=== PATIENT | female | born 1955 | race Caucasian/White ===

== ENCOUNTER 2019-07-02 23:15 | Emergency (ER) | payer MEDICARE ==
[~2019-07-02] VITALS: Ht 170.2 cm; Wt 86.2 kg
[~2019-07-02 23:15] MED LIST: CITA-73; DIAZ10TA3; GABA300C10; LEVO100T8; NAPR500T31; QUET100T46; VICODIN
[2019-07-03 01:16] LABS: Basophils # (auto) 0.1 uL; Basophils % (auto) 0.6 % (0.0-2.0); Eosinophils # (auto) 0.7 uL; Eosinophils % (auto) 6.3 % (0.0-7.0); Hematocrit 41.2 % (36.0-46.0); Hemoglobin 13.7 g/dL (12.2-16.2); Lymphocytes % (auto) 34.6 % (10.0-50.0); Mean Corpuscular Hemoglobin 31.2 pg (28.0-32.0); Mean Corpuscular Hgb Conc. 33.3 g/dL (32.0-36.0); Mean Corpuscular Volume 93.8 fL (80.0-100.0); Monocytes # (auto) 0.8 uL; Monocytes % (auto) 6.7 % (0.0-12.0); Neutrophils # (auto) 6.1 uL; Neutrophils % (auto) 51.8 % (37.0-80.0); Platelet Count (auto) 241 10^3/uL (140-450); Red Cell Distribution Width 14.9 % (11.8-14.3); White Blood Cell 11.7 10^3/uL (4.4-10.8)
[2019-07-03 01:33] LABS: Albumin 3.4 g/dL (3.4-5.0); Anion Gap 8 (5-15); BUN/Creatinine Ratio 13.1; Blood Alcohol < 3.0 mg/dL (0-5); Blood Urea Nitrogen 11 mg/dL (7-18); Calcium 8.5 mg/dL (8.5-10.1); Carbon Dioxide 22 mmol/L (21-32); Chloride 111 mmol/L (98-107); GFR African American 88 mL/min; GFR Non-African American 73 mL/min; Glucose 106 mg/dL (74-106); Magnesium 2.3 mg/dL (1.6-2.6); Potassium 3.7 mmol/L (3.5-5.1); Sodium 141 mmol/L (136-145)
[2019-07-03 01:35] LABS: INR < 0.93 (0.9-1.15); Partial Thromboplastin Time 28.6 sec (23.64-32.05)
[2019-07-03 01:39] LABS: Alanine Aminotransferase 21 U/L (13-56); Alkaline Phosphatase 84 U/L (45-117); Aspartate Aminotransferase 16 U/L (15-37); Bilirubin, Total 0.2 mg/dL (0.2-1.0); Total Protein 6.7 g/dL (6.4-8.2)
[2019-07-03] MEDS ORDERED: NITROGLYCERIN 0.4 MG SL TAB SL ONE (03:32)
[2019-07-03] MEDS ORDERED: SODIUM CHLORIDE 0.9% 1,000 ML IV ONE ×2 (08:13)
[2019-07-03 09:15] VITALS: BP 140/74
== END 2019-07-03 11:04 | disposition home or self-care (01) ==
LOC: ER 23:15 → EDBD 23:15 → ER 07-03 11:04
DX: G45.9 Transient cerebral ischemic attack, unspecified (principal); E78.5 Hyperlipidemia, unspecified; I10 Essential (primary) hypertension; Z90.49 Acquired absence of other specified parts of digestive tract; Z90.710 Acquired absence of both cervix and uterus; Z88.1 Allergy status to other antibiotic agents; Z79.899 Other long term (current) drug therapy
CPT/HCPCS: 36415; 70450; 71045; 80053; 80320; 83735; 84484; 85025; 85610; 85730; 93005; 94761; 99284; J7030

== ENCOUNTER 2022-04-06 15:55 | Inpatient (IN) | payer MEDICARE, MEDICAID ==
[~2022-04-06] VITALS: Ht 149.9 cm; Wt 80.6 kg
[~2022-04-06 15:55] MED LIST changes: -QUET100T46; +QUET100T47
[2022-04-06 16:35] LABS: Basophils # (auto) 0.1 10 ^3/uL (0-0.2); Basophils % (auto) 1.2 % (0.0-2.0); Eosinophils # (auto) 0.4 10 ^3/uL (0-0.8); Eosinophils % (auto) 3.6 % (0.0-7.0); Lymphocytes # (auto) 3.7 10 ^3/uL (0.4-5.4); Lymphocytes % (auto) 37.7 % (10.0-50.0); Mean Corpuscular Hemoglobin 30.9 pg (28.0-32.0); Mean Corpuscular Volume 88.3 fL (80.0-100.0); Monocytes # (auto) 0.7 10 ^3/uL (0-1.3); Monocytes % (auto) 7.3 % (0.0-12.0); Neutrophils # (auto) 4.9 10 ^3/uL (1.6-8.6); Neutrophils % (auto) 50.2 % (37.0-80.0); Nucleated Red Blood Cells % 0.1 %; Red Blood Cells 4.87 10^6/uL (4.0-5.20); Red Cell Distribution Width 13.5 % (11.8-14.3); White Blood Cell 9.8 10^3/uL (4.4-10.8)
[2022-04-06 16:52] LABS: Albumin 3.5 g/dL (3.4-5.0); Calcium 9.1 mg/dL (8.5-10.1); Magnesium 2.1 mg/dL (1.6-2.6)
[2022-04-06 16:55] LABS: BUN/Creatinine Ratio 8.3; Bilirubin, Total 0.4 mg/dL (0.2-1.0); Total Protein 7.7 g/dL (6.4-8.2)
[2022-04-06 17:05] LABS: INR 0.95 (0.9-1.15); Partial Thromboplastin Time 27.3 sec (23.6-33.0)
[2022-04-06] MEDS ORDERED: dilTIAZem 25 MG/5 ML VIAL IV ONE (17:15)
[2022-04-06] MEDS ORDERED: NITROGLYCERIN 0.4 MG SL TAB SL ONE ×2 (18:21→18:30)
[2022-04-06] MEDS ORDERED: IOHEXOL 350 MG/ML 100ML IJ ONE (19:51)
[2022-04-06] MEDS ORDERED: HYDROcodone-ACET 5/325MG TAB PO PRN (20:15)
[2022-04-06] MEDS ORDERED: ONDANSETRON HCL 4 MG/2 ML VIAL IV PRN (20:15)
[2022-04-06] MEDS ORDERED: METOPROLOL TARTRATE 1MG/1ML-5ML VIAL IV PRN (20:15)
[2022-04-06] MEDS ORDERED: dilTIAZem 120MG ER CAP PO ONE (20:15)
[2022-04-06 23:36] VITALS: BP 137/72
[2022-04-07] MEDS: HYDROmorphone HCL 2 MG/ML VL/or syr IV PRN ×3 (01:49→20:25)
[2022-04-07 04:42] VITALS: BP 108/55
[2022-04-07] MEDS ORDERED: SIMV-8 PO (07:51)
[2022-04-07] MEDS ORDERED: TRAZ1TAB12 PO (07:51)
[2022-04-07] MEDS ORDERED: DIAZ10TA3 PO (07:51)
[2022-04-07] MEDS ORDERED: LEVO25TA6 (07:51)
[2022-04-07] MEDS ORDERED: BUSP10TA31 PO (07:51)
[2022-04-07] MEDS ORDERED: MET25T PO (07:51)
[2022-04-07 09:00] VITALS: BP 118/73
[2022-04-07] MEDS: PANTOPRAZOLE 40 MG TAB PO SCH ×2 (09:49→22:28)
[2022-04-07] MEDS: dilTIAZem 120MG ER CAP PO SCH (10:00)
[2022-04-07 13:00] VITALS: BP 130/70
[2022-04-07] MEDS ORDERED: ACETAMINOPHEN 325 MG TAB PO PRN (14:00)
[2022-04-07 17:00] VITALS: BP 130/58
[2022-04-07] MEDS ORDERED: METOPROLOL TARTRATE 1MG/1ML-5ML VIAL IV PRN (18:30)
[2022-04-07] MEDS ORDERED: VERAPAMIL 2.5MG/ML INJ 2ML VIAL IV ONE ×2 (18:30→18:45)
[2022-04-07 22:00] VITALS: BP 138/71
[2022-04-08 05:00] VITALS: BP 132/36
[2022-04-08 08:41] VITALS: BP 138/68
[2022-04-08] MEDS: dilTIAZem 120MG ER CAP PO SCH (09:29)
[2022-04-08] MEDS: PANTOPRAZOLE 40 MG TAB PO SCH ×2 (09:29→23:00)
[2022-04-08] MEDS: HYDROcodone-ACET 5/325MG TAB PO PRN ×3 (09:32→23:00)
[2022-04-08] MEDS: HYDROmorphone HCL 2 MG/ML VL/or syr IV PRN ×2 (12:58→23:13)
[2022-04-08 13:11] VITALS: BP 157/78
[2022-04-08 17:27] VITALS: BP 119/68
[2022-04-08 22:40] VITALS: BP 142/62
[2022-04-09 05:07] VITALS: BP 141/62
[2022-04-09 09:00] VITALS: BP 146/71
[2022-04-09] MEDS: PANTOPRAZOLE 40 MG TAB PO SCH ×2 (09:02→22:18)
[2022-04-09] MEDS: dilTIAZem 120MG ER CAP PO SCH (09:04)
[2022-04-09 13:00] VITALS: BP 154/68
[2022-04-09] MEDS: HYDROmorphone HCL 2 MG/ML VL/or syr IV PRN ×2 (13:40→22:21)
[2022-04-09 17:00] VITALS: BP 139/59
[2022-04-09 22:00] VITALS: BP 137/75
[2022-04-10] VITALS (9 sets, daily range): BP systolic 137–172; BP diastolic 55–76
[2022-04-10] MEDS ORDERED: IODIXANOL 320MG/ML 100ML BTL IV ONE (07:29)
[2022-04-10] MEDS ORDERED: VERAPAMIL 2.5MG/ML INJ 2ML VIAL IV ONE (08:01)
[2022-04-10] MEDS ORDERED: ANGIOMAX 250 MG VIAL IV ONE (08:01)
[2022-04-10] MEDS ORDERED: SODIUM CHL 0.9% 0 ML ONE (08:02)
[2022-04-10] MEDS ORDERED: MIDAZOLAM HCL 2MG/2ML 2ml VIAL (1mg/ml) ONE ×2 (08:02→09:45)
[2022-04-10] MEDS ORDERED: fentaNYL CITRATE 100 MCG/2 ML VL ONE ×2 (08:02→09:45)
[2022-04-10] MEDS ORDERED: VANCOMYCIN HCL 1000 MG VL ONE ×2 (08:56→10:31)
[2022-04-10] MEDS ORDERED: VANCOMYCIN 1GM/250ML 250 ML IV ONE ×2 (08:56→15:15)
[2022-04-10] MEDS ORDERED: VANCOMYCIN PER PHARMACY 0 MG IV SCH (11:15)
[2022-04-10] MEDS: dilTIAZem 120MG ER CAP PO SCH (12:47)
[2022-04-10] MEDS: HYDROmorphone HCL 2 MG/ML VL/or syr IV PRN ×3 (12:47→23:17)
[2022-04-10] MEDS: PANTOPRAZOLE 40 MG TAB PO SCH ×2 (12:47→23:06)
[2022-04-10] MEDS ORDERED: diazePAM 5 MG TAB PO SCH (16:15)
[2022-04-10] MEDS: ceFAZolin 1GM/50ML 50 ML IV SCH ×2 (16:40→23:05)
[2022-04-10 20:39] LABS: Albumin 3.1 g/dL (3.4-5.0); BUN/Creatinine Ratio 8.8; Calcium 8.9 mg/dL (8.5-10.1); Phosphorus 3.6 mg/dL (2.5-4.90); Potassium 3.9 mmol/L (3.5-5.1)
[2022-04-10] MEDS: METOPROLOL TARTRATE 25 MG TAB PO SCH (22:00)
[2022-04-10] MEDS: busPIRone HCL 10 MG TAB PO SCH (23:05)
[2022-04-10] MEDS: ATORVASTATIN 20 MG TAB PO SCH (23:05)
[2022-04-10] MEDS: traZODone HCL 50 MG TAB PO SCH (23:05)
[2022-04-11] MEDS ORDERED: VANCOMYCIN 1GM/250ML 250 ML IV SCH (04:00)
[2022-04-11 05:00] VITALS: BP 134/52
[2022-04-11] MEDS: ceFAZolin 1GM/50ML 50 ML IV SCH ×3 (06:00→23:34)
[2022-04-11 06:10] LABS: Albumin 2.9 g/dL (3.4-5.0); BUN/Creatinine Ratio 9.3; Calcium 8.7 mg/dL (8.5-10.1); Phosphorus 3.7 mg/dL (2.5-4.90); Potassium 3.8 mmol/L (3.5-5.1)
[2022-04-11] MEDS: HYDROmorphone HCL 2 MG/ML VL/or syr IV PRN ×4 (07:52→23:56)
[2022-04-11] MEDS: dilTIAZem 120MG ER CAP PO SCH (07:52)
[2022-04-11] MEDS: LEVOTHYROXINE SODIUM 25 MCG TAB PO SCH (07:53)
[2022-04-11] MEDS: PANTOPRAZOLE 40 MG TAB PO SCH ×2 (07:53→23:28)
[2022-04-11] MEDS: METOPROLOL TARTRATE 25 MG TAB PO SCH ×2 (07:53→23:30)
[2022-04-11 08:00] VITALS: BP 155/76
[2022-04-11 12:56] VITALS: BP 140/60
[2022-04-11 16:48] VITALS: BP 140/70
[2022-04-11 22:00] VITALS: BP 151/50
[2022-04-11] MEDS: ATORVASTATIN 20 MG TAB PO SCH (23:28)
[2022-04-11] MEDS: busPIRone HCL 10 MG TAB PO SCH (23:30)
[2022-04-11] MEDS: traZODone HCL 50 MG TAB PO SCH (23:31)
[2022-04-12] MEDS: VANCOMYCIN 1GM/250ML 250 ML IV SCH ×2 (00:32→03:16)
[2022-04-12 05:00] VITALS: BP 154/60
[2022-04-12] MEDS: ceFAZolin 1GM/50ML 50 ML IV SCH (07:02)
[2022-04-12] MEDS: HYDROmorphone HCL 2 MG/ML VL/or syr IV PRN ×2 (07:25→13:17)
[2022-04-12 08:00] VITALS: BP 150/65
[2022-04-12] MEDS: LEVOTHYROXINE SODIUM 25 MCG TAB PO SCH (08:40)
[2022-04-12] MEDS: PANTOPRAZOLE 40 MG TAB PO SCH (08:40)
[2022-04-12] MEDS: METOPROLOL TARTRATE 25 MG TAB PO SCH (08:41)
[2022-04-12] MEDS: dilTIAZem 120MG ER CAP PO SCH (08:41)
[2022-04-12 11:42] VITALS: BP 150/65
[2022-04-12 13:00] VITALS: BP 144/59
[2022-04-12 13:47] VITALS: BP 144/57
== END 2022-04-12 15:15 | disposition home or self-care (01) | DRG 242 ==
LOC: ER 15:55 → EDBD 15:55 → TELE 20:03 → TELE-WESTW 23:28
PROVIDERS: ADMIT Specialist; ATTEND Specialist
PROC: 0JH606Z Insertion of Pacemaker, Dual Chamber into Chest Subcutaneous Tissue and Fascia, Open Approach (ICD-10-PCS; principal; 2022-04-10)
PROC: 4A023N7 Measurement of Cardiac Sampling and Pressure, Left Heart, Percutaneous Approach (ICD-10-PCS; 2022-04-10)
PROC: 02H63JZ Insertion of Pacemaker Lead into Right Atrium, Percutaneous Approach (ICD-10-PCS; 2022-04-10)
PROC: 02HK3JZ Insertion of Pacemaker Lead into Right Ventricle, Percutaneous Approach (ICD-10-PCS; 2022-04-10)
PROC: B211YZZ Fluoroscopy of Multiple Coronary Arteries using Other Contrast (ICD-10-PCS; 2022-04-10)
PROC: B215YZZ Fluoroscopy of Left Heart using Other Contrast (ICD-10-PCS; 2022-04-10)
DX: I49.5 Sick sinus syndrome (principal); I21.A1 Myocardial infarction type 2; I24.9 Acute ischemic heart disease, unspecified; I48.91 Unspecified atrial fibrillation; E05.90 Thyrotoxicosis, unspecified without thyrotoxic crisis or storm; E78.5 Hyperlipidemia, unspecified; I10 Essential (primary) hypertension; Z20.822 Contact with and (suspected) exposure to COVID-19; F32.A Depression, unspecified; F41.9 Anxiety disorder, unspecified; R56.9 Unspecified convulsions; M54.9 Dorsalgia, unspecified; R79.89 Other specified abnormal findings of blood chemistry; Z88.1 Allergy status to other antibiotic agents; Z86.73 Personal history of transient ischemic attack (TIA), and cerebral infarction without residual deficits; Z90.710 Acquired absence of both cervix and uterus; Z95.5 Presence of coronary angioplasty implant and graft; Z90.49 Acquired absence of other specified parts of digestive tract; Z95.0 Presence of cardiac pacemaker
CPT/HCPCS: 33208; 36415; 70450; 70551; 71045; 71275; 80053; 80069; 83735; 84443; 84484; 85025; 85379; 85610; 85730; 93005; 93458; 96374; 96375; 99152; 99153; 99291; C1785; G0378; J0690; J2250; Q9967

== ENCOUNTER 2022-09-20 20:56 | Inpatient (IN) | payer MEDICARE, MEDICAID ==
[~2022-09-20] VITALS: Ht 167.6 cm; Wt 47.2 kg
[~2022-09-20 20:56] MED LIST changes: +BUSP10TA31 PO; -CITA-73; -DIAZ10TA3; +DIAZ10TA3 PO; -GABA300C10; -LEVO100T8; +LEVO25TA6; +MET25T PO; -NAPR500T31; -QUET100T47; +SIMV-8 PO; +TRAZ1TAB12 PO; -VICODIN
[2022-09-20 23:02] LABS: Basophils # (auto) 0.1 10 ^3/uL (0-0.2); Basophils % (auto) 1.1 % (0.0-2.0); Eosinophils # (auto) 0.4 10 ^3/uL (0-0.8); Eosinophils % (auto) 3.7 % (0.0-7.0); Hematocrit 44.3 % (36.0-46.0); Hemoglobin 14.5 g/dL (12.2-16.2); Lymphocytes # (auto) 2.1 10 ^3/uL (0.4-5.4); Lymphocytes % (auto) 22.3 % (10.0-50.0); Mean Corpuscular Hemoglobin 29.4 pg (28.0-32.0); Mean Corpuscular Hgb Conc. 32.6 g/dL (32.0-36.0); Mean Corpuscular Volume 90.2 fL (80.0-100.0); Monocytes # (auto) 0.9 10 ^3/uL (0-1.3); Monocytes % (auto) 9.1 % (0.0-12.0); Neutrophils # (auto) 6.1 10 ^3/uL (1.6-8.6); Neutrophils % (auto) 63.8 % (37.0-80.0); Nucleated Red Blood Cells % 0.1 %; Red Blood Cells 4.92 10^6/uL (4.0-5.20); Red Cell Distribution Width 14.1 % (11.8-14.3); White Blood Cell 9.6 10^3/uL (4.4-10.8)
[2022-09-20 23:16] LABS: INR 0.97 (0.9-1.15); Partial Thromboplastin Time 31.4 sec (24.6-33.4)
[2022-09-20 23:19] LABS: Albumin 3.3 g/dL (3.4-5.0); Calcium 9.2 mg/dL (8.5-10.1); Potassium 4.1 mmol/L (3.5-5.1)
[2022-09-20 23:24] LABS: BUN/Creatinine Ratio 13.8; Bilirubin, Total 0.4 mg/dL (0.2-1.0); Total Protein 6.5 g/dL (6.4-8.2)
[2022-09-21] MEDS ORDERED: ACETAMINOPHEN 325 MG TAB PO PRN (03:15)
[2022-09-21] MEDS ORDERED: NITROGLYCERIN 0.4 MG SL TAB SL PRN (03:15)
[2022-09-21] MEDS ORDERED: MORPHINE SULFATE INJ 2 MG/ml SYRG IV PRN (03:15)
[2022-09-21] MEDS ORDERED: ONDANSETRON HCL 4 MG/2 ML VIAL IV PRN (03:15)
[2022-09-21] MEDS ORDERED: DOCUSATE SOD 100 MG CAP PO PRN (03:15)
[2022-09-21] MEDS ORDERED: hydrALAZINE HCL 20 MG/ML VL IV PRN (03:15)
[2022-09-21 04:34] LABS: Basophils # (auto) 0.1 10 ^3/uL (0-0.2); Basophils % (auto) 1.3 % (0.0-2.0); Eosinophils # (auto) 0.4 10 ^3/uL (0-0.8); Eosinophils % (auto) 4.8 % (0.0-7.0); Hematocrit 43.8 % (36.0-46.0); Hemoglobin 14.1 g/dL (12.2-16.2); Lymphocytes # (auto) 2.6 10 ^3/uL (0.4-5.4); Lymphocytes % (auto) 32.5 % (10.0-50.0); Mean Corpuscular Hemoglobin 29.1 pg (28.0-32.0); Mean Corpuscular Hgb Conc. 32.2 g/dL (32.0-36.0); Mean Corpuscular Volume 90.4 fL (80.0-100.0); Monocytes # (auto) 0.8 10 ^3/uL (0-1.3); Monocytes % (auto) 9.9 % (0.0-12.0); Neutrophils # (auto) 4.2 10 ^3/uL (1.6-8.6); Neutrophils % (auto) 51.5 % (37.0-80.0); Red Blood Cells 4.85 10^6/uL (4.0-5.20); Red Cell Distribution Width 14.3 % (11.8-14.3); White Blood Cell 8.1 10^3/uL (4.4-10.8)
[2022-09-21 04:55] LABS: Albumin 3.1 g/dL (3.4-5.0); Calcium 9.2 mg/dL (8.5-10.1); Potassium 4.3 mmol/L (3.5-5.1)
[2022-09-21 05:00] LABS: BUN/Creatinine Ratio 14.1; Bilirubin, Total 0.5 mg/dL (0.2-1.0); Total Protein 6.2 g/dL (6.4-8.2)
[2022-09-21] MEDS: HYDROcodone-ACET 5/325MG TAB PO PRN ×3 (05:28→23:21)
[2022-09-21] MEDS: SODIUM CHLORIDE 0.9% 1,000 ML IV SCH (05:29)
[2022-09-21] MEDS ORDERED: LEVOTHYROXINE SODIUM 25 MCG TAB PO SCH ×2 (07:00→13:45)
[2022-09-21] MEDS: ASPirin 81 mg TAB PO SCH (09:48)
[2022-09-21] MEDS ORDERED: LEVOTHYROXINE SODIUM 100 MCG/5 ML INJ IV ONE (13:45)
[2022-09-21] MEDS ORDERED: LORazepam 2MG/ML-1ML VIAL IV PRN ×2 (18:45)
[2022-09-21 19:16] LABS: Cholesterol 153 mg/dL (< 200)
[2022-09-21 19:19] LABS: HDL Cholesterol 59 mg/dL (40-59); LDL Cholesterol 93 mg/dL (< 100); Triglycerides 98 mg/dL (< 150)
[2022-09-21] MEDS ORDERED: CITA-245 PO (22:15)
[2022-09-21] MEDS ORDERED: RIVA20TA PO (22:15)
[2022-09-21] MEDS ORDERED: AMIO200T33 PO (22:15)
[2022-09-21] MEDS: ATORVASTATIN 20 MG TAB PO SCH (23:20)
[2022-09-22] MEDS: SODIUM CHLORIDE 0.9% 1,000 ML IV SCH ×2 (05:42→18:32)
[2022-09-22] MEDS: HYDROcodone-ACET 5/325MG TAB PO PRN ×3 (06:00→22:59)
[2022-09-22 07:14] LABS: Basophils # (auto) 0.1 10 ^3/uL (0-0.2); Basophils % (auto) 0.9 % (0.0-2.0); Eosinophils # (auto) 0.3 10 ^3/uL (0-0.8); Eosinophils % (auto) 4.1 % (0.0-7.0); Hematocrit 41.4 % (36.0-46.0); Hemoglobin 13.4 g/dL (12.2-16.2); Lymphocytes # (auto) 1.3 10 ^3/uL (0.4-5.4); Lymphocytes % (auto) 16.7 % (10.0-50.0); Mean Corpuscular Hemoglobin 29.3 pg (28.0-32.0); Mean Corpuscular Hgb Conc. 32.3 g/dL (32.0-36.0); Mean Corpuscular Volume 90.7 fL (80.0-100.0); Monocytes # (auto) 0.9 10 ^3/uL (0-1.3); Monocytes % (auto) 10.9 % (0.0-12.0); Neutrophils # (auto) 5.4 10 ^3/uL (1.6-8.6); Neutrophils % (auto) 67.4 % (37.0-80.0); Nucleated Red Blood Cells % 0.1 %; Red Blood Cells 4.57 10^6/uL (4.0-5.20); Red Cell Distribution Width 14.1 % (11.8-14.3)
[2022-09-22 07:25] LABS: Albumin 2.8 g/dL (3.4-5.0); Calcium 8.5 mg/dL (8.5-10.1); Potassium 4.4 mmol/L (3.5-5.1)
[2022-09-22 07:28] LABS: BUN/Creatinine Ratio 15.7; Bilirubin, Total 0.7 mg/dL (0.2-1.0); Total Protein 6.4 g/dL (6.4-8.2)
[2022-09-22] MEDS: ASPirin 81 mg TAB PO SCH ×3 (09:42→11:51)
[2022-09-22] MEDS ORDERED: LEVOTHYROXINE SODIUM 100 MCG/5 ML INJ IV SCH (10:00)
[2022-09-22 22:20] VITALS: BP 142/60
[2022-09-22] MEDS: ATORVASTATIN 20 MG TAB PO SCH (22:24)
[2022-09-22] MEDS ORDERED: TRAZ-181 PO (22:36)
[2022-09-22] MEDS: ALPRAZolam 0.25 MG TAB PO PRN (22:58)
[2022-09-23] MEDS: HYDROcodone-ACET 5/325MG TAB PO PRN (03:44)
[2022-09-23 05:00] VITALS: BP 134/61
[2022-09-23] MEDS: SODIUM CHLORIDE 0.9% 1,000 ML IV SCH ×2 (05:35→21:55)
[2022-09-23 09:00] VITALS: BP 151/66
[2022-09-23] MEDS: ASPirin 81 mg TAB PO SCH (11:13)
[2022-09-23] MEDS: ALPRAZolam 0.25 MG TAB PO PRN ×2 (12:09→20:43)
[2022-09-23 12:56] VITALS: BP 148/72
[2022-09-23 16:55] VITALS: BP 147/78
[2022-09-23] MEDS: ATORVASTATIN 20 MG TAB PO SCH (20:43)
[2022-09-23 22:00] VITALS: BP 140/71
[2022-09-23] MEDS ORDERED: MIRTAZAPINE 30 MG TAB PO SCH (22:00)
[2022-09-24 05:00] VITALS: BP 161/61
[2022-09-24] MEDS: SODIUM CHLORIDE 0.9% 1,000 ML IV SCH (08:49)
[2022-09-24 09:08] VITALS: BP 145/59
[2022-09-24] MEDS: ASPirin 81 mg TAB PO SCH (09:48)
[2022-09-24] MEDS ORDERED: MIRT-68 PO (09:58)
[2022-09-24] MEDS ORDERED: ALPR1TAB2 PO (09:58)
[2022-09-24] MEDS: ALPRAZolam 0.25 MG TAB PO PRN (10:04)
[2022-09-24 10:55] VITALS: BP 145/59
== END 2022-09-24 12:35 | disposition home or self-care (01) | DRG 312 ==
LOC: ER 20:56 → EDBD 20:56 → TELE 09-21 03:15 → TELE-EAST 09-22 21:42
PROVIDERS: ADMIT Nurse Practitioner Family; ATTEND Family Medicine
DX: R55 Syncope and collapse (principal); F33.1 Major depressive disorder, recurrent, moderate; E05.80 Other thyrotoxicosis without thyrotoxic crisis or storm; E03.9 Hypothyroidism, unspecified; E78.5 Hyperlipidemia, unspecified; E88.09 Other disorders of plasma-protein metabolism, not elsewhere classified; Z20.822 Contact with and (suspected) exposure to COVID-19; F41.9 Anxiety disorder, unspecified; G40.909 Epilepsy, unspecified, not intractable, without status epilepticus; I10 Essential (primary) hypertension; I48.91 Unspecified atrial fibrillation; J06.9 Acute upper respiratory infection, unspecified; M19.012 Primary osteoarthritis, left shoulder; E78.00 Pure hypercholesterolemia, unspecified; Z90.710 Acquired absence of both cervix and uterus; Z88.1 Allergy status to other antibiotic agents; Z79.82 Long term (current) use of aspirin; Z79.899 Other long term (current) drug therapy; Z87.891 Personal history of nicotine dependence; Z85.820 Personal history of malignant melanoma of skin; Z82.49 Family history of ischemic heart disease and other diseases of the circulatory system; Z82.3 Family history of stroke; Z83.3 Family history of diabetes mellitus; Z80.3 Family history of malignant neoplasm of breast; Z81.8 Family history of other mental and behavioral disorders; Z95.810 Presence of automatic (implantable) cardiac defibrillator; Z86.73 Personal history of transient ischemic attack (TIA), and cerebral infarction without residual deficits; Z90.49 Acquired absence of other specified parts of digestive tract; Z88.8 Allergy status to other drugs, medicaments and biological substances
CPT/HCPCS: 36415; 70450; 70551; 71045; 73200; 80053; 80061; 82607; 83880; 84443; 84484; 85025; 85610; 85730; 87426; 93005; 93306; 93886; 95819; G0378; J2405

== ENCOUNTER 2022-12-05 06:43 | Inpatient (IN) | payer MEDICARE, MEDICAID ==
[~2022-12-05] VITALS: Ht 175.3 cm; Wt 89.2 kg
[~2022-12-05 06:43] MED LIST changes: +ALPR1TAB2 PO; +AMIO200T33 PO; +CITA-245 PO; +MIRT-68 PO; +RIVA20TA PO; +TRAZ-181 PO; -TRAZ1TAB12 PO
[2022-12-05] MEDS ORDERED: SODIUM CHLORIDE 0.9% 500 ML IVB ONE (07:15)
[2022-12-05 07:22] LABS: Basophils # (auto) 0 10 ^3/uL (0-0.2); Basophils % (auto) 0.3 % (0.0-2.0); Eosinophils # (auto) 0.3 10 ^3/uL (0-0.8); Eosinophils % (auto) 3.5 % (0.0-7.0); Hematocrit 42.9 % (36.0-46.0); Hemoglobin 14.4 g/dL (12.2-16.2); Lymphocytes # (auto) 3.4 10 ^3/uL (0.4-5.4); Lymphocytes % (auto) 40.5 % (10.0-50.0); Mean Corpuscular Hemoglobin 31.5 pg (28.0-32.0); Mean Corpuscular Hgb Conc. 33.5 g/dL (32.0-36.0); Mean Corpuscular Volume 94.1 fL (80.0-100.0); Monocytes # (auto) 0.5 10 ^3/uL (0-1.3); Monocytes % (auto) 5.7 % (0.0-12.0); Neutrophils # (auto) 4.2 10 ^3/uL (1.6-8.6); Red Blood Cells 4.56 10^6/uL (4.0-5.20); Red Cell Distribution Width 18.2 % (11.8-14.3); White Blood Cell 8.3 10^3/uL (4.4-10.8)
[2022-12-05 07:34] LABS: Albumin 3.5 g/dL (3.4-5.0); Calcium 8.7 mg/dL (8.5-10.1); Magnesium 2.8 mg/dL (1.6-2.6)
[2022-12-05 07:38] LABS: Bilirubin, Total 0.5 mg/dL (0.2-1.0); Total Protein 6.9 g/dL (6.4-8.2)
[2022-12-05 08:11] LABS: INR 0.95 (0.9-1.15); Partial Thromboplastin Time 27.1 sec (24.6-33.4)
[2022-12-05] MEDS ORDERED: IOHEXOL 300 MG/ML 100ML BOTTLE IJ ONE (09:28)
[2022-12-05] MEDS ORDERED: PANTOPRAZOLE 40 MG/10 ML VIAL INJ IV ONE (09:30)
[2022-12-05] MEDS ORDERED: MORPHINE SULFATE INJ 2 MG/ml SYRG IV PRN (09:30)
[2022-12-05] MEDS ORDERED: ASPirin 325 MG TAB PO ONE (09:30)
[2022-12-05] MEDS ORDERED: NITROGLYCERIN 0.4 MG SL TAB SL PRN (09:30)
[2022-12-05] MEDS: METOPROLOL TARTRATE 25 MG TAB PO SCH (10:00)
[2022-12-05] MEDS ORDERED: ENOXAPARIN SOD 40 MG/0.4 ML SYRINGE SC SCH (10:00)
[2022-12-05] MEDS: ASPirin 81 mg TAB PO SCH (10:41)
[2022-12-05 11:00] LABS: Cholesterol 191 mg/dL (< 200)
[2022-12-05 11:03] LABS: HDL Cholesterol 67 mg/dL (40-59); LDL Cholesterol 105 mg/dL (< 100); Triglycerides 110 mg/dL (< 150)
[2022-12-05] MEDS: SODIUM CHLORIDE 0.9% 1,000 ML IV SCH (11:05)
[2022-12-05] MEDS: CITALOPRAM HYDROBR 20 MG TAB PO SCH (11:09)
[2022-12-05] MEDS: LEVOTHYROXINE SODIUM 25 MCG TAB PO SCH (11:10)
[2022-12-05] MEDS: RIVAROXABAN 20 MG TAB PO SCH (11:10)
[2022-12-05] MEDS: ACETAMINOPHEN 325 MG TAB PO PRN ×2 (11:12→16:01)
[2022-12-05] MEDS: AMIODARONE HCL 200 MG TAB PO SCH (11:22)
[2022-12-05] MEDS: Mirtazapine 7.5 MG TABLET PO SCH (18:00)
[2022-12-05] MEDS: hydrALAZINE HCL 20 MG/ML VL IV PRN (21:02)
[2022-12-05] MEDS: ATORVASTATIN 20 MG TAB PO SCH (22:08)
[2022-12-05] MEDS: busPIRone HCL 10 MG TAB PO SCH (22:13)
[2022-12-06] MEDS: SODIUM CHLORIDE 0.9% 1,000 ML IV SCH ×2 (02:10→18:31)
[2022-12-06 05:00] VITALS: BP 139/63
[2022-12-06 06:40] LABS: Albumin 3.2 g/dL (3.4-5.0); Calcium 8.6 mg/dL (8.5-10.1); Potassium 3.6 mmol/L (3.5-5.1)
[2022-12-06 06:42] LABS: BUN/Creatinine Ratio 10.2
[2022-12-06 06:44] LABS: Bilirubin, Total 0.4 mg/dL (0.2-1.0); Total Protein 6.1 g/dL (6.4-8.2)
[2022-12-06 07:54] LABS: Hemoglobin 13.5 g/dL (12.2-16.2); Nucleated Red Blood Cells % 0.1 %
[2022-12-06 07:57] LABS: Basophils # (auto) 0.2 10 ^3/uL (0-0.2); Basophils % (auto) 1.8 % (0.0-2.0); Eosinophils # (auto) 0.2 10 ^3/uL (0-0.8); Eosinophils % (auto) 2.7 % (0.0-7.0); Lymphocytes # (auto) 3.2 10 ^3/uL (0.4-5.4); Lymphocytes % (auto) 36.2 % (10.0-50.0); Mean Corpuscular Hemoglobin 31.2 pg (28.0-32.0); Mean Corpuscular Volume 94.4 fL (80.0-100.0); Monocytes # (auto) 0.5 10 ^3/uL (0-1.3); Monocytes % (auto) 6.1 % (0.0-12.0); Neutrophils # (auto) 4.7 10 ^3/uL (1.6-8.6); Neutrophils % (auto) 53.2 % (37.0-80.0); Red Blood Cells 4.34 10^6/uL (4.0-5.20); Red Cell Distribution Width 17.9 % (11.8-14.3); White Blood Cell 8.8 10^3/uL (4.4-10.8)
[2022-12-06 08:38] VITALS: BP 125/59
[2022-12-06] MEDS: ASPirin 81 mg TAB PO SCH (09:56)
[2022-12-06] MEDS: CITALOPRAM HYDROBR 20 MG TAB PO SCH (09:56)
[2022-12-06] MEDS: AMIODARONE HCL 200 MG TAB PO SCH (09:56)
[2022-12-06] MEDS: RIVAROXABAN 20 MG TAB PO SCH (09:57)
[2022-12-06] MEDS: METOPROLOL TARTRATE 25 MG TAB PO SCH (09:57)
[2022-12-06] MEDS: LEVOTHYROXINE SODIUM 25 MCG TAB PO SCH (09:57)
[2022-12-06] MEDS ORDERED: PANTOPRAZOLE 40 MG/10 ML VIAL INJ IV SCH (10:00)
[2022-12-06 10:31] LABS: Urine Bacteria NONE SEEN /hpf (None Seen); Urine Blood Negative /uL (Negative); Urine Specific Gravity 1.013 (1.001-1.035); Urine WBC 64 /hpf (0 - 5)
[2022-12-06 12:20] VITALS: BP 157/76
[2022-12-06] MEDS: LEVOTHYROXINE SODIUM 50 MCG TAB PO SCH (13:15)
[2022-12-06] MEDS: hydrALAZINE HCL 20 MG/ML VL IV PRN (16:26)
[2022-12-06 17:08] VITALS: BP 171/85
[2022-12-06] MEDS: Mirtazapine 7.5 MG TABLET PO SCH (17:45)
[2022-12-06] MEDS: ACETAMINOPHEN 325 MG TAB PO PRN (17:54)
[2022-12-06] MEDS: ATORVASTATIN 20 MG TAB PO SCH (21:40)
[2022-12-06] MEDS: busPIRone HCL 10 MG TAB PO SCH (21:40)
[2022-12-06 22:10] VITALS: BP 148/82
[2022-12-06] MEDS: ALPRAZolam 0.5 MG TAB PO PRN (22:30)
[2022-12-07] MEDS: ACETAMINOPHEN 325 MG TAB PO PRN (04:51)
[2022-12-07 05:11] VITALS: BP 142/82
[2022-12-07] MEDS: LEVOTHYROXINE SODIUM 50 MCG TAB PO SCH (06:30)
[2022-12-07 09:00] VITALS: BP 150/84
[2022-12-07] MEDS: LEVOTHYROXINE SODIUM 100 MCG/5 ML INJ IV SCH (10:01)
[2022-12-07] MEDS: ASPirin 81 mg TAB PO SCH (10:01)
[2022-12-07] MEDS: RIVAROXABAN 20 MG TAB PO SCH (10:01)
[2022-12-07] MEDS: AMIODARONE HCL 200 MG TAB PO SCH (10:02)
[2022-12-07] MEDS: METOPROLOL TARTRATE 25 MG TAB PO SCH (10:02)
[2022-12-07] MEDS: CITALOPRAM HYDROBR 20 MG TAB PO SCH (10:02)
[2022-12-07 13:00] VITALS: BP 154/88
[2022-12-07 17:00] VITALS: BP 142/71
[2022-12-07] MEDS: Mirtazapine 7.5 MG TABLET PO SCH (18:00)
[2022-12-07] MEDS: ALPRAZolam 0.5 MG TAB PO PRN (20:20)
[2022-12-07] MEDS: traZODone HCL 50 MG TAB PO SCH (21:54)
[2022-12-07] MEDS: ATORVASTATIN 20 MG TAB PO SCH (21:54)
[2022-12-07] MEDS: busPIRone HCL 10 MG TAB PO SCH (21:55)
[2022-12-07 22:00] VITALS: BP 157/79
[2022-12-07] MEDS: hydrALAZINE HCL 20 MG/ML VL IV PRN (22:05)
[2022-12-08 05:00] VITALS: BP 141/86
[2022-12-08] MEDS: LEVOTHYROXINE SODIUM 50 MCG TAB PO SCH (06:20)
[2022-12-08] MEDS: CITALOPRAM HYDROBR 20 MG TAB PO SCH (08:43)
[2022-12-08] MEDS: LEVOTHYROXINE SODIUM 100 MCG/5 ML INJ IV SCH (08:43)
[2022-12-08] MEDS: AMIODARONE HCL 200 MG TAB PO SCH (08:43)
[2022-12-08] MEDS: METOPROLOL TARTRATE 25 MG TAB PO SCH (08:43)
[2022-12-08 08:45] VITALS: BP 131/74
[2022-12-08] MEDS: RIVAROXABAN 20 MG TAB PO SCH (10:00)
[2022-12-08] MEDS: ASPirin 81 mg TAB PO SCH (10:00)
[2022-12-08] MEDS: ALPRAZolam 0.5 MG TAB PO PRN (12:17)
[2022-12-08 13:00] VITALS: BP 137/77
[2022-12-08 17:17] VITALS: BP 127/69
[2022-12-08] MEDS: Mirtazapine 7.5 MG TABLET PO SCH (17:18)
[2022-12-08 21:11] VITALS: BP 115/68
[2022-12-08] MEDS: busPIRone HCL 10 MG TAB PO SCH (21:13)
[2022-12-08] MEDS: ATORVASTATIN 20 MG TAB PO SCH (21:13)
[2022-12-08] MEDS: traZODone HCL 50 MG TAB PO SCH (21:13)
[2022-12-08 22:00] VITALS: BP 137/70
[2022-12-09] MEDS: ALPRAZolam 0.5 MG TAB PO PRN ×2 (00:17→15:22)
[2022-12-09 05:00] VITALS: BP 110/55
[2022-12-09] MEDS: LEVOTHYROXINE SODIUM 50 MCG TAB PO SCH (05:40)
[2022-12-09] MEDS: ASPirin 81 mg TAB PO SCH (08:12)
[2022-12-09] MEDS: AMIODARONE HCL 200 MG TAB PO SCH (08:12)
[2022-12-09] MEDS: CITALOPRAM HYDROBR 20 MG TAB PO SCH (08:12)
[2022-12-09] MEDS: LEVOTHYROXINE SODIUM 100 MCG/5 ML INJ IV SCH (08:12)
[2022-12-09] MEDS: RIVAROXABAN 20 MG TAB PO SCH (08:13)
[2022-12-09] MEDS: METOPROLOL TARTRATE 25 MG TAB PO SCH (08:14)
[2022-12-09 09:00] VITALS: BP 127/56
[2022-12-09 13:00] VITALS: BP 126/52
[2022-12-09 17:00] VITALS: BP 128/66
[2022-12-09] MEDS: Mirtazapine 7.5 MG TABLET PO SCH (17:18)
[2022-12-09] MEDS: busPIRone HCL 10 MG TAB PO SCH (21:49)
[2022-12-09] MEDS: traZODone HCL 50 MG TAB PO SCH (21:50)
[2022-12-09] MEDS: ATORVASTATIN 20 MG TAB PO SCH (21:50)
[2022-12-09 22:00] VITALS: BP 118/64
[2022-12-09] MEDS: ACETAMINOPHEN 325 MG TAB PO PRN (23:21)
[2022-12-10 05:00] VITALS: BP 130/74
[2022-12-10] MEDS: LEVOTHYROXINE SODIUM 50 MCG TAB PO SCH (06:19)
[2022-12-10 09:00] VITALS: BP 143/66
[2022-12-10] MEDS: ASPirin 81 mg TAB PO SCH (09:39)
[2022-12-10] MEDS: METOPROLOL TARTRATE 25 MG TAB PO SCH (09:39)
[2022-12-10] MEDS: CITALOPRAM HYDROBR 20 MG TAB PO SCH (09:39)
[2022-12-10] MEDS: AMIODARONE HCL 200 MG TAB PO SCH (09:39)
[2022-12-10] MEDS: LEVOTHYROXINE SODIUM 100 MCG/5 ML INJ IV SCH (09:39)
[2022-12-10] MEDS: RIVAROXABAN 20 MG TAB PO SCH (09:39)
[2022-12-10] MEDS: ALPRAZolam 0.5 MG TAB PO PRN (15:37)
[2022-12-10 17:00] VITALS: BP 121/52
[2022-12-10] MEDS: Mirtazapine 7.5 MG TABLET PO SCH (17:23)
[2022-12-10] MEDS: traZODone HCL 50 MG TAB PO SCH (20:53)
[2022-12-10] MEDS: busPIRone HCL 10 MG TAB PO SCH (20:53)
[2022-12-10] MEDS: ATORVASTATIN 20 MG TAB PO SCH (20:54)
[2022-12-10 22:00] VITALS: BP 120/64
[2022-12-11] MEDS: ALPRAZolam 0.5 MG TAB PO PRN (04:51)
[2022-12-11 05:00] VITALS: BP 136/66
[2022-12-11] MEDS: LEVOTHYROXINE SODIUM 50 MCG TAB PO SCH (06:07)
[2022-12-11 08:00] VITALS: BP 104/63
[2022-12-11] MEDS: LEVOTHYROXINE SODIUM 100 MCG/5 ML INJ IV SCH (10:33)
[2022-12-11] MEDS: CITALOPRAM HYDROBR 20 MG TAB PO SCH (10:33)
[2022-12-11] MEDS: ASPirin 81 mg TAB PO SCH (10:33)
[2022-12-11] MEDS: RIVAROXABAN 20 MG TAB PO SCH (10:34)
[2022-12-11] MEDS: AMIODARONE HCL 200 MG TAB PO SCH (10:34)
[2022-12-11] MEDS: METOPROLOL TARTRATE 25 MG TAB PO SCH (10:35)
[2022-12-11 12:00] VITALS: BP 128/66
[2022-12-11 16:00] VITALS: BP 126/73
[2022-12-11] MEDS: Mirtazapine 7.5 MG TABLET PO SCH (17:14)
[2022-12-11 22:00] VITALS: BP 116/61
[2022-12-11] MEDS: busPIRone HCL 10 MG TAB PO SCH (22:46)
[2022-12-11] MEDS: traZODone HCL 50 MG TAB PO SCH (22:48)
[2022-12-11] MEDS: ATORVASTATIN 20 MG TAB PO SCH (22:48)
[2022-12-12 05:00] VITALS: BP 123/60
[2022-12-12] MEDS: LEVOTHYROXINE SODIUM 50 MCG TAB PO SCH (06:26)
[2022-12-12 08:00] VITALS: BP 129/66
[2022-12-12] MEDS: CITALOPRAM HYDROBR 20 MG TAB PO SCH (08:52)
[2022-12-12] MEDS: ASPirin 81 mg TAB PO SCH (08:52)
[2022-12-12] MEDS: RIVAROXABAN 20 MG TAB PO SCH (08:52)
[2022-12-12] MEDS: LEVOTHYROXINE SODIUM 100 MCG/5 ML INJ IV SCH (08:53)
[2022-12-12] MEDS: METOPROLOL TARTRATE 25 MG TAB PO SCH (08:55)
[2022-12-12] MEDS: AMIODARONE HCL 200 MG TAB PO SCH (10:41)
[2022-12-12] MEDS ORDERED: LEVO175C2 PO (11:04)
[2022-12-12] MEDS ORDERED: RIVA20TA PO (11:04)
[2022-12-12] MEDS ORDERED: AMIO200T33 PO (11:04)
[2022-12-12] MEDS ORDERED: METO25TA93 PO (11:04)
[2022-12-12 12:00] VITALS: BP 134/62
[2022-12-12 13:41] VITALS: BP 129/66
== END 2022-12-12 15:58 | disposition home or self-care (01) | DRG 313 ==
LOC: ER 06:43 → TELE 09:24 → TELE-EAST 21:16
PROVIDERS: ADMIT Nurse Practitioner Family; ATTEND Internal Medicine Geriatric Medicine
PROC: 05HB33Z Insertion of Infusion Device into Right Basilic Vein, Percutaneous Approach (ICD-10-PCS; principal; 2022-12-07)
PROC: B54MZZA Ultrasonography of Right Upper Extremity Veins, Guidance (ICD-10-PCS; 2022-12-07)
DX: R07.89 Other chest pain (principal); E66.01 Morbid (severe) obesity due to excess calories; E78.5 Hyperlipidemia, unspecified; F32.A Depression, unspecified; F41.9 Anxiety disorder, unspecified; I10 Essential (primary) hypertension; I48.91 Unspecified atrial fibrillation; R56.9 Unspecified convulsions; E03.9 Hypothyroidism, unspecified; Z20.822 Contact with and (suspected) exposure to COVID-19; R79.89 Other specified abnormal findings of blood chemistry; I20.9 Angina pectoris, unspecified; Z68.28 Body mass index [BMI] 28.0-28.9, adult; Z79.01 Long term (current) use of anticoagulants; Z85.820 Personal history of malignant melanoma of skin; Z86.73 Personal history of transient ischemic attack (TIA), and cerebral infarction without residual deficits; Z88.1 Allergy status to other antibiotic agents; Z90.710 Acquired absence of both cervix and uterus; Z95.0 Presence of cardiac pacemaker; Z90.49 Acquired absence of other specified parts of digestive tract
CPT/HCPCS: 36415; 70450; 71045; 71275; 76536; 80053; 80061; 81001; 83036; 83735; 84443; 84484; 85025; 85379; 85610; 85730; 87426; 93005; 97110; 97116; 97163; 97530; C9113; G0378; J3490

== ENCOUNTER 2023-01-03 15:22 | Inpatient (IN) | payer MEDICARE, MEDICAID ==
[~2023-01-03] VITALS: Ht 165.1 cm; Wt 86.1 kg
[~2023-01-03 15:22] MED LIST changes: +LEVO175C2 PO; +METO25TA93 PO
[2023-01-03] MEDS ORDERED: NITROGLYCERIN 0.4 MG SL TAB SL ONE (15:30)
[2023-01-03] MEDS ORDERED: ASPirin 325 MG TAB PO ONE (15:30)
[2023-01-03 16:28] LABS: Basophils # (auto) 0.1 10 ^3/uL (0-0.2); Basophils % (auto) 1.1 % (0.0-2.0); Eosinophils # (auto) 0.3 10 ^3/uL (0-0.8); Eosinophils % (auto) 3.3 % (0.0-7.0); Hematocrit 40.1 % (36.0-46.0); Hemoglobin 13.5 g/dL (12.2-16.2); Lymphocytes # (auto) 2.7 10 ^3/uL (0.4-5.4); Lymphocytes % (auto) 32.4 % (10.0-50.0); Mean Corpuscular Hemoglobin 32.4 pg (28.0-32.0); Mean Corpuscular Hgb Conc. 33.7 g/dL (32.0-36.0); Mean Corpuscular Volume 96.1 fL (80.0-100.0); Monocytes # (auto) 0.5 10 ^3/uL (0-1.3); Monocytes % (auto) 6.5 % (0.0-12.0); Neutrophils # (auto) 4.6 10 ^3/uL (1.6-8.6); Neutrophils % (auto) 56.7 % (37.0-80.0); Nucleated Red Blood Cells % 0.2 %; Red Blood Cells 4.18 10^6/uL (4.0-5.20); Red Cell Distribution Width 16.3 % (11.8-14.3); White Blood Cell 8.2 10^3/uL (4.4-10.8)
[2023-01-03] MEDS ORDERED: cefTRIAXone 1GM/50ML D5W 50 ML IV ONE (16:30)
[2023-01-03] MEDS ORDERED: AZITHROMYCIN 500MG/ 250ML 250 ML IV ONE (16:30)
[2023-01-03 16:35] LABS: Albumin 3.6 g/dL (3.4-5.0)
[2023-01-03 16:39] LABS: BUN/Creatinine Ratio 11.5; Bilirubin, Total 0.4 mg/dL (0.2-1.0)
[2023-01-03] MEDS ORDERED: ACETAMINOPHEN 325 MG TAB PO PRN (21:45)
[2023-01-03] MEDS ORDERED: ONDANSETRON HCL 4 MG/2 ML VIAL IV PRN (21:45)
[2023-01-03] MEDS ORDERED: ONDANSETRON HCL 4 MG/2 ML VIAL IV ONE (21:45)
[2023-01-03] MEDS ORDERED: DOCUSATE SOD 100 MG CAP PO PRN (21:45)
[2023-01-03] MEDS ORDERED: MORPHINE SULFATE INJ 2 MG/ml SYRG IV ONE (21:45)
[2023-01-03] MEDS: SODIUM CHLOR 0.9% PF (SALINE LOCK) 10ML VIAL/SYR IV SCH (22:46)
[2023-01-03] MEDS: METOPROLOL TARTRATE 25 MG TAB PO SCH (22:51)
[2023-01-03] MEDS: FAMOTIDINE (10MG/ML) 2ML VL IV SCH (22:51)
[2023-01-03] MEDS: ATORVASTATIN 20 MG TAB PO SCH (22:51)
[2023-01-03] MEDS: APIXABAN 5 MG TAB PO SCH (22:52)
[2023-01-03] MEDS: DOXYCYCLINE 100MG/250ML 250 ML IV SCH (22:53)
[2023-01-04] MEDS ORDERED: MORPHINE SULFATE INJ 2 MG/ml SYRG IV PRN
[2023-01-04] MEDS ORDERED: NITROGLYCERIN 0.4 MG SL TAB SL PRN
[2023-01-04 01:27] LABS: Urine Bacteria FEW /hpf (None Seen); Urine Blood Negative /uL (Negative); Urine Mucus FEW (None Seen); Urine Specific Gravity 1.011 (1.001-1.035); Urine WBC 113 /hpf (0 - 5)
[2023-01-04] MEDS: HYDROcodone-ACET 5/325MG TAB PO PRN ×2 (04:10→22:15)
[2023-01-04] MEDS: SODIUM CHLOR 0.9% PF (SALINE LOCK) 10ML VIAL/SYR IV SCH ×3 (05:42→22:16)
[2023-01-04] MEDS: LEVOTHYROXINE SODIUM 50 MCG TAB PO SCH (06:15)
[2023-01-04 09:00] VITALS: BP 146/61
[2023-01-04] MEDS: FAMOTIDINE (10MG/ML) 2ML VL IV SCH ×2 (09:43→22:14)
[2023-01-04] MEDS: DOXYCYCLINE 100MG/250ML 250 ML IV SCH ×2 (09:43→22:16)
[2023-01-04] MEDS: METOPROLOL TARTRATE 25 MG TAB PO SCH ×2 (09:44→22:15)
[2023-01-04] MEDS: ASPirin 81 mg TAB PO SCH (09:45)
[2023-01-04] MEDS: APIXABAN 5 MG TAB PO SCH ×2 (09:45→22:15)
[2023-01-04 10:45] LABS: Basophils # (auto) 0.1 10 ^3/uL (0-0.2); Eosinophils # (auto) 0.2 10 ^3/uL (0-0.8); Eosinophils % (auto) 3.6 % (0.0-7.0); Hematocrit 36.9 % (36.0-46.0); Hemoglobin 12.3 g/dL (12.2-16.2); Lymphocytes # (auto) 2.6 10 ^3/uL (0.4-5.4); Lymphocytes % (auto) 38.2 % (10.0-50.0); Mean Corpuscular Hemoglobin 32.1 pg (28.0-32.0); Mean Corpuscular Hgb Conc. 33.4 g/dL (32.0-36.0); Monocytes # (auto) 0.6 10 ^3/uL (0-1.3); Monocytes % (auto) 9.1 % (0.0-12.0); Neutrophils # (auto) 3.1 10 ^3/uL (1.6-8.6); Neutrophils % (auto) 47.1 % (37.0-80.0); Nucleated Red Blood Cells % 0.2 %; Red Blood Cells 3.85 10^6/uL (4.0-5.20); White Blood Cell 6.7 10^3/uL (4.4-10.8)
[2023-01-04 10:55] LABS: Albumin 3.2 g/dL (3.4-5.0); Calcium 8.5 mg/dL (8.5-10.1); Potassium 3.8 mmol/L (3.5-5.1)
[2023-01-04 10:59] LABS: BUN/Creatinine Ratio 10.1; Bilirubin, Total 0.5 mg/dL (0.2-1.0); Total Protein 6.1 g/dL (6.4-8.2)
[2023-01-04] MEDS ORDERED: cefTRIAXone 1GM/50ML D5W 50 ML IV ONE (11:30)
[2023-01-04] MEDS: amLODIPine BESYLATE 5 MG TAB PO SCH (11:49)
[2023-01-04 13:00] VITALS: BP 121/66
[2023-01-04 17:00] VITALS: BP 101/46
[2023-01-04 22:00] VITALS: BP 109/56
[2023-01-04] MEDS: ATORVASTATIN 20 MG TAB PO SCH (22:14)
[2023-01-05 05:00] VITALS: BP 120/43
[2023-01-05] MEDS: SODIUM CHLOR 0.9% PF (SALINE LOCK) 10ML VIAL/SYR IV SCH ×3 (05:57→21:05)
[2023-01-05] MEDS: LEVOTHYROXINE SODIUM 50 MCG TAB PO SCH (06:33)
[2023-01-05 08:00] VITALS: BP 104/50
[2023-01-05] MEDS: cefTRIAXone 1GM/50ML D5W 50 ML IV SCH (08:18)
[2023-01-05] MEDS: FAMOTIDINE (10MG/ML) 2ML VL IV SCH ×2 (08:19→21:05)
[2023-01-05] MEDS: APIXABAN 5 MG TAB PO SCH ×2 (09:15→21:06)
[2023-01-05] MEDS: ASPirin 81 mg TAB PO SCH (09:23)
[2023-01-05] MEDS: METOPROLOL TARTRATE 25 MG TAB PO SCH ×2 (09:24→21:17)
[2023-01-05] MEDS: amLODIPine BESYLATE 5 MG TAB PO SCH (09:24)
[2023-01-05] MEDS: DOXYCYCLINE 100MG/250ML 250 ML IV SCH ×2 (09:25→21:05)
[2023-01-05 16:00] VITALS: BP 128/63
[2023-01-05] MEDS: ATORVASTATIN 20 MG TAB PO SCH (21:06)
[2023-01-05] MEDS: HYDROcodone-ACET 5/325MG TAB PO PRN (21:28)
[2023-01-05 22:00] VITALS: BP 119/58
[2023-01-06] VITALS (7 sets, daily range): BP systolic 104–136; BP diastolic 50–82
[2023-01-06] MEDS: SODIUM CHLOR 0.9% PF (SALINE LOCK) 10ML VIAL/SYR IV SCH ×2 (06:00→14:00)
[2023-01-06] MEDS: LEVOTHYROXINE SODIUM 50 MCG TAB PO SCH (06:56)
[2023-01-06] MEDS: cefTRIAXone 1GM/50ML D5W 50 ML IV SCH (09:32)
[2023-01-06] MEDS: METOPROLOL TARTRATE 25 MG TAB PO SCH (09:33)
[2023-01-06] MEDS: APIXABAN 5 MG TAB PO SCH (09:33)
[2023-01-06] MEDS: ASPirin 81 mg TAB PO SCH (09:34)
[2023-01-06] MEDS: amLODIPine BESYLATE 5 MG TAB PO SCH (09:34)
[2023-01-06] MEDS: FAMOTIDINE (10MG/ML) 2ML VL IV SCH (09:35)
[2023-01-06] MEDS: DOXYCYCLINE 100MG/250ML 250 ML IV SCH (09:35)
[2023-01-06] MEDS ORDERED: CIPR-173 PO (09:50)
== END 2023-01-06 18:30 | disposition home or self-care (01) | DRG 305 ==
LOC: ER 15:22 → EDBD 15:22 → TELE 23:58 → TELE-CENTR 01-04 08:46
PROVIDERS: ADMIT Nurse Practitioner Family; ATTEND Family Medicine
DX: I16.0 Hypertensive urgency (principal); N39.0 Urinary tract infection, site not specified; I10 Essential (primary) hypertension; E66.01 Morbid (severe) obesity due to excess calories; Z68.31 Body mass index [BMI] 31.0-31.9, adult; E78.5 Hyperlipidemia, unspecified; F32.A Depression, unspecified; E03.9 Hypothyroidism, unspecified; F41.9 Anxiety disorder, unspecified; I48.91 Unspecified atrial fibrillation; Z90.49 Acquired absence of other specified parts of digestive tract; Z98.891 History of uterine scar from previous surgery; Z90.710 Acquired absence of both cervix and uterus; Z95.0 Presence of cardiac pacemaker; Z88.1 Allergy status to other antibiotic agents; Z86.73 Personal history of transient ischemic attack (TIA), and cerebral infarction without residual deficits; Z79.01 Long term (current) use of anticoagulants; Z79.82 Long term (current) use of aspirin; Z85.820 Personal history of malignant melanoma of skin; Z87.891 Personal history of nicotine dependence; Z20.822 Contact with and (suspected) exposure to COVID-19
CPT/HCPCS: 36415; 71045; 80053; 81001; 83605; 83880; 84443; 84484; 85025; 87040; 87086; 87426; 93005; 96365; 96375; 96376; G0378; J0696; J2405; J3490

== ENCOUNTER 2023-01-26 21:30 | Inpatient (IN) | payer MEDICARE, MEDICAID ==
[~2023-01-26] VITALS: Ht 149.9 cm; Wt 78.8 kg
[~2023-01-26 21:30] MED LIST changes: +CIPR-173 PO; -METO25TA93 PO
[2023-01-26 22:16] LABS: Basophils # (auto) 0.1 10 ^3/uL (0-0.2); Eosinophils # (auto) 0.4 10 ^3/uL (0-0.8); Eosinophils % (auto) 4.2 % (0.0-7.0); Hematocrit 34.8 % (36.0-46.0); Hemoglobin 11.9 g/dL (12.2-16.2); Lymphocytes # (auto) 3.4 10 ^3/uL (0.4-5.4); Lymphocytes % (auto) 39.2 % (10.0-50.0); Mean Corpuscular Hemoglobin 32.2 pg (28.0-32.0); Mean Corpuscular Hgb Conc. 34.3 g/dL (32.0-36.0); Monocytes # (auto) 0.5 10 ^3/uL (0-1.3); Monocytes % (auto) 5.9 % (0.0-12.0); Neutrophils # (auto) 4.3 10 ^3/uL (1.6-8.6); Neutrophils % (auto) 49.7 % (37.0-80.0); Nucleated Red Blood Cells % 0.1 %; Red Cell Distribution Width 14.4 % (11.8-14.3); White Blood Cell 8.6 10^3/uL (4.4-10.8)
[2023-01-26 22:29] LABS: INR 1.27 (0.9-1.15); Partial Thromboplastin Time 37.5 sec (24.6-33.4)
[2023-01-26 22:42] LABS: Albumin 3.4 g/dL (3.4-5.0); Calcium 8.9 mg/dL (8.5-10.1); Magnesium 2.1 mg/dL (1.6-2.6); Potassium 3.8 mmol/L (3.5-5.1)
[2023-01-26 22:45] LABS: BUN/Creatinine Ratio 12.7 (10.0-20.0)
[2023-01-26 22:48] LABS: Bilirubin, Total 0.5 mg/dL (0.2-1.0); Total Protein 6.8 g/dL (6.4-8.2)
[2023-01-27] MEDS ORDERED: FUROSEMIDE 40 MG/4 ML VIAL IV ONE (02:00)
[2023-01-27] MEDS ORDERED: NITROGLYCERIN 0.4 MG SL TAB SL PRN (03:15)
[2023-01-27] MEDS ORDERED: ONDANSETRON HCL 4 MG/2 ML VIAL IV PRN (03:15)
[2023-01-27] MEDS: MORPHINE SULFATE INJ 2 MG/ml SYRG IV PRN ×2 (03:50→10:12)
[2023-01-27] MEDS: LEVOTHYROXINE SODIUM 50 MCG TAB PO SCH (09:52)
[2023-01-27] MEDS: AMIODARONE HCL 200 MG TAB PO SCH (09:53)
[2023-01-27] MEDS: METOPROLOL TARTRATE 25 MG TAB PO SCH ×2 (09:55→22:00)
[2023-01-27] MEDS: RIVAROXABAN 20 MG TAB PO SCH (09:55)
[2023-01-27] MEDS ORDERED: PANTOPRAZOLE 40 MG TAB PO SCH (10:00)
[2023-01-27] MEDS ORDERED: FUROSEMIDE 40 MG TAB PO SCH (10:00)
[2023-01-27] MEDS: ACETAMINOPHEN 325 MG TAB PO PRN (15:34)
[2023-01-27] MEDS: FUROSEMIDE 20 MG/2 ML VIAL IV SCH (18:05)
[2023-01-27 22:28] VITALS: BP 108/46
[2023-01-27] MEDS: ATORVASTATIN 20 MG TAB PO SCH (23:28)
[2023-01-28 06:16] LABS: Basophils # (auto) 0.1 10 ^3/uL (0-0.2); Basophils % (auto) 1.1 % (0.0-2.0); Eosinophils # (auto) 0.4 10 ^3/uL (0-0.8); Eosinophils % (auto) 4.9 % (0.0-7.0); Hematocrit 37.6 % (36.0-46.0); Hemoglobin 12.7 g/dL (12.2-16.2); Lymphocytes # (auto) 2.5 10 ^3/uL (0.4-5.4); Lymphocytes % (auto) 32.1 % (10.0-50.0); Mean Corpuscular Hemoglobin 32.2 pg (28.0-32.0); Mean Corpuscular Hgb Conc. 33.8 g/dL (32.0-36.0); Mean Corpuscular Volume 95.4 fL (80.0-100.0); Monocytes # (auto) 0.6 10 ^3/uL (0-1.3); Neutrophils # (auto) 4.2 10 ^3/uL (1.6-8.6); Neutrophils % (auto) 53.9 % (37.0-80.0); Nucleated Red Blood Cells % 0.1 %; Red Blood Cells 3.94 10^6/uL (4.0-5.20); Red Cell Distribution Width 14.1 % (11.8-14.3); White Blood Cell 7.8 10^3/uL (4.4-10.8)
[2023-01-28 06:33] LABS: BUN/Creatinine Ratio 13.2 (10.0-20.0); Calcium 9.3 mg/dL (8.5-10.1); Potassium 3.9 mmol/L (3.5-5.1)
[2023-01-28] MEDS: FUROSEMIDE 20 MG/2 ML VIAL IV SCH ×2 (06:47→18:10)
[2023-01-28] MEDS: LEVOTHYROXINE SODIUM 50 MCG TAB PO SCH (06:47)
[2023-01-28 08:00] VITALS: BP 118/73
[2023-01-28 09:00] VITALS: BP 132/68
[2023-01-28] MEDS: AMIODARONE HCL 200 MG TAB PO SCH (09:44)
[2023-01-28] MEDS: RIVAROXABAN 20 MG TAB PO SCH (09:45)
[2023-01-28] MEDS: METOPROLOL TARTRATE 25 MG TAB PO SCH ×2 (09:45→22:00)
[2023-01-28 13:00] VITALS: BP 119/58
[2023-01-28] MEDS: ACETAMINOPHEN 325 MG TAB PO PRN ×2 (13:26→21:12)
[2023-01-28] MEDS ORDERED: CYANOCOBALAMIN (B-12) 1000 MCG/1 ML VIAL IM ONE (15:00)
[2023-01-28 16:42] VITALS: BP 117/50
[2023-01-28 20:20] VITALS: BP 118/47
[2023-01-28] MEDS: ATORVASTATIN 20 MG TAB PO SCH (21:12)
[2023-01-28 21:19] LABS: Urine Bacteria NONE SEEN /hpf (None Seen); Urine Blood Negative /uL (Negative); Urine Specific Gravity 1.005 (1.001-1.035); Urine WBC <1 /hpf (0 - 5)
[2023-01-28 22:00] VITALS: BP 118/47
[2023-01-29 05:00] VITALS: BP 149/71
[2023-01-29 06:10] LABS: Basophils # (auto) 0.1 10 ^3/uL (0-0.2); Basophils % (auto) 1.3 % (0.0-2.0); Eosinophils # (auto) 0.4 10 ^3/uL (0-0.8); Eosinophils % (auto) 5.5 % (0.0-7.0); Hematocrit 38.6 % (36.0-46.0); Hemoglobin 13.2 g/dL (12.2-16.2); Lymphocytes # (auto) 2.7 10 ^3/uL (0.4-5.4); Lymphocytes % (auto) 35.1 % (10.0-50.0); Mean Corpuscular Hemoglobin 32.4 pg (28.0-32.0); Mean Corpuscular Hgb Conc. 34.1 g/dL (32.0-36.0); Mean Corpuscular Volume 94.9 fL (80.0-100.0); Monocytes # (auto) 0.6 10 ^3/uL (0-1.3); Neutrophils # (auto) 3.9 10 ^3/uL (1.6-8.6); Neutrophils % (auto) 50.1 % (37.0-80.0); Nucleated Red Blood Cells % 0.1 %; Red Blood Cells 4.07 10^6/uL (4.0-5.20); White Blood Cell 7.7 10^3/uL (4.4-10.8)
[2023-01-29 06:23] LABS: Albumin 3.2 g/dL (3.4-5.0); Calcium 9.4 mg/dL (8.5-10.1); Potassium 3.7 mmol/L (3.5-5.1)
[2023-01-29 06:25] LABS: BUN/Creatinine Ratio 15.2 (10.0-20.0)
[2023-01-29 06:27] LABS: Bilirubin, Total 0.4 mg/dL (0.2-1.0)
[2023-01-29] MEDS: LEVOTHYROXINE SODIUM 50 MCG TAB PO SCH (06:36)
[2023-01-29] MEDS: FUROSEMIDE 20 MG/2 ML VIAL IV SCH ×2 (06:39→18:20)
[2023-01-29] MEDS: CYANOCOBALAMIN 500 MCG TAB PO SCH (08:33)
[2023-01-29] MEDS: RIVAROXABAN 20 MG TAB PO SCH (08:34)
[2023-01-29] MEDS: AMIODARONE HCL 200 MG TAB PO SCH (08:34)
[2023-01-29] MEDS: METOPROLOL TARTRATE 25 MG TAB PO SCH ×2 (08:34→21:49)
[2023-01-29 09:00] VITALS: BP 127/56
[2023-01-29 13:00] VITALS: BP 145/55
[2023-01-29] MEDS: ALPRAZolam 0.25 MG TAB PO PRN ×2 (13:56→21:59)
[2023-01-29 16:57] VITALS: BP 121/54
[2023-01-29 21:30] VITALS: BP 149/62
[2023-01-29] MEDS: ATORVASTATIN 20 MG TAB PO SCH (21:49)
[2023-01-30 04:30] VITALS: BP 124/57
[2023-01-30] MEDS: FUROSEMIDE 20 MG/2 ML VIAL IV SCH ×2 (06:04→18:00)
[2023-01-30 06:42] LABS: Basophils # (auto) 0.1 10 ^3/uL (0-0.2); Basophils % (auto) 0.7 % (0.0-2.0); Eosinophils # (auto) 0.4 10 ^3/uL (0-0.8); Eosinophils % (auto) 4.3 % (0.0-7.0); Hematocrit 43.7 % (36.0-46.0); Hemoglobin 14.9 g/dL (12.2-16.2); Lymphocytes # (auto) 3.6 10 ^3/uL (0.4-5.4); Lymphocytes % (auto) 36.2 % (10.0-50.0); Mean Corpuscular Hemoglobin 32.5 pg (28.0-32.0); Mean Corpuscular Hgb Conc. 34.1 g/dL (32.0-36.0); Mean Corpuscular Volume 95.5 fL (80.0-100.0); Monocytes # (auto) 0.9 10 ^3/uL (0-1.3); Monocytes % (auto) 8.7 % (0.0-12.0); Neutrophils % (auto) 50.1 % (37.0-80.0); Nucleated Red Blood Cells % 0.1 %; Red Blood Cells 4.57 10^6/uL (4.0-5.20); Red Cell Distribution Width 13.8 % (11.8-14.3)
[2023-01-30 06:53] LABS: Albumin 3.5 g/dL (3.4-5.0); Calcium 9.7 mg/dL (8.5-10.1); Potassium 4.1 mmol/L (3.5-5.1)
[2023-01-30 06:55] LABS: BUN/Creatinine Ratio 15.7 (10.0-20.0)
[2023-01-30 06:58] LABS: Bilirubin, Total 0.4 mg/dL (0.2-1.0); Total Protein 7.9 g/dL (6.4-8.2)
[2023-01-30] MEDS ORDERED: LEVOTHYROXINE SODIUM 25 MCG TAB PO SCH (07:00)
[2023-01-30] MEDS ORDERED: LEVOTHYROXINE SODIUM 112 MCG TAB PO SCH (07:00)
[2023-01-30 09:00] VITALS: BP 122/74
[2023-01-30] MEDS: AMIODARONE HCL 200 MG TAB PO SCH (09:15)
[2023-01-30] MEDS: CYANOCOBALAMIN 500 MCG TAB PO SCH (09:16)
[2023-01-30] MEDS: RIVAROXABAN 20 MG TAB PO SCH (09:16)
[2023-01-30] MEDS: METOPROLOL TARTRATE 25 MG TAB PO SCH (09:16)
[2023-01-30 13:00] VITALS: BP 127/44
[2023-01-30] MEDS ORDERED: LEVO137C3 PO (16:40)
[2023-01-30] MEDS ORDERED: CYAN100056 PO (16:42)
[2023-01-30 17:00] VITALS: BP 129/57
== END 2023-01-30 20:17 | disposition home or self-care (01) | DRG 291 ==
LOC: EDBD 21:30 → ER 21:30 → TELE 01-27 03:06 → TELE-WESTW 01-27 22:00
PROVIDERS: ADMIT Nurse Practitioner; ATTEND Internal Medicine
DX: I11.0 Hypertensive heart disease with heart failure (principal); I50.31 Acute diastolic (congestive) heart failure; D68.9 Coagulation defect, unspecified; Z20.822 Contact with and (suspected) exposure to COVID-19; I48.91 Unspecified atrial fibrillation; E78.5 Hyperlipidemia, unspecified; F32.A Depression, unspecified; E11.9 Type 2 diabetes mellitus without complications; F41.9 Anxiety disorder, unspecified; R56.9 Unspecified convulsions; E03.9 Hypothyroidism, unspecified; E05.90 Thyrotoxicosis, unspecified without thyrotoxic crisis or storm; Z86.73 Personal history of transient ischemic attack (TIA), and cerebral infarction without residual deficits; Z88.1 Allergy status to other antibiotic agents; Z90.710 Acquired absence of both cervix and uterus; Z94.9 Transplanted organ and tissue status, unspecified
CPT/HCPCS: 36415; 36600; 71045; 80048; 80053; 81001; 82306; 82607; 82805; 83735; 83880; 84439; 84443; 84484; 85025; 85610; 85730; 87081; 87426; 93005; 93306; 96374; 96375; 96376; G0378; J2405

== ENCOUNTER 2023-06-02 22:19 | Inpatient (IN) | payer MEDICAID, MEDICARE ==
[~2023-06-02] VITALS: Ht 149.9 cm; Wt 86.6 kg
[~2023-06-02 22:19] MED LIST changes: -ALPR1TAB2 PO; -CIPR-173 PO; +CYAN100056 PO; -DIAZ10TA3 PO; +LEVO137C3 PO; -LEVO175C2 PO; -LEVO25TA6; -MIRT-68 PO; +MIRT-93 PO; -SIMV-8 PO; +SIMV20TA20 PO
[2023-06-02 22:58] LABS: Basophils # (auto) 0.1 10 ^3/uL (0-0.2); Basophils % (auto) 1.8 % (0.0-2.0); Eosinophils # (auto) 0 10 ^3/uL (0-0.8); Eosinophils % (auto) 0.6 % (0.0-7.0); Hematocrit 43.4 % (36.0-46.0); Hemoglobin 14.5 g/dL (12.2-16.2); Lymphocytes # (auto) 1.7 10 ^3/uL (0.4-5.4); Lymphocytes % (auto) 33.4 % (10.0-50.0); Mean Corpuscular Hemoglobin 30.6 pg (28.0-32.0); Mean Corpuscular Hgb Conc. 33.4 g/dL (32.0-36.0); Mean Corpuscular Volume 91.8 fL (80.0-100.0); Monocytes # (auto) 0.7 10 ^3/uL (0-1.3); Monocytes % (auto) 13.9 % (0.0-12.0); Neutrophils # (auto) 2.5 10 ^3/uL (1.6-8.6); Neutrophils % (auto) 50.3 % (37.0-80.0); Nucleated Red Blood Cells % 0.1 %; Red Blood Cells 4.73 10^6/uL (4.0-5.20); Red Cell Distribution Width 14.2 % (11.8-14.3); White Blood Cell 4.9 10^3/uL (4.4-10.8)
[2023-06-02 23:13] LABS: INR 1.29 (0.9-1.15); Partial Thromboplastin Time 40.6 SEC (24.5-34.5); Prothrombin Time 13.3 sec (9.3-11.8)
[2023-06-02 23:15] LABS: Albumin 3.2 g/dL (3.4-5.0); Calcium 8.6 mg/dL (8.5-10.1); Magnesium 2.4 mg/dL (1.6-2.6); Potassium 3.7 mmol/L (3.5-5.1)
[2023-06-02 23:18] LABS: BUN/Creatinine Ratio 12.9 (10.0-20.0); Bilirubin, Total 0.5 mg/dL (0.2-1.0); Total Protein 7.4 g/dL (6.4-8.2)
[2023-06-03] VITALS (7 sets, daily range): BP systolic 108–146; BP diastolic 54–63; PULSE 60–96; RESP 16–22; TEMP 97.9–98.2; O2SAT 94–98
[2023-06-03] MEDS ORDERED: PIPERACILLIN-TAZOB 3.375GM 100 ML IV ONE (01:00)
[2023-06-03] MEDS ORDERED: ONDANSETRON HCL 4 MG/2 ML VIAL IV ONE (02:30)
[2023-06-03] MEDS ORDERED: MORPHINE SULFATE INJ 2 MG/ml SYRG IV ONE (02:30)
[2023-06-03] MEDS ORDERED: MORPHINE SULFATE INJ 2 MG/ml SYRG IV PRN ×2 (03:15→14:45)
[2023-06-03] MEDS ORDERED: NITROGLYCERIN 0.4 MG SL TAB SL PRN (03:15)
[2023-06-03] MEDS ORDERED: ONDANSETRON HCL 4 MG/2 ML VIAL IV PRN ×2 (03:15→20:00)
[2023-06-03] MEDS ORDERED: ACETAMINOPHEN 325 MG TAB PO PRN (03:15)
[2023-06-03] MEDS ORDERED: ALBUTEROL SULF 2.5 MG/0.5ML(0.5%) NEB SOLN NEB PRN (03:15)
[2023-06-03] MEDS ORDERED: levoFLOXacin 500MG 100 ML IV ONE (05:00)
[2023-06-03] MEDS: LEVOTHYROXINE SODIUM 112 MCG TAB PO SCH (07:33)
[2023-06-03] MEDS: LEVOTHYROXINE SODIUM 25 MCG TAB PO SCH (07:33)
[2023-06-03] MEDS ORDERED: METOPROLOL TARTRATE 25 MG TAB PO SCH (10:00)
[2023-06-03] MEDS ORDERED: FUROSEMIDE 40 MG TAB PO SCH (10:00)
[2023-06-03] MEDS ORDERED: PATIENTS OWN MEDICATION (xarelto 20 MG) PO SCH (10:00)
[2023-06-03] MEDS: PANTOPRAZOLE 40 MG TAB PO SCH (10:38)
[2023-06-03] MEDS: AMIODARONE HCL 200 MG TAB PO SCH (10:38)
[2023-06-03] MEDS: SODIUM CHLORIDE 0.9% 1,000 ML IV SCH ×2 (13:30→21:41)
[2023-06-03] MEDS ORDERED: AZITHROMYCIN 500MG/ 250ML 250 ML IV ONE ×2 (14:45→16:30)
[2023-06-03] MEDS ORDERED: cefTRIAXone 1GM/50ML D5W 50 ML IV ONE ×2 (14:45→16:30)
[2023-06-03 15:48] LABS: Urine Bacteria FEW /hpf (None Seen); Urine Blood TRACE /uL (Negative); Urine Clarity HAZY (Clear); Urine Color Yellow (Yellow); Urine Hyaline Cast FEW /lpf (0 - 2); Urine Mucus FEW (None Seen); Urine Protein, UAD Negative (Negative); Urine Specific Gravity 1.013 (1.001-1.035); Urine Urobilinogen Normal (Negative); Urine WBC 27 /hpf (0 - 5); Urine pH 5.5 (5.0-8.0)
[2023-06-03 18:28] LABS: Cholesterol 130 mg/dL (< 200)
[2023-06-03 18:30] LABS: HDL Cholesterol 35 mg/dL (40-59); LDL Cholesterol 89 mg/dL (< 100); Triglycerides 109 mg/dL (< 150)
[2023-06-03] MEDS: RIVAROXABAN 20 MG TAB PO SCH (18:37)
[2023-06-03] MEDS ORDERED: HYDROcodone-ACET 7.5/325MG TAB PO PRN (20:00)
[2023-06-03] MEDS ORDERED: ATORVASTATIN 20 MG TAB PO SCH (22:00)
[2023-06-03 22:50] LABS: COVID19 ANTIGEN SOFIA FIA POSITIVE (NEGATIVE)
[2023-06-04] VITALS (9 sets, daily range): BP systolic 131–180; BP diastolic 54–67; PULSE 60–79; RESP 18; TEMP 97.2–98; O2SAT 91–98
[2023-06-04] MEDS ORDERED: levoFLOXacin 250MG 50 ML IV SCH (05:00)
[2023-06-04] MEDS ORDERED: levoFLOXacin 500MG 100 ML IV SCH (05:00)
[2023-06-04 06:13] LABS: Basophils # (auto) 0 10 ^3/uL (0-0.2); Basophils % (auto) 0.7 % (0.0-2.0); Eosinophils # (auto) 0.2 10 ^3/uL (0-0.8); Eosinophils % (auto) 3.1 % (0.0-7.0); Hematocrit 40.5 % (36.0-46.0); Hemoglobin 13.6 g/dL (12.2-16.2); Lymphocytes # (auto) 2.6 10 ^3/uL (0.4-5.4); Lymphocytes % (auto) 47.3 % (10.0-50.0); Mean Corpuscular Hemoglobin 30.7 pg (28.0-32.0); Mean Corpuscular Hgb Conc. 33.6 g/dL (32.0-36.0); Mean Corpuscular Volume 91.6 fL (80.0-100.0); Monocytes # (auto) 0.7 10 ^3/uL (0-1.3); Monocytes % (auto) 13.1 % (0.0-12.0); Neutrophils % (auto) 35.8 % (37.0-80.0); Nucleated Red Blood Cells % 0.1 %; Red Blood Cells 4.42 10^6/uL (4.0-5.20); Red Cell Distribution Width 14.3 % (11.8-14.3); White Blood Cell 5.5 10^3/uL (4.4-10.8)
[2023-06-04] MEDS: LEVOTHYROXINE SODIUM 112 MCG TAB PO SCH (06:15)
[2023-06-04] MEDS: LEVOTHYROXINE SODIUM 25 MCG TAB PO SCH (06:15)
[2023-06-04 06:23] LABS: BUN/Creatinine Ratio 16.3 (10.0-20.0); Calcium 8.3 mg/dL (8.5-10.1); Potassium 3.6 mmol/L (3.5-5.1)
[2023-06-04] MEDS ORDERED: LEVOTHYROXINE SODIUM 25 MCG TAB PO SCH (07:00)
[2023-06-04 08:09] LABS: Albumin 2.8 g/dL (3.4-5.0); Aspartate Aminotransferase 92 U/L (15-37); Bilirubin, Direct < 0.1 mg/dL (0-0.2)
[2023-06-04 08:12] LABS: Alanine Aminotransferase 249 U/L (13-56); Alkaline Phosphatase 57 U/L (45-117); Bilirubin, Total 0.3 mg/dL (0.2-1.0); Total Protein 6.7 g/dL (6.4-8.2)
[2023-06-04] MEDS ORDERED: cefTRIAXone 1GM/50ML D5W 50 ML IV SCH (09:00)
[2023-06-04] MEDS: levoFLOXacin 500MG 100 ML IV SCH (09:45)
[2023-06-04] MEDS: AMIODARONE HCL 200 MG TAB PO SCH (09:46)
[2023-06-04] MEDS: METOPROLOL SUCCINATE XL 50 MG TAB PO SCH (09:46)
[2023-06-04] MEDS: PANTOPRAZOLE 40 MG TAB PO SCH (09:47)
[2023-06-04] MEDS: SODIUM CHLORIDE 0.9% 1,000 ML IV SCH (09:52)
[2023-06-04] MEDS ORDERED: AZITHROMYCIN 500MG/ 250ML 250 ML IV SCH (10:00)
[2023-06-04] MEDS ORDERED: KETOROLAC TROMETH 30 MG/ML 1ML VIAL IV PRN (13:15)
[2023-06-04] MEDS ORDERED: ZINC SULFATE 220mg CAP or TAB PO ONE (13:15)
[2023-06-04] MEDS ORDERED: hydrALAZINE HCL 20 MG/ML VL IV PRN (13:15)
[2023-06-04] MEDS: ASCORBIC ACID 500 MG TAB PO SCH ×2 (13:43→21:18)
[2023-06-04] MEDS: HYDROcodone-ACET 5/325MG TAB PO PRN (13:44)
[2023-06-04] MEDS: DexAMETHasone 4 MG TAB PO SCH ×2 (13:53→21:19)
[2023-06-04] MEDS: ONDANSETRON HCL 4 MG/2 ML VIAL IV PRN (13:57)
[2023-06-04] MEDS: RIVAROXABAN 20 MG TAB PO SCH (18:06)
[2023-06-04] MEDS: KETOROLAC TROMETH 30 MG/ML 1ML VIAL IV PRN (21:18)
[2023-06-04] MEDS: MIRTAZAPINE 30 MG TAB PO SCH (21:20)
[2023-06-04] MEDS ORDERED: ATORVASTATIN 20 MG TAB PO SCH (22:00)
[2023-06-05] VITALS (7 sets, daily range): BP systolic 124–155; BP diastolic 46–60; PULSE 60–75; RESP 18–20; TEMP 97.6–97.8; O2SAT 93–97
[2023-06-05] MEDS: SODIUM CHLORIDE 0.9% 1,000 ML IV SCH ×2 (05:45→10:25)
[2023-06-05] MEDS: LEVOTHYROXINE SODIUM 25 MCG TAB PO SCH (06:04)
[2023-06-05] MEDS: LEVOTHYROXINE SODIUM 112 MCG TAB PO SCH (06:04)
[2023-06-05] MEDS: DexAMETHasone 4 MG TAB PO SCH ×3 (06:04→21:29)
[2023-06-05 06:11] LABS: Basophils # (auto) 0 10 ^3/uL (0-0.2); Basophils % (auto) 0.3 % (0.0-2.0); Eosinophils # (auto) 0 10 ^3/uL (0-0.8); Hematocrit 38.8 % (36.0-46.0); Hemoglobin 13.1 g/dL (12.2-16.2); Lymphocytes # (auto) 0.8 10 ^3/uL (0.4-5.4); Lymphocytes % (auto) 20.7 % (10.0-50.0); Mean Corpuscular Hemoglobin 30.8 pg (28.0-32.0); Mean Corpuscular Hgb Conc. 33.8 g/dL (32.0-36.0); Mean Corpuscular Volume 90.9 fL (80.0-100.0); Monocytes # (auto) 0.1 10 ^3/uL (0-1.3); Monocytes % (auto) 2.6 % (0.0-12.0); Neutrophils # (auto) 2.9 10 ^3/uL (1.6-8.6); Neutrophils % (auto) 76.4 % (37.0-80.0); Nucleated Red Blood Cells % 0.1 %; Red Blood Cells 4.26 10^6/uL (4.0-5.20); White Blood Cell 3.8 10^3/uL (4.4-10.8)
[2023-06-05 06:34] LABS: Potassium 4.3 mmol/L (3.5-5.1)
[2023-06-05 06:40] LABS: Albumin 2.8 g/dL (3.4-5.0); BUN/Creatinine Ratio 10.8 (10.0-20.0); Bilirubin, Total 0.3 mg/dL (0.2-1.0); Calcium 8.8 mg/dL (8.5-10.1); Total Protein 6.5 g/dL (6.4-8.2)
[2023-06-05 07:05] LABS: Rapid Influenza A Negative (Negative); Rapid Influenza B Negative (Negative)
[2023-06-05] MEDS: levoFLOXacin 500MG 100 ML IV SCH (10:14)
[2023-06-05] MEDS: ZINC SULFATE 220mg CAP or TAB PO SCH (10:15)
[2023-06-05] MEDS: PANTOPRAZOLE 40 MG TAB PO SCH (10:15)
[2023-06-05] MEDS: AMIODARONE HCL 200 MG TAB PO SCH (10:15)
[2023-06-05] MEDS: ASCORBIC ACID 500 MG TAB PO SCH ×2 (10:15→21:29)
[2023-06-05] MEDS: METOPROLOL SUCCINATE XL 50 MG TAB PO SCH (10:17)
[2023-06-05 12:01] LABS: Hepatitis A Ab IgM Negative; Hepatitis B Core IgM Negative; Hepatitis B Surface Antigen Negative (Negative)
[2023-06-05 12:02] LABS: Hepatitis C Antibody Negative (Negative)
[2023-06-05] MEDS: KETOROLAC TROMETH 30 MG/ML 1ML VIAL IV PRN ×2 (14:13→21:30)
[2023-06-05] MEDS: RIVAROXABAN 20 MG TAB PO SCH (18:00)
[2023-06-05] MEDS: ONDANSETRON HCL 4 MG/2 ML VIAL IV PRN (18:39)
[2023-06-05] MEDS: MIRTAZAPINE 30 MG TAB PO SCH (21:30)
[2023-06-06] VITALS (11 sets, daily range): BP systolic 138–159; BP diastolic 55–70; PULSE 60–69; RESP 18–20; TEMP 97.2–98.9; O2SAT 95–98
[2023-06-06] MEDS: DexAMETHasone 4 MG TAB PO SCH ×3 (05:42→21:34)
[2023-06-06 05:44] LABS: Basophils # (auto) 0 10 ^3/uL (0-0.2); Eosinophils # (auto) 0 10 ^3/uL (0-0.8); Hematocrit 39.6 % (36.0-46.0); Hemoglobin 13.2 g/dL (12.2-16.2); Lymphocytes # (auto) 1.2 10 ^3/uL (0.4-5.4); Lymphocytes % (auto) 11.5 % (10.0-50.0); Mean Corpuscular Hemoglobin 30.4 pg (28.0-32.0); Mean Corpuscular Hgb Conc. 33.4 g/dL (32.0-36.0); Mean Corpuscular Volume 91.2 fL (80.0-100.0); Monocytes # (auto) 0.5 10 ^3/uL (0-1.3); Monocytes % (auto) 4.6 % (0.0-12.0); Neutrophils # (auto) 9.1 10 ^3/uL (1.6-8.6); Neutrophils % (auto) 83.9 % (37.0-80.0); Nucleated Red Blood Cells % 0.1 %; Red Blood Cells 4.34 10^6/uL (4.0-5.20); Red Cell Distribution Width 14.3 % (11.8-14.3); White Blood Cell 10.8 10^3/uL (4.4-10.8)
[2023-06-06] MEDS: LEVOTHYROXINE SODIUM 25 MCG TAB PO SCH (05:49)
[2023-06-06] MEDS: LEVOTHYROXINE SODIUM 112 MCG TAB PO SCH (05:49)
[2023-06-06 05:58] LABS: BUN/Creatinine Ratio 12.9 (10.0-20.0); Calcium 9.1 mg/dL (8.5-10.1); Potassium 4.2 mmol/L (3.5-5.1)
[2023-06-06 06:02] LABS: Bilirubin, Total 0.3 mg/dL (0.2-1.0); Total Protein 6.9 g/dL (6.4-8.2)
[2023-06-06] MEDS: levoFLOXacin 500MG 100 ML IV SCH (10:00)
[2023-06-06] MEDS: amLODIPine BESYLATE 5 MG TAB PO SCH (10:00)
[2023-06-06] MEDS: METOPROLOL SUCCINATE XL 50 MG TAB PO SCH (10:00)
[2023-06-06] MEDS: PANTOPRAZOLE 40 MG TAB PO SCH (10:00)
[2023-06-06] MEDS: ASCORBIC ACID 500 MG TAB PO SCH ×2 (10:00→21:34)
[2023-06-06] MEDS: ZINC SULFATE 220mg CAP or TAB PO SCH (10:00)
[2023-06-06] MEDS: AMIODARONE HCL 200 MG TAB PO SCH (10:00)
[2023-06-06] MEDS: KETOROLAC TROMETH 30 MG/ML 1ML VIAL IV PRN (11:02)
[2023-06-06] MEDS: ONDANSETRON HCL 4 MG/2 ML VIAL IV PRN (11:02)
[2023-06-06] MEDS: MIRTAZAPINE 30 MG TAB PO SCH (17:29)
[2023-06-06] MEDS: RIVAROXABAN 20 MG TAB PO SCH (17:30)
[2023-06-06] MEDS: traZODone HCL 50 MG TAB PO SCH (21:34)
[2023-06-07] VITALS (7 sets, daily range): BP systolic 117–155; BP diastolic 48–59; PULSE 60–80; RESP 18–22; TEMP 97.6–98.3; O2SAT 94–97
[2023-06-07] MEDS: HYDROcodone-ACET 5/325MG TAB PO PRN ×2 (02:42→16:53)
[2023-06-07] MEDS: ONDANSETRON HCL 4 MG/2 ML VIAL IV PRN ×2 (05:02→16:54)
[2023-06-07] MEDS: DexAMETHasone 4 MG TAB PO SCH ×2 (05:02→11:21)
[2023-06-07] MEDS: LEVOTHYROXINE SODIUM 25 MCG TAB PO SCH (06:19)
[2023-06-07] MEDS: LEVOTHYROXINE SODIUM 112 MCG TAB PO SCH (06:19)
[2023-06-07 07:35] LABS: Basophils # (auto) 0.1 10 ^3/uL (0-0.2); Basophils % (auto) 0.7 % (0.0-2.0); Eosinophils # (auto) 0 10 ^3/uL (0-0.8); Hemoglobin 13.4 g/dL (12.2-16.2); Lymphocytes # (auto) 1.2 10 ^3/uL (0.4-5.4); Lymphocytes % (auto) 10.5 % (10.0-50.0); Mean Corpuscular Hemoglobin 30.3 pg (28.0-32.0); Mean Corpuscular Hgb Conc. 33.4 g/dL (32.0-36.0); Mean Corpuscular Volume 90.8 fL (80.0-100.0); Monocytes # (auto) 0.4 10 ^3/uL (0-1.3); Monocytes % (auto) 3.3 % (0.0-12.0); Neutrophils # (auto) 10.1 10 ^3/uL (1.6-8.6); Neutrophils % (auto) 85.5 % (37.0-80.0); Nucleated Red Blood Cells % 0.1 %; Red Blood Cells 4.41 10^6/uL (4.0-5.20); Red Cell Distribution Width 14.4 % (11.8-14.3); White Blood Cell 11.8 10^3/uL (4.4-10.8)
[2023-06-07] MEDS: ASCORBIC ACID 500 MG TAB PO SCH ×2 (08:13→21:07)
[2023-06-07] MEDS: PANTOPRAZOLE 40 MG TAB PO SCH (08:13)
[2023-06-07] MEDS: METOPROLOL SUCCINATE XL 50 MG TAB PO SCH (08:14)
[2023-06-07] MEDS: amLODIPine BESYLATE 5 MG TAB PO SCH (08:14)
[2023-06-07] MEDS: MIRTAZAPINE 30 MG TAB PO SCH (08:15)
[2023-06-07] MEDS: ZINC SULFATE 220mg CAP or TAB PO SCH (08:15)
[2023-06-07] MEDS: AMIODARONE HCL 200 MG TAB PO SCH (08:15)
[2023-06-07 08:16] LABS: Albumin 3.1 g/dL (3.4-5.0); Calcium 9.2 mg/dL (8.5-10.1); Potassium 4.3 mmol/L (3.5-5.1)
[2023-06-07 08:31] LABS: Bilirubin, Total 0.3 mg/dL (0.2-1.0); Total Protein 6.9 g/dL (6.4-8.2)
[2023-06-07] MEDS ORDERED: KETOROLAC TROMETH 30 MG/ML 1ML VIAL IV ONE (10:00)
[2023-06-07] MEDS: NYSTATIN TOPICAL POWDER 15GM TOP SCH ×2 (10:00→21:16)
[2023-06-07] MEDS ORDERED: levoFLOXacin 500 MG TAB PO SCH (10:00)
[2023-06-07] MEDS: busPIRone HCL 10 MG TAB PO SCH (11:21)
[2023-06-07] MEDS: RIVAROXABAN 20 MG TAB PO SCH (16:43)
[2023-06-07] MEDS: traZODone HCL 50 MG TAB PO SCH (21:07)
[2023-06-07] MEDS: DOXYCYCLINE 100 MG TAB/CAP PO SCH (21:07)
[2023-06-08] VITALS (7 sets, daily range): BP systolic 125–154; BP diastolic 49–61; PULSE 60–98; RESP 17–18; TEMP 97.7–98.2; O2SAT 90–97
[2023-06-08] MEDS: ONDANSETRON HCL 4 MG/2 ML VIAL IV PRN (04:58)
[2023-06-08] MEDS: HYDROcodone-ACET 5/325MG TAB PO PRN ×2 (05:05→16:27)
[2023-06-08] MEDS: LEVOTHYROXINE SODIUM 25 MCG TAB PO SCH (05:54)
[2023-06-08] MEDS: LEVOTHYROXINE SODIUM 112 MCG TAB PO SCH (05:55)
[2023-06-08 06:18] LABS: Potassium 4.7 mmol/L (3.5-5.1)
[2023-06-08 06:27] LABS: Albumin 2.9 g/dL (3.4-5.0); Bilirubin, Total 0.4 mg/dL (0.2-1.0); Magnesium 2.6 mg/dL (1.6-2.6); Total Protein 6.7 g/dL (6.4-8.2)
[2023-06-08 06:30] LABS: Hematocrit 41.3 % (36.0-46.0); Hemoglobin 13.6 g/dL (12.2-16.2); Mean Corpuscular Hemoglobin 29.9 pg (28.0-32.0); Mean Corpuscular Volume 90.7 fL (80.0-100.0); Red Blood Cells 4.55 10^6/uL (4.0-5.20); Red Cell Distribution Width 14.5 % (11.8-14.3)
[2023-06-08 06:39] LABS: Basophils % (manual) 0 (0.0-2.0); Blast Cells 0; Eosinophils % (manual) 0 (0-7); Metamyelocytes % 0; Promyelocytes % 0; Reactive Lymphocytes 0
[2023-06-08 08:06] LABS: Band Neutrophils % (manual) 2; Lymphocytes % (manual) 8 (10.0-50.0); Monocytes % (manual) 4 (0-12); Myelocytes % 3; Platelet Estimate Adequate
[2023-06-08] MEDS: MIRTAZAPINE 30 MG TAB PO SCH (08:15)
[2023-06-08] MEDS ORDERED: REMDESIVIR PER PHARMACY 0 ML IV SCH ×2 (08:15→09:30)
[2023-06-08] MEDS: CITALOPRAM HYDROBR 20 MG TAB PO SCH (08:15)
[2023-06-08] MEDS: ZINC SULFATE 220mg CAP or TAB PO SCH (08:15)
[2023-06-08] MEDS: DOXYCYCLINE 100 MG TAB/CAP PO SCH ×2 (08:15→21:29)
[2023-06-08] MEDS: ASCORBIC ACID 500 MG TAB PO SCH ×2 (08:15→21:29)
[2023-06-08] MEDS: PANTOPRAZOLE 40 MG TAB PO SCH (08:16)
[2023-06-08] MEDS: busPIRone HCL 10 MG TAB PO SCH (08:16)
[2023-06-08] MEDS: AMIODARONE HCL 200 MG TAB PO SCH (08:16)
[2023-06-08] MEDS: DexAMETHasone SOD PHOS 10MG/1ML VIAL INJ IV SCH (08:19)
[2023-06-08] MEDS: METOPROLOL SUCCINATE XL 50 MG TAB PO SCH (08:20)
[2023-06-08] MEDS ORDERED: amLODIPine BESYLATE 5 MG TAB PO SCH (10:00)
[2023-06-08] MEDS: NYSTATIN TOPICAL POWDER 15GM TOP SCH ×2 (10:00→21:30)
[2023-06-08] MEDS ORDERED: VALSARTAN 80 MG TAB PO SCH (10:00)
[2023-06-08] MEDS: amLODIPine BESYLATE 5 MG TAB PO SCH (10:00)
[2023-06-08] MEDS ORDERED: REMDESIVIR 200 MG in NS 210ml LOADING DOSE ADULT IV ONE (13:00)
[2023-06-08] MEDS: RIVAROXABAN 20 MG TAB PO SCH (16:27)
[2023-06-08] MEDS: traZODone HCL 50 MG TAB PO SCH (21:29)
[2023-06-09] VITALS (7 sets, daily range): BP systolic 119–150; BP diastolic 56–58; PULSE 60–68; RESP 18–22; TEMP 97.9–98.2; O2SAT 95–97
[2023-06-09] MEDS: ONDANSETRON HCL 4 MG/2 ML VIAL IV PRN ×3 (05:39→20:59)
[2023-06-09] MEDS: LEVOTHYROXINE SODIUM 25 MCG TAB PO SCH (05:39)
[2023-06-09] MEDS: LEVOTHYROXINE SODIUM 112 MCG TAB PO SCH (05:39)
[2023-06-09] MEDS: HYDROcodone-ACET 5/325MG TAB PO PRN ×3 (05:40→20:59)
[2023-06-09 05:52] LABS: Calcium 8.9 mg/dL (8.5-10.1); Potassium 4.5 mmol/L (3.5-5.1)
[2023-06-09 05:58] LABS: Hemoglobin 14.3 g/dL (12.2-16.2); Mean Corpuscular Hemoglobin 30.2 pg (28.0-32.0); Mean Corpuscular Hgb Conc. 33.2 g/dL (32.0-36.0); Mean Corpuscular Volume 90.8 fL (80.0-100.0); Red Blood Cells 4.74 10^6/uL (4.0-5.20); Red Cell Distribution Width 14.5 % (11.8-14.3); White Blood Cell 11.7 10^3/uL (4.4-10.8)
[2023-06-09 05:59] LABS: Albumin 2.9 g/dL (3.4-5.0); Bilirubin, Total 0.4 mg/dL (0.2-1.0); Total Protein 6.6 g/dL (6.4-8.2)
[2023-06-09 06:11] LABS: Band Neutrophils % (manual) 0; Basophils % (manual) 0 (0.0-2.0); Blast Cells 0; Eosinophils % (manual) 0 (0-7); Metamyelocytes % 0; Myelocytes % 0; Promyelocytes % 0; Reactive Lymphocytes 0
[2023-06-09 09:22] LABS: Lymphocytes % (manual) 21 (10.0-50.0); Monocytes % (manual) 5 (0-12)
[2023-06-09 09:23] LABS: Platelet Estimate Adequate
[2023-06-09] MEDS: METOPROLOL SUCCINATE XL 50 MG TAB PO SCH (10:00)
[2023-06-09] MEDS: ZINC SULFATE 220mg CAP or TAB PO SCH (10:28)
[2023-06-09] MEDS: CITALOPRAM HYDROBR 20 MG TAB PO SCH (10:28)
[2023-06-09] MEDS: ASCORBIC ACID 500 MG TAB PO SCH ×2 (10:28→22:11)
[2023-06-09] MEDS: PANTOPRAZOLE 40 MG TAB PO SCH (10:28)
[2023-06-09] MEDS: AMIODARONE HCL 200 MG TAB PO SCH (10:28)
[2023-06-09] MEDS: amLODIPine BESYLATE 5 MG TAB PO SCH (10:32)
[2023-06-09] MEDS: busPIRone HCL 10 MG TAB PO SCH (10:32)
[2023-06-09] MEDS: MIRTAZAPINE 30 MG TAB PO SCH (10:32)
[2023-06-09] MEDS: NYSTATIN TOPICAL POWDER 15GM TOP SCH ×2 (10:34→22:17)
[2023-06-09] MEDS: DOXYCYCLINE 100 MG TAB/CAP PO SCH ×2 (11:47→22:11)
[2023-06-09] MEDS: DexAMETHasone SOD PHOS 10MG/1ML VIAL INJ IV SCH (11:47)
[2023-06-09] MEDS ORDERED: REMDESIVIR 100mg 100 MG in SODIUM CHL 0.9% 230 ML IV SCH (15:00)
[2023-06-09] MEDS: RIVAROXABAN 20 MG TAB PO SCH (17:52)
[2023-06-09] MEDS: traZODone HCL 50 MG TAB PO SCH (22:11)
[2023-06-10] VITALS (7 sets, daily range): BP systolic 123–144; BP diastolic 55–72; PULSE 60–70; RESP 18–20; TEMP 97.4–98.3; O2SAT 92–97
[2023-06-10] MEDS: HYDROcodone-ACET 5/325MG TAB PO PRN ×3 (05:35→19:48)
[2023-06-10] MEDS: ONDANSETRON HCL 4 MG/2 ML VIAL IV PRN ×3 (05:40→18:09)
[2023-06-10 06:11] LABS: Hemoglobin 14.5 g/dL (12.2-16.2); Mean Corpuscular Hemoglobin 30.7 pg (28.0-32.0); Mean Corpuscular Hgb Conc. 33.6 g/dL (32.0-36.0); Mean Corpuscular Volume 91.3 fL (80.0-100.0); Red Blood Cells 4.71 10^6/uL (4.0-5.20); White Blood Cell 10.5 10^3/uL (4.4-10.8)
[2023-06-10 06:23] LABS: Band Neutrophils % (manual) 0; Basophils % (manual) 0 (0.0-2.0); Blast Cells 0; Eosinophils % (manual) 0 (0-7); Metamyelocytes % 0; Myelocytes % 0; Promyelocytes % 0; Reactive Lymphocytes 0
[2023-06-10] MEDS: LEVOTHYROXINE SODIUM 112 MCG TAB PO SCH (06:33)
[2023-06-10] MEDS: LEVOTHYROXINE SODIUM 25 MCG TAB PO SCH (06:33)
[2023-06-10 06:43] LABS: Potassium 4.8 mmol/L (3.5-5.1)
[2023-06-10 06:50] LABS: Albumin 2.8 g/dL (3.4-5.0); BUN/Creatinine Ratio 25.3 (10.0-20.0); Calcium 8.7 mg/dL (8.7-10.4)
[2023-06-10 06:53] LABS: Total Protein 6.2 g/dL (6.4-8.2)
[2023-06-10 07:14] LABS: CRP High Sensitivity 0.08 mg/dL (< 0.3)
[2023-06-10 09:06] LABS: Lymphocytes % (manual) 17 (10.0-50.0); Monocytes % (manual) 2 (0-12)
[2023-06-10 09:07] LABS: Platelet Estimate Adequate
[2023-06-10 09:09] LABS: Bilirubin, Total 0.3 mg/dL (0.2-1.0)
[2023-06-10] MEDS: ZINC SULFATE 220mg CAP or TAB PO SCH (10:23)
[2023-06-10] MEDS: busPIRone HCL 10 MG TAB PO SCH (10:24)
[2023-06-10] MEDS: METOPROLOL SUCCINATE XL 50 MG TAB PO SCH (10:28)
[2023-06-10] MEDS: AMIODARONE HCL 200 MG TAB PO SCH (10:28)
[2023-06-10] MEDS: DOXYCYCLINE 100 MG TAB/CAP PO SCH ×2 (10:29→22:07)
[2023-06-10] MEDS: ASCORBIC ACID 500 MG TAB PO SCH ×2 (10:29→22:07)
[2023-06-10] MEDS: PANTOPRAZOLE 40 MG TAB PO SCH (10:29)
[2023-06-10] MEDS: MIRTAZAPINE 30 MG TAB PO SCH (10:29)
[2023-06-10] MEDS: CITALOPRAM HYDROBR 20 MG TAB PO SCH (10:30)
[2023-06-10] MEDS: amLODIPine BESYLATE 5 MG TAB PO SCH (10:31)
[2023-06-10] MEDS: DexAMETHasone SOD PHOS 10MG/1ML VIAL INJ IV SCH (10:32)
[2023-06-10] MEDS: NYSTATIN TOPICAL POWDER 15GM TOP SCH ×2 (10:33→22:23)
[2023-06-10] MEDS: RIVAROXABAN 20 MG TAB PO SCH (18:09)
[2023-06-10] MEDS: traZODone HCL 50 MG TAB PO SCH (22:07)
[2023-06-11 05:00] VITALS: BP 147/75; PULSE 61; RESP 19; TEMP 98.4; O2SAT 94
[2023-06-11] MEDS: ONDANSETRON HCL 4 MG/2 ML VIAL IV PRN (05:44)
[2023-06-11] MEDS: HYDROcodone-ACET 5/325MG TAB PO PRN (05:45)
[2023-06-11] MEDS: LEVOTHYROXINE SODIUM 112 MCG TAB PO SCH (06:38)
[2023-06-11] MEDS: LEVOTHYROXINE SODIUM 25 MCG TAB PO SCH (06:38)
[2023-06-11 08:00] VITALS: PULSE 60
[2023-06-11] MEDS: DexAMETHasone SOD PHOS 10MG/1ML VIAL INJ IV SCH (10:01)
[2023-06-11] MEDS: ZINC SULFATE 220mg CAP or TAB PO SCH (10:01)
[2023-06-11] MEDS: AMIODARONE HCL 200 MG TAB PO SCH (10:02)
[2023-06-11] MEDS: DOXYCYCLINE 100 MG TAB/CAP PO SCH (10:02)
[2023-06-11] MEDS: busPIRone HCL 10 MG TAB PO SCH (10:02)
[2023-06-11] MEDS: ASCORBIC ACID 500 MG TAB PO SCH (10:02)
[2023-06-11] MEDS: PANTOPRAZOLE 40 MG TAB PO SCH (10:03)
[2023-06-11] MEDS: CITALOPRAM HYDROBR 20 MG TAB PO SCH (10:03)
[2023-06-11] MEDS: MIRTAZAPINE 30 MG TAB PO SCH (10:04)
[2023-06-11] MEDS: amLODIPine BESYLATE 5 MG TAB PO SCH (10:07)
[2023-06-11] MEDS: METOPROLOL SUCCINATE XL 50 MG TAB PO SCH (10:07)
[2023-06-11] MEDS: NYSTATIN TOPICAL POWDER 15GM TOP SCH (10:08)
[2023-06-11] MEDS ORDERED: ASCO500T11 PO (13:03)
[2023-06-11] MEDS ORDERED: CHOL20007 PO (13:03)
== END 2023-06-11 16:40 | disposition home or self-care (01) | DRG 177 ==
LOC: EDBD 22:19 → ER 22:23 → TELE 06-03 03:19 → TELE-EAST 06-03 17:29
PROVIDERS: ADMIT Internal Medicine; ATTEND Nurse Practitioner Acute Care
PROC: 05HY33Z Insertion of Infusion Device into Upper Vein, Percutaneous Approach (ICD-10-PCS; 2023-06-03)
PROC: B54MZZA Ultrasonography of Right Upper Extremity Veins, Guidance (ICD-10-PCS; 2023-06-03)
PROC: XW033E5 Introduction of Remdesivir Anti-infective into Peripheral Vein, Percutaneous Approach, New Technology Group 5 (ICD-10-PCS; principal; 2023-06-08)
DX: U07.1 COVID-19 (principal); J12.82 Pneumonia due to coronavirus disease 2019; J96.01 Acute respiratory failure with hypoxia; N17.0 Acute kidney failure with tubular necrosis; D68.9 Coagulation defect, unspecified; I50.32 Chronic diastolic (congestive) heart failure; N39.0 Urinary tract infection, site not specified; J44.0 Chronic obstructive pulmonary disease with (acute) lower respiratory infection; K52.9 Noninfective gastroenteritis and colitis, unspecified; I48.91 Unspecified atrial fibrillation; I11.0 Hypertensive heart disease with heart failure; E03.9 Hypothyroidism, unspecified; F32.A Depression, unspecified; E66.9 Obesity, unspecified; G44.209 Tension-type headache, unspecified, not intractable; R74.01 Elevation of levels of liver transaminase levels; I48.0 Paroxysmal atrial fibrillation; E78.5 Hyperlipidemia, unspecified; F41.9 Anxiety disorder, unspecified; Z83.3 Family history of diabetes mellitus; Z90.710 Acquired absence of both cervix and uterus; Z95.0 Presence of cardiac pacemaker; Z68.36 Body mass index [BMI] 36.0-36.9, adult; Z88.8 Allergy status to other drugs, medicaments and biological substances; Z88.1 Allergy status to other antibiotic agents; Z86.73 Personal history of transient ischemic attack (TIA), and cerebral infarction without residual deficits; Z79.01 Long term (current) use of anticoagulants
CPT/HCPCS: 36415; 71045; 76775; 80048; 80053; 80061; 80074; 80076; 81001; 83036; 83605; 83735; 83880; 84443; 84484; 85007; 85025; 85027; 85379; 85610; 85730; 86141; 87040; 87086; 87426; 87804; 93005; 96365; 96367; 96375; G0378; J0696; J1100; J1885; J1956; J2405; J2543

== ENCOUNTER 2023-08-06 12:20 | Inpatient (IN) | payer MEDICARE ==
[~2023-08-06] VITALS: Ht 149.9 cm; Wt 162.9 kg
[~2023-08-06 12:20] MED LIST changes: +ASCO500T11 PO; +CHOL20007 PO
[2023-08-06 12:48] LABS: Basophils # (auto) 0.1 10 ^3/uL (0-0.2); Basophils % (auto) 0.9 % (0.0-2.0); Eosinophils # (auto) 0.4 10 ^3/uL (0-0.8); Eosinophils % (auto) 4.9 % (0.0-7.0); Hematocrit 41.3 % (36.0-46.0); Hemoglobin 13.7 g/dL (12.2-16.2); Lymphocytes # (auto) 2.8 10 ^3/uL (0.4-5.4); Mean Corpuscular Hemoglobin 31.3 pg (28.0-32.0); Mean Corpuscular Hgb Conc. 33.1 g/dL (32.0-36.0); Mean Corpuscular Volume 94.7 fL (80.0-100.0); Monocytes # (auto) 0.5 10 ^3/uL (0-1.3); Monocytes % (auto) 6.6 % (0.0-12.0); Neutrophils # (auto) 4.2 10 ^3/uL (1.6-8.6); Neutrophils % (auto) 52.6 % (37.0-80.0); Nucleated Red Blood Cells % 0.1 %; Red Blood Cells 4.36 10^6/uL (4.0-5.20); Red Cell Distribution Width 15.5 % (11.8-14.3); White Blood Cell 8.1 10^3/uL (4.4-10.8)
[2023-08-06 13:05] LABS: INR 1.16 (0.9-1.15); Prothrombin Time 12.1 sec (9.3-11.8)
[2023-08-06 13:19] LABS: Alanine Aminotransferase 28 U/L (7-40); Albumin 4.2 g/dL (3.2-4.8); Alkaline Phosphatase 69 U/L (46-116); Anion Gap 8 (5-15); Aspartate Aminotransferase 16 U/L (13-40); BUN/Creatinine Ratio 14.4 (10.0-20.0); Bilirubin, Total 0.5 mg/dL (0.2-1.0); Blood Urea Nitrogen 16 mg/dL (9-23); Calcium 9.2 mg/dL (8.5-10.1); Carbon Dioxide 24 mmol/L (20-30); Chloride 107 mmol/L (98-107); Glucose 122 mg/dL (74-106); Potassium 4.1 mmol/L (3.5-5.1); Sodium 139 mmol/L (136-145); Total Protein 6.4 g/dL (5.7-8.2)
[2023-08-06] MEDS ORDERED: ASPirin 325 MG TAB PO ONE (13:45)
[2023-08-06] MEDS ORDERED: SODIUM CHLORIDE 0.9% 500 ML IV ONE (13:45)
[2023-08-06] MEDS ORDERED: NITROGLYCERIN 0.4 MG SL TAB SL ONE (13:45)
[2023-08-06 14:29] LABS: Urine Bacteria NONE SEEN /hpf (None Seen); Urine Blood Negative /uL (Negative); Urine Clarity Clear (Clear); Urine Color Colorless (Yellow); Urine Hyaline Cast FEW /lpf (0 - 2); Urine Protein, UAD Negative (Negative); Urine Specific Gravity 1.005 (1.001-1.035); Urine Urobilinogen Normal (Negative); Urine WBC 2 /hpf (0 - 5)
[2023-08-06] MEDS ORDERED: ACETAMINOPHEN 325 MG TAB PO PRN (16:15)
[2023-08-06] MEDS ORDERED: NITROGLYCERIN 0.4 MG SL TAB SL PRN (16:15)
[2023-08-06] MEDS: MIRTAZAPINE 30 MG TAB PO SCH (17:49)
[2023-08-06] MEDS: RIVAROXABAN 15 MG TAB PO SCH (17:49)
[2023-08-06 20:00] VITALS: PULSE 60; RESP 20; O2SAT 94
[2023-08-06] MEDS: traZODone HCL 50 MG TAB PO SCH (22:44)
[2023-08-06] MEDS: ATORVASTATIN 20 MG TAB PO SCH (22:44)
[2023-08-06] MEDS: busPIRone HCL 10 MG TAB PO SCH (22:44)
[2023-08-07] MEDS: MORPHINE SULFATE INJ 2 MG/ml SYRG IV PRN ×2 (04:42→17:30)
[2023-08-07 07:06] LABS: Alanine Aminotransferase 19 U/L (7-40); Albumin 4.4 g/dL (3.2-4.8); Alkaline Phosphatase 71 U/L (46-116); Anion Gap 6 (5-15); Aspartate Aminotransferase 15 U/L (13-40); BUN/Creatinine Ratio 8.8 (10.0-20.0); Bilirubin, Total 0.6 mg/dL (0.2-1.0); Blood Urea Nitrogen 9 mg/dL (9-23); Calcium 9.4 mg/dL (8.7-10.4); Carbon Dioxide 26 mmol/L (20-30); Chloride 105 mmol/L (98-107); Potassium 3.8 mmol/L (3.5-5.1); Sodium 137 mmol/L (136-145)
[2023-08-07 07:07] LABS: Basophils # (auto) 0.1 10 ^3/uL (0-0.2); Basophils % (auto) 1.2 % (0.0-2.0); Eosinophils # (auto) 0.3 10 ^3/uL (0-0.8); Eosinophils % (auto) 3.8 % (0.0-7.0); Hematocrit 40.7 % (36.0-46.0); Hemoglobin 13.7 g/dL (12.2-16.2); Lymphocytes # (auto) 3.5 10 ^3/uL (0.4-5.4); Lymphocytes % (auto) 39.3 % (10.0-50.0); Mean Corpuscular Hemoglobin 31.5 pg (28.0-32.0); Mean Corpuscular Hgb Conc. 33.7 g/dL (32.0-36.0); Mean Corpuscular Volume 93.3 fL (80.0-100.0); Monocytes # (auto) 0.6 10 ^3/uL (0-1.3); Monocytes % (auto) 6.6 % (0.0-12.0); Neutrophils # (auto) 4.3 10 ^3/uL (1.6-8.6); Neutrophils % (auto) 49.1 % (37.0-80.0); Nucleated Red Blood Cells % 0.1 %; Red Blood Cells 4.36 10^6/uL (4.0-5.20); Red Cell Distribution Width 15.3 % (11.8-14.3); Total Protein 6.8 g/dL (5.7-8.2); White Blood Cell 8.8 10^3/uL (4.4-10.8)
[2023-08-07] MEDS: CYANOCOBALAMIN 500 MCG TAB PO SCH (07:25)
[2023-08-07] MEDS: LEVOTHYROXINE SODIUM 112 MCG TAB PO SCH (07:25)
[2023-08-07 07:56] LABS: Glucose 81 mg/dL (74-106)
[2023-08-07] MEDS: ASPirin 81 mg TAB PO SCH (15:10)
[2023-08-07] MEDS: busPIRone HCL 10 MG TAB PO SCH ×2 (15:10→20:59)
[2023-08-07] MEDS: CITALOPRAM HYDROBR 20 MG TAB PO SCH (15:11)
[2023-08-07] MEDS: AMIODARONE HCL 200 MG TAB PO SCH (15:12)
[2023-08-07] MEDS: LEVOTHYROXINE SODIUM 25 MCG TAB PO SCH (15:12)
[2023-08-07] MEDS: CHOLECALCIFEROL (VITD3) 2,000 UNIT CAP/TAB PO SCH (15:13)
[2023-08-07] MEDS: ASCORBIC ACID 500 MG TAB PO SCH (15:13)
[2023-08-07] MEDS: ENOXAPARIN SOD 40 MG/0.4 ML SYRINGE SC SCH (15:14)
[2023-08-07] MEDS: METOPROLOL TARTRATE 25 MG TAB PO SCH (15:14)
[2023-08-07] MEDS ORDERED: ONDANSETRON HCL 4 MG/2 ML VIAL IV PRN (17:30)
[2023-08-07 20:00] VITALS: PULSE 73
[2023-08-07] MEDS: traZODone HCL 50 MG TAB PO SCH (20:57)
[2023-08-07] MEDS: MIRTAZAPINE 30 MG TAB PO SCH (20:58)
[2023-08-07] MEDS: RIVAROXABAN 15 MG TAB PO SCH (21:00)
[2023-08-07] MEDS: ATORVASTATIN 20 MG TAB PO SCH (21:00)
[2023-08-07 22:00] VITALS: BP 129/68; PULSE 73; RESP 18; TEMP 97.5; O2SAT 98
[2023-08-08] VITALS (7 sets, daily range): BP systolic 108–146; BP diastolic 63–97; PULSE 60–73; RESP 16–18; TEMP 97.4–98.3; O2SAT 94–98
[2023-08-08] MEDS: CYANOCOBALAMIN 500 MCG TAB PO SCH (06:27)
[2023-08-08] MEDS: LEVOTHYROXINE SODIUM 112 MCG TAB PO SCH (06:28)
[2023-08-08] MEDS: ENOXAPARIN SOD 40 MG/0.4 ML SYRINGE SC SCH (09:25)
[2023-08-08] MEDS: ASPirin 81 mg TAB PO SCH (09:26)
[2023-08-08] MEDS: CHOLECALCIFEROL (VITD3) 2,000 UNIT CAP/TAB PO SCH (09:26)
[2023-08-08] MEDS: ASCORBIC ACID 500 MG TAB PO SCH (09:27)
[2023-08-08] MEDS: LEVOTHYROXINE SODIUM 25 MCG TAB PO SCH (09:27)
[2023-08-08] MEDS: METOPROLOL TARTRATE 25 MG TAB PO SCH (09:29)
[2023-08-08] MEDS: busPIRone HCL 10 MG TAB PO SCH ×2 (09:30→22:05)
[2023-08-08] MEDS: CITALOPRAM HYDROBR 20 MG TAB PO SCH (09:30)
[2023-08-08] MEDS: AMIODARONE HCL 200 MG TAB PO SCH (09:45)
[2023-08-08] MEDS: MORPHINE SULFATE INJ 2 MG/ml SYRG IV PRN ×2 (10:00→18:30)
[2023-08-08] MEDS: MIRTAZAPINE 30 MG TAB PO SCH (18:23)
[2023-08-08] MEDS: RIVAROXABAN 15 MG TAB PO SCH (18:25)
[2023-08-08] MEDS: ATORVASTATIN 20 MG TAB PO SCH (22:05)
[2023-08-08] MEDS: traZODone HCL 50 MG TAB PO SCH (22:05)
[2023-08-08] MEDS: HYDROcodone-ACET 5/325MG TAB PO PRN (22:10)
[2023-08-09] VITALS (7 sets, daily range): BP systolic 108–141; BP diastolic 31–70; PULSE 60–62; RESP 15–19; TEMP 97.8–98.2; O2SAT 94–96
[2023-08-09] MEDS: LEVOTHYROXINE SODIUM 112 MCG TAB PO SCH (06:34)
[2023-08-09] MEDS: CYANOCOBALAMIN 500 MCG TAB PO SCH (06:34)
[2023-08-09] MEDS: ASCORBIC ACID 500 MG TAB PO SCH (09:24)
[2023-08-09] MEDS: ASPirin 81 mg TAB PO SCH (09:25)
[2023-08-09] MEDS: METOPROLOL TARTRATE 25 MG TAB PO SCH (09:25)
[2023-08-09] MEDS: CHOLECALCIFEROL (VITD3) 2,000 UNIT CAP/TAB PO SCH (09:25)
[2023-08-09] MEDS: CITALOPRAM HYDROBR 20 MG TAB PO SCH (09:25)
[2023-08-09] MEDS: HYDROcodone-ACET 5/325MG TAB PO PRN ×3 (09:27→22:40)
[2023-08-09] MEDS: busPIRone HCL 10 MG TAB PO SCH ×2 (09:27→22:20)
[2023-08-09] MEDS: ENOXAPARIN SOD 40 MG/0.4 ML SYRINGE SC SCH (09:28)
[2023-08-09] MEDS: AMIODARONE HCL 200 MG TAB PO SCH (09:30)
[2023-08-09] MEDS: LEVOTHYROXINE SODIUM 25 MCG TAB PO SCH (09:48)
[2023-08-09] MEDS: RIVAROXABAN 15 MG TAB PO SCH (17:19)
[2023-08-09] MEDS: MIRTAZAPINE 30 MG TAB PO SCH (17:19)
[2023-08-09] MEDS: ATORVASTATIN 20 MG TAB PO SCH (22:18)
[2023-08-09] MEDS: traZODone HCL 50 MG TAB PO SCH (22:42)
[2023-08-10 05:00] VITALS: BP 123/53; PULSE 60; RESP 16; TEMP 97.8; O2SAT 93
[2023-08-10] MEDS: LEVOTHYROXINE SODIUM 112 MCG TAB PO SCH (06:18)
[2023-08-10] MEDS: CYANOCOBALAMIN 500 MCG TAB PO SCH (06:21)
[2023-08-10 08:00] VITALS: BP 112/31; PULSE 60; PULSE 65; RESP 20; TEMP 97.9; O2SAT 92
[2023-08-10] MEDS: CHOLECALCIFEROL (VITD3) 2,000 UNIT CAP/TAB PO SCH (09:46)
[2023-08-10] MEDS: HYDROcodone-ACET 5/325MG TAB PO PRN (09:48)
[2023-08-10] MEDS: LEVOTHYROXINE SODIUM 25 MCG TAB PO SCH (09:48)
[2023-08-10] MEDS: busPIRone HCL 10 MG TAB PO SCH (09:48)
[2023-08-10] MEDS: ASCORBIC ACID 500 MG TAB PO SCH (09:49)
[2023-08-10] MEDS: ASPirin 81 mg TAB PO SCH (09:49)
[2023-08-10] MEDS: CITALOPRAM HYDROBR 20 MG TAB PO SCH (09:50)
[2023-08-10] MEDS: AMIODARONE HCL 200 MG TAB PO SCH (09:50)
[2023-08-10] MEDS: METOPROLOL TARTRATE 25 MG TAB PO SCH (09:51)
[2023-08-10] MEDS: ENOXAPARIN SOD 40 MG/0.4 ML SYRINGE SC SCH (09:51)
[2023-08-10 11:04] VITALS: BP 112/51; PULSE 65; RESP 20; TEMP 97.9; O2SAT 92
[2023-08-10 12:00] VITALS: BP 133/51; PULSE 62; RESP 18; TEMP 98.1; O2SAT 95
== END 2023-08-10 13:15 | disposition home or self-care (01) | DRG 303 ==
LOC: ER 12:20 → TELE 16:07 → TELE-CENTR 08-07 18:47
PROVIDERS: ADMIT Nurse Practitioner Family; ATTEND Family Medicine
DX: I25.10 Atherosclerotic heart disease of native coronary artery without angina pectoris (principal); N39.0 Urinary tract infection, site not specified; Z68.45 Body mass index [BMI] 70 or greater, adult; I10 Essential (primary) hypertension; E66.01 Morbid (severe) obesity due to excess calories; E03.9 Hypothyroidism, unspecified; I48.0 Paroxysmal atrial fibrillation; F32.A Depression, unspecified; E78.00 Pure hypercholesterolemia, unspecified; X58.XXXA Exposure to other specified factors, initial encounter; F41.9 Anxiety disorder, unspecified; J44.9 Chronic obstructive pulmonary disease, unspecified; R56.9 Unspecified convulsions; Z79.899 Other long term (current) drug therapy; Z95.0 Presence of cardiac pacemaker; Z86.73 Personal history of transient ischemic attack (TIA), and cerebral infarction without residual deficits; Z79.01 Long term (current) use of anticoagulants; Z83.3 Family history of diabetes mellitus; Z88.1 Allergy status to other antibiotic agents; Z90.710 Acquired absence of both cervix and uterus; Y93.89 Activity, other specified; Y92.89 Other specified places as the place of occurrence of the external cause; Y99.8 Other external cause status; S92.911A Unspecified fracture of right toe(s), initial encounter for closed fracture
CPT/HCPCS: 36415; 71045; 73660; 80053; 81001; 84484; 85025; 85610; 85730; 93005; 93306; G0378; J2405

== ENCOUNTER 2024-05-24 17:49 | Inpatient (IN) | payer MEDICARE, MEDICAID ==
[~2024-05-24] VITALS: Ht 165.1 cm; Wt 90.4 kg
[~2024-05-24 17:49] MED LIST changes: +BUSP15TA60 PO; +CLON-1003 PO; +CLON0.5T3 PO
[2024-05-24 18:15] VITALS: PULSE 60; RESP 10; O2SAT 90
[2024-05-24 18:17] LABS: Basophils # (auto) 0.1 10 ^3/uL (0-0.2); Basophils % (auto) 1.1 % (0.0-2.0); Eosinophils # (auto) 0.2 10 ^3/uL (0-0.8); Eosinophils % (auto) 2.2 % (0.0-7.0); Hemoglobin 13.9 g/dL (12.2-16.2); Lymphocytes # (auto) 3.7 10 ^3/uL (0.4-5.4); Lymphocytes % (auto) 36.7 % (10.0-50.0); Mean Corpuscular Hemoglobin 31.1 pg (28.0-32.0); Mean Corpuscular Volume 91.6 fL (80.0-100.0); Monocytes # (auto) 0.9 10 ^3/uL (0-1.3); Monocytes % (auto) 8.9 % (0.0-12.0); Neutrophils # (auto) 5.2 10 ^3/uL (1.6-8.6); Neutrophils % (auto) 51.1 % (37.0-80.0); Nucleated Red Blood Cells % 0.1 %; Red Blood Cells 4.47 10^6/uL (4.0-5.20); Red Cell Distribution Width 14.1 % (11.8-14.3); White Blood Cell 10.1 10^3/uL (4.4-10.8)
[2024-05-24 18:38] LABS: Alanine Aminotransferase 50 U/L (7-40); Alkaline Phosphatase 74 U/L (46-116); Anion Gap 8 (5-15); Aspartate Aminotransferase 27 U/L (13-40); BUN/Creatinine Ratio 8.5 (10.0-20.0); Bilirubin, Total 0.5 mg/dL (0.2-1.0); Blood Urea Nitrogen 10 mg/dL (9-23); Calcium 9.7 mg/dL (8.7-10.4); Carbon Dioxide 27 mmol/L (20-30); Chloride 104 mmol/L (98-107); Glucose 84 mg/dL (74-106); Magnesium 1.9 mg/dL (1.6-2.6); Potassium 4.2 mmol/L (3.5-5.1); Sodium 139 mmol/L (136-145)
[2024-05-24 18:40] LABS: INR 1.25 (0.9-1.15); Partial Thromboplastin Time 33.5 SEC (24.5-34.5)
[2024-05-24 18:55] LABS: Albumin 3.9 g/dL (3.2-4.8)
[2024-05-24] MEDS: MORPHINE SULFATE INJ 2 MG/ml SYRG IV ONE (19:12)
[2024-05-24] MEDS ORDERED: hydrALAZINE HCL 20 MG/ML VL IV PRN (19:30)
[2024-05-24] MEDS ORDERED: DOCUSATE SOD 100 MG CAP PO PRN (19:30)
[2024-05-24] MEDS ORDERED: ONDANSETRON HCL 4 MG/2 ML VIAL IV PRN (19:30)
[2024-05-24 20:00] VITALS: RESP 13; O2SAT 93
[2024-05-24] MEDS ORDERED: NITROGLYCERIN 0.4 MG SL TAB SL PRN (21:00)
[2024-05-24] MEDS: ATORVASTATIN 20 MG TAB PO SCH (22:26)
[2024-05-24] MEDS: FUROSEMIDE 20 MG/2 ML VIAL IV ONE (22:26)
[2024-05-25] VITALS (9 sets, daily range): BP systolic 27–167; BP diastolic 54–78; PULSE 60–90; RESP 17–19; TEMP 97–98; O2SAT 94–98
[2024-05-25] MEDS: HYDROcodone-ACET 5/325MG TAB PO PRN (00:41)
[2024-05-25] MEDS: LEVOTHYROXINE SODIUM 50 MCG TAB PO SCH (05:38)
[2024-05-25 05:48] LABS: Basophils # (auto) 0.1 10 ^3/uL (0-0.2); Eosinophils # (auto) 0.2 10 ^3/uL (0-0.8); Eosinophils % (auto) 2.5 % (0.0-7.0); Hematocrit 42.2 % (36.0-46.0); Hemoglobin 14.1 g/dL (12.2-16.2); Lymphocytes # (auto) 3.3 10 ^3/uL (0.4-5.4); Lymphocytes % (auto) 37.1 % (10.0-50.0); Mean Corpuscular Hemoglobin 30.6 pg (28.0-32.0); Mean Corpuscular Hgb Conc. 33.4 g/dL (32.0-36.0); Mean Corpuscular Volume 91.7 fL (80.0-100.0); Monocytes # (auto) 0.7 10 ^3/uL (0-1.3); Monocytes % (auto) 7.9 % (0.0-12.0); Neutrophils # (auto) 4.6 10 ^3/uL (1.6-8.6); Neutrophils % (auto) 51.5 % (37.0-80.0); Nucleated Red Blood Cells % 0.1 %; Red Cell Distribution Width 14.4 % (11.8-14.3); White Blood Cell 8.9 10^3/uL (4.4-10.8)
[2024-05-25 06:04] LABS: Alanine Aminotransferase 43 U/L (7-40); Albumin 3.9 g/dL (3.2-4.8); Alkaline Phosphatase 68 U/L (46-116); Anion Gap 7 (5-15); Aspartate Aminotransferase 27 U/L (13-40); BUN/Creatinine Ratio 5.8 (10.0-20.0); Bilirubin, Total 0.7 mg/dL (0.2-1.0); Blood Urea Nitrogen 7 mg/dL (9-23); Calcium 9.4 mg/dL (8.7-10.4); Carbon Dioxide 31 mmol/L (20-30); Chloride 102 mmol/L (98-107); Glucose 82 mg/dL (74-106); Potassium 3.7 mmol/L (3.5-5.1); Sodium 140 mmol/L (136-145); Total Protein 6.3 g/dL (5.7-8.2)
[2024-05-25 09:39] LABS: Triglycerides 63 mg/dL (< 150)
[2024-05-25 09:40] LABS: LDL Cholesterol 79 mg/dL (< 100)
[2024-05-25 09:41] LABS: Cholesterol 149 mg/dL (< 200); HDL Cholesterol 61 mg/dL (40-59)
[2024-05-25] MEDS: FUROSEMIDE 20 MG/2 ML VIAL IV SCH (10:00)
[2024-05-25] MEDS ORDERED: ARTISOL13 EACHEYE (10:37)
[2024-05-25] MEDS: ASPirin 81 mg TAB PO SCH (10:50)
[2024-05-25] MEDS: clonazePAM 0.5 MG TAB PO ONE (13:06)
[2024-05-25] MEDS: AMIODARONE HCL 200 MG TAB PO ONE (13:07)
[2024-05-25] MEDS: CITALOPRAM HYDROBR 20 MG TAB PO ONE (13:07)
[2024-05-25] MEDS: busPIRone HCL 10 MG TAB PO ONE (13:07)
[2024-05-25] MEDS: KETOROLAC TROMETH 30 MG/ML 1ML VIAL IV ONE (13:08)
[2024-05-25] MEDS: ARTIFICIAL TEARS 15ml EACHEYE PRN (13:16)
[2024-05-25 14:19] LABS: Urine Bacteria None Seen /hpf (None Seen)
[2024-05-25 14:40] LABS: Urine Blood Negative /uL (Negative); Urine Clarity Clear (Clear); Urine Color Yellow (Yellow); Urine Hyaline Cast FEW /lpf (0 - 2); Urine Mucus FEW (None Seen); Urine Protein, UAD Negative (Negative); Urine Specific Gravity 1.017 (1.001-1.035); Urine Urobilinogen Normal (Negative); Urine WBC 18 /hpf (0 - 5); Urine pH 5.5 (5.0-9.0)
[2024-05-25 14:52] LABS: Amphetamine Screen, Urine Neg (NEGATIVE)
[2024-05-25 14:53] LABS: Barbiturate Scree,Urine Neg (NEGATIVE); Benzodiazephine Screen, Urine Neg (NEGATIVE); Cannabinoid Screen, Urine Neg (NEGATIVE); Cocaine Screen, Urine Neg (NEGATIVE); Opiate Scree,Urine Pos (NEGATIVE); Phencyclidine Screen, Urine Neg (NEGATIVE)
[2024-05-25] MEDS: RIVAROXABAN 20 MG TAB PO SCH (17:03)
[2024-05-25] MEDS: ATORVASTATIN 20 MG TAB PO SCH (21:34)
[2024-05-25] MEDS: traZODone HCL 50 MG TAB PO SCH (21:34)
[2024-05-25] MEDS: busPIRone HCL 10 MG TAB PO SCH (21:34)
[2024-05-25] MEDS: clonazePAM 0.5 MG TAB PO SCH (21:35)
[2024-05-25] MEDS: MIRTAZAPINE 30 MG TAB PO SCH (21:36)
[2024-05-26] VITALS (7 sets, daily range): BP systolic 126–137; BP diastolic 46–61; PULSE 60–64; RESP 17–21; TEMP 97.5–98.5; O2SAT 91–96
[2024-05-26] MEDS: LEVOTHYROXINE SODIUM 25 MCG TAB PO SCH (05:32)
[2024-05-26] MEDS: LEVOTHYROXINE SODIUM 112 MCG TAB PO SCH (05:35)
[2024-05-26] MEDS ORDERED: LEVOTHYROXINE SODIUM 25 MCG TAB PO SCH (06:00)
[2024-05-26] MEDS ORDERED: HYDROCORTISONE 10 MG TAB PO ONE (10:00)
[2024-05-26] MEDS: AMIODARONE HCL 200 MG TAB PO SCH (10:43)
[2024-05-26] MEDS: METOPROLOL SUCCINATE XL 50 MG TAB PO SCH (10:45)
[2024-05-26] MEDS: CITALOPRAM HYDROBR 20 MG TAB PO SCH (10:45)
[2024-05-26] MEDS: HYDROCORTISONE 10 MG TAB PO SCH (10:46)
[2024-05-26 12:11] LABS: Chloride 96 mmol/L (98-107); Potassium 3.6 mmol/L (3.5-5.1)
[2024-05-26 12:12] LABS: Anion Gap 5 (5-15); Carbon Dioxide 31 mmol/L (20-30)
[2024-05-26 12:13] LABS: Calcium 9.4 mg/dL (8.7-10.4)
[2024-05-26 12:17] LABS: Glucose 116 mg/dL (74-106)
[2024-05-26 12:18] LABS: BUN/Creatinine Ratio 9.6 (10.0-20.0); Blood Urea Nitrogen 12 mg/dL (9-23)
[2024-05-26 12:22] LABS: Sodium 132 mmol/L (136-145)
[2024-05-26] MEDS ORDERED: ERGO500086 PO (12:22)
[2024-05-26] MEDS ORDERED: POTA-228 PO (12:22)
[2024-05-26] MEDS ORDERED: ESCI10TA PO (12:22)
[2024-05-26] MEDS ORDERED: ALBU108A5 INH (12:22)
[2024-05-26] MEDS ORDERED: FURO40TA4 PO (12:22)
[2024-05-26] MEDS ORDERED: ARIP2TAB PO (12:22)
[2024-05-26] MEDS ORDERED: HYDRX10T PO (12:22)
[2024-05-26 16:39] LABS: Urine Bacteria FEW /hpf (None Seen); Urine Blood Negative /uL (Negative); Urine Clarity Clear (Clear); Urine Color Light-Yellow (Yellow); Urine Protein, UAD Negative (Negative); Urine Specific Gravity 1.007 (1.001-1.035); Urine Urobilinogen Normal (Negative); Urine WBC 6 /hpf (0 - 5)
[2024-05-27] VITALS (8 sets, daily range): BP systolic 106–138; BP diastolic 42–61; PULSE 60–64; RESP 16–20; TEMP 97.4–97.7; O2SAT 91–96
[2024-05-27 07:52] LABS: Chloride 103 mmol/L (98-107); Potassium 4.5 mmol/L (3.5-5.1); Sodium 136 mmol/L (136-145)
[2024-05-27 07:53] LABS: Anion Gap 4 (5-15); Carbon Dioxide 29 mmol/L (20-30)
[2024-05-27 07:54] LABS: Calcium 9.2 mg/dL (8.7-10.4)
[2024-05-27 07:59] LABS: BUN/Creatinine Ratio 8.3 (10.0-20.0); Blood Urea Nitrogen 10 mg/dL (9-23); Glucose 97 mg/dL (74-106)
[2024-05-27] MEDS: ADENOSINE 76 MG in GIVE UN-DILUTED 0 ML IV ONE (08:10)
[2024-05-27] MEDS: FUROSEMIDE 20 MG TAB PO SCH (10:06)
[2024-05-27] MEDS: LIDOCAINE 5% TOPICAL PATCH TOP SCH (10:25)
[2024-05-27] MEDS: MORPHINE SULFATE INJ 2 MG/ml SYRG IV PRN (15:47)
[2024-05-27] MEDS: HYDROCORTISONE 10 MG TAB PO SCH (22:11)
[2024-05-28] VITALS (8 sets, daily range): BP systolic 116–153; BP diastolic 45–73; PULSE 60–94; RESP 16–20; TEMP 97.4–98.1; O2SAT 93–100
[2024-05-28] MEDS: MORPHINE SULFATE INJ 2 MG/ml SYRG IV PRN (00:44)
[2024-05-28] MEDS: LEVOTHYROXINE SODIUM 50 MCG TAB PO SCH (06:22)
[2024-05-28] MEDS: HYDROCORTISONE 10 MG TAB PO SCH (09:35)
[2024-05-28] MEDS: NITROFURANTOIN 100 mg CAP PO SCH (10:05)
[2024-05-28] MEDS: COLCHICINE 0.6 MG CAP PO SCH (15:29)
[2024-05-28 18:07] LABS: Chloride 104 mmol/L (98-107); Potassium 4.4 mmol/L (3.5-5.1); Sodium 138 mmol/L (136-145)
[2024-05-28 18:08] LABS: Anion Gap 5 (5-15); Calcium 9.2 mg/dL (8.7-10.4); Carbon Dioxide 29 mmol/L (20-30)
[2024-05-28 18:13] LABS: BUN/Creatinine Ratio 11.3 (10.0-20.0); Blood Urea Nitrogen 13 mg/dL (9-23); Glucose 83 mg/dL (74-106)
[2024-05-29 01:00] VITALS: BP 120/47; PULSE 68; RESP 20; TEMP 97.9; O2SAT 96
[2024-05-29 05:00] VITALS: BP 114/42; PULSE 60; RESP 20; TEMP 98.1; O2SAT 97
[2024-05-29 08:00] VITALS: PULSE 60; RESP 20; O2SAT 98
[2024-05-29 09:00] VITALS: BP 121/44; PULSE 60; RESP 20; TEMP 97.8; O2SAT 98
[2024-05-29] MEDS ORDERED: NITR-87 PO (15:14)
[2024-05-29] MEDS ORDERED: LEVO-848 PO (15:14)
[2024-05-29 16:18] VITALS: BP 121/50; PULSE 60; RESP 14; TEMP 97.7; O2SAT 92
[2024-05-29 16:32] VITALS: BP 130/65; PULSE 86; RESP 14; TEMP 97.6; O2SAT 95
== END 2024-05-29 18:51 | disposition home or self-care (01) | DRG 205 ==
LOC: EDBD 17:49 → ER 17:53 → TELE 20:59 → TELE-CENTR 23:20
PROVIDERS: ADMIT Internal Medicine; ATTEND Internal Medicine
DX: M94.0 Chondrocostal junction syndrome [Tietze] (principal); I50.33 Acute on chronic diastolic (congestive) heart failure; J96.01 Acute respiratory failure with hypoxia; E87.1 Hypo-osmolality and hyponatremia; E27.1 Primary adrenocortical insufficiency; N39.0 Urinary tract infection, site not specified; I13.0 Hypertensive heart and chronic kidney disease with heart failure and stage 1 through stage 4 chronic kidney disease, or unspecified chronic kidney disease; I48.0 Paroxysmal atrial fibrillation; F41.9 Anxiety disorder, unspecified; F32.A Depression, unspecified; E78.5 Hyperlipidemia, unspecified; E03.9 Hypothyroidism, unspecified; F51.04 Psychophysiologic insomnia; M35.00 Sjogren syndrome, unspecified; N18.30 Chronic kidney disease, stage 3 unspecified; E66.9 Obesity, unspecified; Z88.1 Allergy status to other antibiotic agents; Z86.73 Personal history of transient ischemic attack (TIA), and cerebral infarction without residual deficits; Z90.49 Acquired absence of other specified parts of digestive tract; Z90.710 Acquired absence of both cervix and uterus; Z83.3 Family history of diabetes mellitus; Z82.49 Family history of ischemic heart disease and other diseases of the circulatory system; Z95.0 Presence of cardiac pacemaker; Z68.31 Body mass index [BMI] 31.0-31.9, adult
CPT/HCPCS: 36415; 71045; 80048; 80053; 80061; 80307; 81001; 82565; 83735; 83880; 84439; 84443; 84484; 85025; 85610; 85730; 87086; 93005; 93017; 93306; 96374; 96375; 97110; 97116; 97163; 97530; 99291; G0378; J0153; J1885

== ENCOUNTER 2024-09-22 00:23 | Inpatient (IN) | payer MEDICARE, MEDICAID ==
[2024-09-22] VITALS (8 sets, daily range): BP systolic 129–153; BP diastolic 65–67; PULSE 59–60; RESP 18–20; TEMP 97.6; O2SAT 93–99
[~2024-09-22] VITALS: Ht 149.9 cm; Wt 89.9 kg
[~2024-09-22 00:23] MED LIST changes: +ALBU108A5 INH; +ARIP2TAB PO; +ARTISOL13 EACHEYE; -ASCO500T11 PO; -BUSP10TA31 PO; -CHOL20007 PO; -CLON-1003 PO; +ERGO500086 PO; +FURO40TA4 PO; +HYDRX10T PO; +LEVO-848 PO; -LEVO137C3 PO; +NITR-87 PO; +POTA-228 PO
--- NOTE | 2024-09-22 01:21 | ED.PDOC ---
GI ASSESSMENT HPI Comments HPI: Poor Historian. 69-year-old female presents to the emergency department for three-week history of left upper quadrant pain intermittent nonradiating. Pain is worse with movement. Patient has associated nausea but no vomiting or diarrhea. Patient has normal bowel movements. Denies any other acute symptoms. Past Medcial History:Thyroid disease, TIA, atrial fibrillation, CHF, hyperlipidemia Past Surgical History: Patient is on Xarelto and amiodarone REVIEW OF SYSTEMS: CONSTITUTIONAL: Denies acute: fever, diaphoresis, chills, generalized weakness. HEAD: Denies acute: headache, photophobia Eyes: Denies acute: Double vision, vision loss, eye pain, eye discharge. EARS: Denies acute: tinnitus, hearing loss, ear discharge, ear pain, THROAT: Denies acute: sore throat, swelling, difficulty swallowing , pain with s wallowing, change in voice. NECK: Denies acute: neck pain, neck swelling, stiff neck. HEART: Denies acute : chest pain, palpitations, LUNGS: Denies acute: SOB, wheezing, cough, hemoptysis ABDOMEN: Denies acute: Vomiting, diarrhea, melena , hematemesis, hematochezia SKIN: Denies acute: rash, redness, lesions, itchiness. EXTREMITIES: Denies acute: calf pain, numbness, tingling, weakness, denies pain in extremity. Denies acute: Low back pain. Neuro: Denies acute: focal neurological deficit, motor or sensory focal neurological deficit, tremors, seizure like activity, confusion, dizziness, change in mental status, loss of bowel or bladder function, cauda equina like symptoms. : Denies acute: dysuria, hematuria, flank pain, increase in urinary frequency. PSYCH: Denies acute: hallucination, suicidal ideation, homicidal ideation. FEMALE: Denies acute: abnormal vaginal bleeding, foul odor, unusual discharge. PHYSICAL EXAM: General: no acute distress, awake and alert. Head: normocephalic, atraumatic. Neck: supple, trachea is midline, no swelling. Throat: Normal phonation. Eyes:, no erythema, no purulent discharge, no proptosis, no icterus. Heart: regular rate, regular rhythm, no significant murmur appreciated. Lungs: no apparent respiratory distress, Able to speak in full sentences. No wheezing, no rhonchi, no crackles. No stridors Clear to auscultation bilaterally. Abdomen: Left upper quadrant tender to palpation, non distended, soft, no guarding, no rebound, + bowel sounds. Obese Neuro: Awake, Alert, oriented to name, self, situation, follows commands GCS=15. Speech is normal. Skin: no petechia, no purpura, no cyanosis, non-pale, not jaundice. Lower extremities: --trace bilateral - Pitting edema no deformity, no focal swelling, no calf TTP. Makes eye contact. moves all four extremities. Face: no apparent facial droop. Mild left CVA tenderness to percussion bilaterally. Ambulating in the ED independently. Time Seen by MD: 00:42 Primary Care Provider: Destiny FRANCIS Reviewed Notes: Nurses Notes, Medications, Allergies Allergies: Coded Allergies: Erythromycin (Verified Allergy, Unknown, 04/06/22) Home Meds Active Scripts Nitrofurantoin Monohydrate Mac (Macrobid) 100 Mg Cap, 100 MG PO BID for 4 Days, #8 CAP Prov:UNA ALMANZAR MD 05/29/24 Levothyroxine Sodium (SYNTHROID TABLET) 50 Mcg Tb, 125 MCG PO QAM@0600 for 30 Days, #30 TAB Prov:UNA ALMANZAR MD 05/29/24 Cyanocobalamin (B-12) 1,000 Mcg Cap, 1000 MCG PO QAM for 30 Days, #30 CAP Prov:MELANIE BARAKAT MD 01/30/23 Rivaroxaban (XARELTO) 20 Mg Tab, 1 TAB PO DAILY, #30 TAB 2 Refills Prov:LEATHA GUPTA MD 12/12/22 Mirtazapine (Remeron) 15 Mg Tab, 0.5 TAB PO QPM, #30 TAB 1 Refill Prov:ABIMAEL BARONE MD 09/24/22 Reported Medications Ergocalciferol (Vitamin D (Ergocalciferol) 50,000 Unit Cap, 1 CAP PO QWEEKLY 05/26/24 Aripiprazole (Abilify) 2 Mg Tab, 1 TAB PO DAILY 05/26/24 Albuterol Sulfate (Albuterol Sulfate Hfa) 108 Mcg/Act Aer, 2 PUFF INH BID 05/26/24 Hydroxyzine Hcl (Hydroxyzine Hcl) 10 Mg Tab, 2 TAB PO TID PRN 05/26/24 Potassium Chloride (Potassium Chloride ER) 10 Meq Tab, 1 TAB PO MWF 05/26/24 Furosemide (Furosemide) 40 Mg Tab, 1 TAB PO MWF 05/26/24 Buspirone Hcl (Buspirone Hcl) 15 Mg Tab, 1 TAB PO BID for 30 Days, #60 05/26/24 Artificial Tear Solution (ARTIFICIAL TEARS) Tears Mirian, 1 DROP EACHEYE PRN for DRY EYES, ML 05/25/24 Clonazepam (KlonoPIN TABLET) 0.5 Mg Tb, 0.5 TAB PO BID PRN for ANXIETY for 30 Days, #30 02/16/24 Trazodone HCl (Trazodone Hydrochloride) 50 Mg Tab, 2 TAB PO HS PRN for 30 Days, #60 09/22/22 Citalopram Hydrobromide (Citalopram) 40 Mg Tab, 40 MG PO DAILY, TAB 09/21/22 Amiodarone Hcl (Amiodarone Hcl) 200 Mg Tab, 200 MG PO DAILY 09/21/22 Simvastatin (Simvastatin) 20 Mg Tab, 20 MG PO HS 04/07/22 Metoprolol Tartrate (Lopressor) 25 Mg Tb, 1 TAB PO BID for 90 Days, #180 0 Refills 04/07/22 Information Source: Patient Past Medical History PAST MEDICAL HISTORY: AFIB, Anxiety, Cancer, CVA, Depression, High Lipids, HTN, Seizures, Thyroid, TIA Surgical History: Cholecystectomy, , Hernia Repair, Hysterectomy [employer]ING BAG W[employer]ER History: No Pertinent [employer]ING [employer]AG W[employer]ER History Family History Family History: Family hx of DM, Family hx of Cancer, Family hx of heart benjam[place] Social History Smoker: Non-Smoker Alcohol: Denies ETOH Use Drugs: Denies Drug Use Lives In: Home GI differential Dx Differential Diagnosis: Other (DDX include Diverticulitis, colitis, gastroenteritis, acute abdomen, SBO, enteritis, constipation, volvulus, appendicitis, Gallbladder disease, choledocolithiasis, ascending cholangitis, pancreatitis, intraAbdominal mass/neoplasm, hepatitis, UTI, pylonephritis, kidney stone, aneurysm, dissection, Inflammatory bowel disease, gastroparesis, ischemic bowel, ovarian torsion, ovarian cyst/mass, tubo-ovarian abscess, PID, STD.) X-Ray, Labs, Meds, VS Vital Signs Date Time Temp Pulse Resp B/P (MAP) Pulse Ox O2 Delivery O2 Flow Rate FiO2 12/4/24 02:05 61 14 156/81 (106) 94 09/22/24 02:05 Room Air* 0 21 09/22/24 01:55 60 09/22/24 00:45 97.6 63 18 147/72 (97) 92 Lab Test 09/22/24 02:13 09/22/24 01:10 09/22/24 00:58 Range/Units Troponin I High Sensitivity Pending < 3 L </=34 ng/L White Blood Count 10.2 4.4-10.8 10^3/uL Red Blood Count 4.36 4.0-5.20 10^6/uL Hemoglobin 13.9 12.2-16.2 g/dL Hematocrit 41.6 36.0-46.0 % Mean Corpuscular Volume 95.3 80.0-100.0 fL Mean Corpuscular Hemoglobin 31.9 28.0-32.0 pg Mean Corpuscular Hemoglobin Concent 33.5 32.0-36.0 g/dL Red Cell Distribution Width 16.7 H 11.8-14.3 % Platelet Count 237 140-450 10^3/uL Mean Platelet Volume 8.7 6.9-10.8 fL Neutrophils (%) (Auto) 61.7 37.0-80.0 % Lymphocytes (%) (Auto) 29.1 10.0-50.0 % Monocytes (%) (Auto) 6.9 0.0-12.0 % Eosinophils (%) (Auto) 1.5 0.0-7.0 % Basophils (%) (Auto) 0.8 0.0-2.0 % Neutrophils # (Auto) 6.3 1.6-8.6 10 ^3/uL Lymphocytes # (Auto) 3.0 0.4-5.4 10 ^3/uL Monocytes # (Auto) 0.7 0-1.3 10 ^3/uL Eosinophils # (Auto) 0.2 0-0.8 10 ^3/uL Basophils # (Auto) 0.1 0-0.2 10 ^3/uL Nucleated Red Blood Cells 0.0 % Sodium Level 140 136-145 mmol/L Potassium Level 4.2 3.5-5.1 mmol/L Chloride Level 105 98-107 mmol/L Carbon Dioxide Level 28 20-31 mmol/L Anion Gap 7 5-15 Blood Urea Nitrogen 8 L 9-23 mg/dL Creatinine 1.11 H 0.550-1.02 mg/dL Glomerular Filtration Rate Calc 54 >90 mL/min BUN/Creatinine Ratio 7.2 L 10.0-20.0 Serum Glucose 120 H 74-106 mg/dL Lactic Acid Level 1.9 0.4-2.0 mmol/L Calcium Level 9.9 8.7-10.4 mg/dL Total Bilirubin 0.5 0.2-1.0 mg/dL Aspartate Amino Transferase (AST) 20 13-40 U/L Alanine Aminotransferase (ALT) 29 7-40 U/L Alkaline Phosphatase 72 46-116 U/L Total Protein 6.6 5.7-8.2 g/dL Albumin 4.5 3.2-4.8 g/dL Lipase 54 H 12-53 U/L Urine Color Light-yellow Yellow Urine Clarity Turbid H Clear Urine pH 7.5 5.0-9.0 Urine Specific [place] 1.013 1.001-1.035 Urine Protein Negative Negative Urine Ketones Negative Negative Urine Blood Negative Negative /uL Urine Nitrite Negative Negative Urine Bilirubin Negative Negative Urine Urobilinogen Normal Negative mg/dL Urine Leukocyte Esterase Trace Negative /uL Urine RBC 2 0 - 4 /hpf Urine WBC 4 0 - 5 /hpf Urine Squamous Epithelial Cells Few <5 /hpf Urine Bacteria None seen None Seen /hpf Urine Glucose Normal Normal mg/dL Current Medications Medications (Trade) Dose Ordered Sig/No Route Start Time Stop Time Status Last Admin Acetaminophen/ Hydrocodone Bitart (St[place] 5/325MG Tab) 1 tab ONCE ONCE PO 09/22/24 01:45 09/22/24 01:51 DC 09/22/24 02:10 [place] [id number] Ph: [phone] DIAGNOSTIC IMAGING Diagnostic Imaging Report : [id number] Signed PATIENT: IBRAHIMA WRIGHT ACCT: [id number] UNIT: [id number] : 1955 LOC: ER ROOM / BED: / AGE / SEX: 69 / F ADM STATUS: REG ER SERVICE [id number] ORDERING PHYSICIAN: NEO MARTE DO PROCEDURE(s): ABPL - CT AB PEL WO CON-NO ORAL OR IV REASON: abd pain ORDER NUMBER(s): [id number], ACCESSION NUMBER(s): [id number] Exam: CT CT AB PEL WO CON-NO ORAL OR IV History: abd pain Comparison Study: [facility] on DOS: 09/23/22, [facility] on DOS: 09/23/22, [facility] on DOS: 04/08/22 Technique: Multidetector spiral CT of the abdomen was performed from lung bases to pubic symphysis. Imaging was performed without IV contrast. Axial, coronal and sagittal multiplanar reformats were obtained from the axial data set by the technologist. Radiation Dose : 1. Abdomen/Pelvis: CTDIvol 19 mGy, DLP 1095.48 mGy*cm. Findings: Evaluation of solid organs is limited due to lack of intravenous contrast use. Lung Bases: No acute or significant lung base finding. Normal heart size. No pleural or pericardial effusion. Liver: The liver is normal in size. No focal lesions. Gallbladder and Biliary Tree: Gallbladder is surgically absent. Spleen: Unremarkable Pancreas: The pancreas is grossly normal in appearance. Adrenal Glands: Unremarkable Kidneys: Kidneys are grossly normal without calculi or hydronephrosis. Bladder: Grossly unremarkable for degree of distention. Bowel: The stomach is grossly normal in appearance. Concentric wall thickening of the sigmoid colon which may reflect underdistention or mild colitis. The appendix is not visualized; however, no secondary findings of acute appendicitis identified. Ascites: Absent Lymphadenopathy: No mesenteric, retroperitoneal or periportal lymphadenopathy. Abdominal Wall and Mesentery: Unremarkable. Vasculature: The visualized abdominal aorta is normal in size and caliber. E valuation of abdominal and pelvic vessels is limited due to lack of intravenous contrast. Pelvic Organs: Unremarkable Musculoskeletal: No aggressive focal bony lesions, acute fractures or dislocation. Lumbar fixation hardware is noted. IMPRESSION: 1. Concentric wall thickening of the sigmoid colon which may reflect underdistention or mild colitis. Radiation optimization: All CT scans at this facility use at least one of these dose optimization techniques: automated exposure control mA and/or kV adj ustment per patient size (includes targeted exams where dose is matched to clinical indication) or iterative reconstruction. ATED BY: АНДРЕЙ ELLER MD DICTATED DATE/TIME: 09/22/24 0127 SIGNED BY: АНДРЕЙ ELLER MD SIGNED DATE/TIME: 09/22/24 0127 CC: Time of 1ST Reevaluation: 02:35 Reevaluation 1ST: Unchanged Patient Education/Counseling: Diagnosis, Treatment Family Education/Counseling: No Family Present Comments Patient presented with the above HPI.-abdominal pain-----workup was initiated. patient was found with the above mentioned diagnosis. Patient was given: Stanton and Flagyl Patient ED course and VS have been stabilized. Patient has been reassessed in the ED and remained in a stable condition. Pertinent incidental findings were discussed with the patient and/or family. Patient/family voices understanding and is agreeable with plan. Patient has been observed in the ED adequate length of time to insure improvement/stability. patient was admitted to the medicine team for further evaluation and treatment of their presentation. All the reports of any imaging studies that were ordered by myself were reviewed by myself. Departure 1 Departure Time of Disposition: 02:31 Impression: Primary Impression: Left upper quadrant abdominal pain Additional Impression: Non-specific colitis Disposition: ADMITTED INPATIENT Admit to: Tele Condition: Guarded Additional Instructions: [place] [id number] Ph: [phone] DIAGNOSTIC IMAGING Diagnostic Imaging Report : [id number] Signed PATIENT: IBRAHIMA WRIGHT ACCT: [id number] UNIT: [id number] : 1955 LOC: ER ROOM / BED: / AGE / SEX: 69 / F ADM STATUS: REG ER SERVICE ORDERING PHYSICIAN: NEO MARTE DO PROCEDURE(s): ABPL - CT AB PEL WO CON-NO ORAL OR IV REASON: abd pain ORDER NUMBER(s): [id number], ACCESSION NUMBER(s): [id number] Exam: CT CT AB PEL WO CON-NO ORAL OR IV History: abd pain Comparison Study: [facility] on DOS: 09/23/22, [facility] on DOS: 09/23/22, [facility] on DOS: 04/08/22 Technique: Multidetector spiral CT of the abdomen was performed from lung bases to pubic symphysis. Imaging was performed without IV contrast. Axial, coronal and sagittal multiplanar reformats were obtained from the axial data set by the technologist. Radiation Dose : 1. Abdomen/Pelvis: CTDIvol 19 mGy, DLP 1095.48 mGy*cm. Findings: Evaluation of solid organs is limited due to lack of intravenous contrast use. Lung Bases: No acute or significant lung base finding. Normal heart size. No pleural or pericardial effusion. Liver: The liver is normal in size. No focal lesions. Gallbladder and Biliary Tree: Gallbladder is surgically absent. Spleen: Unremarkable Pancreas: The pancreas is grossly normal in appearance. Adrenal Glands: Unremarkable Kidneys: Kidneys are grossly normal without calculi or hydronephrosis. Bladder: Grossly unremarkable for degree of distention. Bowel: The stomach is grossly normal in appearance. Concentric wall thickening of the sigmoid colon which may reflect underdistention or mild colitis. The appendix is not visualized; however, no secondary findings of acute appendicitis identified. Ascites: Absent Lymphadenopathy: No mesenteric, retroperitoneal or periportal lymphadenopathy. Abdominal Wall and Mesentery: Unremarkable. Vasculature: The visualized abdominal aorta is normal in size and caliber. Evaluation of abdominal and pelvic vessels is limited due to lack of intravenous contrast. Pelvic Organs: Unremarkable Musculoskeletal: No aggressive focal bony lesions, acute fractures or dislocation. Lumbar fixation hardware is noted. IMPRESSION: 1. Concentric wall thickening of the sigmoid colon which may reflect underdistention or mild colitis. Radiation optimization: All CT scans at this facility use at least one of these dose optimization techniques: automated exposure control mA and/or kV ad justment per patient size (includes targeted exams where dose is matched to clinical indication) or iterative reconstruction. ATED BY: АНДРЕЙ ELLER MD DICTATED DATE/TIME: 09/22/24126 SIGNED BY: АНДРЕЙ ELLER MD SIGNED DATE/TIME: 09/22/24126 CC: Discharged With: NEO Garaz DO Sep 22, 2024 01:21
[2024-09-22 01:22] LABS: Basophils # (auto) 0.1 10 ^3/uL (0-0.2); Basophils % (auto) 0.8 % (0.0-2.0); Eosinophils # (auto) 0.2 10 ^3/uL (0-0.8); Eosinophils % (auto) 1.5 % (0.0-7.0); Hematocrit 41.6 % (36.0-46.0); Hemoglobin 13.9 g/dL (12.2-16.2); Lymphocytes % (auto) 29.1 % (10.0-50.0); Mean Corpuscular Hemoglobin 31.9 pg (28.0-32.0); Mean Corpuscular Hgb Conc. 33.5 g/dL (32.0-36.0); Mean Corpuscular Volume 95.3 fL (80.0-100.0); Monocytes # (auto) 0.7 10 ^3/uL (0-1.3); Monocytes % (auto) 6.9 % (0.0-12.0); Neutrophils # (auto) 6.3 10 ^3/uL (1.6-8.6); Neutrophils % (auto) 61.7 % (37.0-80.0); Platelet Count (auto) 237 10^3/uL (140-450); Red Blood Cells 4.36 10^6/uL (4.0-5.20); Red Cell Distribution Width 16.7 % (11.8-14.3); White Blood Cell 10.2 10^3/uL (4.4-10.8)
--- NOTE | 2024-09-22 01:29 | DVH ---
Exam: CT CT AB PEL WO CON-NO ORAL OR IV History: abd pain Comparison Study: [facility] on DOS: 09/23/22, [facility] on DOS: 09/23/22, [facility] on DOS: 04/08/22 Technique: Multidetector spiral CT of the abdomen was performed from lung bases to pubic symphysis. Imaging was performed without IV contrast. Axial, coronal and sagittal multiplanar reformats were ob tained from the axial data set by the technologist. Radiation Dose : 1. Abdomen/Pelvis: CTDIvol 19 mGy, DLP 1095.48 mGy*cm. Findings: Evaluation of solid organs is limited due to lack of intravenous contrast use. Lung Bases: No acute or significant lung base finding. Normal heart size. No pleural or pericardial effusion. Liver: The liver is normal in size. No focal lesions. Gallbladder and Biliary Tree: Gallbladder is surgically absent. Spleen: Unremarkable Pancreas: The pancreas is grossly normal in appearance. Adrenal Glands: Unremarkable Kidneys: Kidneys are grossly normal without calculi or hydronephrosis. Bladder: Grossly unremarkable for degree of distention. Bowel: The stomach is grossly normal in appearance. Concentric wall thickening of the sigmoid colon w hich may reflect underdistention or mild colitis. The appendix is not visualized; however, no second ru findings of acute appendicitis identified. Ascites: Absent Lymphadenopathy: No mesenteric, retroperitoneal or periportal lymphadenopathy. Abdominal Wall and Mesentery: Unremarkable. Vasculature: The visualized abdominal aorta is normal in size and caliber. Evaluation of abdominal a nd pelvic vessels is limited due to lack of intravenous contrast. Pelvic Organs: Unremarkable Musculoskeletal: No aggressive focal bony lesions, acute fractures or dislocation. Lumbar fixation bryan rdware is noted. IMPRESSION: 1. Concentric wall thickening of the sigmoid colon which may reflect underdistention or mild colitis. Radiation optimization: All CT scans at this facility use at least one of these dose optimization lokesh hniques: automated exposure control mA and/or kV adjustment per patient size (includes targeted exam s where dose is matched to clinical indication) or iterative reconstruction.
[2024-09-22 01:38] LABS: Alanine Aminotransferase 29 U/L (7-40); Albumin 4.5 g/dL (3.2-4.8); Alkaline Phosphatase 72 U/L (46-116); Anion Gap 7 (5-15); Aspartate Aminotransferase 20 U/L (13-40); BUN/Creatinine Ratio 7.2 (10.0-20.0); Bilirubin, Total 0.5 mg/dL (0.2-1.0); Calcium 9.9 mg/dL (8.7-10.4); Carbon Dioxide 28 mmol/L (20-31); Chloride 105 mmol/L (98-107); Potassium 4.2 mmol/L (3.5-5.1); Sodium 140 mmol/L (136-145); Total Protein 6.6 g/dL (5.7-8.2)
[2024-09-22 01:40] LABS: Blood Urea Nitrogen 8 mg/dL (9-23); Glucose 120 mg/dL (74-106); Lipase 54 U/L (12-53)
[2024-09-22] MEDS: HYDROcodone-ACET 5/325MG TAB PO ONE (02:10)
[2024-09-22 02:15] LABS: Urine Bacteria None Seen /hpf (None Seen)
[2024-09-22 02:19] LABS: Urine Blood Negative /uL (Negative); Urine Clarity Turbid (Clear); Urine Color Light-Yellow (Yellow); Urine Protein, UAD Negative (Negative); Urine Specific Gravity 1.013 (1.001-1.035); Urine Urobilinogen Normal (Negative); Urine WBC 4 /hpf (0 - 5); Urine pH 7.5 (5.0-9.0)
[2024-09-22] MEDS: metroNIDAZOLE 500MG/100ML 100 ML IV ONE (03:40)
[2024-09-22] MEDS: MORPHINE SULFATE INJ 2 MG/ml SYRG IV ONE (05:11)
--- NOTE | 2024-09-22 05:18 | DVHHP2 ---
History of Present Illness Reason for Visit: Abdominal pain History of Present Illness 69-year-old female presents for evaluation of abdominal pain. Patient reports developing abdominal pain over the past three weeks intermittently. She states that over the the past two days symptoms have worsened. She reports left upper quadrant pain that is nonradiating she reports episodes of nausea without emesis. He denies fever or chills. No diarrhea. Denies cardiac or respiratory symptoms. Past Medical History CVA, depression, anxiety, cancer, AFib, dyslipidemia, seizures, hypertension, thyroid Past Surgical History Hernia repair, hysterectomy, cholecystectomy and Family History Heart disease and diabetes mellitus Smoke: No ALCOHOL: none Drugs: None Lives: with Family Review of Systems Review of Systems Review of systems are currently negative otherwise addressed in HPI. Allergies: Coded Allergies: Erythromycin (Verified Allergy, Unknown, 04/06/22) Medications Current Medications Medications Dose Ordered Sig/No Route Start Time Stop Time Status Last Admin Dose Admin Metronidazole 100 ml @ 100 mls/hr Q8HR IV 09/22/24 06:00 UNV Ceftriaxone Sodium 50 ml @ 100 mls/hr DAILY@09 IV 09/22/24 09:00 Amiodarone HCl 200 mg DAILY PO 09/22/24 10:00 Furosemide 20 mg DAILY PO 09/22/24 10:00 Atorvastatin Calcium 20 mg HS PO 09/22/24 22:00 Levothyroxine Sodium 75 mcg QAM@0600 PO 09/22/24 06:00 Metoprolol Tartrate 25 mg BID PO 09/22/24 10:00 Patient Own Medication 20 mg DAILY PO 09/22/24 10:00 UNV Acetaminophen/ Hydrocodone Bitart 1 tab Q4HP PRN PO 09/22/24 05:00 Ondansetron HCl 4 mg Q4HP PRN IV 09/22/24 05:00 UNV Acetaminophen 650 mg Q6HP PRN PO 09/22/24 05:00 Exam Vital Signs Vital Signs Date Time Temp Pulse Resp B/P (MAP) Pulse Ox O2 Delivery O2 Flow Rate FiO2 09/22/24 05:11 60 18 173/86 09/22/24 05:07 98.5 96 98.5 09/22/24 02:05 Room Air* 0 21 Exam Gen: 69-year-old female in mild distress Skin: Warm, dry, normal color and texture, no rash. HEENT: Normocephalic atraumatic, mucous membranes moist and pink. Neck: Cervical and supraclavicular nodes normal without enlargement, trachea is midline, thyroid gland is normal without masses. Pulmonary: Clear to auscultation and percussion bilaterally. Cardiac: Regular rate and rhythm. No murmur Abdomen: Soft, nontender, nondistended, bowel sounds present all 4 quadrants, no guarding, no rigidity, no organomegaly. Extremities: No cyanosis, clubbing, no edema Neuro: Cranial nerves II through XII grossly intact, normal affect and speech, no focal motor deficits. Labs/Xrays ORDERING PHYSICIAN: NEO MARTE DO PROCEDURE(s): ABPL - CT AB PEL WO CON-NO ORAL OR IV REASON: abd pain ORDER NUMBER(s): [id number], ACCESSION NUMBER(s): [id number] Exam: CT CT AB PEL WO CON-NO ORAL OR IV History: abd pain Comparison Study: [facility] on DOS: 09/23/22, [facility] on DOS: 09/23/22, [facility] on DOS: 04/08/22 Technique: Multidetector spiral CT of the abdomen was performed from lung bases to pubic symphysis. Imaging was performed without IV contrast. Axial, coronal and sagittal multiplanar reformats were obtained from the axial data set by the technologist. Radiation Dose : 1. Abdomen/Pelvis: CTDIvol 19 mGy, DLP 1095.48 mGy*cm. Findings: Evaluation of solid organs is limited due to lack of intravenous contrast use. Lung Bases: No acute or significant lung base finding. Normal heart size. No pleural or pericardial effusion. Liver: The liver is normal in size. No focal lesions. Gallbladder and Biliary Tree: Gallbladder is surgically absent. Spleen: Unremarkable Pancreas: The pancreas is grossly normal in appearance. Adrenal Glands: Unremarkable Kidneys: Kidneys are grossly normal without calculi or hydronephrosis. Bladder: Grossly unremarkable for degree of distention. Bowel: The stomach is grossly normal in appearance. Concentric wall thickening of the sigmoid colon which may reflect underdistention or mild colitis. The appendix is not visualized; however, no secondary findings of acute appendicitis identified. Ascites: Absent Lymphadenopathy: No mesenteric, retroperitoneal or periportal lymphadenopathy. Abdominal Wall and Mesentery: Unremarkable. Vasculature: The visualized abdominal aorta is normal in size and caliber. Evaluation of abdominal and pelvic vessels is limited due to lack of intravenous contrast. Pelvic Organs: Unremarkable Musculoskeletal: No aggressive focal bony lesions, acute fractures or dislocation. Lumbar fixation hardware is noted. IMPRESSION: 1. Concentric wall thickening of the sigmoid colon which may reflect underdistention or mild colitis. Radiation optimization: All CT scans at this facility use at least one of these dose optimization techniques: automated exposure control mA and/or kV adjustment per patient size (includes targeted exams where dose is matched to clinical indication) or iterative reconstruction. ATED BY: АНДРЕЙ SIMON MD DICTATED DATE/TIME: 09/22/24 0127 Labs Test 09/22/24 02:13 09/22/24 01:10 09/22/24 00:58 Range/Units Troponin I High Sensitivity < 3 L </=34 ng/L White Blood Count 10.2 4.4-10.8 10^3/uL Red Blood Count 4.36 4.0-5.20 10^6/uL Hemoglobin 13.9 12.2-16.2 g/dL Hematocrit 41.6 36.0-46.0 % Mean Corpuscular Volume 95.3 80.0-100.0 fL Mean Corpuscular Hemoglobin 31.9 28.0-32.0 pg Mean Corpuscular Hemoglobin Concent 33.5 32.0-36.0 g/dL Red Cell Distribution Width 16.7 H 11.8-14.3 % Platelet Count 237 140-450 10^3/uL Mean Platelet Volume 8.7 6.9-10.8 fL Neutrophils (%) (Auto) 61.7 37.0-80.0 % Lymphocytes (%) (Auto) 29.1 10.0-50.0 % Monocytes (%) (Auto) 6.9 0.0-12.0 % Eosinophils (%) (Auto) 1.5 0.0-7.0 % Basophils (%) (Auto) 0.8 0.0-2.0 % Neutrophils # (Auto) 6.3 1.6-8.6 10 ^3/uL Lymphocytes # (Auto) 3.0 0.4-5.4 10 ^3/uL Monocytes # (Auto) 0.7 0-1.3 10 ^3/uL Eosinophils # (Auto) 0.2 0-0.8 10 ^3/uL Basophils # (Auto) 0.1 0-0.2 10 ^3/uL Nucleated Red Blood Cells 0.0 % Sodium Level 140 136-145 mmol/L Potassium Level 4.2 3.5-5.1 mmol/L Chloride Level 105 98-107 mmol/L Carbon Dioxide Level 28 20-31 mmol/L Anion Gap 7 5-15 Blood Urea Nitrogen 8 L 9-23 mg/dL Creatinine 1.11 H 0.550-1.02 mg/dL Glomerular Filtration Rate Calc 54 >90 mL/min BUN/Creatinine Ratio 7.2 L 10.0-20.0 Serum Glucose 120 H 74-106 mg/dL Lactic Acid Level 1.9 0.4-2.0 mmol/L Calcium Level 9.9 8.7-10.4 mg/dL Total Bilirubin 0.5 0.2-1.0 mg/dL Aspartate Amino Transferase (AST) 20 13-40 U/L Alanine Aminotransferase (ALT) 29 7-40 U/L Alkaline Phosphatase 72 46-116 U/L Total Protein 6.6 5.7-8.2 g/dL Albumin 4.5 3.2-4.8 g/dL Lipase 54 H 12-53 U/L Urine Color Light-yellow Yellow Urine Clarity Turbid H Clear Urine pH 7.5 5.0-9.0 Urine Specific [place] 1.013 1.001-1.035 Urine Protein Negative Negative Urine Ketones Negative Negative Urine Blood Negative Negative /uL Urine Nitrite Negative Negative Urine Bilirubin Negative Negative Urine Urobilinogen Normal Negative mg/dL Urine Leukocyte Esterase Trace Negative /uL Urine RBC 2 0 - 4 /hpf Urine WBC 4 0 - 5 /hpf Urine Squamous Epithelial Cells Few <5 /hpf Urine Bacteria None seen None Seen /hpf Urine Glucose Normal Normal mg/dL Assessment/Plan Assessment/Plan Assessment Acute abdominal pain Acute colitis Accelerated hypertension Plan Admit the patient to [facility] to the hospitalist GI consult Clear liquid diet Rocephin/Flagyl Resume home medications Continue treatment per orders. Plan discussed with: Patient My Orders Orders - SAL BRASWELL AGACNP Procedure Category Date Status Time Metronidazole PHA 09/22/24 Logged 500mg/100ml (Flagyl 06:00 Ceftriaxone 1gm/50ml PHA 09/22/24 In Process D5w (Rocephin) 09:00 Amiodarone Tablet PHA 09/22/24 In Process (Cordarone Tablet) 10:00 Furosemide Tablet PHA 09/22/24 In Process (Lasix Tablet) 10:00 Atorvastatin (Lipitor) PHA 09/22/24 In Process 22:00 Levothyroxine Tablet PHA 09/22/24 In Process (Synthroid Tablet) 06:00 Metoprolol Tartrate PHA 09/22/24 In Process Tablet (Lopressor Ta 10:00 (Nf) Xarelto PHA 09/22/24 Logged 10:00 Basic Metabolic Panel LAB 09/23/24 Verified 04:00 Admit ADMIT 09/22/24 Transmitted 04:53 Hydrocodone-Acet PHA 09/22/24 In Process 5/325mg Tab (Yellow Jacket 05:00 Ondansetron Hcl PHA 09/22/24 Logged (Zofran) 05:00 Complete Blood Count LAB 09/23/24 Verified 04:00 Condition: Stable HILARIA 09/22/24 In Process 04:53 Acetaminophen Tablet PHA 09/22/24 In Process (Tylenol Tablet) 05:00 Clear Liq Diet DIET 09/22/24 Transmitted Breakfast Bedrest With Bathroom HILARIA 09/22/24 In Process Privileg 04:53 * Gi Dvh Wing Scorer CONS 09/22/24 Transmitted 04:53 Hydralazine Injection PHA 09/22/24 Transmitted (Apresoline Inject 05:15 Date of Service: Sep 22, 2024 Billing Provider: SAL BRASWELL Common Visit Codes: [id number] INP/OBS CARE (HIGH) SAL BRASWELL Sep 22, 2024 05:18
[2024-09-22] MEDS: hydrALAZINE HCL 20 MG/ML VL IV PRN (06:05)
[2024-09-22] MEDS: LEVOTHYROXINE SODIUM 25 MCG TAB PO SCH (06:13)
--- NOTE | 2024-09-22 06:39 | ECG ---
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
[2024-09-22] MEDS: cefTRIAXone 1GM/50ML D5W 50 ML IV SCH (09:07)
[2024-09-22] MEDS: HYDROcodone-ACET 5/325MG TAB PO PRN (09:14)
[2024-09-22] MEDS: FUROSEMIDE 20 MG TAB PO SCH (10:22)
[2024-09-22] MEDS: AMIODARONE HCL 200 MG TAB PO SCH (10:22)
[2024-09-22] MEDS: METOPROLOL TARTRATE 25 MG TAB PO SCH (10:24)
[2024-09-22] MEDS: metroNIDAZOLE 500MG/100ML 100 ML IV SCH (12:41)
--- NOTE | 2024-09-22 16:03 | DVHPN2 ---
Progress Note Date Seen: Sep 22, 2024 Medical Necessity Reason Pt with a Central, PICC or Fol: No Subjective Patient reports: No new complaints Review of Systems: HEENT:Normal, CVS:Normal, RESPIRATORY:Normal, GI:Normal, :Normal, MSK:Normal, NEURO:Normal Objective vital signs Vital Sign Date Time Temp Pulse Resp B/P (MAP) Pulse Ox O2 Delivery O2 Flow Rate FiO2 09/22/24 12:39 97.7 60 18 136/62 (86) 94 97.7 09/22/24 08:45 Room Air* 0 21 Total Intake and Output 09/21/24 09/21/24 09/22/24 15:00 23:00 07:00 Intake Total 100 ml Balance 100 ml medications Current Medications Medications Dose Ordered Sig/No Route Start Time Stop Time Status Last Admin Dose Admin Metronidazole 100 ml @ 100 mls/hr Q8H IV 09/22/24 12:00 09/22/24 12:41 100 MLS/HR Ceftriaxone Sodium 50 ml @ 100 mls/hr DAILY@09 IV 09/22/24 09:00 09/22/24 09:07 100 MLS/HR Amiodarone HCl 200 mg DAILY PO 09/22/24 10:00 09/22/24 10:22 200 MG Furosemide 20 mg DAILY PO 09/22/24 10:00 09/22/24 10:22 20 MG Atorvastatin Calcium 20 mg HS PO 09/22/24 22:00 Levothyroxine Sodium 75 mcg QAM@0600 PO 09/22/24 06:00 09/22/24 06:13 75 MCG Metoprolol Tartrate 25 mg BID PO 09/22/24 10:00 09/22/24 10:24 25 MG Rivaroxaban 15 mg QPM PO 09/22/24 18:00 Acetaminophen/ Hydrocodone Bitart 1 tab Q4HP PRN PO 09/22/24 05:00 09/22/24 09:14 1 TAB Ondansetron HCl 4 mg Q4HP PRN IV 09/22/24 05:00 Acetaminophen 650 mg Q6HP PRN PO 09/22/24 05:00 Hydralazine HCl 10 mg Q6HP PRN IV 09/22/24 05:15 09/22/24 06:05 10 MG Examination: GENERAL:Normal, HEENT:Normal, NECK:Normal, LUNGS:Normal, CVS:Normal, ABDOMEN:Normal, MSK:Normal, SKIN:Normal, NEURO:Normal, :Normal laboratory and microbiology Laboratory Tests 09/22/24 01:10 Test 09/22/24 01:10 Range/Units Serum Glucose 120 H 74-106 mg/dL Problem List/Assessment/Plan Problem List/Assessment/Plan #1 abd pain ? colitis: gi eval #2 a fib: hold xarelto #3 chronic diastolic heart failure: cont meds #4 s/p pacer #5 morbid obesity #6 h/o breast cancer #7 htn #8 depression/ anxiety #9 hyperlipidemia #10 hypothyroidism advance care planning- full code- time spent 19 mins Plan discussed with: Patient My Orders My Orders Orders - SAL BRAY MD Procedure Category Date Status Time Pantoprazole PHA 09/22/24 Transmitted (Protonix) 16:00 Pantoprazole PHA 09/23/24 Transmitted (Protonix) 10:00 Citalopram Tablet PHA 09/23/24 Transmitted (Celexa Tablet) 10:00 Basic Metabolic Panel LAB 09/23/24 Verified 06:00 Complete Blood Count LAB 09/23/24 Verified 06:00 PTPTT LAB 09/23/24 Verified 04:00 Date of Service: Sep 22, 2024 Billing Provider: SAL BRAY MD Common Visit Codes: [id number] INP/OBS CARE(HIGH) Secondary Visit Codes: [id number] CARE PLAN 30 MINUTES SAL BRAY MD Sep 22, 2024 16:03
[2024-09-22] MEDS ORDERED: RIVAROXABAN 15 MG TAB PO SCH (18:00)
[2024-09-22] MEDS: PANTOPRAZOLE 40 MG/10 ML VIAL INJ IV ONE (18:41)
--- NOTE | 2024-09-22 20:38 | DVHINCON2 ---
Date of service: Sep 22, 2024 Referring Physician Cody Reason for Consultation CHF History of Present Illness This is a 69-year-old female with a PMH of Thyroid disease, TIA, atrial fibrillation, CHF, hyperlipidemia who presented to the emergency department with complaints of intermittent left upper quadrant pain nonradiating x3 weeks. Pain is worse with movement. Patient has associated nausea but no vomiting or diarrhe a. Patient has normal bowel movements. UA is negative for infection. 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 Trop x2 is negative. CT ABD PEL shows concentric wall thickening of the sigmoid colon which may reflect underdistention or mild colitis. Patient was admitted to the hospital. I am asked to consult on this patient. Family History: Diabetes mellitus G8 MOTHER FH: heart disease G8 MOTHER Allergies: Coded Allergies: Erythromycin (Verified Allergy, Unknown, 04/06/22) Home Meds Active Scripts Nitrofurantoin Monohydrate Mac (Macrobid) 100 Mg Cap, 100 MG PO BID for 4 Days, #8 CAP Prov:UNA ALMANZAR MD 05/29/24 Levothyroxine Sodium (SYNTHROID TABLET) 50 Mcg Tb, 125 MCG PO QAM@0600 for 30 Days, #30 TAB Prov:UNA ALMANZAR MD 05/29/24 Cyanocobalamin (B-12) 1,000 Mcg Cap, 1000 MCG PO QAM for 30 Days, #30 CAP Prov:MELANIE BARAKAT MD 01/30/23 Rivaroxaban (XARELTO) 20 Mg Tab, 1 TAB PO DAILY, #30 TAB 2 Refills Prov:LEATHA GUPTA MD 12/12/22 Mirtazapine (Remeron) 15 Mg Tab, 0.5 TAB PO QPM, #30 TAB 1 Refill Prov:ABIMAEL BARONE MD 09/24/22 Reported Medications Ergocalciferol (Vitamin D (Ergocalciferol) 50,000 Unit Cap, 1 CAP PO QWEEKLY 05/26/24 Aripiprazole (Abilify) 2 Mg Tab, 1 TAB PO DAILY 05/26/24 Albuterol Sulfate (Albuterol Sulfate Hfa) 108 Mcg/Act Aer, 2 PUFF INH BID 05/26/24 Hydroxyzine Hcl (Hydroxyzine Hcl) 10 Mg Tab, 2 TAB PO TID PRN 05/26/24 Potassium Chloride (Potassium Chloride ER) 10 Meq Tab, 1 TAB PO MWF 05/26/24 Furosemide (Furosemide) 40 Mg Tab, 1 TAB PO MWF 05/26/24 Buspirone Hcl (Buspirone Hcl) 15 Mg Tab, 1 TAB PO BID for 30 Days, #60 05/26/24 Artificial Tear Solution (ARTIFICIAL TEARS) Tears Mirian, 1 DROP EACHEYE PRN for DRY EYES, ML 05/25/24 Clonazepam (KlonoPIN TABLET) 0.5 Mg Tb, 0.5 TAB PO BID PRN for ANXIETY for 30 Days, #30 02/16/24 Trazodone HCl (Trazodone Hydrochloride) 50 Mg Tab, 2 TAB PO HS PRN for 30 Days, #60 09/22/22 Citalopram Hydrobromide (Citalopram) 40 Mg Tab, 40 MG PO DAILY, TAB 09/21/22 Amiodarone Hcl (Amiodarone Hcl) 200 Mg Tab, 200 MG PO DAILY 09/21/22 Simvastatin (Simvastatin) 20 Mg Tab, 20 MG PO HS 04/07/22 Metoprolol Tartrate (Lopressor) 25 Mg Tb, 1 TAB PO BID for 90 Days, #180 0 Refills 04/07/22 Current Medications Current Medications Medications (Trade) Dose Ordered Sig/No Route PRN Reason Start Time Stop Time Status Last Admin Metronidazole 100 ml @ 100 mls/hr Q8H IV 09/22/24 12:00 09/22/24 12:41 Ceftriaxone Sodium 50 ml @ 100 mls/hr DAILY@09 IV 09/22/24 09:00 09/22/24 09:07 Amiodarone HCl (Cordarone Tablet) 200 mg DAILY PO 09/22/24 10:00 09/22/24 10:22 Furosemide (Lasix Tablet) 20 mg DAILY PO 09/22/24 10:00 09/22/24 10:22 Atorvastatin Calcium (Lipitor) 20 mg HS PO 09/22/24 22:00 Levothyroxine Sodium (Synthroid Tablet) 75 mcg QAM@0600 PO 09/22/24 06:00 09/22/24 06:13 Metoprolol Tartrate (Lopressor Tablet) 25 mg BID PO 09/22/24 10:00 09/22/24 10:24 Rivaroxaban (Xarelto Tablet) 15 mg QPM PO 09/22/24 18:00 09/22/24 15:59 DC Acetaminophen/ Hydrocodone Bitart (Sabina 5/325MG Tab) 1 tab Q4HP PRN PO MODERATE PAIN (4-6 PAIN SCALE) 09/22/24 05:00 09/22/24 16:15 Ondansetron HCl (Zofran) 4 mg Q4HP PRN IV NAUSEA / VOMITING 09/22/24 05:00 Acetaminophen (Tylenol Tablet) 650 mg Q6HP PRN PO PAIN SCALE 1-3 OR TEMP>100.4 09/22/24 05:00 Hydralazine HCl (Apresoline Injection) 10 mg Q6HP PRN IV SBP>150 09/22/24 05:15 09/22/24 06:05 Pantoprazole Sodium (Protonix) 40 mg DAILY IV 09/23/24 10:00 Citalopram Hydrobromide (CeleXA TABLET) 40 mg DAILY PO 09/23/24 10:00 Buspirone HCl (Buspar Tablet) 15 mg Q12HR PO 09/22/24 22:00 Review of Systems CONSTITUTIONAL: Denies acute: fever, diaphoresis, chills, generalized weakness. HEAD:Denies acute: headache, photophobia Eyes:Denies acute: Double vision, vision loss, eye pain, eye discharge EARS: Denies acute: tinnitus, hearing loss, ear discharge, ear pain, THROAT: Denies acute: sore throat, swelling, difficulty swallowing , pain with swallowing, change in voice. NECK:Denies acute: neck pain, neck swelling, stiff neck. HEART:Denies acute : chest pain, palpitations, LUNGS:Denies acute: SOB, wheezing, cough, hemoptysis ABDOMEN:Denies acute: Vomiting, diarrhea, melena , hematemesis, hematochezia SKIN:Denies acute: rash, redness, lesions, itchiness. EXTREMITIES:Denies acute: calf pain, numbness, tingling, weakness, denies pain in extremity.Denies acute: Low back pain. Neuro:Denies acute: focal neurological deficit, motor or sensory focal neurological deficit, tremors, seizure like activity, confusion, dizziness, change in mental status, loss of bowel or bladder function, cauda equina like symptoms. : Denies acute: dysuria, hematuria, flank pain, increase in urinary frequency. PSYCH: Denies acute: hallucination, suicidal ideation, homicidal ideation. FEMALE: Denies acute: abnormal vaginal bleeding, foul odor, unusual discharge. Vital Signs Vital Signs Date Time Temp Pulse Resp B/P (MAP) Pulse Ox O2 Delivery O2 Flow Rate FiO2 09/22/24 17:44 97.6 60 20 129/65 (86) 93 97.6 09/22/24 15:35 Room Air* 0 21 Physical Exam GENERAL: Awake, alert, oriented. Morbid obesity. LUNGS: Clear. CARDIOVASCULAR: Heart sounds are good. ABDOMEN: Soft. LUQ TTP. Labs/Diagnostic Data Labs Test 09/22/24 02:13 09/22/24 01:10 09/22/24 00:58 Range/Units Troponin I High Sensitivity < 3 L </=34 ng/L White Blood Count 10.2 4.4-10.8 10^3/uL Red Blood Count 4.36 4.0-5.20 10^6/uL Hemoglobin 13.9 12.2-16.2 g/dL Hematocrit 41.6 36.0-46.0 % Mean Corpuscular Volume 95.3 80.0-100.0 fL Mean Corpuscular Hemoglobin 31.9 28.0-32.0 pg Mean Corpuscular Hemoglobin Concent 33.5 32.0-36.0 g/dL Red Cell Distribution Width 16.7 H 11.8-14.3 % Platelet Count 237 140-450 10^3/uL Mean Platelet Volume 8.7 6.9-10.8 fL Neutrophils (%) (Auto) 61.7 37.0-80.0 % Lymphocytes (%) (Auto) 29.1 10.0-50.0 % Monocytes (%) (Auto) 6.9 0.0-12.0 % Eosinophils (%) (Auto) 1.5 0.0-7.0 % Basophils (%) (Auto) 0.8 0.0-2.0 % Neutrophils # (Auto) 6.3 1.6-8.6 10 ^3/uL Lymphocytes # (Auto) 3.0 0.4-5.4 10 ^3/uL Monocytes # (Auto) 0.7 0-1.3 10 ^3/uL Eosinophils # (Auto) 0.2 0-0.8 10 ^3/uL Basophils # (Auto) 0.1 0-0.2 10 ^3/uL Nucleated Red Blood Cells 0.0 % Sodium Level 140 136-145 mmol/L Potassium Level 4.2 3.5-5.1 mmol/L Chloride Level 105 98-107 mmol/L Carbon Dioxide Level 28 20-31 mmol/L Anion Gap 7 5-15 Blood Urea Nitrogen 8 L 9-23 mg/dL Creatinine 1.11 H 0.550-1.02 mg/dL Glomerular Filtration Rate Calc 54 >90 mL/min BUN/Creatinine Ratio 7.2 L 10.0-20.0 Serum Glucose 120 H 74-106 mg/dL Lactic Acid Level 1.9 0.4-2.0 mmol/L Calcium Level 9.9 8.7-10.4 mg/dL Total Bilirubin 0.5 0.2-1.0 mg/dL Aspartate Amino Transferase (AST) 20 13-40 U/L Alanine Aminotransferase (ALT) 29 7-40 U/L Alkaline Phosphatase 72 46-116 U/L Total Protein 6.6 5.7-8.2 g/dL Albumin 4.5 3.2-4.8 g/dL Lipase 54 H 12-53 U/L Urine Color Light-yellow Yellow Urine Clarity Turbid H Clear Urine pH 7.5 5.0-9.0 Urine Specific [place] 1.013 1.001-1.035 Urine Protein Negative Negative Urine Ketones Negative Negative Urine Blood Negative Negative /uL Urine Nitrite Negative Negative Urine Bilirubin Negative Negative Urine Urobilinogen Normal Negative mg/dL Urine Leukocyte Esterase Trace Negative /uL Urine RBC 2 0 - 4 /hpf Urine WBC 4 0 - 5 /hpf Urine Squamous Epithelial Cells Few <5 /hpf Urine Bacteria None seen None Seen /hpf Urine Glucose Normal Normal mg/dL Assessment Abdominal pain. A- fib. Chronic diastolic heart failure. S/p pacer. Morbid obesity. History of breast cancer. HTN. Depression/ anxiety Hyperlipidemia Hypothyroidism Plan/Recommendation I agree with your ongoing assessment and care of plan. Bell for pain management. Amiodarone. Lipitor, Metoprolol. IV antibiotics as ordered. Diuretics with Lasix. IV Hydralazine for SBP > 150. GI prophylactics. Additional plan as per the hospital course. A total of 45 minutes was spent reviewing the patient record, examining the patient, making a diagnostic and therapeutic plan, discussing this plan with medical personnel, following up on diagnostic studies and following the patient for clinical stability excluding any and all procedures. At least 50% of this time was spent in direct, [id number] contact. Plan discussed with: Patient COLIN FRANCIS MD Sep 22, 2024 18:08
[2024-09-22] MEDS: ATORVASTATIN 20 MG TAB PO SCH (21:34)
[2024-09-22] MEDS: busPIRone HCL 10 MG TAB PO SCH (21:34)
[2024-09-23] VITALS (9 sets, daily range): BP systolic 124–152; BP diastolic 54–68; PULSE 59–72; RESP 16–18; TEMP 97.5–98.3; O2SAT 92–99
[2024-09-23 07:18] LABS: Basophils # (auto) 0.1 10 ^3/uL (0-0.2); Eosinophils # (auto) 0.3 10 ^3/uL (0-0.8); Eosinophils % (auto) 3.8 % (0.0-7.0); Hematocrit 39.4 % (36.0-46.0); Hemoglobin 13.1 g/dL (12.2-16.2); Lymphocytes # (auto) 2.7 10 ^3/uL (0.4-5.4); Lymphocytes % (auto) 31.3 % (10.0-50.0); Mean Corpuscular Hemoglobin 32.2 pg (28.0-32.0); Mean Corpuscular Hgb Conc. 33.4 g/dL (32.0-36.0); Mean Corpuscular Volume 96.3 fL (80.0-100.0); Monocytes # (auto) 0.6 10 ^3/uL (0-1.3); Monocytes % (auto) 6.9 % (0.0-12.0); Neutrophils # (auto) 4.9 10 ^3/uL (1.6-8.6); Nucleated Red Blood Cells % 0.6 %; Platelet Count (auto) 237 10^3/uL (140-450); Red Blood Cells 4.09 10^6/uL (4.0-5.20); White Blood Cell 8.6 10^3/uL (4.4-10.8)
[2024-09-23 07:35] LABS: INR 1.07 (0.9-1.15); Partial Thromboplastin Time 22.7 SEC (24.5-34.5); Prothrombin Time 11.3 sec (9.3-11.8)
[2024-09-23 07:41] LABS: Chloride 102 mmol/L (98-107); Sodium 136 mmol/L (136-145)
[2024-09-23 07:42] LABS: Anion Gap 6 (5-15); Calcium 9.5 mg/dL (8.7-10.4); Carbon Dioxide 28 mmol/L (20-31)
[2024-09-23 07:43] LABS: Potassium 4.6 mmol/L (3.5-5.1)
[2024-09-23 07:47] LABS: Glucose 79 mg/dL (74-106)
[2024-09-23 07:52] LABS: BUN/Creatinine Ratio 5.4 (10.0-20.0); Blood Urea Nitrogen 6 mg/dL (9-23)
[2024-09-23] MEDS: PANTOPRAZOLE 40 MG/10 ML VIAL INJ IV SCH (08:53)
[2024-09-23] MEDS: CITALOPRAM HYDROBR 20 MG TAB PO SCH (08:53)
--- NOTE | 2024-09-23 09:36 | DVH ---
CHEST RADIOGRAPH Indication: chf Technique: Single frontal view of the chest was obtained Comparison: XY CHEST PORTABLE on DOS: 05/24/24, XY CHEST PORTABLE on DOS: 02/14/24, XY CHEST PORTABLE on DOS: 08/06/23, XY CHEST PORTABLE on DOS: 06/10/23, XY CHEST PORTABLE on DOS: 06/07/23 FINDINGS: Lines and Tubes: Left sided pacemaker Lungs: No focal consolidation. Pleura: No effusion. No pneumothorax. Cardiomediastinal contours: Unremarkable Bones: No acute osseous abnormality. IMPRESSION: No acute cardiopulmonary disease.
[2024-09-23] MEDS: ONDANSETRON HCL 4 MG/2 ML VIAL IV PRN (13:35)
--- NOTE | 2024-09-23 13:43 | DVHINCON2 ---
Date of service: Sep 23, [address] Barron Reason for Consultation Abdominal pain left upper quadrant with radiation with no radiation abnormal CT scan with some thickening of the sigmoid colon. History of Present Illness This 69-year-old female presented to the emergency room with complaints of left upper quadrant pain with nausea no diarrhea no bleeding problems the tinnitus CT scan done which showed some thickening of the sigmoid colon concentration possibly From mild underdistention or mild colitis no gross GI bleeding no nausea or vomiting hematemesis Past Medical History Thyroid disease atrial fibrillation was on Xarelto congestive heart failure hyperlipidemia Past Surgical History None Family History: Diabetes mellitus G8 MOTHER FH: heart disease G8 MOTHER Family History Noncontributory Social History Denies smoking or drinking Allergies: Coded Allergies: Erythromycin (Verified Allergy, Unknown, 04/06/22) Home Meds Active Scripts Nitrofurantoin Monohydrate Mac (Macrobid) 100 Mg Cap, 100 MG PO BID for 4 Days, #8 CAP Prov:UNA ALMANZAR MD 05/29/24 Levothyroxine Sodium (SYNTHROID TABLET) 50 Mcg Tb, 125 MCG PO QAM@0600 for 30 Days, #30 TAB Prov:UNA ALMANZAR MD 05/29/24 Cyanocobalamin (B-12) 1,000 Mcg Cap, 1000 MCG PO QAM for 30 Days, #30 CAP Prov:MELANIE BARAKAT MD 01/30/23 Rivaroxaban (XARELTO) 20 Mg Tab, 1 TAB PO DAILY, #30 TAB 2 Refills Prov:LEATHA GUPTA MD 12/12/22 Mirtazapine (Remeron) 15 Mg Tab, 0.5 TAB PO QPM, #30 TAB 1 Refill Prov:ABIMAEL BARONE MD 09/24/22 Reported Medications Ergocalciferol (Vitamin D (Ergocalciferol) 50,000 Unit Cap, 1 CAP PO QWEEKLY 05/26/24 Aripiprazole (Abilify) 2 Mg Tab, 1 TAB PO DAILY 05/26/24 Albuterol Sulfate (Albuterol Sulfate Hfa) 108 Mcg/Act Aer, 2 PUFF INH BID 05/26/24 Hydroxyzine Hcl (Hydroxyzine Hcl) 10 Mg Tab, 2 TAB PO TID PRN 05/26/24 Potassium Chloride (Potassium Chloride ER) 10 Meq Tab, 1 TAB PO MWF 05/26/24 Furosemide (Furosemide) 40 Mg Tab, 1 TAB PO MWF 05/26/24 Buspirone Hcl (Buspirone Hcl) 15 Mg Tab, 1 TAB PO BID for 30 Days, #60 05/26/24 Artificial Tear Solution (ARTIFICIAL TEARS) Tears Mirian, 1 DROP EACHEYE PRN for DRY EYES, ML 05/25/24 Clonazepam (KlonoPIN TABLET) 0.5 Mg Tb, 0.5 TAB PO BID PRN for ANXIETY for 30 Days, #30 02/16/24 Trazodone HCl (Trazodone Hydrochloride) 50 Mg Tab, 2 TAB PO HS PRN for 30 Days, #60 09/22/22 Citalopram Hydrobromide (Citalopram) 40 Mg Tab, 40 MG PO DAILY, TAB 09/21/22 Amiodarone Hcl (Amiodarone Hcl) 200 Mg Tab, 200 MG PO DAILY 09/21/22 Simvastatin (Simvastatin) 20 Mg Tab, 20 MG PO HS 04/07/22 Metoprolol Tartrate (Lopressor) 25 Mg Tb, 1 TAB PO BID for 90 Days, #180 0 Refills 04/07/22 Current Medications Current Medications Medications (Trade) Dose Ordered Sig/No Route PRN Reason Start Time Stop Time Status Last Admin Atorvastatin Calcium (Lipitor) 20 mg HS PO 09/22/24 22:00 09/22/24 21:34 Rivaroxaban (Xarelto Tablet) 15 mg QPM PO 09/22/24 18:00 09/22/24 15:59 DC Pantoprazole Sodium (Protonix) 40 mg DAILY IV 09/23/24 10:00 09/23/24 08:53 Citalopram Hydrobromide (CeleXA TABLET) 40 mg DAILY PO 09/23/24 10:00 09/23/24 08:53 Buspirone HCl (Buspar Tablet) 15 mg Q12HR PO 09/22/24 22:00 09/23/24 08:54 Review of Systems Noncontributory Vital Signs Vital Signs Date Time Temp Pulse Resp B/P (MAP) Pulse Ox O2 Delivery O2 Flow Rate FiO2 09/23/24 12:32 97.7 60 18 129/54 (79) 96 97.7 09/22/24 20:00 Nasal Cannula* 2 28 Physical Exam Originally built and nourished female in no acute distress vital stable HEENT examination no pallor or icterus Lungs clear Cardiovascular unremarkable Abdomen soft mild fullness in the epigastric area as well as left upper quadrant and periumbilically no rigidity no guarding no masses bowel sounds are normal Extremities no edema Neurological grossly intact Labs/Diagnostic Data Labs Test 09/23/24 06:25 09/22/24 02:13 09/22/24 01:10 09/22/24 00:58 Range/Units White Blood Count 8.6 4.4-10.8 10^3/uL Red Blood Count 4.09 4.0-5.20 10^6/uL Hemoglobin 13.1 12.2-16.2 g/dL Hematocrit 39.4 36.0-46.0 % Mean Corpuscular Volume 96.3 80.0-100.0 fL Mean Corpuscular Hemoglobin 32.2 H 28.0-32.0 pg Mean Corpuscular Hemoglobin Concent 33.4 32.0-36.0 g/dL Red Cell Distribution Width 17.0 H 11.8-14.3 % Platelet Count 237 140-450 10^3/uL Mean Platelet Volume 9.3 6.9-10.8 fL Neutrophils (%) (Auto) 57.0 37.0-80.0 % Lymphocytes (%) (Auto) 31.3 10.0-50.0 % Monocytes (%) (Auto) 6.9 0.0-12.0 % Eosinophils (%) (Auto) 3.8 0.0-7.0 % Basophils (%) (Auto) 1.0 0.0-2.0 % Neutrophils # (Auto) 4.9 1.6-8.6 10 ^3/uL Lymphocytes # (Auto) 2.7 0.4-5.4 10 ^3/uL Monocytes # (Auto) 0.6 0-1.3 10 ^3/uL Eosinophils # (Auto) 0.3 0-0.8 10 ^3/uL Basophils # (Auto) 0.1 0-0.2 10 ^3/uL Nucleated Red Blood Cells 0.6 % Prothrombin Time 11.3 9.3-11.8 sec Prothrombin Time INR 1.07 0.9-1.15 Activated Partial Thromboplast Time 22.7 L 24.5-34.5 SEC Sodium Level 136 136-145 mmol/L Potassium Level 4.6 3.5-5.1 mmol/L Chloride Level 102 98-107 mmol/L Carbon Dioxide Level 28 20-31 mmol/L Anion Gap 6 5-15 Blood Urea Nitrogen 6 L 9-23 mg/dL Creatinine 1.12 H 0.550-1.02 mg/dL Glomerular Filtration Rate Calc 53 >90 mL/min BUN/Creatinine Ratio 5.4 L 10.0-20.0 Serum Glucose 79 74-106 mg/dL Calcium Level 9.5 8.7-10.4 mg/dL Troponin I High Sensitivity < 3 L </=34 ng/L Lactic Acid Level 1.9 0.4-2.0 mmol/L Total Bilirubin 0.5 0.2-1.0 mg/dL Aspartate Amino Transferase (AST) 20 13-40 U/L Alanine Aminotransferase (ALT) 29 7-40 U/L Alkaline Phosphatase 72 46-116 U/L Total Protein 6.6 5.7-8.2 g/dL Albumin 4.5 3.2-4.8 g/dL Lipase 54 H 12-53 U/L Urine Color Light-yellow Yellow Urine Clarity Turbid H Clear Urine pH 7.5 5.0-9.0 Urine Specific [place] 1.013 1.001-1.035 Urine Protein Negative Negative Urine Ketones Negative Negative Urine Blood Negative Negative /uL Urine Nitrite Negative Negative Urine Bilirubin Negative Negative Urine Urobilinogen Normal Negative mg/dL Urine Leukocyte Esterase Trace Negative /uL Urine RBC 2 0 - 4 /hpf Urine WBC 4 0 - 5 /hpf Urine Squamous Epithelial Cells Few <5 /hpf Urine Bacteria None seen None Seen /hpf Urine Glucose Normal Normal mg/dL Assessment 69-year-old female with a abdominal pain left upper quadrant history of atrial fibrillation patient had some mild nausea but no lower GI symptoms complaints of fullness CT scan showed some thickening of the concentric wall thickening of the sigmoid colon this is a CT scan without oral contrast sure this under distention or colitis No lower GI symptoms now and no bleed Clinical impression abdominal pain not sure of the etiology Possibility of mild nonspecific colitis diverticulosis or other pathology also can not be excluded Plan/Recommendation We will recommend repeating a CT scan of the abdomen dedicated with oral contrast to ensure the pathology in the colon or other areas account for the similar Since the last CT scan was without any contrast and underdistended If that scan is abnormal or other lower GI symptoms may need a colonoscopic evaluation Otherwise we could do as an outpatient GI workup as necessary if patient is improving and CT scan does not show any other pathology Thank you Dr. Arroyo Plan discussed with: Patient LEILANI ARROYO MD Sep 23, 2024 13:43
--- NOTE | 2024-09-23 14:15 | DVHPN2 ---
Progress Note - Dictate Date Seen: Sep 23, 2024 Medical Necessity Reason Pt with a Central, PICC or Fol: No Subjective Patient was seen and evaluated in follow up. Patient is complaining of LLQ abdominal pain. Patient denies any N/V/D. 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 Chest x-ray shows no acute cardiopulmonary disease. vital signs Vital Sign Date Time Temp Pulse Resp B/P (MAP) Pulse Ox O2 Delivery O2 Flow Rate FiO2 09/23/24 08:54 60 124/66 09/23/24 08:39 97.5 18 97 97.5 09/22/24 20:00 Nasal Cannula* 2 28 Total Intake and Output 09/22/24 09/22/24 09/23/24 15:00 23:00 07:00 Intake Total 150 ml 100 ml 450 ml Balance 150 ml 100 ml 450 ml medications Current Medications Medications Dose Ordered Sig/No Route Start Time Stop Time Status Last Admin Dose Admin Metronidazole 100 ml @ 100 mls/hr Q8H IV 09/22/24 12:00 09/23/24 05:47 100 MLS/HR Ceftriaxone Sodium 50 ml @ 100 mls/hr DAILY@09 IV 09/22/24 09:00 09/23/24 08:52 100 MLS/HR Amiodarone HCl 200 mg DAILY PO 09/22/24 10:00 09/23/24 08:53 200 MG Furosemide 20 mg DAILY PO 09/22/24 10:00 09/23/24 08:54 20 MG Atorvastatin Calcium 20 mg HS PO 09/22/24 22:00 09/22/24 21:34 20 MG Levothyroxine Sodium 75 mcg QAM@0600 PO 09/22/24 06:00 09/23/24 05:47 75 MCG Metoprolol Tartrate 25 mg BID PO 09/22/24 10:00 09/23/24 08:54 25 MG Acetaminophen/ Hydrocodone Bitart 1 tab Q4HP PRN PO 09/22/24 05:00 09/23/24 05:54 1 TAB Ondansetron HCl 4 mg Q4HP PRN IV 09/22/24 05:00 Acetaminophen 650 mg Q6HP PRN PO 09/22/24 05:00 Hydralazine HCl 10 mg Q6HP PRN IV 09/22/24 05:15 09/22/24 06:05 10 MG Pantoprazole Sodium 40 mg DAILY IV 09/23/24 10:00 09/23/24 08:53 40 MG Citalopram Hydrobromide 40 mg DAILY PO 09/23/24 10:00 09/23/24 08:53 40 MG Buspirone HCl 15 mg Q12HR PO 09/22/24 22:00 09/23/24 08:54 15 MG objective GENERAL: Awake, alert, oriented. Morbid obesity. LUNGS: Clear. CARDIOVASCULAR: Heart sounds are good. ABDOMEN: Soft. LUQ TTP. laboratory and microbiology Laboratory Tests 09/23/24 06:25 Test 09/23/24 06:25 Range/Units Serum Glucose 79 74-106 mg/dL Problem List Abdominal pain. A- fib. Chronic diastolic heart failure. S/p pacer. Morbid obesity. History of breast cancer. HTN. Depression/ anxiety Hyperlipidemia Hypothyroidism Assessment/Plan Continued all current supportive medical care. [place] for pain management. Amiodarone. Lipitor, Metoprolol. IV antibiotics as ordered. Diuretics with Lasix. IV Hydralazine for SBP > 150. GI prophylactics. Additional plan as per the hospital course. Plan discussed with: Patient COLIN FRANCIS MD Sep 23, 2024 12:21
--- NOTE | 2024-09-23 14:53 | DVHPN2 ---
Progress Note Date Seen: Sep 23, 2024 Medical Necessity Reason Pt with a Central, PICC or Fol: No Subjective Patient reports: No new complaints Review of Systems: HEENT:Normal, CVS:Normal, RESPIRATORY:Normal, GI:Normal, :Normal, MSK:Normal, NEURO:Normal Objective vital signs Vital Sign Date Time Temp Pulse Resp B/P (MAP) Pulse Ox O2 Delivery O2 Flow Rate FiO2 09/23/24 12:32 97.7 60 18 129/54 (79) 96 97.7 09/22/24 20:00 Nasal Cannula* 2 28 Total Intake and Output 09/22/24 09/22/24 09/23/24 15:00 23:00 07:00 Intake Total 150 ml 100 ml 450 ml Balance 150 ml 100 ml 450 ml medications Current Medications Medications Dose Ordered Sig/No Route Start Time Stop Time Status Last Admin Dose Admin Metronidazole 100 ml @ 100 mls/hr Q8H IV 09/22/24 12:00 09/23/24 13:35 100 MLS/HR Ceftriaxone Sodium 50 ml @ 100 mls/hr DAILY@09 IV 09/22/24 09:00 09/23/24 08:52 100 MLS/HR Amiodarone HCl 200 mg DAILY PO 09/22/24 10:00 09/23/24 08:53 200 MG Furosemide 20 mg DAILY PO 09/22/24 10:00 09/23/24 08:54 20 MG Atorvastatin Calcium 20 mg HS PO 09/22/24 22:00 09/22/24 21:34 20 MG Levothyroxine Sodium 75 mcg QAM@0600 PO 09/22/24 06:00 09/23/24 05:47 75 MCG Metoprolol Tartrate 25 mg BID PO 09/22/24 10:00 09/23/24 08:54 25 MG Acetaminophen/ Hydrocodone Bitart 1 tab Q4HP PRN PO 09/22/24 05:00 09/23/24 05:54 1 TAB Ondansetron HCl 4 mg Q4HP PRN IV 09/22/24 05:00 09/23/24 13:35 4 MG Acetaminophen 650 mg Q6HP PRN PO 09/22/24 05:00 Hydralazine HCl 10 mg Q6HP PRN IV 09/22/24 05:15 09/22/24 06:05 10 MG Pantoprazole Sodium 40 mg DAILY IV 09/23/24 10:00 09/23/24 08:53 40 MG Citalopram Hydrobromide 40 mg DAILY PO 09/23/24 10:00 09/23/24 08:53 40 MG Buspirone HCl 15 mg Q12HR PO 09/22/24 22:00 09/23/24 08:54 15 MG Examination: GENERAL:Normal, HEENT:Normal, NECK:Normal, LUNGS:Normal, CVS:Normal, ABDOMEN:Normal, MSK:Normal, SKIN:Normal, NEURO:Normal, :Normal laboratory and microbiology Laboratory Tests 09/23/24 06:25 Test 09/23/24 06:25 Range/Units Serum Glucose 79 74-106 mg/dL Problem List/Assessment/Plan Problem List/Assessment/Plan #1 abd pain ? colitis: ct with oral contrast #2 a fib: hold xarelto #3 chronic diastolic heart failure: cont meds #4 s/p pacer #5 morbid obesity #6 h/o breast cancer #7 htn #8 depression/ anxiety #9 hyperlipidemia #10 hypothyroidism advance care planning- full code- time spent 19 mins Plan discussed with: Patient My Orders My Orders Orders - SAL BRAY MD Procedure Category Date Status Time Pantoprazole PHA 09/23/24 In Process (Protonix) 10:00 Citalopram Tablet PHA 09/23/24 In Process (Celexa Tablet) 10:00 * Cardiology Consult CONS 09/22/24 Transmitted 15:58 Buspirone Hcl Tablet PHA 09/22/24 In Process (Buspar Tablet) 22:00 Chest Portable XY 09/23/24 Resulted 06:00 Ct Ab Pel With Oral CT 09/23/24 Verified Con Only 14:47 Date of Service: Sep 23, 2024 Billing Provider: SAL BRAY MD Common Visit Codes: [id number] INP/OBS CARE(HIGH) SAL BRAY MD Sep 23, 2024 14:53
[2024-09-23] MEDS: GASTROGRAFIN 30 ML SOL ONE (14:54)
--- NOTE | 2024-09-23 17:45 | DVH ---
Exam: CT CT AB PEL WITH ORAL CON ONLY History: abd pain Comparison Study: CT CT AB PEL WO CON-NO ORAL OR IV on DOS: 09/22/24, [facility] on DOS: 09/23/22, [facility] on DOS: 09/23/22 Technique: Multidetector spiral CT of the abdomen and pelvis was performed from lung bases to pubic symphysis. Imaging was performed without IV contrast. Axial, coronal and sagittal multiplanar reform ats were obtained from the axial data set by the technologist. Radiation dose : Abdomen/Pelvis: CTDIvol 24 mGy, DLP 1284.46 mGy*cm. Findings: Evaluation of solid organs is limited due to lack of intravenous contrast use. Lung Bases: No acute or significant lung base finding. Normal heart size. No pleural or pericardial effusion. Liver: The liver is normal in size. No focal lesions. Gallbladder and biliary Tree: Gallbladder is surgically absent. Spleen: Unremarkable Pancreas: The pancreas is grossly normal in appearance. Adrenal Glands: Unremarkable Kidneys: Kidneys are grossly normal without calculi or hydronephrosis. Bladder: Grossly unremarkable for degree of distention. Bowel: The stomach is grossly normal in appearance. Small bowel and colon are normal in caliber and d istribution. The appendix is not visualized; however, no secondary findings of acute appendicitis id entified. Ascites: Absent Lymphadenopathy: No mesenteric, retroperitoneal or periportal lymphadenopathy. Abdominal wall and Mesentery: Unremarkable. Vasculature: The visualized abdominal aorta is normal in size and caliber. Evaluation of abdominal a nd pelvic vessels is limited due to lack of intravenous contrast. Pelvic Organs: The uterus is surgically absent. Musculoskeletal: No aggressive focal bony lesions, acute fractures or dislocation. IMPRESSION: 1. No acute abdominal or pelvic findings. Radiation optimization: All CT scans at this facility use at least one of these dose optimization lokesh hniques: Automated exposure control mA and/or kV adjustment per patient size (includes targeted exams where dose is matched to clinical indication) or iterative reconstruction. HS:Y
[2024-09-24] VITALS (8 sets, daily range): BP systolic 99–145; BP diastolic 39–69; PULSE 50–64; RESP 15–18; TEMP 97.7–98.4; O2SAT 96–100
--- NOTE | 2024-09-24 10:51 | DVHPN2 ---
Subjective Decreasing abdominal pain; no more nausea/vomiting Reviewed: Care Plan, H&P, Labs, Medications, Previous Orders, Radiology, Other (Consultations) Changes from previous H/P or p: No Changes Objective Vitals Vital Signs Date Time Temp Pulse Resp B/P (MAP) Pulse Ox O2 Delivery O2 Flow Rate FiO2 09/24/24 09:16 123/40 09/24/24 09:00 97.7 64 15 100 97.7 09/23/24 20:00 Nasal Cannula* 2 28 Intake/Output Intake and Output 09/24/24 07:00 Intake Total 750 ml Balance 750 ml Intake Oral 300 ml IV Total 450 ml # Voids 1 General Appearance: Alert, Oriented X3, Cooperative HEENT: Atraumatic Lungs: Clear to auscultation, Normal air movement Cardiovascular: Normal S1, Normal S2, Other (Irregularly irregular) Abdomen: Normal bowel sounds, Soft, No tenderness Neuro: Normal speech, Cranial nerves 3-12 NL Psych/Mental Status: Mental status NL Medications Current Medications Medications Dose Ordered Sig/No Route Start Time Stop Time Status Last Admin Dose Admin Metronidazole 100 ml @ 100 mls/hr Q8H IV 09/22/24 12:00 09/24/24 03:50 100 MLS/HR Ceftriaxone Sodium 50 ml @ 100 mls/hr DAILY@09 IV 09/22/24 09:00 09/24/24 09:14 100 MLS/HR Amiodarone HCl 200 mg DAILY PO 09/22/24 10:00 09/23/24 08:53 200 MG Furosemide 20 mg DAILY PO 09/22/24 10:00 09/24/24 09:16 20 MG Atorvastatin Calcium 20 mg HS PO 09/22/24 22:00 09/24/24 01:31 20 MG Levothyroxine Sodium 75 mcg QAM@0600 PO 09/22/24 06:00 09/24/24 05:24 75 MCG Metoprolol Tartrate 25 mg BID PO 09/22/24 10:00 09/24/24 01:32 25 MG Acetaminophen/ Hydrocodone Bitart 1 tab Q4HP PRN PO 09/22/24 05:00 09/24/24 05:37 1 TAB Ondansetron HCl 4 mg Q4HP PRN IV 09/22/24 05:00 09/24/24 01:32 4 MG Acetaminophen 650 mg Q6HP PRN PO 09/22/24 05:00 Hydralazine HCl 10 mg Q6HP PRN IV 09/22/24 05:15 09/22/24 06:05 10 MG Pantoprazole Sodium 40 mg DAILY IV 09/23/24 10:00 09/23/24 08:53 40 MG Citalopram Hydrobromide 40 mg DAILY PO 09/23/24 10:00 09/24/24 09:15 40 MG Buspirone HCl 15 mg Q12HR PO 09/22/24 22:00 09/24/24 09:15 15 MG Laboratory Results Laboratory Tests 09/23/24 06:25 Urinalysis Test 09/22/24 00:58 Urine Color Light-yellow (Yellow) Urine Clarity Turbid (Clear) H Urine pH 7.5 (5.0-9.0) Urine Specific [place] 1.013 (1.001-1.035) Urine Protein Negative (Negative) Urine Ketones Negative (Negative) Urine Blood Negative /uL (Negative) Urine Nitrite Negative (Negative) Urine Bilirubin Negative (Negative) Urine Urobilinogen Normal mg/dL (Negative) Urine Leukocyte Esterase Trace /uL (Negative) Urine RBC 2 /hpf (0 - 4) Urine WBC 4 /hpf (0 - 5) Urine Squamous Epithelial Cells Few /hpf (<5) Urine Bacteria None seen /hpf (None Seen) Urine Glucose Normal mg/dL (Normal) Labs and/or images reviewed: Labs reviewed by me, Image(s) reviewed by me Assessment/Plan Assessment/Plan Covering Dr. Ross: #Abdominal pain; due to suspected colitis; reviewed repeat abdomen/pelvis CT with oral contrast; continue IV antibiotics; continue monitoring #Atrial fibrillation; status post pacemaker; continue holding anticoagulation; continue amiodarone; cardiology is following; continue monitoring #Chronic diastolic heart failure; acute exacerbation; continue current medical management; continue following #Hypertensive heart disease with heart failure; continue antihypertensive medications and adjust accordingly; continue monitoring #Dyslipidemia; continue current medical management; continue monitoring #Depression/anxiety; no suicide ideation/plans; continue current medical management; continue monitoring #Morbid obesity with metabolic syndrome; counseled the patient on the importance of adopting healthy lifestyle with diet and exercise in order to lose weight; continue monitoring #Hypothyroidism; continue levothyroxine; continue monitoring #History of breast cancer; no active issues; continue monitoring Goals of care discussed for 20 minutes; full code. Late Entry. This medical document was created using an electronic medical record system with computerized dictation system. Although this document has been carefully reviewed, there might still be some phonetic and typographical errors. These areas are purely typographical due to imperfections of the software programs, and do not reflect any compromise in the patient's medical care. Plan discussed with: Patient, Other (Nurse) Date of Service: Sep 24, 2024 Billing Provider: FIDEL RICE MD Common Visit Codes: [id number] INP/OBS CARE(HIGH) Secondary Visit Codes: [id number] CARE PLAN 30 MINUTES (20 minutes) FIDEL RICE MD Sep 24, 2024 10:51
[2024-09-24] MEDS: metroNIDAZOLE 500MG/100ML 100 ML IV SCH (16:06)
--- NOTE | 2024-09-24 21:07 | DVHPN2 ---
Progress Note - Dictate Date Seen: Sep 24, 2024 Medical Necessity Reason Pt with a Central, PICC or Fol: No Subjective Patient was seen and evaluated in follow up. Patient is complaining of mild LLQ abdominal pain. Patient denies N/V/D. CT ABD PEL is unremarkable. vital signs Vital Sign Date Time Temp Pulse Resp B/P (MAP) Pulse Ox O2 Delivery O2 Flow Rate FiO2 09/24/24 09:16 123/40 09/24/24 09:00 97.7 64 15 100 97.7 09/23/24 20:00 Nasal Cannula* 2 28 Total Intake and Output 09/23/24 09/23/24 09/24/24 14:59 22:59 06:59 Intake Total 100 ml 550 ml 100 ml Balance 100 ml 550 ml 100 ml medications Current Medications Medications Dose Ordered Sig/No Route Start Time Stop Time Status Last Admin Dose Admin Metronidazole 100 ml @ 100 mls/hr Q8H IV 09/22/24 12:00 09/24/24 03:50 100 MLS/HR Ceftriaxone Sodium 50 ml @ 100 mls/hr DAILY@09 IV 09/22/24 09:00 09/24/24 09:14 100 MLS/HR Amiodarone HCl 200 mg DAILY PO 09/22/24 10:00 09/23/24 08:53 200 MG Furosemide 20 mg DAILY PO 09/22/24 10:00 09/24/24 09:16 20 MG Atorvastatin Calcium 20 mg HS PO 09/22/24 22:00 09/24/24 01:31 20 MG Levothyroxine Sodium 75 mcg QAM@0600 PO 09/22/24 06:00 09/24/24 05:24 75 MCG Metoprolol Tartrate 25 mg BID PO 09/22/24 10:00 09/24/24 01:32 25 MG Acetaminophen/ Hydrocodone Bitart 1 tab Q4HP PRN PO 09/22/24 05:00 09/24/24 05:37 1 TAB Ondansetron HCl 4 mg Q4HP PRN IV 09/22/24 05:00 09/24/24 01:32 4 MG Acetaminophen 650 mg Q6HP PRN PO 09/22/24 05:00 Hydralazine HCl 10 mg Q6HP PRN IV 09/22/24 05:15 09/22/24 06:05 10 MG Pantoprazole Sodium 40 mg DAILY IV 09/23/24 10:00 09/23/24 08:53 40 MG Citalopram Hydrobromide 40 mg DAILY PO 09/23/24 10:00 09/24/24 09:15 40 MG Buspirone HCl 15 mg Q12HR PO 09/22/24 22:00 09/24/24 09:15 15 MG objective GENERAL: Awake, alert, oriented. Morbid obesity. LUNGS: Clear. CARDIOVASCULAR: Heart sounds are good. ABDOMEN: Soft. LUQ TTP. laboratory and microbiology Laboratory Tests 09/23/24 06:25 Test 09/23/24 06:25 Range/Units Serum Glucose 79 74-106 mg/dL Problem List Abdominal pain. A- fib. Chronic diastolic heart failure. S/p pacer. Morbid obesity. History of breast cancer. HTN. Depression/ anxiety Hyperlipidemia Hypothyroidism Assessment/Plan Continued all current supportive medical care. [place] for pain management. Amiodarone. Lipitor, Metoprolol. IV antibiotics as ordered. Diuretics with Lasix. IV Hydralazine for SBP > 150. GI prophylactics. Additional plan as per the hospital course. Plan discussed with: Patient COLIN FRANCIS MD Sep 24, 2024 12:06
[2024-09-25] VITALS (7 sets, daily range): BP systolic 113–142; BP diastolic 48–58; PULSE 59–62; RESP 15–19; TEMP 97.5–98.3; O2SAT 94–100
[2024-09-25] MEDS: ACETAMINOPHEN 325 MG TAB PO PRN (02:28)
[2024-09-25 08:18] LABS: Basophils # (auto) 0.1 10 ^3/uL (0-0.2); Basophils % (auto) 1.1 % (0.0-2.0); Eosinophils # (auto) 0.3 10 ^3/uL (0-0.8); Eosinophils % (auto) 3.4 % (0.0-7.0); Hemoglobin 13.2 g/dL (12.2-16.2); Lymphocytes # (auto) 1.8 10 ^3/uL (0.4-5.4); Lymphocytes % (auto) 22.8 % (10.0-50.0); Mean Corpuscular Hemoglobin 32.5 pg (28.0-32.0); Mean Corpuscular Hgb Conc. 33.7 g/dL (32.0-36.0); Mean Corpuscular Volume 96.4 fL (80.0-100.0); Monocytes # (auto) 0.5 10 ^3/uL (0-1.3); Monocytes % (auto) 6.8 % (0.0-12.0); Neutrophils # (auto) 5.2 10 ^3/uL (1.6-8.6); Neutrophils % (auto) 65.9 % (37.0-80.0); Nucleated Red Blood Cells % 0.1 %; Platelet Count (auto) 188 10^3/uL (140-450); Red Blood Cells 4.05 10^6/uL (4.0-5.20); Red Cell Distribution Width 16.5 % (11.8-14.3); White Blood Cell 7.9 10^3/uL (4.4-10.8)
[2024-09-25 08:34] LABS: Alanine Aminotransferase 23 U/L (7-40); Albumin 3.5 g/dL (3.2-4.8); Alkaline Phosphatase 60 U/L (46-116); Aspartate Aminotransferase 23 U/L (13-40); Chloride 102 mmol/L (98-107); Glucose 85 mg/dL (74-106); Magnesium 2.3 mg/dL (1.6-2.6); Sodium 136 mmol/L (136-145)
[2024-09-25 08:36] LABS: Calcium 9.2 mg/dL (8.7-10.4)
[2024-09-25 08:43] LABS: BUN/Creatinine Ratio 4.9 (10.0-20.0); Bilirubin, Total 0.5 mg/dL (0.2-1.0); Blood Urea Nitrogen < 5 mg/dL (9-23)
[2024-09-25 08:55] LABS: Total Protein 5.6 g/dL (5.7-8.2)
[2024-09-25 09:14] LABS: Anion Gap 6 (5-15); Carbon Dioxide 28 mmol/L (20-31)
--- NOTE | 2024-09-25 12:10 | DVHPN2 ---
Reviewed: Care Plan, H&P, Labs, Medications, Previous Orders, Radiology Changes from previous H/P or p: No Changes Objective Vitals Vital Signs Date Time Temp Pulse Resp B/P (MAP) Pulse Ox O2 Delivery O2 Flow Rate FiO2 09/25/24 11:50 117/57 09/25/24 11:49 59 09/25/24 09:00 97.9 16 97 97.9 09/24/24 20:00 Nasal Cannula* 2 28 Intake/Output Intake and Output 09/25/24 07:00 Intake Total 1420 ml Balance 1420 ml Intake Oral 1270 ml IV Total 150 ml # Voids 6 # Bowel Movements 2 Medications Current Medications Medications Dose Ordered Sig/No Route Start Time Stop Time Status Last Admin Dose Admin Ceftriaxone Sodium 50 ml @ 100 mls/hr DAILY@09 IV 09/22/24 09:00 09/25/24 09:00 100 MLS/HR Amiodarone HCl 200 mg DAILY PO 09/22/24 10:00 09/25/24 11:49 200 MG Furosemide 20 mg DAILY PO 09/22/24 10:00 09/25/24 11:50 20 MG Atorvastatin Calcium 20 mg HS PO 09/22/24 22:00 09/24/24 23:38 20 MG Levothyroxine Sodium 75 mcg QAM@0600 PO 09/22/24 06:00 09/25/24 05:42 75 MCG Metoprolol Tartrate 25 mg BID PO 09/22/24 10:00 09/25/24 11:49 25 MG Acetaminophen/ Hydrocodone Bitart 1 tab Q4HP PRN PO 09/22/24 05:00 09/24/24 13:24 1 TAB Ondansetron HCl 4 mg Q4HP PRN IV 09/22/24 05:00 09/25/24 02:45 4 MG Acetaminophen 650 mg Q6HP PRN PO 09/22/24 05:00 09/25/24 02:28 650 MG Hydralazine HCl 10 mg Q6HP PRN IV 09/22/24 05:15 09/22/24 06:05 10 MG Pantoprazole Sodium 40 mg DAILY IV 09/23/24 10:00 09/25/24 11:48 40 MG Citalopram Hydrobromide 40 mg DAILY PO 09/23/24 10:00 09/25/24 11:50 40 MG Buspirone HCl 15 mg Q12HR PO 09/22/24 22:00 09/25/24 10:00 15 MG Metronidazole 100 ml @ 100 mls/hr Q8H IV 09/24/24 15:45 09/25/24 09:13 100 MLS/HR Laboratory Results Laboratory Tests 09/25/24 07:01 Chemistry Test 09/25/24 07:01 Albumin 3.5 g/dL (3.2-4.8) Calcium Level 9.2 mg/dL (8.7-10.4) Magnesium Level 2.3 mg/dL (1.6-2.6) Total Protein 5.6 g/dL (5.7-8.2) L LFT Test 09/25/24 07:01 Alanine Aminotransferase (ALT) 23 U/L (7-40) Alkaline Phosphatase 60 U/L (46-116) Aspartate Amino Transferase (AST) 23 U/L (13-40) Total Bilirubin 0.5 mg/dL (0.2-1.0) Urinalysis Test 09/22/24 00:58 Urine Color Light-yellow (Yellow) Urine Clarity Turbid (Clear) H Urine pH 7.5 (5.0-9.0) Urine Specific [place] 1.013 (1.001-1.035) Urine Protein Negative (Negative) Urine Ketones Negative (Negative) Urine Blood Negative /uL (Negative) Urine Nitrite Negative (Negative) Urine Bilirubin Negative (Negative) Urine Urobilinogen Normal mg/dL (Negative) Urine Leukocyte Esterase Trace /uL (Negative) Urine RBC 2 /hpf (0 - 4) Urine WBC 4 /hpf (0 - 5) Urine Squamous Epithelial Cells Few /hpf (<5) Urine Bacteria None seen /hpf (None Seen) Urine Glucose Normal mg/dL (Normal) Labs and/or images reviewed: Labs reviewed by me, Image(s) reviewed by me Assessment/Plan Assessment/Plan Covering for Dr. Ross Acute on chronic diastolic congestive heart failure, Lasix Status post pacemaker Acute abdominal pain possible colitis CT abdomen pelvis without contrast negative, continue Rocephin and Flagyl AFib hold Xarelto Morbid obesity Hypertension History of breast cancer Depression anxiety Hypercholesterolemia Hypothyroidism Moderate malnutrition Time spent 55 minutes Plan discussed with: Patient Date of Service: Sep 25, 2024 Billing Provider: ABIMAEL BARONE MD Common Visit Codes: [id number] INP/OBS CARE(HIGH) ABIMAEL BARONE MD Sep 25, 2024 12:10
--- NOTE | 2024-09-25 13:16 | DVHPN2 ---
Progress Note - Dictate Date Seen: Sep 25, 2024 Medical Necessity Reason Pt with a Central, PICC or Fol: No Subjective Patient was seen and evaluated in follow up. Patient is complaining of a headache with nausea. Patient denies any V/D. 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 vital signs Vital Sign Date Time Temp Pulse Resp B/P (MAP) Pulse Ox O2 Delivery O2 Flow Rate FiO2 09/25/24 11:50 117/57 09/25/24 11:49 59 09/25/24 09:00 97.9 16 97 97.9 09/24/24 20:00 Nasal Cannula* 2 28 Total Intake and Output 09/24/24 09/24/24 09/25/24 15:00 23:00 07:00 Intake Total 50 ml 920 ml 450 ml Balance 50 ml 920 ml 450 ml medications Current Medications Medications Dose Ordered Sig/No Route Start Time Stop Time Status Last Admin Dose Admin Ceftriaxone Sodium 50 ml @ 100 mls/hr DAILY@09 IV 09/22/24 09:00 09/25/24 09:00 100 MLS/HR Amiodarone HCl 200 mg DAILY PO 09/22/24 10:00 09/25/24 11:49 200 MG Furosemide 20 mg DAILY PO 09/22/24 10:00 09/25/24 11:50 20 MG Atorvastatin Calcium 20 mg HS PO 09/22/24 22:00 09/24/24 23:38 20 MG Levothyroxine Sodium 75 mcg QAM@0600 PO 09/22/24 06:00 09/25/24 05:42 75 MCG Metoprolol Tartrate 25 mg BID PO 09/22/24 10:00 09/25/24 11:49 25 MG Acetaminophen/ Hydrocodone Bitart 1 tab Q4HP PRN PO 09/22/24 05:00 09/24/24 13:24 1 TAB Ondansetron HCl 4 mg Q4HP PRN IV 09/22/24 05:00 09/25/24 02:45 4 MG Acetaminophen 650 mg Q6HP PRN PO 09/22/24 05:00 09/25/24 02:28 650 MG Hydralazine HCl 10 mg Q6HP PRN IV 09/22/24 05:15 09/22/24 06:05 10 MG Pantoprazole Sodium 40 mg DAILY IV 09/23/24 10:00 09/25/24 11:48 40 MG Citalopram Hydrobromide 40 mg DAILY PO 09/23/24 10:00 09/25/24 11:50 40 MG Buspirone HCl 15 mg Q12HR PO 09/22/24 22:00 09/25/24 10:00 15 MG Metronidazole 100 ml @ 100 mls/hr Q8H IV 09/24/24 15:45 09/25/24 09:13 100 MLS/HR objective GENERAL: Awake, alert, oriented. Morbid obesity. LUNGS: Clear. CARDIOVASCULAR: Heart sounds are good. ABDOMEN: Soft. LUQ TTP. laboratory and microbiology Laboratory Tests 09/25/24 07:01 Test 09/25/24 07:01 Range/Units Serum Glucose 85 74-106 mg/dL Problem List Abdominal pain. A- fib. Chronic diastolic heart failure. S/p pacer. Morbid obesity. History of breast cancer. HTN. Depression/ anxiety Hyperlipidemia Hypothyroidism Assessment/Plan Continued all current supportive medical care. [place] for pain management. Amiodarone. Lipitor, Metoprolol. IV antibiotics as ordered. Diuretics with Lasix. IV Hydralazine for SBP > 150. GI prophylactics. Additional plan as per the hospital course. Plan discussed with: Patient COLIN FRANCIS MD Sep 25, 2024 12:08
[2024-09-26] VITALS (7 sets, daily range): BP systolic 109–137; BP diastolic 49–59; PULSE 60–71; RESP 16–19; TEMP 97.7–98.7; O2SAT 95–97
--- NOTE | 2024-09-26 10:07 | DVHPN2 ---
Reviewed: Care Plan, H&P, Labs, Medications, Previous Orders, Radiology, Other (Consultations) Changes from previous H/P or p: No Changes Objective Vitals Vital Signs Date Time Temp Pulse Resp B/P (MAP) Pulse Ox O2 Delivery O2 Flow Rate FiO2 09/26/24 05:00 97.7 60 16 137/49 (78) 97 97.7 09/25/24 20:00 Nasal Cannula* 2 28 Intake/Output Intake and Output 09/26/24 07:00 Intake Total 920 ml Balance 920 ml Intake Oral 820 ml IV Total 100 ml # Voids 7 # Bowel Movements 6 General Appearance: Alert, Oriented X3, Cooperative HEENT: Atraumatic Lungs: Clear to auscultation, Normal air movement Cardiovascular: Normal S1, Normal S2, Other (Irregularly irregular) Abdomen: Normal bowel sounds, Soft, No tenderness Neuro: Normal speech, Cranial nerves 3-12 NL Psych/Mental Status: Mental status NL Medications Current Medications Medications Dose Ordered Sig/No Route Start Time Stop Time Status Last Admin Dose Admin Ceftriaxone Sodium 50 ml @ 100 mls/hr DAILY@09 IV 09/22/24 09:00 09/25/24 09:00 100 MLS/HR Amiodarone HCl 200 mg DAILY PO 09/22/24 10:00 09/25/24 11:49 200 MG Furosemide 20 mg DAILY PO 09/22/24 10:00 09/25/24 11:50 20 MG Atorvastatin Calcium 20 mg HS PO 09/22/24 22:00 09/25/24 22:09 20 MG Levothyroxine Sodium 75 mcg QAM@0600 PO 09/22/24 06:00 09/26/24 05:43 75 MCG Metoprolol Tartrate 25 mg BID PO 09/22/24 10:00 09/25/24 22:09 25 MG Acetaminophen/ Hydrocodone Bitart 1 tab Q4HP PRN PO 09/22/24 05:00 09/25/24 22:27 1 TAB Ondansetron HCl 4 mg Q4HP PRN IV 09/22/24 05:00 09/25/24 02:45 4 MG Acetaminophen 650 mg Q6HP PRN PO 09/22/24 05:00 09/25/24 02:28 650 MG Hydralazine HCl 10 mg Q6HP PRN IV 09/22/24 05:15 09/22/24 06:05 10 MG Pantoprazole Sodium 40 mg DAILY IV 09/23/24 10:00 09/25/24 11:48 40 MG Citalopram Hydrobromide 40 mg DAILY PO 09/23/24 10:00 09/25/24 11:50 40 MG Buspirone HCl 15 mg Q12HR PO 09/22/24 22:00 09/25/24 22:10 15 MG Metronidazole 100 ml @ 100 mls/hr Q8H IV 09/24/24 15:45 09/25/24 23:29 100 MLS/HR Laboratory Results Laboratory Tests 09/25/24 07:01 Urinalysis Test 09/22/24 00:58 Urine Color Light-yellow (Yellow) Urine Clarity Turbid (Clear) H Urine pH 7.5 (5.0-9.0) Urine Specific [place] 1.013 (1.001-1.035) Urine Protein Negative (Negative) Urine Ketones Negative (Negative) Urine Blood Negative /uL (Negative) Urine Nitrite Negative (Negative) Urine Bilirubin Negative (Negative) Urine Urobilinogen Normal mg/dL (Negative) Urine Leukocyte Esterase Trace /uL (Negative) Urine RBC 2 /hpf (0 - 4) Urine WBC 4 /hpf (0 - 5) Urine Squamous Epithelial Cells Few /hpf (<5) Urine Bacteria None seen /hpf (None Seen) Urine Glucose Normal mg/dL (Normal) Labs and/or images reviewed: Labs reviewed by me, Image(s) reviewed by me Assessment/Plan Assessment/Plan Covering for Dr. Ross Acute on chronic diastolic congestive heart failure, Lasix Status post pacemaker Acute abdominal pain possible colitis CT abdomen pelvis without contrast negative, continue Rocephin and Flagyl History of AFib: Hold Xarelto Morbid obesity Hypertension History of breast cancer Depression anxiety Hypercholesterolemia Hypothyroidism Moderate malnutrition Time spent 45 minutes Plan discussed with: Patient Date of Service: Sep 26, 2024 Billing Provider: ABIMAEL BARONE MD Common Visit Codes: [id number] INP/OBS CARE(HIGH) ABIMAEL BARONE MD Sep 26, 2024 10:07
--- NOTE | 2024-09-26 15:09 | DVHPN2 ---
Progress Note - Dictate Date Seen: Sep 26, 2024 Medical Necessity Reason Pt with a Central, PICC or Fol: No Subjective Still has got some occasional abdominal pains diarrhea is better no bleeding vital signs Vital Sign Date Time Temp Pulse Resp B/P (MAP) Pulse Ox O2 Delivery O2 Flow Rate FiO2 09/26/24 13:00 98.5 61 18 126/59 (81) 96 98.5 09/25/24 20:00 Nasal Cannula* 2 28 Total Intake and Output 09/25/24 09/25/24 09/26/24 14:59 22:59 06:59 Intake Total 420 ml 500 ml Balance 420 ml 500 ml medications Current Medications Medications Dose Ordered Sig/No Route Start Time Stop Time Status Last Admin Dose Admin Ceftriaxone Sodium 50 ml @ 100 mls/hr DAILY@09 IV 09/22/24 09:00 09/26/24 11:57 100 MLS/HR Amiodarone HCl 200 mg DAILY PO 09/22/24 10:00 09/26/24 10:07 200 MG Furosemide 20 mg DAILY PO 09/22/24 10:00 09/26/24 10:08 20 MG Atorvastatin Calcium 20 mg HS PO 09/22/24 22:00 09/25/24 22:09 20 MG Levothyroxine Sodium 75 mcg QAM@0600 PO 09/22/24 06:00 09/26/24 05:43 75 MCG Metoprolol Tartrate 25 mg BID PO 09/22/24 10:00 09/26/24 10:05 25 MG Acetaminophen/ Hydrocodone Bitart 1 tab Q4HP PRN PO 09/22/24 05:00 09/26/24 10:06 1 TAB Ondansetron HCl 4 mg Q4HP PRN IV 09/22/24 05:00 09/25/24 02:45 4 MG Acetaminophen 650 mg Q6HP PRN PO 09/22/24 05:00 09/25/24 02:28 650 MG Hydralazine HCl 10 mg Q6HP PRN IV 09/22/24 05:15 09/22/24 06:05 10 MG Pantoprazole Sodium 40 mg DAILY IV 09/23/24 10:00 09/26/24 10:03 40 MG Citalopram Hydrobromide 40 mg DAILY PO 09/23/24 10:00 09/26/24 10:07 40 MG Buspirone HCl 15 mg Q12HR PO 09/22/24 22:00 09/26/24 10:04 15 MG Metronidazole 100 ml @ 100 mls/hr Q8H IV 09/24/24 15:45 09/26/24 10:01 100 MLS/HR objective Repeat scan CT scan with oral contrast showed no gross abnormalities even the abnormalities found in the colon is not seen anymore apparently which was supposedly probably due to underdistention as per the radiology Abdomen soft mild nonspecific tenderness in both upper quadrants no rigidity no guarding laboratory and microbiology Laboratory Tests 09/25/24 07:01 Test 09/25/24 07:01 Range/Units Serum Glucose 85 74-106 mg/dL Assessment/Plan 69-year-old female with a abdominal pain left upper quadrant history of atrial fibrillation patient had some mild nausea but no lower GI symptoms complaints of fullness CT scan showed some thickening of the concentric wall thickening of the sigmoid colon this is a CT scan without oral contrast sure this under distention or colitis No lower GI symptoms now and no bleed Clinical impression abdominal pain not sure of the etiology Possibility of mild nonspecific colitis diverticulosis or other pathology also can not be excluded Possible nonspecific colitis Suggestions will recommend repeat the stool studies if not done including O&P and C&S and C diff will continue with the antibiotics and symptomatic treatment Symptoms persist may need further evaluation May need endoscopic evaluation especially the colon and other workup if necessary which could be done as an outpatient also Thank you Dr. Dina Nielson discussed with: Patient LEILANI FRANCO MD Sep 26, 2024 15:09
--- NOTE | 2024-09-26 15:19 | DVHPN2 ---
Progress Note - Dictate Date Seen: Sep 26, 2024 Medical Necessity Reason Pt with a Central, PICC or Fol: No Subjective Patient was seen and evaluated in follow up. Patient is complaining of a mild headache with nausea. No new lab draws. vital signs Vital Sign Date Time Temp Pulse Resp B/P (MAP) Pulse Ox O2 Delivery O2 Flow Rate FiO2 09/26/24 11:05 75 119/72 09/26/24 09:00 98.7 17 95 98.7 09/25/24 20:00 Nasal Cannula* 2 28 Total Intake and Output 09/25/24 09/25/24 09/26/24 15:00 23:00 07:00 Intake Total 420 ml 500 ml Balance 420 ml 500 ml medications Current Medications Medications Dose Ordered Sig/No Route Start Time Stop Time Status Last Admin Dose Admin Ceftriaxone Sodium 50 ml @ 100 mls/hr DAILY@09 IV 09/22/24 09:00 09/26/24 11:57 100 MLS/HR Amiodarone HCl 200 mg DAILY PO 09/22/24 10:00 09/26/24 10:07 200 MG Furosemide 20 mg DAILY PO 09/22/24 10:00 09/26/24 10:08 20 MG Atorvastatin Calcium 20 mg HS PO 09/22/24 22:00 09/25/24 22:09 20 MG Levothyroxine Sodium 75 mcg QAM@0600 PO 09/22/24 06:00 09/26/24 05:43 75 MCG Metoprolol Tartrate 25 mg BID PO 09/22/24 10:00 09/26/24 10:05 25 MG Acetaminophen/ Hydrocodone Bitart 1 tab Q4HP PRN PO 09/22/24 05:00 09/26/24 10:06 1 TAB Ondansetron HCl 4 mg Q4HP PRN IV 09/22/24 05:00 09/25/24 02:45 4 MG Acetaminophen 650 mg Q6HP PRN PO 09/22/24 05:00 09/25/24 02:28 650 MG Hydralazine HCl 10 mg Q6HP PRN IV 09/22/24 05:15 09/22/24 06:05 10 MG Pantoprazole Sodium 40 mg DAILY IV 09/23/24 10:00 09/26/24 10:03 40 MG Citalopram Hydrobromide 40 mg DAILY PO 09/23/24 10:00 09/26/24 10:07 40 MG Buspirone HCl 15 mg Q12HR PO 09/22/24 22:00 09/26/24 10:04 15 MG Metronidazole 100 ml @ 100 mls/hr Q8H IV 09/24/24 15:45 09/26/24 10:01 100 MLS/HR objective GENERAL: Awake, alert, oriented. Morbid obesity. LUNGS: Clear. CARDIOVASCULAR: Heart sounds are good. ABDOMEN: Soft. LUQ TTP. laboratory and microbiology Laboratory Tests 09/25/24 07:01 Test 09/25/24 07:01 Range/Units Serum Glucose 85 74-106 mg/dL Problem List Abdominal pain. A- fib. Chronic diastolic heart failure. S/p pacer. Morbid obesity. History of breast cancer. HTN. Depression/ anxiety Hyperlipidemia Hypothyroidism Assessment/Plan Continued all current supportive medical care. [place] for pain management. Amiodarone. Lipitor, Metoprolol. IV antibiotics as ordered. Diuretics with Lasix. IV Hydralazine for SBP > 150. GI prophylactics. Additional plan as per the hospital course. Plan discussed with: Patient COLIN FRANCIS MD Sep 26, 2024 14:20
[2024-09-27] VITALS (8 sets, daily range): BP systolic 122–140; BP diastolic 56–69; PULSE 60–64; RESP 16–20; TEMP 97.7–98.3; O2SAT 95–100
[2024-09-27 07:31] LABS: Basophils # (auto) 0.1 10 ^3/uL (0-0.2); Basophils % (auto) 1.1 % (0.0-2.0); Eosinophils # (auto) 0.3 10 ^3/uL (0-0.8); Eosinophils % (auto) 3.6 % (0.0-7.0); Hemoglobin 12.9 g/dL (12.2-16.2); Lymphocytes # (auto) 2.1 10 ^3/uL (0.4-5.4); Lymphocytes % (auto) 26.2 % (10.0-50.0); Mean Corpuscular Hemoglobin 31.9 pg (28.0-32.0); Mean Corpuscular Hgb Conc. 33.1 g/dL (32.0-36.0); Mean Corpuscular Volume 96.3 fL (80.0-100.0); Monocytes # (auto) 0.6 10 ^3/uL (0-1.3); Neutrophils % (auto) 62.1 % (37.0-80.0); Nucleated Red Blood Cells % 0.1 %; Platelet Count (auto) 197 10^3/uL (140-450); Red Blood Cells 4.05 10^6/uL (4.0-5.20); White Blood Cell 8.1 10^3/uL (4.4-10.8)
[2024-09-27 07:43] LABS: Alanine Aminotransferase 24 U/L (7-40); Albumin 3.5 g/dL (3.2-4.8); Alkaline Phosphatase 59 U/L (46-116); Anion Gap 5 (5-15); Aspartate Aminotransferase 26 U/L (13-40); Calcium 9.5 mg/dL (8.7-10.4); Carbon Dioxide 30 mmol/L (20-31); Chloride 101 mmol/L (98-107); Glucose 89 mg/dL (74-106); Potassium 3.8 mmol/L (3.5-5.1); Sodium 136 mmol/L (136-145)
[2024-09-27 07:44] LABS: Bilirubin, Total 0.5 mg/dL (0.2-1.0)
[2024-09-27 07:58] LABS: BUN/Creatinine Ratio 4.9 (10.0-20.0); Blood Urea Nitrogen < 5 mg/dL (9-23); Total Protein 5.6 g/dL (5.7-8.2)
--- NOTE | 2024-09-27 11:53 | DVHPN2 ---
Progress Note Date Seen: Sep 27, 2024 Medical Necessity Reason Pt with a Central, PICC or Fol: No Subjective Patient reports: No new complaints Review of Systems: HEENT:Normal, CVS:Normal, RESPIRATORY:Normal, GI:Normal, :Normal, MSK:Normal, NEURO:Normal Objective vital signs Vital Sign Date Time Temp Pulse Resp B/P (MAP) Pulse Ox O2 Delivery O2 Flow Rate FiO2 09/27/24 10:10 123/70 09/27/24 10:08 61 09/27/24 09:00 97.9 16 95 97.9 09/27/24 08:00 Nasal Cannula* 2 28 Total Intake and Output 09/26/24 09/26/24 09/27/24 15:00 23:00 07:00 Intake Total 575 ml 700 ml Balance 575 ml 700 ml medications Current Medications Medications Dose Ordered Sig/No Route Start Time Stop Time Status Last Admin Dose Admin Ceftriaxone Sodium 50 ml @ 100 mls/hr DAILY@09 IV 09/22/24 09:00 09/26/24 11:57 100 MLS/HR Amiodarone HCl 200 mg DAILY PO 09/22/24 10:00 09/27/24 10:07 200 MG Furosemide 20 mg DAILY PO 09/22/24 10:00 09/27/24 10:10 20 MG Atorvastatin Calcium 20 mg HS PO 09/22/24 22:00 09/26/24 22:02 20 MG Levothyroxine Sodium 75 mcg QAM@0600 PO 09/22/24 06:00 09/27/24 05:46 75 MCG Metoprolol Tartrate 25 mg BID PO 09/22/24 10:00 09/27/24 10:08 25 MG Acetaminophen/ Hydrocodone Bitart 1 tab Q4HP PRN PO 09/22/24 05:00 09/26/24 19:04 1 TAB Ondansetron HCl 4 mg Q4HP PRN IV 09/22/24 05:00 09/25/24 02:45 4 MG Acetaminophen 650 mg Q6HP PRN PO 09/22/24 05:00 09/25/24 02:28 650 MG Hydralazine HCl 10 mg Q6HP PRN IV 09/22/24 05:15 09/22/24 06:05 10 MG Pantoprazole Sodium 40 mg DAILY IV 09/23/24 10:00 09/27/24 10:05 40 MG Citalopram Hydrobromide 40 mg DAILY PO 09/23/24 10:00 09/27/24 10:06 40 MG Buspirone HCl 15 mg Q12HR PO 09/22/24 22:00 09/27/24 10:07 15 MG Metronidazole 100 ml @ 100 mls/hr Q8H IV 09/24/24 15:45 09/27/24 09:59 100 MLS/HR Examination: GENERAL:Normal, HEENT:Normal, NECK:Normal, LUNGS:Normal, CVS:Normal, ABDOMEN:Normal, MSK:Normal, SKIN:Normal, NEURO:Normal, :Normal laboratory and microbiology Laboratory Tests 09/27/24 06:57 Test 09/27/24 06:57 Range/Units Serum Glucose 89 74-106 mg/dL Problem List/Assessment/Plan Problem List/Assessment/Plan #1 abd pain ? colitis: ppi, carafate #2 a fib: hold xarelto #3 chronic diastolic heart failure: cont meds #4 s/p pacer #5 morbid obesity #6 h/o breast cancer #7 htn #8 depression/ anxiety #9 hyperlipidemia #10 hypothyroidism advance care planning- full code- time spent 19 mins Plan discussed with: Patient Date of Service: Sep 27, 2024 Billing Provider: SAL BRAY MD Common Visit Codes: [id number] INP/OBS CARE(HIGH) SAL BRAY MD Sep 27, 2024 11:53
[2024-09-27] MEDS: SUCRALFATE 1 GM/10 ML ORAL SUSP PO SCH (22:50)
--- NOTE | 2024-09-27 23:09 | DVHPN2 ---
Progress Note - Dictate Date Seen: Sep 27, 2024 Medical Necessity Reason Pt with a Central, PICC or Fol: No Subjective Patient was seen and evaluated in follow up. No overnight events. Patient denies any complaints. Patient started on a 2Gm sodium diet. Patient denies any cardiac symptoms. vital signs Vital Sign Date Time Temp Pulse Resp B/P (MAP) Pulse Ox O2 Delivery O2 Flow Rate FiO2 09/27/24 22:50 60 127/69 09/27/24 21:00 98.0 17 97 98.0 09/27/24 08:00 Nasal Cannula* 2 28 Total Intake and Output 09/26/24 09/26/24 09/27/24 15:00 23:00 07:00 Intake Total 575 ml 700 ml Balance 575 ml 700 ml medications Current Medications Medications Dose Ordered Sig/No Route Start Time Stop Time Status Last Admin Dose Admin Amiodarone HCl 200 mg DAILY PO 09/22/24 10:00 09/27/24 10:07 200 MG Furosemide 20 mg DAILY PO 09/22/24 10:00 09/27/24 10:10 20 MG Atorvastatin Calcium 20 mg HS PO 09/22/24 22:00 09/27/24 22:50 20 MG Levothyroxine Sodium 75 mcg QAM@0600 PO 09/22/24 06:00 09/27/24 05:46 75 MCG Metoprolol Tartrate 25 mg BID PO 09/22/24 10:00 09/27/24 22:50 25 MG Acetaminophen/ Hydrocodone Bitart 1 tab Q4HP PRN PO 09/22/24 05:00 09/26/24 19:04 1 TAB Ondansetron HCl 4 mg Q4HP PRN IV 09/22/24 05:00 09/25/24 02:45 4 MG Acetaminophen 650 mg Q6HP PRN PO 09/22/24 05:00 09/27/24 13:09 650 MG Hydralazine HCl 10 mg Q6HP PRN IV 09/22/24 05:15 09/22/24 06:05 10 MG Pantoprazole Sodium 40 mg DAILY IV 09/23/24 10:00 09/27/24 10:05 40 MG Citalopram Hydrobromide 40 mg DAILY PO 09/23/24 10:00 09/27/24 10:06 40 MG Buspirone HCl 15 mg Q12HR PO 09/22/24 22:00 09/27/24 22:50 15 MG Sucralfate 1 gm BID@0600,2200 PO 09/27/24 22:00 09/27/24 22:50 1 GM objective GENERAL: Awake, alert, oriented. Morbid obesity. LUNGS: Clear. CARDIOVASCULAR: Heart sounds are good. ABDOMEN: Soft. LUQ TTP. laboratory and microbiology Laboratory Tests 09/27/24 06:57 Test 09/27/24 06:57 Range/Units Serum Glucose 89 74-106 mg/dL Problem List Abdominal pain. A- fib. Chronic diastolic heart failure. S/p pacer. Morbid obesity. History of breast cancer. HTN. Depression/ anxiety Hyperlipidemia Hypothyroidism Assessment/Plan Continued all current supportive medical care. [place] for pain management. Amiodarone. Lipitor, Metoprolol. IV antibiotics as ordered. Diuretics with Lasix. IV Hydralazine for SBP > 150. GI prophylactics. Additional plan as per the hospital course. Plan discussed with: Patient COLIN FRANCIS MD Sep 27, 2024 23:09
[2024-09-28] VITALS (8 sets, daily range): BP systolic 110–150; BP diastolic 46–83; PULSE 59–65; RESP 16–18; TEMP 97.6–98.1; O2SAT 93–97
[2024-09-28] MEDS: traZODone HCL 50 MG TAB PO ONE (02:00)
--- NOTE | 2024-09-28 12:03 | DVHPN2 ---
Progress Note Date Seen: Sep 28, 2024 Medical Necessity Reason Pt with a Central, PICC or Fol: No Subjective Patient reports: No new complaints Review of Systems: HEENT:Normal, CVS:Normal, RESPIRATORY:Normal, GI:Normal, :Normal, MSK:Normal, NEURO:Normal Objective vital signs Vital Sign Date Time Temp Pulse Resp B/P (MAP) Pulse Ox O2 Delivery O2 Flow Rate FiO2 09/28/24 10:37 62 131/58 09/28/24 09:00 97.6 16 93 97.6 09/28/24 08:00 Nasal Cannula* 2 28 Total Intake and Output 09/27/24 09/27/24 09/28/24 15:00 23:00 07:00 Intake Total 1100 ml 425 ml Balance 1100 ml 425 ml medications Current Medications Medications Dose Ordered Sig/No Route Start Time Stop Time Status Last Admin Dose Admin Amiodarone HCl 200 mg DAILY PO 09/22/24 10:00 09/28/24 11:25 200 MG Furosemide 20 mg DAILY PO 09/22/24 10:00 09/28/24 09:30 20 MG Atorvastatin Calcium 20 mg HS PO 09/22/24 22:00 09/27/24 22:50 20 MG Levothyroxine Sodium 75 mcg QAM@0600 PO 09/22/24 06:00 09/28/24 05:58 75 MCG Metoprolol Tartrate 25 mg BID PO 09/22/24 10:00 09/28/24 09:37 25 MG Acetaminophen/ Hydrocodone Bitart 1 tab Q4HP PRN PO 09/22/24 05:00 09/26/24 19:04 1 TAB Ondansetron HCl 4 mg Q4HP PRN IV 09/22/24 05:00 09/25/24 02:45 4 MG Acetaminophen 650 mg Q6HP PRN PO 09/22/24 05:00 09/28/24 09:29 650 MG Hydralazine HCl 10 mg Q6HP PRN IV 09/22/24 05:15 09/22/24 06:05 10 MG Pantoprazole Sodium 40 mg DAILY IV 09/23/24 10:00 09/28/24 09:29 40 MG Citalopram Hydrobromide 40 mg DAILY PO 09/23/24 10:00 09/28/24 09:29 40 MG Buspirone HCl 15 mg Q12HR PO 09/22/24 22:00 09/28/24 09:38 15 MG Sucralfate 1 gm BID@0600,2200 PO 09/27/24 22:00 09/28/24 05:58 1 GM Examination: GENERAL:Normal, HEENT:Normal, NECK:Normal, LUNGS:Normal, CVS:Normal, ABDOMEN:Normal, MSK:Normal, SKIN:Normal, NEURO:Normal, :Normal laboratory and microbiology Laboratory Tests 09/27/24 06:57 Test 09/27/24 06:57 Range/Units Serum Glucose 89 74-106 mg/dL Problem List/Assessment/Plan Problem List/Assessment/Plan #1 abd pain ? colitis: ppi, carafate, GI eval with dr Liao #2 a fib: hold xarelto #3 chronic diastolic heart failure: cont meds #4 s/p pacer #5 morbid obesity #6 h/o breast cancer #7 htn #8 depression/ anxiety #9 hyperlipidemia #10 hypothyroidism advance care planning- full code- time spent 19 mins Plan discussed with: Patient Date of Service: Sep 28, 2024 Billing Provider: SAL BRAY MD Common Visit Codes: [id number] INP/OBS CARE(HIGH) SAL BRAY MD Sep 28, 2024 12:03
--- NOTE | 2024-09-28 13:23 | DVHPN2 ---
Subjective 69-year-old female seen by Dr. Arroyo, is still complaining of left side pain, for last four weeks. Pain is constant and stabbing in nature Patient also feels bloating after eating food. And a feeling of fullness Patient has nausea no vomiting. No melena or red blood in stool Patient has loose stool SP EGD/colonoscopy about 35 years ago Patient on Xarelto, which has been held for one-week Reviewed: Care Plan, H&P, Labs, Medications, Previous Orders, Radiology, Other (Consultations) Changes from previous H/P or p: No Changes Cardiovascular: Chest Pain, Palpitations, Orthopnea, Paroxysmal Noc. Dyspnea, E xiao, Lt Headedness, Other Objective Vitals Vital Signs Date Time Temp Pulse Resp B/P (MAP) Pulse Ox O2 Delivery O2 Flow Rate FiO2 09/28/24 10:37 62 131/58 09/28/24 09:00 97.6 16 93 97.6 09/28/24 08:00 Nasal Cannula* 2 28 Intake/Output Intake and Output 09/28/24 07:00 Intake Total 1525 ml Balance 1525 ml Intake Oral 1525 ml # Voids 7 # Bowel Movements 4 General Appearance: Alert, Oriented X3, Cooperative, No acute distress, mild distress, moderate distress, severe distress, Other HEENT: Atraumatic Lungs: Clear to auscultation, Normal air movement, Other Cardiovascular: Regular rate, Normal S1, Normal S2, No murmurs, Gallops, Rubs, Other (Irregularly irregular) Abdomen: Normal bowel sounds, Soft, No tenderness, No hepatospenomegaly, No masses, Other Neuro: Normal speech, Cranial nerves 3-12 NL Psych/Mental Status: Mental status NL Medications Current Medications Medications Dose Ordered Sig/No Route Start Time Stop Time Status Last Admin Dose Admin Amiodarone HCl 200 mg DAILY PO 09/22/24 10:00 09/28/24 11:25 200 MG Furosemide 20 mg DAILY PO 09/22/24 10:00 09/28/24 09:30 20 MG Atorvastatin Calcium 20 mg HS PO 09/22/24 22:00 09/27/24 22:50 20 MG Levothyroxine Sodium 75 mcg QAM@0600 PO 09/22/24 06:00 09/28/24 05:58 75 MCG Metoprolol Tartrate 25 mg BID PO 09/22/24 10:00 09/28/24 09:37 25 MG Acetaminophen/ Hydrocodone Bitart 1 tab Q4HP PRN PO 09/22/24 05:00 09/26/24 19:04 1 TAB Ondansetron HCl 4 mg Q4HP PRN IV 09/22/24 05:00 09/25/24 02:45 4 MG Acetaminophen 650 mg Q6HP PRN PO 09/22/24 05:00 09/28/24 09:29 650 MG Hydralazine HCl 10 mg Q6HP PRN IV 09/22/24 05:15 09/22/24 06:05 10 MG Pantoprazole Sodium 40 mg DAILY IV 09/23/24 10:00 09/28/24 09:29 40 MG Citalopram Hydrobromide 40 mg DAILY PO 09/23/24 10:00 09/28/24 09:29 40 MG Buspirone HCl 15 mg Q12HR PO 09/22/24 22:00 09/28/24 09:38 15 MG Sucralfate 1 gm BID@0600,2200 PO 09/27/24 22:00 09/28/24 05:58 1 GM Laboratory Results Laboratory Tests 09/27/24 06:57 Urinalysis Test 09/22/24 00:58 Urine Color Light-yellow (Yellow) Urine Clarity Turbid (Clear) H Urine pH 7.5 (5.0-9.0) Urine Specific [place] 1.013 (1.001-1.035) Urine Protein Negative (Negative) Urine Ketones Negative (Negative) Urine Blood Negative /uL (Negative) Urine Nitrite Negative (Negative) Urine Bilirubin Negative (Negative) Urine Urobilinogen Normal mg/dL (Negative) Urine Leukocyte Esterase Trace /uL (Negative) Urine RBC 2 /hpf (0 - 4) Urine WBC 4 /hpf (0 - 5) Urine Squamous Epithelial Cells Few /hpf (<5) Urine Bacteria None seen /hpf (None Seen) Urine Glucose Normal mg/dL (Normal) Labs and/or images reviewed: Labs reviewed by me, Image(s) reviewed by me Assessment/Plan Assessment/Plan Abdominal pain Nausea Plan: Discussed with Dr. Larisa Liao, and Dr. Ross Schedule for EGD/colonoscopy with MAC sedation, discussed risks benefits and alternatives of procedure and sedation, patient understands and agrees Plan discussed with: Patient, Other (RN) Date of Service: Sep 28, 2024 Billing Provider: JAVY BARONE Common Visit Codes: [id number] INP/OBS CARE(MOD) JAVY BARONE Sep 28, 2024 13:23
[2024-09-28] MEDS: GOLYTELY 4L KIT PO ONE (14:32)
--- NOTE | 2024-09-28 21:30 | DVHPN2 ---
Progress Note - Dictate Date Seen: Sep 28, 2024 Medical Necessity Reason Pt with a Central, PICC or Fol: No Subjective Patient was seen and evaluated in follow up. No overnight events. Patient is complaining of abdominal discomfort and bloating after eating. Patient is scheduled for EGD/colonoscopy. Patient is cardiac cleared for procedure. vital signs Vital Sign Date Time Temp Pulse Resp B/P (MAP) Pulse Ox O2 Delivery O2 Flow Rate FiO2 09/28/24 21:10 62 150/83 09/28/24 21:00 98.1 18 95 98.1 09/28/24 20:00 Nasal Cannula* 2 28 Total Intake and Output 09/27/24 09/27/24 09/28/24 15:00 23:00 07:00 Intake Total 1100 ml 425 ml Balance 1100 ml 425 ml medications Current Medications Medications Dose Ordered Sig/No Route Start Time Stop Time Status Last Admin Dose Admin Amiodarone HCl 200 mg DAILY PO 09/22/24 10:00 09/28/24 11:25 200 MG Furosemide 20 mg DAILY PO 09/22/24 10:00 09/28/24 09:30 20 MG Atorvastatin Calcium 20 mg HS PO 09/22/24 22:00 09/28/24 21:08 20 MG Levothyroxine Sodium 75 mcg QAM@0600 PO 09/22/24 06:00 09/28/24 05:58 75 MCG Metoprolol Tartrate 25 mg BID PO 09/22/24 10:00 09/28/24 21:10 25 MG Acetaminophen/ Hydrocodone Bitart 1 tab Q4HP PRN PO 09/22/24 05:00 09/28/24 21:28 1 TAB Ondansetron HCl 4 mg Q4HP PRN IV 09/22/24 05:00 09/28/24 18:10 4 MG Acetaminophen 650 mg Q6HP PRN PO 09/22/24 05:00 09/28/24 09:29 650 MG Hydralazine HCl 10 mg Q6HP PRN IV 09/22/24 05:15 09/22/24 06:05 10 MG Pantoprazole Sodium 40 mg DAILY IV 09/23/24 10:00 09/28/24 09:29 40 MG Citalopram Hydrobromide 40 mg DAILY PO 09/23/24 10:00 09/28/24 09:29 40 MG Buspirone HCl 15 mg Q12HR PO 09/22/24 22:00 09/28/24 21:08 15 MG Sucralfate 1 gm BID@0600,2200 PO 09/27/24 22:00 09/28/24 21:08 1 GM objective GENERAL: Awake, alert, oriented. Morbid obesity. LUNGS: Clear. CARDIOVASCULAR: Heart sounds are good. ABDOMEN: Soft. LUQ TTP. laboratory and microbiology Laboratory Tests 09/27/24 06:57 Test 09/27/24 06:57 Range/Units Serum Glucose 89 74-106 mg/dL Problem List Abdominal pain. A- fib. Chronic diastolic heart failure. S/p pacer. Morbid obesity. History of breast cancer. HTN. Depression/ anxiety Hyperlipidemia Hypothyroidism Assessment/Plan Continued all current supportive medical care. [place] for pain management. Amiodarone. Lipitor, Metoprolol. IV antibiotics as ordered. Diuretics with Lasix. IV Hydralazine for SBP > 150. GI prophylactics. Additional plan as per the hospital course. Dietary Evaluation Review Comments: Continue current plan of care Expected Outcomes/Goals: F/U in 3-5 days Plan discussed with: Patient COLIN FRANCIS MD Sep 28, 2024 21:30
[2024-09-29] VITALS (9 sets, daily range): BP systolic 110–162; BP diastolic 39–74; PULSE 60–68; RESP 16–20; TEMP 97.4–98.6; O2SAT 94–100
[2024-09-29] MEDS: MAGNESIUM CITRATE SOLUTION 300 ML BTL PO ONE (05:17)
[2024-09-29] MEDS: GOLYTELY 4L KIT PO ONE (05:18)
[2024-09-29] MEDS: METOCLOPRAMIDE HCL 5MG/ml INJ 2ml VIAL IV ONE (12:45)
[2024-09-29] MEDS ORDERED: HYDROmorphone HCL 2 MG/ML VL/or syr IV PRN ×2 (12:45)
[2024-09-29] MEDS ORDERED: MORPHINE SULFATE INJ 2 MG/ml SYRG IV PRN (12:45)
[2024-09-29] MEDS ORDERED: fentaNYL CITRATE 100 MCG/2 ML VL ONE (12:48)
[2024-09-29] MEDS ORDERED: SODIUM CHLORIDE LOCK 10 ML ONE (12:49)
[2024-09-29] MEDS ORDERED: PROPOFOL 10 MG/ML 20 ML IV ONE (12:49)
[2024-09-29] MEDS ORDERED: MIDAZOLAM HCL 2MG/2ML 2ml VIAL (1mg/ml) ONE (12:49)
[2024-09-29] MEDS ORDERED: LIDOCAINE 1% INJ PF 5ML AMP ONE (12:49)
[2024-09-29] MEDS ORDERED: ONDANSETRON HCL 4 MG/2 ML VIAL ONE (12:49)
[2024-09-29] MEDS ORDERED: LIDOCAINE VISCOUS 2% 15ML UD ONE (12:50)
--- NOTE | 2024-09-29 13:43 | DVHOP2 ---
Operative Report DATE OF OPERATION: 09/29/24 PROCEDURE: Upper Endoscopy with biopsy. PREOPERATIVE INDICATION: The patient is a 69 -year-old female undergoing endoscopy for epigastric pain POSTOPERATIVE DIAGNOSES: 1. Patient had a 1-2 cm sliding-type hiatal hernia with slightly irregular squamocolumnar junction no significant erosive esophagitis 2. Minimal gastritis otherwise normal examination of the 2nd and 3rd part of the duodenum with good bile drainage and no bleeding PROCEDURE PERFORMED BY: Chiquis Liao GI NURSE: Shellie SCOPE: Olympus videoendoscope. ASA CLASS: 3. PREOPERATIVE MEDICATIONS: Dr. Nawaf Torrez PROCEDURE IN DETAIL: After obtaining an informed consent, the patient was placed on left lateral decubitus position. The patient was then sedated with the above medications. A bite block was placed between her teeth. The endoscope was then passed through the oropharynx, into the esophagus, and through the stomach and pylorus up to the second and third part of the duodenum. The endoscope was then withdrawn. The 2nd and 3rd part of the duodenum and the duodenal bulb were normal. Duodenal biopsies were obtained. The pre-pyloric area antrum and body were essentially normal except for minimal gastritis. On retroflexion the fundus and cardia were normal. Gastric biopsies were obtained. The endoscope was then withdrawn into the distal esophagus. Patient had a 1-2 cm sliding-type hiatal hernia with slightly irregular squamocolumnar junction but no significant esophagitis The remaining distal and proximal esophagus and oropharynx were unremarkable The patient tolerated the procedure well without difficulty. COMPLICATIONS : None SPECIMENS: Duodenal and gastric bypass DISPOSITION: Transfer back to the floor Stable PLAN: 1. Await for biopsy result 2. Will place pt on Protonix 40 mg p.o. daily 3. Lifestyle and dietary modifications for GERD 4. Proceed with colonoscopy CHIQUIS LIAO MD Sep 29, 2024 13:43
--- NOTE | 2024-09-29 13:46 | DVHOP2 ---
Operative Report DATE OF OPERATION: 09/29/24 PROCEDURE: Colonoscopy with snare polypectomy. PREOPERATIVE INDICATION: The patient is a 69 -year-old female undergoing colonoscopy for evaluation of abdominal pain and abnormal finding GI tract imaging POSTOPERATIVE DIAGNOSES: 1. Patient had a 1.5-2 cm mid transverse colon polyp that was seen and removed by snare polypectomy 2. Patient had a 1.5-2 cm proximal ascending colon polyp that was seen and removed by snare polypectomy and the specimens were retrieved 3. Trace internal hemorrhoids otherwise essentially normal examination up to the cecum without any evidence of colitis PROCEDURE PERFORMED BY: Chiquis Liao M.D. SCOPE: Olympus videocolonoscope. ASA CLASS: 3. PREOPERATIVE MEDICATIONS: Dr. Gino Torrez PROCEDURE IN DETAIL: After obtaining an informed consent, the patient was placed on left lateral decubitus position. She was then sedated with the above medications. A rectal examination was performed that was normal. The colonoscope was then passed through the anus into the rectosigmoid and through the descending, transverse, and ascending colon up to the cecum with visualization of the appendiceal orifice, base of the cecum and the ileocecal valve. The colonoscope was then withdrawn. In the proximal ascending colon there was a 1.5-2 cm flat polyp This was removed completely via snare polypectomy. In the mid transverse colon patient had a 1.5-2 cm benign-appearing polyp. This was removed by snare polypectomy and the specimens were retrieved. No other polyps or masses were seen. There was no colitis or clear-cut diverticular disease. On retroflexion she had trace internal hemorrhoids. Patient had a good bowel prep The patient tolerated the procedure well without difficulty. WITHDRAWAL TIME: 9 minutes QUALITY OF THE PREP: [place] Bowel Prep score: 9. COMPLICATIONS : None SPECIMENS: Transverse colon polyp Ascending colon polyp DISPOSITION: Transfer back to the floor Stable PLAN: 1. Repeat colonoscopy based on biopsy result likely in 3-5 years 2. Resume GI soft diet advance as tolerated 3. Possible source of her abdominal pain could be related to the mid transverse colon polyp that was growing or at the site of previous hernia repair CHIQUIS LIAO MD Sep 29, 2024 13:46
[2024-09-29] MEDS ORDERED: DICYCLOMINE HCL 10 MG CAP PO PRN (15:00)
--- NOTE | 2024-09-29 15:02 | DVHPN2 ---
Progress Note Date Seen: Sep 29, 2024 Medical Necessity Reason Pt with a Central, PICC or Fol: No Subjective Patient reports: No new complaints Review of Systems: HEENT:Normal, CVS:Normal, RESPIRATORY:Normal, GI:Normal, :Normal, MSK:Normal, NEURO:Normal Objective vital signs Vital Sign Date Time Temp Pulse Resp B/P (MAP) Pulse Ox O2 Delivery O2 Flow Rate FiO2 09/29/24 14:28 Room Air 0 96 09/29/24 14:27 62 18 155/68 (97) 96 09/29/24 13:42 97.3 97.3 Total Intake and Output 09/28/24 09/28/24 09/29/24 15:00 23:00 07:00 Intake Total 500 ml 2230 ml 1300 ml Balance 500 ml 2230 ml 1300 ml medications Current Medications Medications Dose Ordered Sig/No Route Start Time Stop Time Status Last Admin Dose Admin Amiodarone HCl 200 mg DAILY PO 09/22/24 10:00 09/29/24 08:15 200 MG Furosemide 20 mg DAILY PO 09/22/24 10:00 09/29/24 08:14 20 MG Atorvastatin Calcium 20 mg HS PO 09/22/24 22:00 09/28/24 21:08 20 MG Levothyroxine Sodium 75 mcg QAM@0600 PO 09/22/24 06:00 09/29/24 05:17 75 MCG Metoprolol Tartrate 25 mg BID PO 09/22/24 10:00 09/29/24 08:13 25 MG Acetaminophen/ Hydrocodone Bitart 1 tab Q4HP PRN PO 09/22/24 05:00 09/28/24 21:28 1 TAB Ondansetron HCl 4 mg Q4HP PRN IV 09/22/24 05:00 09/29/24 09:18 4 MG Acetaminophen 650 mg Q6HP PRN PO 09/22/24 05:00 09/28/24 09:29 650 MG Hydralazine HCl 10 mg Q6HP PRN IV 09/22/24 05:15 09/22/24 06:05 10 MG Pantoprazole Sodium 40 mg DAILY IV 09/23/24 10:00 09/28/24 09:29 40 MG Citalopram Hydrobromide 40 mg DAILY PO 09/23/24 10:00 09/28/24 09:29 40 MG Buspirone HCl 15 mg Q12HR PO 09/22/24 22:00 09/28/24 21:08 15 MG Sucralfate 1 gm BID@0600,2200 PO 09/27/24 22:00 09/29/24 05:17 1 GM Examination: GENERAL:Normal, HEENT:Normal, NECK:Normal, LUNGS:Normal, CVS:Normal, ABDOMEN:Normal, MSK:Normal, SKIN:Normal, NEURO:Normal, :Normal laboratory and microbiology Laboratory Tests 09/27/24 06:57 Test 09/27/24 06:57 Range/Units Serum Glucose 89 74-106 mg/dL Problem List/Assessment/Plan Problem List/Assessment/Plan #1 abd pain - polyps, gastritis: ppi #2 a fib: hold xarelto #3 chronic diastolic heart failure: cont meds #4 s/p pacer #5 morbid obesity #6 h/o breast cancer #7 htn #8 depression/ anxiety #9 hyperlipidemia #10 hypothyroidism advance care planning- full code- time spent 19 mins Plan discussed with: Patient Dietary Evaluation Review Comments: Continue current plan of care Expected Outcomes/Goals: F/U in 3-5 days Date of Service: Sep 29, 2024 Billing Provider: SAL BRAY MD Common Visit Codes: [id number] INP/OBS CARE(HIGH) SAL BRAY MD Sep 29, 2024 15:02
--- NOTE | 2024-09-29 22:30 | DVHPN2 ---
Progress Note - Dictate Date Seen: Sep 29, 2024 Medical Necessity Reason Pt with a Central, PICC or Fol: No Subjective Patient was seen and evaluated in follow up. No overnight events. Patient is complaining of abdominal discomfort. Patient scheduled for EGD and colonoscopy today with Dr. Larisa Liao. vital signs Vital Sign Date Time Temp Pulse Resp B/P (MAP) Pulse Ox O2 Delivery O2 Flow Rate FiO2 09/29/24 14:28 Room Air 0 96 09/29/24 13:43 100 09/29/24 13:00 98.0 64 16 162/63 (96) 98.0 Total Intake and Output 09/28/24 09/28/24 09/29/24 15:00 23:00 07:00 Intake Total 500 ml 2230 ml 1300 ml Balance 500 ml 2230 ml 1300 ml medications Current Medications Medications Dose Ordered Sig/No Route Start Time Stop Time Status Last Admin Dose Admin Amiodarone HCl 200 mg DAILY PO 09/22/24 10:00 09/29/24 08:15 200 MG Furosemide 20 mg DAILY PO 09/22/24 10:00 09/29/24 08:14 20 MG Atorvastatin Calcium 20 mg HS PO 09/22/24 22:00 09/28/24 21:08 20 MG Levothyroxine Sodium 75 mcg QAM@0600 PO 09/22/24 06:00 09/29/24 05:17 75 MCG Metoprolol Tartrate 25 mg BID PO 09/22/24 10:00 09/29/24 08:13 25 MG Acetaminophen/ Hydrocodone Bitart 1 tab Q4HP PRN PO 09/22/24 05:00 09/28/24 21:28 1 TAB Ondansetron HCl 4 mg Q4HP PRN IV 09/22/24 05:00 09/29/24 09:18 4 MG Acetaminophen 650 mg Q6HP PRN PO 09/22/24 05:00 09/28/24 09:29 650 MG Hydralazine HCl 10 mg Q6HP PRN IV 09/22/24 05:15 09/22/24 06:05 10 MG Pantoprazole Sodium 40 mg DAILY IV 09/23/24 10:00 09/28/24 09:29 40 MG Citalopram Hydrobromide 40 mg DAILY PO 09/23/24 10:00 09/28/24 09:29 40 MG Buspirone HCl 15 mg Q12HR PO 09/22/24 22:00 09/28/24 21:08 15 MG Sucralfate 1 gm BID@0600,2200 PO 09/27/24 22:00 09/29/24 05:17 1 GM objective GENERAL: Awake, alert, oriented. Morbid obesity. LUNGS: Clear. CARDIOVASCULAR: Heart sounds are good. ABDOMEN: Soft. LUQ TTP. laboratory and microbiology Laboratory Tests 09/27/24 06:57 Test 09/27/24 06:57 Range/Units Serum Glucose 89 74-106 mg/dL Problem List Abdominal pain. A- fib. Chronic diastolic heart failure. S/p pacer. Morbid obesity. History of breast cancer. HTN. Depression/ anxiety Hyperlipidemia Hypothyroidism Assessment/Plan Continued all current supportive medical care. [place] for pain management. Amiodarone. Lipitor, Metoprolol. IV antibiotics as ordered. Diuretics with Lasix. IV Hydralazine for SBP > 150. GI prophylactics. Additional plan as per the hospital course. Dietary Evaluation Review Comments: Continue current plan of care Expected Outcomes/Goals: F/U in 3-5 days Plan discussed with: Patient COLNI FRANCIS MD Sep 29, 2024 14:53
[2024-09-30] VITALS (7 sets, daily range): BP systolic 112–135; BP diastolic 40–75; PULSE 62–77; RESP 16–20; TEMP 97.5–98.6; O2SAT 93–98
[2024-09-30] MEDS: PANTOPRAZOLE 40 MG TAB PO SCH (05:16)
[2024-09-30 13:51] LABS: Basophils # (auto) 0.2 10 ^3/uL (0-0.2); Basophils % (auto) 2.1 % (0.0-2.0); Eosinophils # (auto) 0.2 10 ^3/uL (0-0.8); Eosinophils % (auto) 2.5 % (0.0-7.0); Hematocrit 37.3 % (36.0-46.0); Hemoglobin 12.4 g/dL (12.2-16.2); Lymphocytes # (auto) 2.7 10 ^3/uL (0.4-5.4); Lymphocytes % (auto) 31.3 % (10.0-50.0); Mean Corpuscular Hemoglobin 31.7 pg (28.0-32.0); Mean Corpuscular Hgb Conc. 33.4 g/dL (32.0-36.0); Mean Corpuscular Volume 95.1 fL (80.0-100.0); Monocytes # (auto) 0.5 10 ^3/uL (0-1.3); Monocytes % (auto) 5.7 % (0.0-12.0); Neutrophils % (auto) 58.4 % (37.0-80.0); Nucleated Red Blood Cells % 0.1 %; Platelet Count (auto) 228 10^3/uL (140-450); Red Blood Cells 3.92 10^6/uL (4.0-5.20); Red Cell Distribution Width 15.8 % (11.8-14.3); White Blood Cell 8.5 10^3/uL (4.4-10.8)
--- NOTE | 2024-09-30 14:02 | DVHPN2 ---
Progress Note Date Seen: Sep 30, 2024 Medical Necessity Reason Pt with a Central, PICC or Fol: No Subjective Patient reports: No new complaints Review of Systems: HEENT:Normal, CVS:Normal, RESPIRATORY:Normal, GI:Normal, :Normal, MSK:Normal, NEURO:Normal Objective vital signs Vital Sign Date Time Temp Pulse Resp B/P (MAP) Pulse Ox O2 Delivery O2 Flow Rate FiO2 09/30/24 13:09 97.5 77 16 135/75 (95) 94 97.5 09/30/24 08:00 Room Air* 0 21 Total Intake and Output 09/29/24 09/29/24 09/30/24 15:00 23:00 07:00 Intake Total 100 ml 400 ml Output Total 400 ml Balance 100 ml 0 ml medications Current Medications Medications Dose Ordered Sig/No Route Start Time Stop Time Status Last Admin Dose Admin Amiodarone HCl 200 mg DAILY PO 09/22/24 10:00 09/30/24 10:39 200 MG Furosemide 20 mg DAILY PO 09/22/24 10:00 09/30/24 10:38 20 MG Atorvastatin Calcium 20 mg HS PO 09/22/24 22:00 09/29/24 21:08 20 MG Levothyroxine Sodium 75 mcg QAM@0600 PO 09/22/24 06:00 09/30/24 05:16 75 MCG Metoprolol Tartrate 25 mg BID PO 09/22/24 10:00 09/30/24 10:39 25 MG Acetaminophen/ Hydrocodone Bitart 1 tab Q4HP PRN PO 09/22/24 05:00 09/29/24 18:23 1 TAB Ondansetron HCl 4 mg Q4HP PRN IV 09/22/24 05:00 09/29/24 09:18 4 MG Acetaminophen 650 mg Q6HP PRN PO 09/22/24 05:00 09/28/24 09:29 650 MG Hydralazine HCl 10 mg Q6HP PRN IV 09/22/24 05:15 09/22/24 06:05 10 MG Citalopram Hydrobromide 40 mg DAILY PO 09/23/24 10:00 09/30/24 10:38 40 MG Pantoprazole Sodium 40 mg DAILY@0600 PO 09/30/24 06:00 09/30/24 05:16 40 MG Dicyclomine HCl 20 mg QID PRN PO 09/29/24 15:00 Examination: GENERAL:Normal, HEENT:Normal, NECK:Normal, LUNGS:Normal, CVS:Normal, ABDOMEN:Normal, MSK:Normal, SKIN:Normal, NEURO:Normal, :Normal laboratory and microbiology Laboratory Tests 09/30/24 13:25 09/27/24 06:57 Test 09/27/24 06:57 Range/Units Serum Glucose 89 74-106 mg/dL Problem List/Assessment/Plan Problem List/Assessment/Plan #1 abd pain - polyps, gastritis: ppi #2 a fib: hold xarelto #3 chronic diastolic heart failure: cont meds #4 s/p pacer #5 morbid obesity #6 h/o breast cancer #7 htn #8 depression/ anxiety #9 hyperlipidemia #10 hypothyroidism #11 gi bleeding s/p polypectomy: ivf, ffp, cbc, npo, dw dr Liao advance care planning- full code- time spent 19 mins Plan discussed with: Patient My Orders My Orders Orders - SAL BRAY MD Procedure Category Date Status Time Pantoprazole Tablet PHA 09/30/24 In Process (Protonix Tablet) 06:00 Insert Midline ORDERS 09/30/24 Transmitted 10:00 Obtain Consent For: ORDERS 09/30/24 Transmitted 13:55 Frozen Plasma [facility] 09/30/24 Logged 13:55 Type And Screen K 09/30/24 Logged 13:55 Administer Blood [facility] 09/30/24 In Process Products 13:55 Complete Blood Count LAB 10/01/24 Verified 06:00 Comprehensive LAB 10/01/24 Verified Metabolic Panel 06:00 PTPTT LAB 10/01/24 Verified 04:00 NS PHA 09/30/24 Verified 14:00 Pantoprazole PHA 10/01/24 Verified (Protonix) 10:00 Npo Except For HILARIA 09/30/24 Verified Medications 13:58 Npo Except Ice Chips ORDERS 09/30/24 Verified 13:58 Dietary Evaluation Review Comments: Continue current plan of care Expected Outcomes/Goals: F/U in 3-5 days Date of Service: Sep 30, 2024 Billing Provider: SAL BRAY MD Common Visit Codes: [id number] INP/OBS CARE(HIGH) SAL BRAY MD Sep 30, 2024 14:02
[2024-09-30] MEDS: SODIUM CHLORIDE 0.9% 1,000 ML IV SCH (17:12)
--- NOTE | 2024-09-30 18:14 | DVHPN2 ---
Progress Note - Dictate Date Seen: Sep 30, 2024 Medical Necessity Reason Pt with a Central, PICC or Fol: No Subjective Pt had multiple 3-4 episodes of rectal bleeding today Pt is hemodynamically stable H/H stable at 12.4 vital signs Vital Sign Date Time Temp Pulse Resp B/P (MAP) Pulse Ox O2 Delivery O2 Flow Rate FiO2 09/30/24 17:12 98.2 62 19 123/54 (77) 93 98.2 09/30/24 08:00 Room Air* 0 21 Total Intake and Output 09/29/24 09/29/24 09/30/24 15:00 23:00 07:00 Intake Total 100 ml 400 ml Output Total 400 ml Balance 100 ml 0 ml medications Current Medications Medications Dose Ordered Sig/No Route Start Time Stop Time Status Last Admin Dose Admin Amiodarone HCl 200 mg DAILY PO 09/22/24 10:00 09/30/24 10:39 200 MG Atorvastatin Calcium 20 mg HS PO 09/22/24 22:00 09/29/24 21:08 20 MG Levothyroxine Sodium 75 mcg QAM@0600 PO 09/22/24 06:00 09/30/24 05:16 75 MCG Metoprolol Tartrate 25 mg BID PO 09/22/24 10:00 09/30/24 10:39 25 MG Acetaminophen/ Hydrocodone Bitart 1 tab Q4HP PRN PO 09/22/24 05:00 09/29/24 18:23 1 TAB Ondansetron HCl 4 mg Q4HP PRN IV 09/22/24 05:00 09/29/24 09:18 4 MG Acetaminophen 650 mg Q6HP PRN PO 09/22/24 05:00 09/28/24 09:29 650 MG Hydralazine HCl 10 mg Q6HP PRN IV 09/22/24 05:15 09/22/24 06:05 10 MG Citalopram Hydrobromide 40 mg DAILY PO 09/23/24 10:00 09/30/24 10:38 40 MG Sodium Chloride 1,000 ml @ 60 mls/hr [id number] IV 09/30/24 14:00 09/30/24 17:12 60 MLS/HR Pantoprazole Sodium 40 mg DAILY IV 10/01/24 10:00 objective General Appearance: Alert, Oriented X3, Cooperative, Minimal distress HEENT: Atraumatic Lungs: Clear to auscultation, Normal air movement, Other Cardiovascular: Regular rate, Normal S1, Normal S2, No murmurs, Gallops, Rubs, Other (Irregularly irregular) Abdomen: Normal bowel sounds, Soft, No tenderness, No hepatospenomegaly, No masses, Other Neuro: Normal speech, Cranial nerves 3-12 NL Psych/Mental Status: Mental status NL laboratory and microbiology Laboratory Tests 09/30/24 13:25 09/27/24 06:57 Test 09/27/24 06:57 Range/Units Serum Glucose 89 74-106 mg/dL Problems(with codes): (1) Colon polyps (2) Gastritis (3) Rectal bleeding (4) Left upper quadrant abdominal pain (5) Generalized weakness Prognosis A/PLAN Pt likely has post polypectomy bleeding due to moderate size polypectomy and recent anticoagulant use Keep NPO except for ice chips Transfuse 1 U FFP to correct coagulopathy Monitor H/H closely Monitor on telemetry if she continues to bleed I will be standing by for possible repeat colonoscopy if bleeding does not stop spontaneously Dietary Evaluation Review Comments: Continue current plan of care Expected Outcomes/Goals: F/U in 3-5 days Plan discussed with: Other (Dr Lyle and nurse Elam) CHIQUIS SIMMONS MD Sep 30, 2024 18:14
--- NOTE | 2024-09-30 22:32 | DVHPN2 ---
Progress Note - Dictate Date Seen: Sep 30, 2024 Medical Necessity Reason Pt with a Central, PICC or Fol: No Subjective Patient was seen and evaluated in follow up. No overnight events. Patient is complaining of abdominal discomfort. Patient had multiple 3-4 episodes of rectal bleeding today. Patietn is s/p upper endoscpy with biopsy which showed a 1-2 cm sliding-type hiatal hernia with slightly irregular squamocolumnar junction no significant erosive esophagitis and minimal gastritis. Colonoscopy. showed a 1.5-2 cm mid transverse colon polyp that was seen and removed by snare polypectomy, 1.5-2 cm proximal ascending colon polyp that was seen and removed by snare polypectomy and trace internal hemorrhoids. vital signs Vital Sign Date Time Temp Pulse Resp B/P (MAP) Pulse Ox O2 Delivery O2 Flow Rate FiO2 09/30/24 10:39 68 128/75 09/30/24 09:20 97.6 20 95 97.6 09/30/24 08:00 Room Air* 0 21 Total Intake and Output 09/29/24 09/29/24 09/30/24 15:00 23:00 07:00 Intake Total 100 ml 400 ml Output Total 400 ml Balance 100 ml 0 ml medications Current Medications Medications Dose Ordered Sig/No Route Start Time Stop Time Status Last Admin Dose Admin Amiodarone HCl 200 mg DAILY PO 09/22/24 10:00 09/30/24 10:39 200 MG Furosemide 20 mg DAILY PO 09/22/24 10:00 09/30/24 10:38 20 MG Atorvastatin Calcium 20 mg HS PO 09/22/24 22:00 09/29/24 21:08 20 MG Levothyroxine Sodium 75 mcg QAM@0600 PO 09/22/24 06:00 09/30/24 05:16 75 MCG Metoprolol Tartrate 25 mg BID PO 09/22/24 10:00 09/30/24 10:39 25 MG Acetaminophen/ Hydrocodone Bitart 1 tab Q4HP PRN PO 09/22/24 05:00 09/29/24 18:23 1 TAB Ondansetron HCl 4 mg Q4HP PRN IV 09/22/24 05:00 09/29/24 09:18 4 MG Acetaminophen 650 mg Q6HP PRN PO 09/22/24 05:00 09/28/24 09:29 650 MG Hydralazine HCl 10 mg Q6HP PRN IV 09/22/24 05:15 09/22/24 06:05 10 MG Citalopram Hydrobromide 40 mg DAILY PO 09/23/24 10:00 09/30/24 10:38 40 MG Pantoprazole Sodium 40 mg DAILY@0600 PO 09/30/24 06:00 09/30/24 05:16 40 MG Dicyclomine HCl 20 mg QID PRN PO 09/29/24 15:00 objective GENERAL: Awake, alert, oriented. Morbid obesity. LUNGS: Clear. CARDIOVASCULAR: Heart sounds are good. ABDOMEN: Soft. LUQ TTP. laboratory and microbiology Laboratory Tests 09/27/24 06:57 Test 09/27/24 06:57 Range/Units Serum Glucose 89 74-106 mg/dL Problem List Abdominal pain. A- fib. Chronic diastolic heart failure. S/p pacer. Morbid obesity. History of breast cancer. HTN. Depression/ anxiety Hyperlipidemia Hypothyroidism Assessment/Plan Continued all current supportive medical care. [place] for pain management. Amiodarone. Lipitor, Metoprolol. IV antibiotics as ordered. Diuretics with Lasix. IV Hydralazine for SBP > 150. GI prophylactics. Additional plan as per the hospital course. Dietary Evaluation Review Comments: Continue current plan of care Expected Outcomes/Goals: F/U in 3-5 days Plan discussed with: Patient COLIN FRANCIS MD Sep 30, 2024 11:32
[2024-10-01] VITALS (20 sets, daily range): BP systolic 121–150; BP diastolic 46–75; PULSE 60–70; RESP 14–20; TEMP 97.4–98.9; O2SAT 64–98
[2024-10-01 09:35] LABS: Basophils # (auto) 0.1 10 ^3/uL (0-0.2); Basophils % (auto) 1.2 % (0.0-2.0); Eosinophils # (auto) 0.2 10 ^3/uL (0-0.8); Eosinophils % (auto) 2.8 % (0.0-7.0); Hematocrit 35.1 % (36.0-46.0); Hemoglobin 11.7 g/dL (12.2-16.2); Lymphocytes # (auto) 1.6 10 ^3/uL (0.4-5.4); Lymphocytes % (auto) 22.9 % (10.0-50.0); Mean Corpuscular Hgb Conc. 33.2 g/dL (32.0-36.0); Mean Corpuscular Volume 96.3 fL (80.0-100.0); Monocytes # (auto) 0.6 10 ^3/uL (0-1.3); Monocytes % (auto) 8.5 % (0.0-12.0); Neutrophils # (auto) 4.6 10 ^3/uL (1.6-8.6); Neutrophils % (auto) 64.6 % (37.0-80.0); Nucleated Red Blood Cells % 0.1 %; Platelet Count (auto) 216 10^3/uL (140-450); Red Blood Cells 3.65 10^6/uL (4.0-5.20); Red Cell Distribution Width 16.4 % (11.8-14.3); White Blood Cell 7.1 10^3/uL (4.4-10.8)
[2024-10-01 09:49] LABS: INR 1.03 (0.9-1.15); Partial Thromboplastin Time 27.3 SEC (24.5-34.5); Prothrombin Time 10.9 sec (9.3-11.8)
[2024-10-01 09:55] LABS: Alanine Aminotransferase 22 U/L (7-40); Albumin 3.9 g/dL (3.2-4.8); Alkaline Phosphatase 59 U/L (46-116); Anion Gap 8 (5-15); Aspartate Aminotransferase 22 U/L (13-40); Calcium 9.5 mg/dL (8.7-10.4); Carbon Dioxide 28 mmol/L (20-31); Chloride 103 mmol/L (98-107); Glucose 88 mg/dL (74-106); Potassium 3.5 mmol/L (3.5-5.1); Sodium 139 mmol/L (136-145)
[2024-10-01 09:57] LABS: Blood Urea Nitrogen < 5 mg/dL (9-23)
[2024-10-01 10:09] LABS: Bilirubin, Total 0.6 mg/dL (0.2-1.0)
[2024-10-01] MEDS: PANTOPRAZOLE 40 MG/10 ML VIAL INJ IV SCH (10:41)
--- NOTE | 2024-10-01 12:54 | DVHPN2 ---
Subjective Still some rectal bleed this morning Reviewed: Care Plan, H&P, Labs, Medications, Previous Orders, Radiology, Other (Consultations) Changes from previous H/P or p: No Changes Objective Vitals Vital Signs Date Time Temp Pulse Resp B/P (MAP) Pulse Ox O2 Delivery O2 Flow Rate FiO2 10/01/24 12:45 98.4 65 18 145/68 98.4 10/01/24 10:40 98 09/30/24 20:00 Room Air* 0 21 Intake/Output Intake and Output 10/01/24 07:00 Intake Total 1195 ml Output Total 6 ml Balance 1189 ml Intake Oral 870 ml Blood Product 325 ml Output Urine Total 3 ml Stool Total 3 ml # Voids 3 General Appearance: Alert, Oriented X3, Cooperative, No acute distress HEENT: Atraumatic Lungs: Clear to auscultation, Normal air movement Cardiovascular: Regular rate Abdomen: Normal bowel sounds, Soft, No tenderness Neuro: Normal speech Medications Current Medications Medications Dose Ordered Sig/No Route Start Time Stop Time Status Last Admin Dose Admin Amiodarone HCl 200 mg DAILY PO 09/22/24 10:00 10/01/24 10:43 200 MG Atorvastatin Calcium 20 mg HS PO 09/22/24 22:00 09/30/24 22:24 20 MG Levothyroxine Sodium 75 mcg QAM@0600 PO 09/22/24 06:00 10/01/24 06:44 75 MCG Metoprolol Tartrate 25 mg BID PO 09/22/24 10:00 10/01/24 10:43 25 MG Ondansetron HCl 4 mg Q4HP PRN IV 09/22/24 05:00 09/29/24 09:18 4 MG Acetaminophen 650 mg Q6HP PRN PO 09/22/24 05:00 09/28/24 09:29 650 MG Hydralazine HCl 10 mg Q6HP PRN IV 09/22/24 05:15 09/22/24 06:05 10 MG Citalopram Hydrobromide 40 mg DAILY PO 09/23/24 10:00 10/01/24 10:42 40 MG Sodium Chloride 1,000 ml @ 60 mls/hr [id number] IV 09/30/24 14:00 10/01/24 06:45 60 MLS/HR Pantoprazole Sodium 40 mg DAILY IV 10/01/24 10:00 10/01/24 10:41 40 MG Laboratory Results Laboratory Tests 10/01/24 08:54 Chemistry Test 10/01/24 08:54 Albumin 3.9 g/dL (3.2-4.8) Calcium Level 9.5 mg/dL (8.7-10.4) Total Protein 6.0 g/dL (5.7-8.2) Coagulation Test 10/01/24 08:54 Prothrombin Time 10.9 sec (9.3-11.8) Prothrombin Time INR 1.03 (0.9-1.15) Activated Partial Thromboplast Time 27.3 SEC (24.5-34.5) LFT Test 10/01/24 08:54 Alanine Aminotransferase (ALT) 22 U/L (7-40) Alkaline Phosphatase 59 U/L (46-116) Aspartate Amino Transferase (AST) 22 U/L (13-40) Total Bilirubin 0.6 mg/dL (0.2-1.0) Urinalysis Test 09/22/24 00:58 Urine Color Light-yellow (Yellow) Urine Clarity Turbid (Clear) H Urine pH 7.5 (5.0-9.0) Urine Specific [place] 1.013 (1.001-1.035) Urine Protein Negative (Negative) Urine Ketones Negative (Negative) Urine Blood Negative /uL (Negative) Urine Nitrite Negative (Negative) Urine Bilirubin Negative (Negative) Urine Urobilinogen Normal mg/dL (Negative) Urine Leukocyte Esterase Trace /uL (Negative) Urine RBC 2 /hpf (0 - 4) Urine WBC 4 /hpf (0 - 5) Urine Squamous Epithelial Cells Few /hpf (<5) Urine Bacteria None seen /hpf (None Seen) Urine Glucose Normal mg/dL (Normal) Assessment/Plan Assessment/Plan Rectal bleed Status post polypectomy Anemia Hiatal hernia Gastritis AFib Diastolic heart failure Hypertension Dyslipidemia Morbid obese History of breast cancer Depression Anxiety Plan: H&H. Continue current plan of care Plan discussed with: Patient My Orders Orders - UNA ALMANZAR MD Procedure Category Date Status Time Hemoglobin & LAB 10/01/24 Transmitted Hematocrit 12:50 Hemoglobin & LAB 10/01/24 Transmitted Hematocrit 18:50 Hemoglobin & LAB 10/02/24 Verified Hematocrit 00:50 Date of Service: Oct 01, 2024 Billing Provider: UNA ALMANZAR MD Common Visit Codes: [id number] INP/OBS CARE(HIGH) UNA ALMANZAR MD Oct 01, 2024 12:54
--- NOTE | 2024-10-01 16:07 | DVHPN2 ---
Progress Note - Dictate Date Seen: Oct 01, 2024 Medical Necessity Reason Pt with a Central, PICC or Fol: No Subjective Patient seen at bedside Resting comfortably She had one bowel movement with moderate amount of blood this morning However since then she has had another bowel movement and it appears that the bleeding is resolving She denied any nausea vomiting or abdominal pain Patient is tolerating ice chips Hemoglobin this morning was 11.7 vital signs Vital Sign Date Time Temp Pulse Resp B/P (MAP) Pulse Ox O2 Delivery O2 Flow Rate FiO2 10/01/24 14:33 98.3 65 18 138/59 98.3 10/01/24 13:30 95 10/01/24 08:15 Room Air* 0 21 Total Intake and Output 09/30/24 09/30/24 10/01/24 14:59 22:59 06:59 Intake Total 770 ml 425 ml Output Total 3 ml 3 ml Balance 767 ml 422 ml medications Current Medications Medications Dose Ordered Sig/No Route Start Time Stop Time Status Last Admin Dose Admin Amiodarone HCl 200 mg DAILY PO 09/22/24 10:00 10/01/24 10:43 200 MG Atorvastatin Calcium 20 mg HS PO 09/22/24 22:00 09/30/24 22:24 20 MG Levothyroxine Sodium 75 mcg QAM@0600 PO 09/22/24 06:00 10/01/24 06:44 75 MCG Metoprolol Tartrate 25 mg BID PO 09/22/24 10:00 10/01/24 10:43 25 MG Ondansetron HCl 4 mg Q4HP PRN IV 09/22/24 05:00 09/29/24 09:18 4 MG Acetaminophen 650 mg Q6HP PRN PO 09/22/24 05:00 09/28/24 09:29 650 MG Hydralazine HCl 10 mg Q6HP PRN IV 09/22/24 05:15 09/22/24 06:05 10 MG Citalopram Hydrobromide 40 mg DAILY PO 09/23/24 10:00 10/01/24 10:42 40 MG Sodium Chloride 1,000 ml @ 60 mls/hr [id number] IV 09/30/24 14:00 10/01/24 06:45 60 MLS/HR Pantoprazole Sodium 40 mg DAILY IV 10/01/24 10:00 10/01/24 10:41 40 MG objective General Appearance: Alert, Oriented X3, Cooperative, Minimal distress HEENT: Atraumatic Lungs: Clear to auscultation, Normal air movement, Other Cardiovascular: Regular rate, Normal S1, Normal S2, No murmurs, Gallops, Rubs, Other (Irregularly irregular) Abdomen: Normal bowel sounds, Soft, No tenderness, No hepatospenomegaly, No masses, Other Neuro: Normal speech, Cranial nerves 3-12 NL Psych/Mental Status: Mental status NL laboratory and microbiology Laboratory Tests 10/01/24 08:54 Test 10/01/24 08:54 Range/Units Serum Glucose 88 74-106 mg/dL Problems(with codes): (1) Colon polyps (2) Rectal bleeding (3) Generalized weakness (4) Left upper quadrant abdominal pain (5) Hiatal hernia (6) Post-polypectomy bleeding Prognosis Plan Continue conservative observation management If the patient is stable overnight we will start her on clear liquid diet tomorrow Patient received a 2nd unit of FFP today Repeat CBC in a.m. Dietary Evaluation Review Comments: Continue current plan of care Expected Outcomes/Goals: F/U in 3-5 days Plan discussed with: Patient, Other (Nurse Chary) CC Plasma Assessment Blood Product Administration S: [id number] CHIQUIS SIMMONS MD Oct 01, 2024 16:07
[2024-10-01 18:30] LABS: Hematocrit 33.2 % (36.0-46.0); Hemoglobin 11.2 g/dL (12.2-16.2)
--- NOTE | 2024-10-01 23:18 | DVHPN2 ---
Progress Note - Dictate Date Seen: Oct 01, 2024 Medical Necessity Reason Pt with a Central, PICC or Fol: No Subjective Patient was seen and evaluated in follow up. No overnight events. Patient had one bowel movement with moderate amount of blood this morning. Second BM this morning appeared normal. Patient is tolerating ice chips without N/V. H&H stable. Patient denies any cardiac symptoms. vital signs Vital Sign Date Time Temp Pulse Resp B/P (MAP) Pulse Ox O2 Delivery O2 Flow Rate FiO2 10/01/24 10:43 70 148/68 10/01/24 10:40 98.4 18 98 98.4 09/30/24 20:00 Room Air* 0 21 Total Intake and Output 09/30/24 09/30/24 10/01/24 15:00 23:00 07:00 Intake Total 770 ml 425 ml Output Total 3 ml 3 ml Balance 767 ml 422 ml medications Current Medications Medications Dose Ordered Sig/No Route Start Time Stop Time Status Last Admin Dose Admin Amiodarone HCl 200 mg DAILY PO 09/22/24 10:00 10/01/24 10:43 200 MG Atorvastatin Calcium 20 mg HS PO 09/22/24 22:00 09/30/24 22:24 20 MG Levothyroxine Sodium 75 mcg QAM@0600 PO 09/22/24 06:00 10/01/24 06:44 75 MCG Metoprolol Tartrate 25 mg BID PO 09/22/24 10:00 10/01/24 10:43 25 MG Ondansetron HCl 4 mg Q4HP PRN IV 09/22/24 05:00 09/29/24 09:18 4 MG Acetaminophen 650 mg Q6HP PRN PO 09/22/24 05:00 09/28/24 09:29 650 MG Hydralazine HCl 10 mg Q6HP PRN IV 09/22/24 05:15 09/22/24 06:05 10 MG Citalopram Hydrobromide 40 mg DAILY PO 09/23/24 10:00 10/01/24 10:42 40 MG Sodium Chloride 1,000 ml @ 60 mls/hr [id number] IV 09/30/24 14:00 10/01/24 06:45 60 MLS/HR Pantoprazole Sodium 40 mg DAILY IV 10/01/24 10:00 10/01/24 10:41 40 MG objective GENERAL: Awake, alert, oriented. Morbid obesity. LUNGS: Clear. CARDIOVASCULAR: Heart sounds are good. ABDOMEN: Soft. LUQ TTP. laboratory and microbiology Laboratory Tests 10/01/24 08:54 Test 10/01/24 08:54 Range/Units Serum Glucose 88 74-106 mg/dL Problem List Abdominal pain. A- fib. Chronic diastolic heart failure. S/p pacer. Morbid obesity. History of breast cancer. HTN. Depression/ anxiety Hyperlipidemia Hypothyroidism Assessment/Plan Continued all current supportive medical care. [place] for pain management. Amiodarone. Lipitor, Metoprolol. IV antibiotics as ordered. Diuretics with Lasix. IV Hydralazine for SBP > 150. GI prophylactics. Additional plan as per the hospital course. Dietary Evaluation Review Comments: Continue current plan of care Expected Outcomes/Goals: F/U in 3-5 days Plan discussed with: Patient CC Plasma Assessment Blood Product Administration S: [id number] COLIN FRANCIS MD Oct 01, 2024 11:39
[2024-10-02] VITALS (8 sets, daily range): BP systolic 91–142; BP diastolic 37–59; PULSE 60–64; RESP 17–20; TEMP 97.3–98; O2SAT 93–96
[2024-10-02 01:48] LABS: Hematocrit 31.8 % (36.0-46.0); Hemoglobin 10.7 g/dL (12.2-16.2)
[2024-10-02 06:14] LABS: Basophils # (auto) 0.1 10 ^3/uL (0-0.2); Basophils % (auto) 1.4 % (0.0-2.0); Eosinophils # (auto) 0.3 10 ^3/uL (0-0.8); Eosinophils % (auto) 4.6 % (0.0-7.0); Hematocrit 31.8 % (36.0-46.0); Hemoglobin 10.8 g/dL (12.2-16.2); Lymphocytes # (auto) 1.2 10 ^3/uL (0.4-5.4); Lymphocytes % (auto) 21.5 % (10.0-50.0); Mean Corpuscular Hemoglobin 32.4 pg (28.0-32.0); Mean Corpuscular Volume 95.3 fL (80.0-100.0); Monocytes # (auto) 0.5 10 ^3/uL (0-1.3); Monocytes % (auto) 9.6 % (0.0-12.0); Neutrophils # (auto) 3.5 10 ^3/uL (1.6-8.6); Neutrophils % (auto) 62.9 % (37.0-80.0); Nucleated Red Blood Cells % 0.1 %; Platelet Count (auto) 204 10^3/uL (140-450); Red Blood Cells 3.33 10^6/uL (4.0-5.20); Red Cell Distribution Width 15.7 % (11.8-14.3); White Blood Cell 5.6 10^3/uL (4.4-10.8)
--- NOTE | 2024-10-02 14:47 | DVHPN2 ---
Subjective Patient has had some rectal bleed earlier today albeit less than previously noted Reviewed: Care Plan, H&P, Labs, Medications, Previous Orders, Radiology, Other (Consultations) Changes from previous H/P or p: No Changes Objective Vitals Vital Signs Date Time Temp Pulse Resp B/P (MAP) Pulse Ox O2 Delivery O2 Flow Rate FiO2 10/02/24 10:26 60 123/64 10/02/24 09:00 97.8 17 96 97.8 10/02/24 08:18 Room Air* 0 21 Intake/Output Intake and Output 10/02/24 07:00 Intake Total 1852 ml Balance 1852 ml Intake Oral 750 ml IV Total 780 ml Blood Product 322 ml # Voids 5 General Appearance: Alert, Oriented X3, Cooperative, No acute distress HEENT: Atraumatic Lungs: Clear to auscultation, Normal air movement Cardiovascular: Regular rate Abdomen: Normal bowel sounds, Soft, No tenderness Neuro: Normal speech Medications Current Medications Medications Dose Ordered Sig/No Route Start Time Stop Time Status Last Admin Dose Admin Amiodarone HCl 200 mg DAILY PO 09/22/24 10:00 10/02/24 09:25 200 MG Atorvastatin Calcium 20 mg HS PO 09/22/24 22:00 10/01/24 21:14 20 MG Levothyroxine Sodium 75 mcg QAM@0600 PO 09/22/24 06:00 10/02/24 06:29 75 MCG Metoprolol Tartrate 25 mg BID PO 09/22/24 10:00 10/02/24 09:26 25 MG Ondansetron HCl 4 mg Q4HP PRN IV 09/22/24 05:00 09/29/24 09:18 4 MG Acetaminophen 650 mg Q6HP PRN PO 09/22/24 05:00 09/28/24 09:29 650 MG Hydralazine HCl 10 mg Q6HP PRN IV 09/22/24 05:15 09/22/24 06:05 10 MG Citalopram Hydrobromide 40 mg DAILY PO 09/23/24 10:00 10/02/24 09:25 40 MG Sodium Chloride 1,000 ml @ 60 mls/hr [id number] IV 09/30/24 14:00 10/01/24 23:20 60 MLS/HR Pantoprazole Sodium 40 mg DAILY IV 10/01/24 10:00 10/02/24 09:23 40 MG Laboratory Results Laboratory Tests 10/01/24 08:54 10/02/24 04:48 Urinalysis Test 09/22/24 00:58 Urine Color Light-yellow (Yellow) Urine Clarity Turbid (Clear) H Urine pH 7.5 (5.0-9.0) Urine Specific [place] 1.013 (1.001-1.035) Urine Protein Negative (Negative) Urine Ketones Negative (Negative) Urine Blood Negative /uL (Negative) Urine Nitrite Negative (Negative) Urine Bilirubin Negative (Negative) Urine Urobilinogen Normal mg/dL (Negative) Urine Leukocyte Esterase Trace /uL (Negative) Urine RBC 2 /hpf (0 - 4) Urine WBC 4 /hpf (0 - 5) Urine Squamous Epithelial Cells Few /hpf (<5) Urine Bacteria None seen /hpf (None Seen) Urine Glucose Normal mg/dL (Normal) Assessment/Plan Assessment/Plan Rectal bleed/still ongoing Status post polypectomy Anemia Hiatal hernia Gastritis AFib Diastolic heart failure Hypertension Dyslipidemia Morbid obese History of breast cancer Depression Anxiety Plan: Repeat blood work tomorrow. Liquid diet. Further plan per orders. Home tomorrow if stable and no bleed Plan discussed with: Patient Date of Service: Oct 02, 2024 Billing Provider: UNA ALMANZAR MD Common Visit Codes: [id number] INP/OBS CARE(HIGH) UNA ALMANZAR MD Oct 02, 2024 14:47
--- NOTE | 2024-10-02 16:32 | DVHPN2 ---
Progress Note - Dictate Date Seen: Oct 02, 2024 Medical Necessity Reason Pt with a Central, PICC or Fol: No Subjective Patient was seen and evaluated in follow up. No overnight events. Patient complains of generalized pain. Patient stable on room air. vital signs Vital Sign Date Time Temp Pulse Resp B/P (MAP) Pulse Ox O2 Delivery O2 Flow Rate FiO2 10/02/24 09:26 62 133/72 10/02/24 09:00 97.8 17 96 97.8 10/02/24 08:18 Room Air* 0 21 Total Intake and Output 10/01/24 10/01/24 10/02/24 15:00 23:00 07:00 Intake Total 322 ml 720 ml 810 ml Balance 322 ml 720 ml 810 ml medications Current Medications Medications Dose Ordered Sig/No Route Start Time Stop Time Status Last Admin Dose Admin Amiodarone HCl 200 mg DAILY PO 09/22/24 10:00 10/02/24 09:25 200 MG Atorvastatin Calcium 20 mg HS PO 09/22/24 22:00 10/01/24 21:14 20 MG Levothyroxine Sodium 75 mcg QAM@0600 PO 09/22/24 06:00 10/02/24 06:29 75 MCG Metoprolol Tartrate 25 mg BID PO 09/22/24 10:00 10/02/24 09:26 25 MG Ondansetron HCl 4 mg Q4HP PRN IV 09/22/24 05:00 09/29/24 09:18 4 MG Acetaminophen 650 mg Q6HP PRN PO 09/22/24 05:00 09/28/24 09:29 650 MG Hydralazine HCl 10 mg Q6HP PRN IV 09/22/24 05:15 09/22/24 06:05 10 MG Citalopram Hydrobromide 40 mg DAILY PO 09/23/24 10:00 10/02/24 09:25 40 MG Sodium Chloride 1,000 ml @ 60 mls/hr [id number] IV 09/30/24 14:00 10/01/24 23:20 60 MLS/HR Pantoprazole Sodium 40 mg DAILY IV 10/01/24 10:00 10/02/24 09:23 40 MG objective GENERAL: Awake, alert, oriented. Morbid obesity. LUNGS: Clear. CARDIOVASCULAR: Heart sounds are good. ABDOMEN: Soft. LUQ TTP. laboratory and microbiology Laboratory Tests 10/02/24 04:48 10/01/24 08:54 Test 10/01/24 08:54 Range/Units Serum Glucose 88 74-106 mg/dL Problem List Abdominal pain. A- fib. Chronic diastolic heart failure. S/p pacer. Morbid obesity. History of breast cancer. HTN. Depression/ anxiety Hyperlipidemia Hypothyroidism Assessment/Plan Continued all current supportive medical care. [place] for pain management. Amiodarone. Lipitor, Metoprolol. IV antibiotics as ordered. Diuretics with Lasix. IV Hydralazine for SBP > 150. GI prophylactics. Additional plan as per the hospital course. Dietary Evaluation Review Comments: Continue current plan of care Expected Outcomes/Goals: F/U in 3-5 days Plan discussed with: Patient CC Plasma Assessment Blood Product Administration S: 00:20 COLIN FRANCIS MD Oct 02, 2024 11:25
--- NOTE | 2024-10-02 22:17 | DVHPN2 ---
Progress Note - Dictate Date Seen: Oct 02, 2024 (Late entry Patient seen at 10:00 a.m.) Medical Necessity Reason Pt with a Central, PICC or Fol: No Subjective Patient seen at bedside Resting comfortably No further active GI bleeding Hemoglobin stable at 10.8 vital signs Vital Sign Date Time Temp Pulse Resp B/P (MAP) Pulse Ox O2 Delivery O2 Flow Rate FiO2 10/02/24 21:03 60 138/50 10/02/24 17:02 97.9 20 93 97.9 10/02/24 08:18 Room Air* 0 21 Total Intake and Output 10/01/24 10/01/24 10/02/24 15:00 23:00 07:00 Intake Total 322 ml 720 ml 810 ml Balance 322 ml 720 ml 810 ml medications Current Medications Medications Dose Ordered Sig/No Route Start Time Stop Time Status Last Admin Dose Admin Amiodarone HCl 200 mg DAILY PO 09/22/24 10:00 10/02/24 09:25 200 MG Atorvastatin Calcium 20 mg HS PO 09/22/24 22:00 10/02/24 21:03 20 MG Levothyroxine Sodium 75 mcg QAM@0600 PO 09/22/24 06:00 10/02/24 06:29 75 MCG Metoprolol Tartrate 25 mg BID PO 09/22/24 10:00 10/02/24 21:03 25 MG Ondansetron HCl 4 mg Q4HP PRN IV 09/22/24 05:00 09/29/24 09:18 4 MG Acetaminophen 650 mg Q6HP PRN PO 09/22/24 05:00 10/02/24 21:06 650 MG Hydralazine HCl 10 mg Q6HP PRN IV 09/22/24 05:15 09/22/24 06:05 10 MG Citalopram Hydrobromide 40 mg DAILY PO 09/23/24 10:00 10/02/24 09:25 40 MG Sodium Chloride 1,000 ml @ 60 mls/hr [id number] IV 09/30/24 14:00 10/02/24 16:00 60 MLS/HR Pantoprazole Sodium 40 mg DAILY IV 10/01/24 10:00 10/02/24 09:23 40 MG objective General Appearance: Alert, Oriented X3, Cooperative, Minimal distress HEENT: Atraumatic Lungs: Clear to auscultation, Normal air movement, Other Cardiovascular: Regular rate, Normal S1, Normal S2, No murmurs, Gallops, Rubs, Other (Irregularly irregular) Abdomen: Normal bowel sounds, Soft, No tenderness, No hepatospenomegaly, No masses, Other Neuro: Normal speech, Cranial nerves 3-12 NL Psych/Mental Status: Mental status NL laboratory and microbiology Laboratory Tests 10/02/24 04:48 10/01/24 08:54 Test 10/01/24 08:54 Range/Units Serum Glucose 88 74-106 mg/dL Problems(with codes): (1) Post-polypectomy bleeding (2) Hiatal hernia (3) Colon polyps (4) Rectal bleeding (5) Gastritis (6) Generalized weakness (7) Colonic polyp (8) Left upper quadrant abdominal pain Prognosis Plan Monitor labs Patient will be on clear liquid diet today Tomorrow we will advance to full liquid if she is stable Continue supportive care I will give her a dose of vitamin K Outpatient follow up with GI Services upon discharge for ongoing GI management Dietary Evaluation Review Comments: Continue current plan of care Expected Outcomes/Goals: F/U in 3-5 days Plan discussed with: Patient CC Plasma Assessment Blood Product Administration S: 00:20 CHIQUIS SIMMONS MD Oct 02, 2024 22:16
[2024-10-02] MEDS: phytonadione 10 MG in SODIUM CHL 0.9% 50 ML IV ONE (22:30)
[2024-10-03] VITALS (8 sets, daily range): BP systolic 140–150; BP diastolic 58–67; PULSE 60–61; RESP 17–19; TEMP 36.5; O2SAT 90–95
[2024-10-03] MEDS: phytonadione 10 MG in SODIUM CHL 0.9% 50 ML IV ONE (08:24)
[2024-10-03] MEDS: HYDROCORTISONE 10 MG TAB PO SCH (08:40)
[2024-10-03 08:55] LABS: Basophils # (auto) 0 10 ^3/uL (0-0.2); Basophils % (auto) 0.3 % (0.0-2.0); Eosinophils # (auto) 0.3 10 ^3/uL (0-0.8); Eosinophils % (auto) 4.7 % (0.0-7.0); Hematocrit 37.5 % (36.0-46.0); Hemoglobin 12.4 g/dL (12.2-16.2); Lymphocytes # (auto) 1.8 10 ^3/uL (0.4-5.4); Mean Corpuscular Hemoglobin 31.8 pg (28.0-32.0); Mean Corpuscular Hgb Conc. 33.1 g/dL (32.0-36.0); Mean Corpuscular Volume 95.9 fL (80.0-100.0); Monocytes # (auto) 0.6 10 ^3/uL (0-1.3); Monocytes % (auto) 9.1 % (0.0-12.0); Neutrophils # (auto) 3.8 10 ^3/uL (1.6-8.6); Neutrophils % (auto) 57.9 % (37.0-80.0); Nucleated Red Blood Cells % 0.2 %; Platelet Count (auto) 221 10^3/uL (140-450); Red Blood Cells 3.91 10^6/uL (4.0-5.20); Red Cell Distribution Width 16.3 % (11.8-14.3); White Blood Cell 6.5 10^3/uL (4.4-10.8)
--- NOTE | 2024-10-03 12:44 | DVHINCON2 ---
Date of service: Oct 03, 2024 Reason for Consultation hypopituitarism History of Present Illness 59 year old female with a history of CVA, MDD, AFib, dyslipidemia, seizures, hypertension, hypothyroidism, secondary AI who presented on 09/22 with complaints of acute progressive abdominal pain. Patient on admission found to be hemodynamically stable. No significant lab abnormalities found on CBC, CMP. CT abdomen and pelvis showed thickening of sigmoid colon suggestive of colitis. Patient is started on IV antibiotics and admitted for further management. Received colonoscopy/EGD for further evaluation of abdominal pain s/p polypectomy now with post-operative hematochezia. Regarding her endocrine function, she reportedly has a history of hypothyroidism which she states was diagnosed over 30 years ago shortly after the of her child. She has bene amintained on levothyroxine since that time. Per patient report she was seen by Dr Rowley about 6-8mo ago who measured an AM cortisol which was found to be undetectably low and after which her PCP Dr Mendieta started her on hydrocortisone 08/08. She does have a history of recurrent syncope however notably has not noticed any overt clinical change following initiation of hydrocortisone. She does note that she has had rapid weight gain up to 60lb over the past year, possibly prior to starting to the hydrocortisone. Denies ab striae, proximal muscle weakness. Importantly she had an MRI with pituitary protocol in 03/2024 at [facility]– [place] after starting hydrocortisone which did not demonstrate any pituitary abnormalities. Past Medical History Past Medical History CVA, depression, anxiety, cancer, AFib, dyslipidemia, seizures, hypertension, thyroid Past Surgical History Past Surgical History Hernia repair, hysterectomy, cholecystectomy and Family History: Diabetes mellitus G8 MOTHER FH: heart disease G8 MOTHER Allergies: Coded Allergies: Erythromycin (Verified Allergy, Unknown, 04/06/22) Home Meds Active Scripts Nitrofurantoin Monohydrate Mac (Macrobid) 100 Mg Cap, 100 MG PO BID for 4 Days, #8 CAP Prov:UNA ALMANZAR MD 05/29/24 Levothyroxine Sodium (SYNTHROID TABLET) 50 Mcg Tb, 125 MCG PO QAM@0600 for 30 Days, #30 TAB Prov:UNA ALMANZAR MD 05/29/24 Cyanocobalamin (B-12) 1,000 Mcg Cap, 1000 MCG PO QAM for 30 Days, #30 CAP Prov:MELANIE BARAKAT MD 01/30/23 Rivaroxaban (XARELTO) 20 Mg Tab, 1 TAB PO DAILY, #30 TAB 2 Refills Prov:LEATHA GUPTA MD 12/12/22 Mirtazapine (Remeron) 15 Mg Tab, 0.5 TAB PO QPM, #30 TAB 1 Refill Prov:ABIMAEL BARONE MD 09/24/22 Reported Medications Ergocalciferol (Vitamin D (Ergocalciferol) 50,000 Unit Cap, 1 CAP PO QWEEKLY 05/26/24 Aripiprazole (Abilify) 2 Mg Tab, 1 TAB PO DAILY 05/26/24 Albuterol Sulfate (Albuterol Sulfate Hfa) 108 Mcg/Act Aer, 2 PUFF INH BID 05/26/24 Hydroxyzine Hcl (Hydroxyzine Hcl) 10 Mg Tab, 2 TAB PO TID PRN 05/26/24 Potassium Chloride (Potassium Chloride ER) 10 Meq Tab, 1 TAB PO MWF 05/26/24 Furosemide (Furosemide) 40 Mg Tab, 1 TAB PO MWF 05/26/24 Buspirone Hcl (Buspirone Hcl) 15 Mg Tab, 1 TAB PO BID for 30 Days, #60 05/26/24 Artificial Tear Solution (ARTIFICIAL TEARS) Tears Mirian, 1 DROP EACHEYE PRN for DRY EYES, ML 05/25/24 Clonazepam (KlonoPIN TABLET) 0.5 Mg Tb, 0.5 TAB PO BID PRN for ANXIETY for 30 Days, #30 02/16/24 Trazodone HCl (Trazodone Hydrochloride) 50 Mg Tab, 2 TAB PO HS PRN for 30 Days, #60 09/22/22 Citalopram Hydrobromide (Citalopram) 40 Mg Tab, 40 MG PO DAILY, TAB 09/21/22 Amiodarone Hcl (Amiodarone Hcl) 200 Mg Tab, 200 MG PO DAILY 09/21/22 Simvastatin (Simvastatin) 20 Mg Tab, 20 MG PO HS 04/07/22 Metoprolol Tartrate (Lopressor) 25 Mg Tb, 1 TAB PO BID for 90 Days, #180 0 Refills 04/07/22 Current Medications Current Medications Medications (Trade) Dose Ordered Sig/No Route PRN Reason Start Time Stop Time Status Last Admin Hydrocortisone (Cortef Tablet) 10 mg BID PO 10/03/24 10:00 10/03/24 08:40 Review of Systems Negative except that which is stated in HPI Vital Signs Vital Signs Date Time Temp Pulse Resp B/P (MAP) Pulse Ox O2 Delivery O2 Flow Rate FiO2 10/03/24 09:00 97.8 60 17 149/58 (88) 95 97.8 10/03/24 08:10 Room Air* 0 21 Physical Exam General Appearance: Alert, Oriented X3, Cooperative, Minimal distress HEENT: Atraumatic Lungs: Clear to auscultation, Normal air movement, Other Cardiovascular: Regular rate, Normal S1, Normal S2, No murmurs, Gallops, Rubs, Other (Irregularly irregular) Abdomen: Normal bowel sounds, Soft, No tenderness, No hepatospenomegaly, No masses, Other Neuro: Normal speech, Cranial nerves 3-12 NL Psych/Mental Status: Mental status NL Labs/Diagnostic Data Labs Test 10/03/24 08:28 10/01/24 08:54 09/25/24 10:43 09/25/24 07:01 Range/Units White Blood Count 6.5 4.4-10.8 10^3/uL Red Blood Count 3.91 L 4.0-5.20 10^6/uL Hemoglobin 12.4 12.2-16.2 g/dL Hematocrit 37.5 # 36.0-46.0 % Mean Corpuscular Volume 95.9 80.0-100.0 fL Mean Corpuscular Hemoglobin 31.8 28.0-32.0 pg Mean Corpuscular Hemoglobin Concent 33.1 32.0-36.0 g/dL Red Cell Distribution Width 16.3 H 11.8-14.3 % Platelet Count 221 140-450 10^3/uL Mean Platelet Volume 8.9 6.9-10.8 fL Neutrophils (%) (Auto) 57.9 37.0-80.0 % Lymphocytes (%) (Auto) 28.0 10.0-50.0 % Monocytes (%) (Auto) 9.1 0.0-12.0 % Eosinophils (%) (Auto) 4.7 0.0-7.0 % Basophils (%) (Auto) 0.3 0.0-2.0 % Neutrophils # (Auto) 3.8 1.6-8.6 10 ^3/uL Lymphocytes # (Auto) 1.8 0.4-5.4 10 ^3/uL Monocytes # (Auto) 0.6 0-1.3 10 ^3/uL Eosinophils # (Auto) 0.3 0-0.8 10 ^3/uL Basophils # (Auto) 0 0-0.2 10 ^3/uL Nucleated Red Blood Cells 0.2 % Prothrombin Time 10.9 9.3-11.8 sec Prothrombin Time INR 1.03 0.9-1.15 Activated Partial Thromboplast Time 27.3 24.5-34.5 SEC Sodium Level 139 136-145 mmol/L Potassium Level 3.5 3.5-5.1 mmol/L Chloride Level 103 98-107 mmol/L Carbon Dioxide Level 28 20-31 mmol/L Anion Gap 8 5-15 Blood Urea Nitrogen < 5 L 9-23 mg/dL Creatinine 1.00 0.550-1.02 mg/dL Glomerular Filtration Rate Calc 61 >90 mL/min BUN/Creatinine Ratio 5.0 L 10.0-20.0 Serum Glucose 88 74-106 mg/dL Calcium Level 9.5 8.7-10.4 mg/dL Total Bilirubin 0.6 0.2-1.0 mg/dL Aspartate Amino Transferase (AST) 22 13-40 U/L Alanine Aminotransferase (ALT) 22 7-40 U/L Alkaline Phosphatase 59 46-116 U/L Total Protein 6.0 5.7-8.2 g/dL Albumin 3.9 3.2-4.8 g/dL POC Glucose 131 H 70-106 mg/dl Magnesium Level 2.3 1.6-2.6 mg/dL Test 09/22/24 02:13 09/22/24 01:10 09/22/24 00:58 Range/Units Troponin I High Sensitivity < 3 L </=34 ng/L Lactic Acid Level 1.9 0.4-2.0 mmol/L Lipase 54 H 12-53 U/L Urine Color Light-yellow Yellow Urine Clarity Turbid H Clear Urine pH 7.5 5.0-9.0 Urine Specific [place] 1.013 1.001-1.035 Urine Protein Negative Negative Urine Ketones Negative Negative Urine Blood Negative Negative /uL Urine Nitrite Negative Negative Urine Bilirubin Negative Negative Urine Urobilinogen Normal Negative mg/dL Urine Leukocyte Esterase Trace Negative /uL Urine RBC 2 0 - 4 /hpf Urine WBC 4 0 - 5 /hpf Urine Squamous Epithelial Cells Few <5 /hpf Urine Bacteria None seen None Seen /hpf Urine Glucose Normal Normal mg/dL Assessment # Post-polypectomy bleeding # Hiatal hernia # Colon polyps # Rectal bleeding # Gastritis # Generalized weakness # Colonic polyp # Left upper quadrant abdominal pain # Secondary hypothyroidism # Secondary adrenal insufficiency Plan/Recommendation Her hypothyroidism and reported secondary AI is curious. Potential etiology may be due to hypophysitis however her AI should have likely preceded her secondary hypothyroidism. Importantly her MRI pituitary protocol did not reveal any abnormalities. Will replace deficiencies empirically as inpatient then pursue further evaluation as needed as outpatient. - Follow up AM cortisol - Order free T4, FSH, LH - Continue levothyroxine 75mcg daily. Her weight based dosage of levothyroxine should be about 150mcg daily theoretically. But will re-eval after FT4 returns. - Increase hydrocortisone 20mg in AM, 10mg in PM - Close monitoring of hemodynamic parameters Plan discussed with: Patient PAYTON LOZANO MD Oct 03, 2024 12:44
--- NOTE | 2024-10-03 14:36 | DVHDS2 ---
Discharge Summary Date of Admission Sep 22, 2024 at 05:00 Date of Discharge: Oct 03, 2024 Admitting Diagnosis Abdominal pain Labs/Diagnostic Data: Laboratory Results Test 10/03/24 08:28 10/01/24 08:54 09/25/24 10:43 09/25/24 07:01 White Blood Count 6.5 10^3/uL (4.4-10.8) Red Blood Count 3.91 10^6/uL (4.0-5.20) Hemoglobin 12.4 g/dL (12.2-16.2) Hematocrit 37.5 % (36.0-46.0) Mean Corpuscular Volume 95.9 fL (80.0-100.0) Mean Corpuscular Hemoglobin 31.8 pg (28.0-32.0) Mean Corpuscular Hemoglobin Concent 33.1 g/dL (32.0-36.0) Red Cell Distribution Width 16.3 % (11.8-14.3) Platelet Count 221 10^3/uL (140-450) Mean Platelet Volume 8.9 fL (6.9-10.8) Neutrophils (%) (Auto) 57.9 % (37.0-80.0) Lymphocytes (%) (Auto) 28.0 % (10.0-50.0) Monocytes (%) (Auto) 9.1 % (0.0-12.0) Eosinophils (%) (Auto) 4.7 % (0.0-7.0) Basophils (%) (Auto) 0.3 % (0.0-2.0) Neutrophils # (Auto) 3.8 10 ^3/uL (1.6-8.6) Lymphocytes # (Auto) 1.8 10 ^3/uL (0.4-5.4) Monocytes # (Auto) 0.6 10 ^3/uL (0-1.3) Eosinophils # (Auto) 0.3 10 ^3/uL (0-0.8) Basophils # (Auto) 0 10 ^3/uL (0-0.2) Nucleated Red Blood Cells 0.2 % Prothrombin Time 10.9 sec (9.3-11.8) Prothrombin Time INR 1.03 (0.9-1.15) Activated Partial Thromboplast Time 27.3 SEC (24.5-34.5) Sodium Level 139 mmol/L (136-145) Potassium Level 3.5 mmol/L (3.5-5.1) Chloride Level 103 mmol/L (98-107) Carbon Dioxide Level 28 mmol/L (20-31) Anion Gap 8 (5-15) Blood Urea Nitrogen < 5 mg/dL (9-23) Creatinine 1.00 mg/dL (0.550-1.02) Glomerular Filtration Rate Calc 61 mL/min (>90) BUN/Creatinine Ratio 5.0 (10.0-20.0) Serum Glucose 88 mg/dL (74-106) Calcium Level 9.5 mg/dL (8.7-10.4) Total Bilirubin 0.6 mg/dL (0.2-1.0) Aspartate Amino Transferase (AST) 22 U/L (13-40) Alanine Aminotransferase (ALT) 22 U/L (7-40) Alkaline Phosphatase 59 U/L (46-116) Total Protein 6.0 g/dL (5.7-8.2) Albumin 3.9 g/dL (3.2-4.8) POC Glucose 131 mg/dl (70-106) Magnesium Level 2.3 mg/dL (1.6-2.6) Test 09/22/24 02:13 09/22/24 01:10 09/22/24 00:58 Troponin I High Sensitivity < 3 ng/L (</=34) Lactic Acid Level 1.9 mmol/L (0.4-2.0) Lipase 54 U/L (12-53) Urine Color Light-yellow (Yellow) Urine Clarity Turbid (Clear) Urine pH 7.5 (5.0-9.0) Urine Specific [place] 1.013 (1.001-1.035) Urine Protein Negative (Negative) Urine Ketones Negative (Negative) Urine Blood Negative /uL (Negative) Urine Nitrite Negative (Negative) Urine Bilirubin Negative (Negative) Urine Urobilinogen Normal mg/dL (Negative) Urine Leukocyte Esterase Trace /uL (Negative) Urine RBC 2 /hpf (0 - 4) Urine WBC 4 /hpf (0 - 5) Urine Squamous Epithelial Cells Few /hpf (<5) Urine Bacteria None seen /hpf (None Seen) Urine Glucose Normal mg/dL (Normal) Other Laboratory Tests 10/03/24 08:28 10/01/24 08:54 Brief Hx & Hospital Course: 69-year-old lady admitted to the hospital from the emergency room because abdominal pain. Patient had a CT scan showed possible colitis. GI consultation obtained in upper and lower endoscopies done. Patient had polypectomies x2 and she developed rectal bleed afterwards. She was monitored in the hospital for her hemoglobin which was dropping and then stabilized. She received 2 units of fresh frozen plasma. She was still having some abdominal pain for which she was given medications. Today she had no pains and no more bleeding and hemoglobin went up to 12.4 from the lowest 10.7 yesterday. Patient is being discharged home to follow up with PCP with GI and with Endocrinology for some [place] disease Condition at Discharge: Good Final Diagnosis/Problems List Lower GI bleed secondary to polypectomy Abdominal pain Anemia secondary to above Gastritis Secondary Diagnosis: AFib Diastolic heart failure Hypertension Dyslipidemia Morbid obesity History of breast cancer Anxiety and depression Discharge Disposition: Home Discharge Instruct/Medications Diet: Cardiac 2g Na,low cholest (2 gm sodium, low cholesterol) Activity: Light activity Follow Up/Referral: PCP within three days GI within two weeks Endocrinology within two weeks Medications: Resume previous home medications of albuterol, amiodarone, Abilify, buspirone, citalopram, Klonopin, vitamin-D, B12, levothyroxine, metoprolol, Remeron, simvastatin and trazodone. Resume Xarelto 20 mg in one week/ Take the hydrocortisone 10 mg b.i.d. 45 Discharge Statement: "Patient was advised to return to the ER or call 911 if any headaches, dizziness, shortness of breath, chest pain, abdominal pain, bleeding, fevers, or worsening of medical condition. Patient was counseled about treatment plan, medications, possible side effects, patientverbalized understanding. All questions were answered to the best of my ability. This discharge took greater then 30 minutes in planning, reviewing documentation, counseling the patient, and discussing with other team members." ASSESSMENT ASSESSMENT Assessment Date of Service: Oct 03, 2024 Billing Provider: UNA ALMANZAR MD Common Visit Codes: 47846-KYO/OBS DISCH DAY >30min UNA ALMANZAR MD Oct 03, 2024 14:36
[2024-10-03] MEDS ORDERED: RIVA20TA PO (14:39)
[2024-10-03] MEDS ORDERED: HYDR10T PO (14:39)
--- NOTE | 2024-10-03 16:10 | DVHPN2 ---
Progress Note - Dictate Date Seen: Oct 03, 2024 Medical Necessity Reason Pt with a Central, PICC or Fol: No Subjective Patient seen at bedside Resting comfortably No further active GI bleeding Hemoglobin upto 12 Tolerating full liquid diet vital signs Vital Sign Date Time Temp Pulse Resp B/P (MAP) Pulse Ox O2 Delivery O2 Flow Rate FiO2 10/03/24 15:23 36.5 60 18 10/03/24 15:20 146/66 (92) 10/03/24 13:00 94 10/03/24 08:10 Room Air* 0 21 Total Intake and Output 10/02/24 10/02/24 10/03/24 15:00 23:00 07:00 Intake Total 680 ml 200 ml Output Total 650 ml Balance 680 ml -450 ml medications Current Medications Medications Dose Ordered Sig/No Route Start Time Stop Time Status Last Admin Dose Admin Amiodarone HCl 200 mg DAILY PO 09/22/24 10:00 10/03/24 08:41 200 MG Atorvastatin Calcium 20 mg HS PO 09/22/24 22:00 10/02/24 21:03 20 MG Levothyroxine Sodium 75 mcg QAM@0600 PO 09/22/24 06:00 10/03/24 07:02 75 MCG Metoprolol Tartrate 25 mg BID PO 09/22/24 10:00 10/03/24 08:41 25 MG Ondansetron HCl 4 mg Q4HP PRN IV 09/22/24 05:00 09/29/24 09:18 4 MG Acetaminophen 650 mg Q6HP PRN PO 09/22/24 05:00 10/02/24 21:06 650 MG Hydralazine HCl 10 mg Q6HP PRN IV 09/22/24 05:15 09/22/24 06:05 10 MG Citalopram Hydrobromide 40 mg DAILY PO 09/23/24 10:00 10/03/24 08:41 40 MG Sodium Chloride 1,000 ml @ 60 mls/hr [id number] IV 09/30/24 14:00 10/03/24 08:42 60 MLS/HR Pantoprazole Sodium 40 mg DAILY IV 10/01/24 10:00 10/03/24 08:42 40 MG Hydrocortisone 10 mg BID PO 10/03/24 10:00 10/03/24 08:40 10 MG objective General Appearance: Alert, Oriented X3, Cooperative, Minimal distress HEENT: Atraumatic Lungs: Clear to auscultation, Normal air movement, Other Cardiovascular: Regular rate, Normal S1, Normal S2, No murmurs, Gallops, Rubs, Other (Irregularly irregular) Abdomen: Normal bowel sounds, Soft, No tenderness, No hepatospenomegaly, No masses, Other Neuro: Normal speech, Cranial nerves 3-12 NL Psych/Mental Status: Mental status NL laboratory and microbiology Laboratory Tests 10/03/24 08:28 10/01/24 08:54 Test 10/01/24 08:54 Range/Units Serum Glucose 88 74-106 mg/dL Problems(with codes): (1) Colonic polyp (2) Post-polypectomy bleeding (3) Hiatal hernia (4) Rectal bleeding (5) Gastritis (6) Generalized weakness (7) Left upper quadrant abdominal pain Prognosis PLAN Discharge planning is in progress Advance to soft mechanical diet Outpatient follow up with my office in 4-6 weeks or as needed Dietary Evaluation Review Comments: Continue current plan of care Expected Outcomes/Goals: F/U in 3-5 days Plan discussed with: Patient CC Plasma Assessment Blood Product Administration S: 00:20 CHIQUIS SIMMONS MD Oct 03, 2024 16:10
--- NOTE | 2024-10-03 22:14 | DVHPN2 ---
Progress Note - Dictate Date Seen: Oct 03, 2024 Medical Necessity Reason Pt with a Central, PICC or Fol: No Subjective Patient was seen and evaluated in follow up. No overnight events. Patient complains of generalized discomfort. Ismael T4, FSH, Cortisol AM are pending. 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 vital signs Vital Sign Date Time Temp Pulse Resp B/P (MAP) Pulse Ox O2 Delivery O2 Flow Rate FiO2 10/03/24 09:00 97.8 60 17 149/58 (88) 95 97.8 10/03/24 08:10 Room Air* 0 21 Total Intake and Output 10/02/24 10/02/24 10/03/24 15:00 23:00 07:00 Intake Total 680 ml 200 ml Output Total 650 ml Balance 680 ml -450 ml medications Current Medications Medications Dose Ordered Sig/No Route Start Time Stop Time Status Last Admin Dose Admin Amiodarone HCl 200 mg DAILY PO 09/22/24 10:00 10/03/24 08:41 200 MG Atorvastatin Calcium 20 mg HS PO 09/22/24 22:00 10/02/24 21:03 20 MG Levothyroxine Sodium 75 mcg QAM@0600 PO 09/22/24 06:00 10/03/24 07:02 75 MCG Metoprolol Tartrate 25 mg BID PO 09/22/24 10:00 10/03/24 08:41 25 MG Ondansetron HCl 4 mg Q4HP PRN IV 09/22/24 05:00 09/29/24 09:18 4 MG Acetaminophen 650 mg Q6HP PRN PO 09/22/24 05:00 10/02/24 21:06 650 MG Hydralazine HCl 10 mg Q6HP PRN IV 09/22/24 05:15 09/22/24 06:05 10 MG Citalopram Hydrobromide 40 mg DAILY PO 09/23/24 10:00 10/03/24 08:41 40 MG Sodium Chloride 1,000 ml @ 60 mls/hr [id number] IV 09/30/24 14:00 10/03/24 08:42 60 MLS/HR Pantoprazole Sodium 40 mg DAILY IV 10/01/24 10:00 10/03/24 08:42 40 MG Hydrocortisone 10 mg BID PO 10/03/24 10:00 10/03/24 08:40 10 MG objective GENERAL: Awake, alert, oriented. Morbid obesity. LUNGS: Clear. CARDIOVASCULAR: Heart sounds are good. ABDOMEN: Soft. LUQ TTP. laboratory and microbiology Laboratory Tests 10/03/24 08:28 10/01/24 08:54 Test 10/01/24 08:54 Range/Units Serum Glucose 88 74-106 mg/dL Problem List Abdominal pain. A- fib. Chronic diastolic heart failure. S/p pacer. Morbid obesity. History of breast cancer. HTN. Depression/ anxiety. Hyperlipidemia. Hypothyroidism. Hypopituitarism. Assessment/Plan Continued all current supportive medical care. Hydricirtisone. 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 Fortune. Ray for pain management. Amiodarone. Lipitor, Metoprolol. IV antibiotics as ordered. Diuretics with Lasix. GI prophylactics. Additional plan as per the hospital course. Dietary Evaluation Review Comments: Continue current plan of care Expected Outcomes/Goals: F/U in 3-5 days Plan discussed with: Patient CC Plasma Assessment Blood Product Administration S: 00:20 COLIN FRANCIS MD Oct 03, 2024 13:39
[2024-10-04 11:05] LABS: Follicle Stimulating Hormone 97.39 IU/L (SEE BELOW)
[2024-10-04 11:06] LABS: Leuteinizing Hormone 27.2 IU/L
[2024-10-04 11:07] LABS: Prolactin 5.36 ng/mL (2.8-29.2)
== END 2024-10-03 16:50 | disposition home or self-care (01) | DRG 391 ==
LOC: ER 00:23 → OVERFLOW 05:00 → WEST WING 14:55 → TELE-WESTW 09-30 18:29
PROVIDERS: ADMIT Nurse Practitioner; ATTEND Internal Medicine
PROC: 0DBK8ZZ Excision of Ascending Colon, Via Natural or Artificial Opening Endoscopic (ICD-10-PCS; 2024-09-29)
PROC: 0DBL8ZZ Excision of Transverse Colon, Via Natural or Artificial Opening Endoscopic (ICD-10-PCS; 2024-09-29)
PROC: 0DB98ZX Excision of Duodenum, Via Natural or Artificial Opening Endoscopic, Diagnostic (ICD-10-PCS; principal; 2024-09-29 13:09)
PROC: 0DB68ZX Excision of Stomach, Via Natural or Artificial Opening Endoscopic, Diagnostic (ICD-10-PCS; 2024-09-29 13:09)
PROC: 30233K1 Transfusion of Nonautologous Frozen Plasma into Peripheral Vein, Percutaneous Approach (ICD-10-PCS; 2024-10-01)
DX: K52.9 Noninfective gastroenteritis and colitis, unspecified (principal); I50.33 Acute on chronic diastolic (congestive) heart failure; E44.0 Moderate protein-calorie malnutrition; Z68.41 Body mass index [BMI] 40.0-44.9, adult; E27.49 Other adrenocortical insufficiency; D62 Acute posthemorrhagic anemia; K63.5 Polyp of colon; I11.0 Hypertensive heart disease with heart failure; E66.01 Morbid (severe) obesity due to excess calories; F41.9 Anxiety disorder, unspecified; E78.00 Pure hypercholesterolemia, unspecified; I48.91 Unspecified atrial fibrillation; E03.8 Other specified hypothyroidism; K64.8 Other hemorrhoids; Y83.8 Other surgical procedures as the cause of abnormal reaction of the patient, or of later complication, without mention of misadventure at the time of the procedure; Y82.8 Other medical devices associated with adverse incidents; K29.70 Gastritis, unspecified, without bleeding; E88.810 Metabolic syndrome; K44.9 Diaphragmatic hernia without obstruction or gangrene; F32.9 Major depressive disorder, single episode, unspecified; Z86.73 Personal history of transient ischemic attack (TIA), and cerebral infarction without residual deficits; Z95.0 Presence of cardiac pacemaker; Z90.710 Acquired absence of both cervix and uterus; Z88.1 Allergy status to other antibiotic agents; Z85.3 Personal history of malignant neoplasm of breast; Z83.3 Family history of diabetes mellitus; Y92.89 Other specified places as the place of occurrence of the external cause; R58 Hemorrhage, not elsewhere classified; T45.515A Adverse effect of anticoagulants, initial encounter
CPT/HCPCS: 36415; 71045; 74176; 80048; 80053; 81001; 82533; 82962; 83001; 83002; 83605; 83690; 83735; 84146; 84439; 84484; 85014; 85018; 85025; 85610; 85730; 86850; 86900; 86901; 93005; 96365; 96367; 96375; G0378; J2250; J2405; J2470; J2704; J3430; J3490

== ENCOUNTER 2024-12-20 13:25 | Inpatient (IN) | payer MEDICAID, MEDICARE ==
[~2024-12-20] VITALS: Ht 149.9 cm; Wt 88.9 kg
[~2024-12-20 13:25] MED LIST changes: +HYDR10T PO
--- NOTE | 2024-12-20 13:31 | ECG ---
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
--- NOTE | 2024-12-20 13:41 | ED.PDOC ---
HPI Comments 69 year old female brought in by EMS presents to the ED with a chief complaint of chest pain onset today (12/20/24) around 08:00. Patient states she began experiencing chest pain, radiates to RT side neck, as well as changes in vision of RT eye. Patient describes chest pain as a stabbing sensation, 6/10 pain. Per EMS patient was given Nitro as well as 324 mg Aspirin in route. Patient is concerned of pain due to experiencing FL in the past, describes the pain as similar. Sales Clerk Supervisor is Dr. Destiny Mendieta. PMHx FL, HTN, CVA, anxiety, a-fib, seizure, TIA, HLD, depression, cancer, thyroid. Denies shortness of breath, nausea, vomiting, diarrhea, headache, abdominal pain, numbness/tingling of extremities, fever, cough, nasal congestion, chills. No other syptoms or modifying factors present at this time. Chief Complaint: Chest Pain Time Seen by MD: 13:30 Primary Care Provider: Destiny MENDIETA Reviewed Notes: Medications, Allergies Allergies: Coded Allergies: Erythromycin (Verified Allergy, Unknown, 04/06/22) Home Meds Active Scripts Hydrocortisone Base (CORTEF) 10 Mg Tab, 10 MG PO BID for 30 Days, #60 TAB Prov:UNA ALMANZAR MD 10/03/24 Rivaroxaban (XARELTO) 20 Mg Tab, 1 TAB PO DAILY, #30 TAB 2 Refills Start taking the medication Xarelto on FridayOctober 11 Prov:UNA ALMANZAR MD 10/03/24 Nitrofurantoin Monohydrate Mac (Macrobid) 100 Mg Cap, 100 MG PO BID for 4 Days, #8 CAP Prov:UNA ALMANZAR MD 05/29/24 Levothyroxine Sodium (SYNTHROID TABLET) 50 Mcg Tb, 125 MCG PO QAM@0600 for 30 Days, #30 TAB Prov:UNA ALMANZAR MD 05/29/24 Cyanocobalamin (B-12) 1,000 Mcg Cap, 1000 MCG PO QAM for 30 Days, #30 CAP Prov:MELANIE BARAKAT MD 01/30/23 Mirtazapine (Remeron) 15 Mg Tab, 0.5 TAB PO QPM, #30 TAB 1 Refill Prov:ABIMAEL BARONE MD 09/24/22 Reported Medications Ergocalciferol (Vitamin D (Ergocalciferol) 50,000 Unit Cap, 1 CAP PO QWEEKLY 05/26/24 Aripiprazole (Abilify) 2 Mg Tab, 1 TAB PO DAILY 05/26/24 Albuterol Sulfate (Albuterol Sulfate Hfa) 108 Mcg/Act Aer, 2 PUFF INH BID 05/26/24 Hydroxyzine Hcl (Hydroxyzine Hcl) 10 Mg Tab, 2 TAB PO TID PRN 05/26/24 Potassium Chloride (Potassium Chloride ER) 10 Meq Tab, 1 TAB PO MWF 05/26/24 Furosemide (Furosemide) 40 Mg Tab, 1 TAB PO MWF 05/26/24 Buspirone Hcl (Buspirone Hcl) 15 Mg Tab, 1 TAB PO BID for 30 Days, #60 05/26/24 Artificial Tear Solution (ARTIFICIAL TEARS) Tears Mirian, 1 DROP EACHEYE PRN for DRY EYES, ML 05/25/24 Clonazepam (KlonoPIN TABLET) 0.5 Mg Tb, 0.5 TAB PO BID PRN for ANXIETY for 30 Days, #30 02/16/24 Trazodone HCl (Trazodone Hydrochloride) 50 Mg Tab, 2 TAB PO HS PRN for 30 Days, #60 09/22/22 Citalopram Hydrobromide (Citalopram) 40 Mg Tab, 40 MG PO DAILY, TAB 09/21/22 Amiodarone Hcl (Amiodarone Hcl) 200 Mg Tab, 200 MG PO DAILY 09/21/22 Simvastatin (Simvastatin) 20 Mg Tab, 20 MG PO HS 04/07/22 Metoprolol Tartrate (Lopressor) 25 Mg Tb, 1 TAB PO BID for 90 Days, #180 0 Refills 04/07/22 Information Source: Patient, Emergency Med Personnel Mode of Arrival: EMS Severity: Moderate Timing: Hours Duration: Since onset Prehospital treatment: Other (Aspirin, Nitro ) Location: Chest (L) Radiation: Neck (RT) Quality: Stabbing Onset: At Rest Cardiac Risk Factors: Hyperlipidemia, HTN PE Risk Factors: None History of: FL Associated Signs and Symptoms: Other (Neck pain, RT eye changes in vision) Past Medical History PAST MEDICAL HISTORY: AFIB, Anxiety, Cancer, CVA, Depression, High Lipids, HTN, FL, Seizures, Thyroid, TIA Surgical History: Cholecystectomy, , Hernia Repair, Hysterectomy, Pacemaker INOCULATOR History: No Pertinent INOCULATOR History Family History Family History: Family hx of DM, Family hx of Cancer, Family hx of heart benjamín Social History Smoker: Non-Smoker Alcohol: Denies ETOH Use Drugs: Denies Drug Use Lives In: Home Constitutional: denies: chills, diaphoresis, fatigue, fever, malaise, sweats, weakness, others EENTM: reports: blurred vision; denies: double vision, ear bleeding, ear discharge, ear drainage, ear pain, ear ringing, eye pain, eye redness, hearing loss, mouth pain, mouth swelling, nasal discharge, nose bleeding, nose congestion, nose pain, photophobia, tearing, throat pain, throat swelling, voice changes, others Respiratory: denies: cough, hemoptysis, orthopnea, SOB at rest, shortness of breath, SOB with excertion, stridor, wheezing, others Cardiovascular: reports: chest pain; denies: dizzy spells, diaphoresis, Dyspnea on exertion, edema, irregular heart beat, left arm pain, lightheadedness, palpitations, PND, syncope, others Gastrointestinal: denies: abdomen distended, abdominal pain, blood streaked bowels, constipated, diarrhea, dysphagia, difficulty swallowing, hematemesis, melena, nausea, poor appetite, poor fluid intake, rectal bleeding, rectal pain, vomiting, others Genitourinary: denies: abnormal vagina bleeding, burning, dyspareunia, dysuria, flank pain, frequency, hematuria, incontinence, pain, , vagina discharge, urgency, others Neurological: denies: dizziness, fainting, headache, left sided numbness, left sided weakness, numbness, paresthesia, pre-existing deficit, right sided numbness, right sided weakness, seizure, speech problems, tingling, tremors, weakness, others Musculoskeletal: reports: neck pain (RT side ); denies: back pain, gout, joint pain, joint swelling, muscle pain, muscle stiffness, others Integumetry: denies: bruises, change in color, change in hair/nails, dryness, laceration, lesions, lumps, rash, wounds, others Allergic/Immunocompromised: denies: Difficulty Healing, Frequent Infections, Hives, Itching, others Hematologic/Lymphatic: denies: anemia, blood clots, easy bleeding, easy bruising, swollen glands, others Endocrine: denies: excessive hunger, excessive sweating, excessive thirst, excessive urination, flushing, intolerance to cold, intolerance to heat, unexpl ained weight gain, unexplained weight loss, others Psychiatric: denies: anxiety, bipolar disorder, depression, hopeless, panic disorder, schizophrenia, sleepless, suicidal, others All Other Systems: Reviewed and Negative Physical Exam General Appearance: Moderate Distress, Normal HEENT: Normal ENT Inspection, Pharynx Normal, TMs Normal Neck: Full Range of Motion, Non-Tender, Normal, Normal Inspection Respiratory: Chest Non-Tender, Lungs Clear, No Accessory Muscle Use, No Respiratory Distress, Normal Breath Sounds Cardiovascular: No Edema, No JVD, No Murmur, No Gallop, Normal Peripheral Pulses, Regular Rate/Rhythm Breast Exam: Deferred Gastrointestinal: No Organomegaly, Non Tender, No Pulsatile Mass, Normal Bowel Sounds, Soft Genitalia: Deferred Pelvic: Deferred Rectal: Deferred Extremities: No calf tenderness, Normal capillary refill, Normal inspection, Normal range of motion, Non-tender, No pedal edema Musculoskeletal : Apperance: Normal Neurologic: Alert, metallurgical specialist II-XII nml as Tested, No Motor Deficits, Normal Affect, Normal Mood, No Sensory Deficits Cerebellar Function: NOT DONE Reflexes: NOT DONE Skin: Dry, Normal Color, Warm Peripheral Pulses: 3+ Radial (R), 3+ Radial (L) Lymphatic: No Adenopathy Was a procedure done? Was a procedure done?: No CP Differential Dx Differential Diagnosis: A-fib, A-Flutter, Angina, Anxiety / Panic Attack, Atrial Dysrhythmia, Electrolyte Disorder X-Ray, Labs, Meds, VS Vital Signs Date Time Temp Pulse Resp B/P (MAP) Pulse Ox O2 Delivery O2 Flow Rate FiO2 12/20/24 14:31 84 20 96 Room Air* 0 21 12/20/24 13:25 60 12/20/24 13:25 98.1 60 20 190/98 (128) 94 Lab Test 12/20/24 13:55 Range/Units White Blood Count 9.1 4.4-10.8 10^3/uL Red Blood Count 4.55 4.0-5.20 10^6/uL Hemoglobin 14.0 12.2-16.2 g/dL Hematocrit 42.5 36.0-46.0 % Mean Corpuscular Volume 93.3 80.0-100.0 fL Mean Corpuscular Hemoglobin 30.8 28.0-32.0 pg Mean Corpuscular Hemoglobin Concent 33.0 32.0-36.0 g/dL Red Cell Distribution Width 14.8 H 11.8-14.3 % Platelet Count 255 140-450 10^3/uL Mean Platelet Volume 8.2 6.9-10.8 fL Neutrophils (%) (Auto) 68.9 37.0-80.0 % Lymphocytes (%) (Auto) 23.3 10.0-50.0 % Monocytes (%) (Auto) 5.1 0.0-12.0 % Eosinophils (%) (Auto) 1.6 0.0-7.0 % Basophils (%) (Auto) 1.1 0.0-2.0 % Neutrophils # (Auto) 6.2 1.6-8.6 10 ^3/uL Lymphocytes # (Auto) 2.1 0.4-5.4 10 ^3/uL Monocytes # (Auto) 0.5 0-1.3 10 ^3/uL Eosinophils # (Auto) 0.1 0-0.8 10 ^3/uL Basophils # (Auto) 0.1 0-0.2 10 ^3/uL Nucleated Red Blood Cells 0.1 % Sodium Level Pending Potassium Level Pending Chloride Level Pending Carbon Dioxide Level Pending Anion Gap Pending Blood Urea Nitrogen Pending Creatinine Pending Glomerular Filtration Rate Calc Pending BUN/Creatinine Ratio Pending Serum Glucose Pending Calcium Level Pending Troponin I High Sensitivity Pending Current Medications Medications (Trade) Dose Ordered Sig/No Route Start Time Stop Time Status Last Admin Aspirin 325 mg ONCE ONCE PO 12/20/24 13:45 12/20/24 13:46 DC 12/20/24 14:29 Patient alert. Complaining of chest pain. Blood pressure elevated. Answering questions. Was given clonidine. WBC within normal limits. Hemoglobin within normal limits. She does have blurring of vision. Possibly will need MRI. No sign of any stroke. Good muscle strength. Was given aspirin. EKG reviewed does not show any acute changes. Explained to the patient. Continue cardiac monitoring. Time of 1ST Reevaluation: 14:00 Reevaluation 1ST: Unchanged Patient Education/Counseling: Diagnosis, Treatment, Prognosis Family Education/Counseling: No Family Present Additional Information The following tests were ordered, and results were reviewed by me: TROP, EKG-x3, TROP -x3, CBC, UA, BMP Additional Information was gathered from interviewing the following independent historians: EMS I discussed treatment and results with medical personnel and: patient Departure 1 Departure Time of Disposition: 14:55 Impression: Primary Impression: Chest pain of unknown etiology Additional Impressions: Hypertensive urgency Transient ischemic attack Disposition: ADMITTED INPATIENT Admit to: Med Surg Condition: Guarded Critical Care Note Critical Care Time?: No Stability Stability form required: No Heart Score Heart Score: Heart Score Response (Comments) Value History Slightly Suspicious 0 EKG Normal 0 Age >65 2 Risk Factors >3 or Hx ASHD 2 Troponin Normal limit 0 Total 4 I personally scribed for GISEL CABA MD ([email or web address]) on 12/20/24 at 13:41. Electronically submitted by Jada Prieto ([email or web address]). I personally scribed for GISEL CABA MD ([email or web address]) on 12/20/24 at 13:43. Electronically submitted by Jada Prieto ([email or web address]). GISEL CABA MD Dec 20, 2024 13:41
[2024-12-20 14:24] LABS: Basophils # (auto) 0.1 10 ^3/uL (0-0.2); Basophils % (auto) 1.1 % (0.0-2.0); Eosinophils # (auto) 0.1 10 ^3/uL (0-0.8); Eosinophils % (auto) 1.6 % (0.0-7.0); Hematocrit 42.5 % (36.0-46.0); Lymphocytes # (auto) 2.1 10 ^3/uL (0.4-5.4); Lymphocytes % (auto) 23.3 % (10.0-50.0); Mean Corpuscular Hemoglobin 30.8 pg (28.0-32.0); Mean Corpuscular Volume 93.3 fL (80.0-100.0); Monocytes # (auto) 0.5 10 ^3/uL (0-1.3); Monocytes % (auto) 5.1 % (0.0-12.0); Neutrophils # (auto) 6.2 10 ^3/uL (1.6-8.6); Neutrophils % (auto) 68.9 % (37.0-80.0); Nucleated Red Blood Cells % 0.1 %; Platelet Count (auto) 255 10^3/uL (140-450); Red Blood Cells 4.55 10^6/uL (4.0-5.20); Red Cell Distribution Width 14.8 % (11.8-14.3); White Blood Cell 9.1 10^3/uL (4.4-10.8)
[2024-12-20] MEDS: ASPirin 325 MG TAB PO ONE (14:29)
[2024-12-20 14:31] VITALS: PULSE 84; RESP 20; O2SAT 96
[2024-12-20 15:26] LABS: Chloride 103 mmol/L (98-107); Sodium 140 mmol/L (136-145)
[2024-12-20 15:27] LABS: Anion Gap 11 (5-15); Calcium 9.8 mg/dL (8.7-10.4); Carbon Dioxide 26 mmol/L (20-31)
--- NOTE | 2024-12-20 15:27 | DVH ---
EXAM: CT HEAD WITHOUT CONTRAST INDICATION: tia TECHNIQUE: CT of the head without intravenous contrast. Radiation Dose : 1. Head: CT Dose: CTDI volume is 51 mGy. Dose-length product is 911 mGy*cm The dose indicators for CT are the volume Computed Tomography (CT) Dose Index (CTDIvol) and the Dose Length Product (DLP), and are measured in units of mGy and mGy-cm, respectively. These indicators are not patient dose, but values generated from the CT scanner acquisition factors. The report includes radiation exposure data for exposures received during this examination. COMPARISON: HEAD WITHOUT CONTRAST on DOS: 12/05/22 FINDINGS: There is no evidence of acute intracranial hemorrhage, extra-axial collection, mass effect, midline s hift, herniation or hydrocephalus. The ventricles, sulci and cisterns are age appropriate. The helton-white differentiation is intact. Patchy periventricular and subcortical white matter hypoattenuation is nonspecific but may be related to small vessel ischemic disease. The visualized paranasal sinuses and mastoid air cells are clear. The surrounding soft tissues and osseous structures are unremarkable. IMPRESSION: 1. No acute intracranial abnormality. Radiation optimization: All CT scans at this facility use at least one of these dose optimization lokesh hniques: automated exposure control mA and/or kV adjustment per patient size (includes targeted exam s where dose is matched to clinical indication) or iterative reconstruction.
[2024-12-20 15:32] LABS: BUN/Creatinine Ratio 7.4 (10.0-20.0); Blood Urea Nitrogen 10 mg/dL (9-23); Glucose 90 mg/dL (74-106)
[2024-12-20] MEDS ORDERED: ALBUTEROL SULF 2.5 MG/0.5ML(0.5%) NEB SOLN NEB PRN (18:30)
[2024-12-20] MEDS ORDERED: NITROGLYCERIN 0.4 MG SL TAB SL PRN (18:30)
[2024-12-20] MEDS ORDERED: DOCUSATE SOD 100 MG CAP PO PRN (18:30)
[2024-12-20] MEDS ORDERED: ACETAMINOPHEN 325 MG TAB PO PRN (18:30)
[2024-12-20] MEDS ORDERED: ONDANSETRON HCL 4 MG/2 ML VIAL IV PRN (18:30)
[2024-12-20] MEDS ORDERED: hydrALAZINE HCL 20 MG/ML VL IV PRN (18:30)
[2024-12-20] MEDS ORDERED: MORPHINE SULFATE INJ 2 MG/ml SYRG IV PRN (18:30)
--- NOTE | 2024-12-20 18:37 | DVHHP2 ---
History of Present Illness Reason for Visit: Chest pain of unknown etiology History of Present Illness The patient is a 69-year-old female with multiple past medical history including AFib, CVA, depression, hypertension, and MS who presented to [facility] ED with complaint of chest pain. Patient reports symptoms progressively get worse with substernal chest pain, described as stabbing sensation, rating 6/10 numeric scale, radiates to her right neck, persistent headache for the past 2-3 days, change in vision of right eye, getting worse that prompted this visit. Patient was seen and evaluated in the ED, laboratory data shows WBC 9.1, platelets 255, sodium 140, potassium 4.0, BUN 10, creatinine 1.35, GFR 43, glucose 90, troponin 3, blood pressure 190/98 trending down to 161/71, heart rate 84, temperature 98.1 F, O2 saturation 97% on room air. Head CT showed no acute intracranial abnormality. Patient was given aspirin 324 mg p.o. x1, please see medication orders section in the computer. On my assessment, patient denies chest pain, no headache at this moment, no dizziness, no diaphoresis, no shortness of breaths, no abdominal pain, no nausea, no vomiting, no fever, no chills. Patient was admitted for further evaluation and medical management. Past Medical History AFIB, Anxiety, Cancer, CVA, Depression, High Lipids, HTN, MS, Seizures, Thyroid, TIA Past Surgical History Cholecystectomy, , Hernia Repair, Hysterectomy, Pacemaker Family History Reviewed, noncontributory to the management of this case. Past Social History The patient lives at home, denies smoking, alcohol or illicit drugs abuse. Review of Systems Constitutional: Yes: Weakness; No: Fever, Chills, Sweats, Malaise, Other Eyes: Vision change (Right eye); No: Pain, Conjunctivae inflammation, Eyelid inflammation, Other, Redness ENT: No: Ear pain, Ear discharge, Nose pain, Nose discharge, Nose congestion, Mouth pain, Mouth swelling, Throat pain, Throat swelling, Other Respiratory: No: Cough, Dry, Shortness of breath, SOB with excertion, Wheezing, Hemoptysis, Pleuritic Pain, Sputum, Wheezing, Other Cardiovascular: Chest Pain; No: Palpitations, Orthopnea, Paroxysmal Noc. Dyspnea, Edema, Lt Headedness, Other Gastrointestinal: No: Nausea, Vomiting, Abdominal Pain, Diarrhea, Constipation, Melena, Hematochezia, Other Genitourinary: No Dysuria, No Frequency, No Incontinence, No Hematuria, No Retention, No Other Musculoskeletal: neck pain; No: other, shoulder pain, arm pain, back pain, hand pain, leg pain, foot pain Skin: No: Rash, Lesions, Jaundice, Bruising, Other Neurological: Other (Headache); No: Weakness, Numbness, Incoordination, Change in speech, Confusion, Seizures Allergies: Coded Allergies: Erythromycin (Verified Allergy, Unknown, 04/06/22) Exam Vital Signs Vital Signs Date Time Temp Pulse Resp B/P (MAP) Pulse Ox O2 Delivery O2 Flow Rate FiO2 12/20/24 17:08 60 16 161/71 (101) 97 12/20/24 14:31 Room Air* 0 21 12/20/24 13:25 98.1 General Appearance: Alert, Oriented X3, Cooperative, No acute distress HEENT: Atraumatic, PERRLA, EOMI, Mucous membr. moist/pink Respiratory: Clear to auscultation, Normal air movement Cardiovascular: Regular rate, Normal S1, Normal S2, No murmurs Abdominal: Normal bowel sounds, Soft, No tenderness, No hepatospenomegaly, No masses Extremities: No clubbing, No cyanosis, No edema, Normal pulses, No tenderness/swelling Skin: No rashes, No breakdown, No significant lesion Neuro: Normal speech, Normal tone, Sensation intact, Cranial nerves 3-12 NL, Reflexes 2+, Other (Generalized weakness) Psych/Mental Status: Mental status NL, Mood NL Labs/Xrays Labs Test 12/20/24 17:53 12/20/24 15:43 12/20/24 13:55 Range/Units POC Glucose 106 70-106 mg/dl Troponin I High Sensitivity 3 L </=34 ng/L White Blood Count 9.1 4.4-10.8 10^3/uL Red Blood Count 4.55 4.0-5.20 10^6/uL Hemoglobin 14.0 12.2-16.2 g/dL Hematocrit 42.5 36.0-46.0 % Mean Corpuscular Volume 93.3 80.0-100.0 fL Mean Corpuscular Hemoglobin 30.8 28.0-32.0 pg Mean Corpuscular Hemoglobin Concent 33.0 32.0-36.0 g/dL Red Cell Distribution Width 14.8 H 11.8-14.3 % Platelet Count 255 140-450 10^3/uL Mean Platelet Volume 8.2 6.9-10.8 fL Neutrophils (%) (Auto) 68.9 37.0-80.0 % Lymphocytes (%) (Auto) 23.3 10.0-50.0 % Monocytes (%) (Auto) 5.1 0.0-12.0 % Eosinophils (%) (Auto) 1.6 0.0-7.0 % Basophils (%) (Auto) 1.1 0.0-2.0 % Neutrophils # (Auto) 6.2 1.6-8.6 10 ^3/uL Lymphocytes # (Auto) 2.1 0.4-5.4 10 ^3/uL Monocytes # (Auto) 0.5 0-1.3 10 ^3/uL Eosinophils # (Auto) 0.1 0-0.8 10 ^3/uL Basophils # (Auto) 0.1 0-0.2 10 ^3/uL Nucleated Red Blood Cells 0.1 % Sodium Level 140 136-145 mmol/L Potassium Level 4.0 3.5-5.1 mmol/L Chloride Level 103 98-107 mmol/L Carbon Dioxide Level 26 20-31 mmol/L Anion Gap 11 5-15 Blood Urea Nitrogen 10 9-23 mg/dL Creatinine 1.35 H 0.550-1.02 mg/dL Glomerular Filtration Rate Calc 43 >90 mL/min BUN/Creatinine Ratio 7.4 L 10.0-20.0 Serum Glucose 90 74-106 mg/dL Calcium Level 9.8 8.7-10.4 mg/dL PATIENT: IBRAHIMA WRIGHT ACCT: [id number] UNIT: [id number] : 1955 LOC: ER ROOM / BED: / AGE / SEX: 69 / F ADM STATUS: REG ER SERVICE [id number] ORDERING PHYSICIAN: GISEL CABA MD PROCEDURE(s): HWOCT - HEAD WITHOUT CONTRAST REASON: tia ORDER NUMBER(s): [id number], ACCESSION NUMBER(s): [id number] EXAM: CT HEAD WITHOUT CONTRAST INDICATION: tia TECHNIQUE: CT of the head without intravenous contrast. Radiation Dose: 1. Head: CT Dose: CTDI volume is 51 mGy. Dose-length product is 911 mGy*cm The dose indicators for CT are the volume Computed Tomography (CT) Dose Index (CTDIvol) and the Dose Length Product (DLP), and are measured in units of mGy and mGy-cm, respectively. These indicators are not patient dose, but values generated from the CT scanner acquisition factors. The report includes radiation exposure data for exposures received during this examination. COMPARISON: HEAD WITHOUT CONTRAST on DOS: 12/05/22 FINDINGS: There is no evidence of acute intracranial hemorrhage, extra-axial collection, mass effect, midline shift, herniation or hydrocephalus. The ventricles, sulci and cisterns are age appropriate. The helton-white differentiation is intact. Patchy periventricular and subcortical white matter hypoattenuation is nonspecific but may be related to small vessel ischemic disease. The visualized paranasal sinuses and mastoid air cells are clear. The surrounding soft tissues and osseous structures are unremarkable. IMPRESSION: 1. No acute intracranial abnormality. Assessment/Plan Assessment/Plan Chest pain of unknown etiology Hypertensive urgency Transient ischemic attack Generalized weakness Plan 1. Admit to telemetry unit 2. Breathing treatment 3. Pain control management 4. Management of fluids and electrolytes 5. Consultation for hospitalist 6. Diagnostic tests head CT 7. DVT prophylaxis-on Xarelto 8. Repeat labs CBC, CMP in a.m. 9. Continue with current medical management 10. Treatment plan discussed with patient and RN. Patient verbalized understanding. Plan discussed with: Patient, Other (RN) My Orders Orders - JUDITH ANSARI DNP Procedure Category Date Status Time Amlodipine Tablet PHA 12/21/24 Transmitted (Norvasc Tablet) 10:00 Hydralazine Injection PHA 12/20/24 Transmitted (Apresoline Inject 18:30 Trazodone Hcl PHA 12/20/24 Transmitted (Desyrel) 22:00 Levothyroxine Tablet PHA 12/21/24 Transmitted (Synthroid Tablet) 06:00 Thyroid Stimulating LAB 12/20/24 Transmitted Hormone 18:26 Metoprolol Tartrate PHA 12/20/24 Transmitted Tablet (Lopressor Ta 22:00 (Nf) Xeralto PHA 12/21/24 Transmitted 10:00 Citalopram Tablet PHA 12/21/24 Transmitted (Celexa Tablet) 10:00 Albuterol Medneb PHA 12/20/24 Transmitted (Ventolin Medneb) 18:30 Admit ADMIT 12/20/24 Verified 18:26 Allergies HILARIA 12/20/24 Verified 18:26 Code Status CODE 12/20/24 Verified 18:26 Sodium Chloride Lock PHA 12/20/24 Verified (Saline Lock Ns) 22:00 Oxygen Per Hour RT 12/20/24 Verified 18:26 Hydrocodone-Acet PHA 12/20/24 Verified 5/325mg Tab (Homer 18:30 Ondansetron Hcl PHA 12/20/24 Verified (Zofran) 18:30 Docusate Sodium PHA 12/20/24 Verified Capsule (Colace 18:30 Fall Risk Precautions HILARIA 12/20/[address] 18:26 Complete Blood Count LAB 12/21/24 Verified 04:00 Comprehensive LAB 12/21/24 Verified Metabolic Panel 04:00 Cardiac DIET 12/20/24 Verified Diet-2gna,Lofat,Lochol Dinner Condition: Serious HILARIA 12/20/24 Verified 18:26 Acetaminophen Tablet PHA 12/20/24 Verified (Tylenol Tablet) 18:30 Bedrest [address]room [facility] 12/20/24 Verified Privileg 18:[address] [facility] 12/20/24 Verified Compression Device Nitroglycerin [facility] 12/20/24 Verified Sublingual (Ntrostat 18:30 Morphine Sulfate [facility] 12/20/24 Verified Injection 18:30 Stat Ekg For Chest [facility] 12/20/24 Verified Pain 18:26 Notify Of Changes [facility] 12/20/24 Verified From Base 18:26 Radiologist Physician For [facility] 12/20/24 Verified 24 Hours 18:[address] [facility] 12/20/24 Verified Protocol 18:26 Rhythm Strips [address] [facility] 12/20/24 Verified Every Shift 18:26 Oxygen By Nasal RT 12/20/24 Verified Cannula 18:26 Problem List: (1) Chest pain of unknown etiology (2) Hypertensive urgency (3) Transient ischemic attack (4) Generalized weakness Date of Service: Dec 20, 2024 Billing Provider: JUDITH ANSARI DNP Common Visit Codes: [id number] INP/OBS CARE (HIGH) JUDITH ANSARI DNP Dec 20, 2024 18:37
[2024-12-20 19:06] VITALS: BP 161/71; PULSE 60; RESP 16; TEMP 98.1; O2SAT 97
[2024-12-20] MEDS: SODIUM CHLOR 0.9% PF (SALINE LOCK) 10ML VIAL/SYR IV SCH (22:34)
[2024-12-20 22:40] VITALS: PULSE 59; RESP 18; O2SAT 97
[2024-12-20] MEDS: METOPROLOL TARTRATE 50 MG TAB PO SCH (22:46)
[2024-12-20] MEDS: traZODone HCL 50 MG TAB PO SCH (22:46)
[2024-12-20] MEDS: HYDROcodone-ACET 5/325MG TAB PO PRN (22:47)
[2024-12-21] VITALS (12 sets, daily range): BP systolic 110–136; BP diastolic 57–77; PULSE 60; RESP 15–18; TEMP 97.6–98.8; O2SAT 92–95
[2024-12-21] MEDS: LEVOTHYROXINE SODIUM 50 MCG TAB PO SCH (06:07)
[2024-12-21 07:44] LABS: Alanine Aminotransferase 27 U/L (7-40); Albumin 4.3 g/dL (3.2-4.8); Alkaline Phosphatase 61 U/L (46-116); Anion Gap 10 (5-15); Aspartate Aminotransferase 25 U/L (13-40); BUN/Creatinine Ratio 10.6 (10.0-20.0); Bilirubin, Total 0.6 mg/dL (0.2-1.0); Blood Urea Nitrogen 14 mg/dL (9-23); Calcium 9.8 mg/dL (8.7-10.4); Carbon Dioxide 29 mmol/L (20-31); Chloride 100 mmol/L (98-107); Glucose 77 mg/dL (74-106); Potassium 3.9 mmol/L (3.5-5.1); Sodium 139 mmol/L (136-145); Total Protein 6.5 g/dL (5.7-8.2)
[2024-12-21 08:45] LABS: Basophils # (auto) 0 10 ^3/uL (0-0.2); Basophils % (auto) 0.4 % (0.0-2.0); Eosinophils # (auto) 0.2 10 ^3/uL (0-0.8); Eosinophils % (auto) 2.5 % (0.0-7.0); Lymphocytes # (auto) 3.3 10 ^3/uL (0.4-5.4); Lymphocytes % (auto) 36.3 % (10.0-50.0); Mean Corpuscular Hgb Conc. 33.4 g/dL (32.0-36.0); Mean Corpuscular Volume 92.7 fL (80.0-100.0); Monocytes # (auto) 0.7 10 ^3/uL (0-1.3); Monocytes % (auto) 8.1 % (0.0-12.0); Neutrophils # (auto) 4.8 10 ^3/uL (1.6-8.6); Neutrophils % (auto) 52.7 % (37.0-80.0); Nucleated Red Blood Cells % 0.2 %; Platelet Count (auto) 214 10^3/uL (140-450); Red Blood Cells 4.21 10^6/uL (4.0-5.20); Red Cell Distribution Width 14.6 % (11.8-14.3); White Blood Cell 9.1 10^3/uL (4.4-10.8)
[2024-12-21] MEDS: CITALOPRAM HYDROBR 20 MG TAB PO SCH (09:12)
[2024-12-21] MEDS: amLODIPine BESYLATE 5 MG TAB PO SCH (09:12)
[2024-12-21] MEDS: RIVAROXABAN 20 MG PO SCH (10:00)
--- NOTE | 2024-12-21 15:48 | DVHINCON2 ---
Date of service: Dec 21, 2024 Referring Physician Wyatt Reason for Consultation Chest pain History of Present Illness This is a 69 year old female with a PMH of [place], HTN, CVA, anxiety, a-fib, seizure, TIA, HLD, depression, cancer who was brought in by EMS with complaints of chest pain that began on 12/20/24 around 08:00. EMS administered Nitro and Aspirin. Patient states she began experiencing chest pain, radiates to right side neck, as well as changes in vision of right eye. Patient describes chest pain as a stabbing sensation, 6/10 pain. CBC is unremarkable. Senior Interaction Designer 1.35, TSH 43.15, Troponin 3, Senior Interaction Designer 1.32. CT head shows no acute intracranial abnormality. Patient was admitted to the hospital. I am asked to consult on this patient. Family History: Diabetes mellitus G8 MOTHER FH: heart disease G8 MOTHER Hypercholesterolemia G8 MOTHER Hypertension G8 MOTHER Allergies: Coded Allergies: Erythromycin (Verified Allergy, Unknown, 04/06/22) Home Meds Active Scripts Hydrocortisone Base (CORTEF) 10 Mg Tab, 10 MG PO BID for 30 Days, #60 TAB Prov:UNA ALMANZAR MD 10/03/24 Rivaroxaban (XARELTO) 20 Mg Tab, 1 TAB PO DAILY, #30 TAB 2 Refills Start taking the medication Xarelto on FridayOctober 11 Prov:UNA ALMANZRA MD 10/03/24 Nitrofurantoin Monohydrate Mac (Macrobid) 100 Mg Cap, 100 MG PO BID for 4 Days, #8 CAP Prov:UNA ALMANZAR MD 05/29/24 Levothyroxine Sodium (SYNTHROID TABLET) 50 Mcg Tb, 125 MCG PO QAM@0600 for 30 Days, #30 TAB Prov:UNA ALMANZAR MD 05/29/24 Cyanocobalamin (B-12) 1,000 Mcg Cap, 1000 MCG PO QAM for 30 Days, #30 CAP Prov:MELANIE BARAKAT MD 01/30/23 Mirtazapine (Remeron) 15 Mg Tab, 0.5 TAB PO QPM, #30 TAB 1 Refill Prov:ABIMAEL BARONE MD 09/24/22 Reported Medications Ergocalciferol (Vitamin D (Ergocalciferol) 50,000 Unit Cap, 1 CAP PO QWEEKLY 05/26/24 Aripiprazole (Abilify) 2 Mg Tab, 1 TAB PO DAILY 05/26/24 Albuterol Sulfate (Albuterol Sulfate Hfa) 108 Mcg/Act Aer, 2 PUFF INH BID 05/26/24 Hydroxyzine Hcl (Hydroxyzine Hcl) 10 Mg Tab, 2 TAB PO TID PRN 05/26/24 Potassium Chloride (Potassium Chloride ER) 10 Meq Tab, 1 TAB PO MWF 05/26/24 Furosemide (Furosemide) 40 Mg Tab, 1 TAB PO MWF 05/26/24 Buspirone Hcl (Buspirone Hcl) 15 Mg Tab, 1 TAB PO BID for 30 Days, #60 05/26/24 Artificial Tear Solution (ARTIFICIAL TEARS) Tears Mirian, 1 DROP EACHEYE PRN for DRY EYES, ML 05/25/24 Clonazepam (KlonoPIN TABLET) 0.5 Mg Tb, 0.5 TAB PO BID PRN for ANXIETY for 30 Days, #30 02/16/24 Trazodone HCl (Trazodone Hydrochloride) 50 Mg Tab, 2 TAB PO HS PRN for 30 Days, #60 09/22/22 Citalopram Hydrobromide (Citalopram) 40 Mg Tab, 40 MG PO DAILY, TAB 09/21/22 Amiodarone Hcl (Amiodarone Hcl) 200 Mg Tab, 200 MG PO DAILY 09/21/22 Simvastatin (Simvastatin) 20 Mg Tab, 20 MG PO HS 04/07/22 Metoprolol Tartrate (Lopressor) 25 Mg Tb, 1 TAB PO BID for 90 Days, #180 0 Refills 04/07/22 Current Medications Current Medications Medications (Trade) Dose Ordered Sig/No Route PRN Reason Start Time Stop Time Status Last Admin Amlodipine Besylate (Norvasc Tablet) 5 mg DAILY PO 12/21/24 10:00 12/21/24 09:12 Hydralazine HCl (Apresoline Injection) 10 mg Q6HP PRN IV SBP>150 12/20/24 18:30 Trazodone HCl (Desyrel) 100 mg HS PO 12/20/24 22:00 12/20/24 22:46 Levothyroxine Sodium (Synthroid Tablet) 50 mcg QAM@0600 PO 12/21/24 06:00 12/21/24 06:07 Metoprolol Tartrate (Lopressor Tablet) 50 mg BID PO 12/20/24 22:00 12/21/24 09:12 Patient Own Medication 20 mg DAILY PO 12/21/24 10:00 Citalopram Hydrobromide (CeleXA TABLET) 20 mg DAILY PO 12/21/24 10:00 12/21/24 09:12 Albuterol (Ventolin Medneb) 2.5 mg Q4HPRN PRN NEB SHORTNESS OF BREATH 12/20/24 18:30 Sodium Chloride (Saline Lock Ns) 10 ml Q8HR IV 12/20/24 22:00 12/21/24 09:12 Acetaminophen/ Hydrocodone Bitart (Tyrone 5/325MG Tab) 1 tab Q4HP PRN PO MODERATE PAIN (4-6 PAIN SCALE) 12/20/24 18:30 12/21/24 14:17 Ondansetron HCl (Zofran) 4 mg Q4HP PRN IV NAUSEA / VOMITING 12/20/24 18:30 Docusate Sodium (Colace Capsule) 100 mg BIDPRN PRN PO FOR CONSTIPATION 12/20/24 18:30 Acetaminophen (Tylenol Tablet) 650 mg Q6HP PRN PO PAIN SCALE 1-3 OR TEMP>100.4 12/20/24 18:30 Nitroglycerin (Ntrostat Sublingual) 0.4 mg Q5MINP PRN SL FOR CHEST PAIN 12/20/24 18:30 Morphine Sulfate 2 mg Q30M PRN IV FOR CHEST PAIN 12/20/24 18:30 Review of Systems Constitutional: Yes: Weakness; No: Fever, Chills, Sweats, Malaise, Other Eyes: Vision change (Right eye); No: Pain, Conjunctivae inflammation, Eyelid inflammation, Other, Redness ENT: No: Ear pain, Ear discharge, Nose pain, Nose discharge, Nose congestion, Mouth pain, Mouth swelling, Throat pain, Throat swelling, Other Respiratory: No: Cough, Dry, Shortness of breath, SOB with excertion, Wheezing, Hemoptysis, Pleuritic Pain, Sputum, Wheezing, Other Cardiovascular: Chest Pain; No: Palpitations, Orthopnea, Paroxysmal Noc. Dyspnea, Edema, Lt Headedness, Other Gastrointestinal: No: Nausea, Vomiting, Abdominal Pain, Diarrhea, Constipation, Melena, Hematochezia, Other Genitourinary: No Dysuria, No Frequency, No Incontinence, No Hematuria, No Retention, No Other Musculoskeletal: neck pain; No: other, shoulder pain, arm pain, back pain, hand pain, leg pain, foot pain Skin: No: Rash, Lesions, Jaundice, Bruising, Other Neurological: Other (Headache); No: Weakness, Numbness, Incoordination, Change in speech, Confusion, Seizures Vital Signs Vital Signs Date Time Temp Pulse Resp B/P (MAP) Pulse Ox O2 Delivery O2 Flow Rate FiO2 12/21/24 12:22 98.8 60 16 110/64 (79) 95 98.8 12/21/24 07:23 Room Air 0.0 12/21/24 07:23 21 Physical Exam GENERAL: Awake, alert, oriented. LUNGS: Clear. CARDIOVASCULAR: Heart sounds are good. ABDOMEN: Soft. Labs/Diagnostic Data Labs Test 12/21/24 06:15 12/20/24 17:53 12/20/24 13:55 Range/Units White Blood Count 9.1 4.4-10.8 10^3/uL Red Blood Count 4.21 4.0-5.20 10^6/uL Hemoglobin 13.0 12.2-16.2 g/dL Hematocrit 39.0 36.0-46.0 % Mean Corpuscular Volume 92.7 80.0-100.0 fL Mean Corpuscular Hemoglobin 31.0 28.0-32.0 pg Mean Corpuscular Hemoglobin Concent 33.4 32.0-36.0 g/dL Red Cell Distribution Width 14.6 H 11.8-14.3 % Platelet Count 214 140-450 10^3/uL Mean Platelet Volume 8.8 6.9-10.8 fL Neutrophils (%) (Auto) 52.7 37.0-80.0 % Lymphocytes (%) (Auto) 36.3 10.0-50.0 % Monocytes (%) (Auto) 8.1 0.0-12.0 % Eosinophils (%) (Auto) 2.5 0.0-7.0 % Basophils (%) (Auto) 0.4 0.0-2.0 % Neutrophils # (Auto) 4.8 1.6-8.6 10 ^3/uL Lymphocytes # (Auto) 3.3 0.4-5.4 10 ^3/uL Monocytes # (Auto) 0.7 0-1.3 10 ^3/uL Eosinophils # (Auto) 0.2 0-0.8 10 ^3/uL Basophils # (Auto) 0 0-0.2 10 ^3/uL Nucleated Red Blood Cells 0.2 % Sodium Level 139 136-145 mmol/L Potassium Level 3.9 3.5-5.1 mmol/L Chloride Level 100 98-107 mmol/L Carbon Dioxide Level 29 20-31 mmol/L Anion Gap 10 5-15 Blood Urea Nitrogen 14 9-23 mg/dL Creatinine 1.32 H 0.550-1.02 mg/dL Glomerular Filtration Rate Calc 44 >90 mL/min BUN/Creatinine Ratio 10.6 10.0-20.0 Serum Glucose 77 74-106 mg/dL Calcium Level 9.8 8.7-10.4 mg/dL Total Bilirubin 0.6 0.2-1.0 mg/dL Aspartate Amino Transferase (AST) 25 13-40 U/L Alanine Aminotransferase (ALT) 27 7-40 U/L Alkaline Phosphatase 61 46-116 U/L Total Protein 6.5 5.7-8.2 g/dL Albumin 4.3 3.2-4.8 g/dL POC Glucose 106 70-106 mg/dl Thyroid Stimulating Hormone (TSH) 43.15 H 0.55-4.78 uIU/mL Assessment Chest pain. Hypertensive urgency. Transient ischemic attack. Generalized weakness. Plan/Recommendation I agree with your ongoing assessment and care of plan. Trend troponin. Morphine and Tyrone for pain management. Amlodipine. IV Hydralazine for SBP> 150. Metoprolol. Nitro SL. Additional plan as per the hospital course. A total of 45 minutes was spent reviewing the patient record, examining the patient, making a diagnostic and therapeutic plan, discussing this plan with medical personnel, following up on diagnostic studies and following the patient for clinical stability excluding any and all procedures. At least 50% of this time was spent in direct, [id number] contact. Plan discussed with: Patient FRANCIS,COLIN Dixon MD Dec 21, 2024 15:48
--- NOTE | 2024-12-21 17:36 | DVHPN2 ---
Subjective Seen and examined at bedside, patients grant administrator is Dr. Destiny Mendieta. Still c/o chest discomfort. Changes from previous H/P or p: No Changes Eyes: No Pain, No Vision change, No Conjunctivae inflammation, No Eyelid inflammation, No Other, No Redness ENT: No Ear pain, No Ear discharge, No Nose pain, No Nose discharge, No Nose congestion, No Mouth pain, No Mouth swelling, No Throat pain, No Throat swelling, No Other Cardiovascular: Chest Pain; No Palpitations, No Orthopnea, No Paroxysmal Noc. Dyspnea, No Edema, No Lt Headedness, No Other Respiratory: No Cough, No Dry, No Shortness of breath, No SOB with excertion, No Wheezing, No Hemoptysis, No Pleuritic Pain, No Sputum, No Other Gastrointestinal: No Nausea, No Vomiting, No Abdominal Pain, No Diarrhea, No Constipation, No Melena, No Hematochezia, No Other Genitourinary: No Dysuria, No Frequency, No Incontinence, No Hematuria, No Retention, No Other Musculoskeletal: No other, No neck pain, No shoulder pain, No arm pain, No back pain, No hand pain, No leg pain, No foot pain Skin: No Rash, No Lesions, No Jaundice, No Bruising, No Other Objective Vitals Vital Signs Date Time Temp Pulse Resp B/P (MAP) Pulse Ox O2 Delivery O2 Flow Rate FiO2 12/21/24 16:38 98.0 60 18 111/57 (75) 92 98.0 12/21/24 07:23 Room Air 0.0 12/21/24 07:23 21 Exam Gen: in bed NAD Cvs: N S1/S2, RRR Resp: BLAE Abd: Soft, NT, BS+ Body Artist: AAO x 4 Medications Current Medications Medications Dose Ordered Sig/No Route Start Time Stop Time Status Last Admin Dose Admin Amlodipine Besylate 5 mg DAILY PO 12/21/24 10:00 12/21/24 09:12 5 MG Hydralazine HCl 10 mg Q6HP PRN IV 12/20/24 18:30 Trazodone HCl 100 mg HS PO 12/20/24 22:00 12/20/24 22:46 100 MG Levothyroxine Sodium 50 mcg QAM@0600 PO 12/21/24 06:00 12/21/24 06:07 50 MCG Metoprolol Tartrate 50 mg BID PO 12/20/24 22:00 12/21/24 09:12 50 MG Patient Own Medication 20 mg DAILY PO 12/21/24 10:00 Citalopram Hydrobromide 20 mg DAILY PO 12/21/24 10:00 12/21/24 09:12 20 MG Albuterol 2.5 mg Q4HPRN PRN NEB 12/20/24 18:30 Sodium Chloride 10 ml Q8HR IV 12/20/24 22:00 12/21/24 09:12 10 ML Acetaminophen/ Hydrocodone Bitart 1 tab Q4HP PRN PO 12/20/24 18:30 12/21/24 14:17 1 TAB Ondansetron HCl 4 mg Q4HP PRN IV 12/20/24 18:30 Docusate Sodium 100 mg BIDPRN PRN PO 12/20/24 18:30 Acetaminophen 650 mg Q6HP PRN PO 12/20/24 18:30 Nitroglycerin 0.4 mg Q5MINP PRN SL 12/20/24 18:30 Morphine Sulfate 2 mg Q30M PRN IV 12/20/24 18:30 Laboratory Results Laboratory Tests 12/21/24 06:15 Chemistry Test 12/21/24 06:15 Albumin 4.3 g/dL (3.2-4.8) Calcium Level 9.8 mg/dL (8.7-10.4) Total Protein 6.5 g/dL (5.7-8.2) LFT Test 12/21/24 06:15 Alanine Aminotransferase (ALT) 27 U/L (7-40) Alkaline Phosphatase 61 U/L (46-116) Aspartate Amino Transferase (AST) 25 U/L (13-40) Total Bilirubin 0.6 mg/dL (0.2-1.0) Assessment/Plan Assessment/Plan # Chest Pain - ECHO - Cx Dr. Destiny Mendieta # Hypertensive Heart Disease w/ possible acute diastolic CHF - Lasix - Monitor and adjust meds as needed # TIA - ASA - Lipitor - PT Eval # Goals of care discussion >18 mins FULL CODE Plan discussed with: Patient My Orders Orders - MELANIE BARAKAT MD Procedure Category Date Status Time * Cardiology Consult CONS 12/21/24 Transmitted 15:03 Levothyroxine Tablet PHA 12/22/24 Transmitted (Synthroid Tablet) 06:00 Chest Two Views XY 12/21/24 Transmitted Routine 17:29 Aspirin Tablet PHA 12/21/24 Transmitted 17:30 Aspirin Tablet PHA 12/22/24 Transmitted 10:00 Atorvastatin (Lipitor) PHA 12/21/24 Transmitted 22:00 Free T4 (Free LAB 12/21/24 Logged Thyroxine) 17:29 Date of Service: Dec 21, 2024 Billing Provider: MELANIE BARAKAT MD Common Visit Codes: 89420-[id number] INP/OBS CARE(HIGH) Secondary Visit Codes: [id number] CARE PLAN 30 MINUTES MELANIE BARAKAT MD Dec 21, 2024 17:36
[2024-12-21] MEDS: ASPirin 81 mg TAB PO ONE (18:05)
--- NOTE | 2024-12-21 18:20 | DVH ---
XY CHEST TWO VIEWS ROUTINE CLINICAL HISTORY: sob COMPARISON: None TECHNIQUE: Frontal and lateral view of the chest was obtained FINDINGS: Lines and Tubes: None. Left-sided approach dual lead pacemaker terminating within right atrium and r ight ventricle. Lungs: No focal consolidation. Left lower lung zone linear density. Pleura: No effusion. No pneumothorax. Cardiomediastinal contours: Unremarkable Bones: No acute osseous abnormality. IMPRESSION: Left lower lung zone linear atelectasis. Otherwise no evidence for acute cardiopulmonary disease.
[2024-12-21] MEDS: ATORVASTATIN 20 MG TAB PO SCH (21:49)
[2024-12-22] VITALS (8 sets, daily range): BP systolic 108–120; BP diastolic 43–51; PULSE 60–74; RESP 17–18; TEMP 97.5–99.1; O2SAT 92–96
[2024-12-22] MEDS: LEVOTHYROXINE SODIUM 50 MCG TAB PO SCH (05:33)
[2024-12-22] MEDS ORDERED: LEVOTHYROXINE SODIUM 50 MCG TAB PO SCH (06:00)
[2024-12-22] MEDS: ASPirin 81 mg TAB PO SCH (09:47)
[2024-12-22] MEDS: HYDROCORTISONE 10 MG TAB PO SCH (09:47)
--- NOTE | 2024-12-22 10:31 | DVHINCON2 ---
Date of service: Dec 22, [address] Mendieta Reason for Consultation AI History of Present Illness 69-year-old female with history of adrenal insufficiency, hypothyroidism, atrial fibrillation status post pacemaker who presented to the hospital on 12/20 with chest pain. Patient was given nitroglycerin and aspirin and rounds. Upon presentation patient hemodynamically stable satting well on room air. Afebrile. Labs notable for troponin 3, creatinine 1.3, free T4 0.9. Cardiology consulted and planning for echocardiogram. CT head and chest x-ray negative for acute abnormalities. Patient states she has underlying hypothyroidism. She takes hydrocortisone 10mg bid at home but is unclear of any prior diagnosis of adrenal insufficiency. Past Medical History Problems Medical Problems: (1) Chest pain of unknown etiology Status: Acute (2) Hypertensive urgency Status: Acute (3) TIA (transient ischemic attack) Status: Acute (4) Transient ischemic attack Status: Acute Past Surgical History Past Surgical History Medical Problems: (1) Chest pain of unknown etiology Status: Acute (2) Hypertensive urgency Status: Acute (3) TIA (transient ischemic attack) Status: Acute (4) Transient ischemic attack Status: Acute Family History: Diabetes mellitus G8 MOTHER FH: heart disease G8 MOTHER Hypercholesterolemia G8 MOTHER Hypertension G8 MOTHER Allergies: Coded Allergies: Erythromycin (Verified Allergy, Unknown, 04/06/22) Home Meds Active Scripts Hydrocortisone Base (CORTEF) 10 Mg Tab, 10 MG PO BID for 30 Days, #60 TAB Prov:UNA ALMANZAR MD 10/03/24 Rivaroxaban (XARELTO) 20 Mg Tab, 1 TAB PO DAILY, #30 TAB 2 Refills Start taking the medication Xarelto on FridayOctober 11 Prov:UNA ALMANZAR MD 10/03/24 Nitrofurantoin Monohydrate Mac (Macrobid) 100 Mg Cap, 100 MG PO BID for 4 Days, #8 CAP Prov:UNA ALMANZAR MD 05/29/24 Levothyroxine Sodium (SYNTHROID TABLET) 50 Mcg Tb, 125 MCG PO QAM@0600 for 30 Days, #30 TAB Prov:UNA ALMANZAR MD 05/29/24 Cyanocobalamin (B-12) 1,000 Mcg Cap, 1000 MCG PO QAM for 30 Days, #30 CAP Prov:MELANIE BARAKAT MD 01/30/23 Mirtazapine (Remeron) 15 Mg Tab, 0.5 TAB PO QPM, #30 TAB 1 Refill Prov:ABIMAEL BARONE MD 09/24/22 Reported Medications Ergocalciferol (Vitamin D (Ergocalciferol) 50,000 Unit Cap, 1 CAP PO QWEEKLY 05/26/24 Aripiprazole (Abilify) 2 Mg Tab, 1 TAB PO DAILY 05/26/24 Albuterol Sulfate (Albuterol Sulfate Hfa) 108 Mcg/Act Aer, 2 PUFF INH BID 05/26/24 Hydroxyzine Hcl (Hydroxyzine Hcl) 10 Mg Tab, 2 TAB PO TID PRN 05/26/24 Potassium Chloride (Potassium Chloride ER) 10 Meq Tab, 1 TAB PO MWF 05/26/24 Furosemide (Furosemide) 40 Mg Tab, 1 TAB PO MWF 05/26/24 Buspirone Hcl (Buspirone Hcl) 15 Mg Tab, 1 TAB PO BID for 30 Days, #60 05/26/24 Artificial Tear Solution (ARTIFICIAL TEARS) Tears Mirian, 1 DROP EACHEYE PRN for DRY EYES, ML 05/25/24 Clonazepam (KlonoPIN TABLET) 0.5 Mg Tb, 0.5 TAB PO BID PRN for ANXIETY for 30 Days, #30 02/16/24 Trazodone HCl (Trazodone Hydrochloride) 50 Mg Tab, 2 TAB PO HS PRN for 30 Days, #60 09/22/22 Citalopram Hydrobromide (Citalopram) 40 Mg Tab, 40 MG PO DAILY, TAB 09/21/22 Amiodarone Hcl (Amiodarone Hcl) 200 Mg Tab, 200 MG PO DAILY 09/21/22 Simvastatin (Simvastatin) 20 Mg Tab, 20 MG PO HS 04/07/22 Metoprolol Tartrate (Lopressor) 25 Mg Tb, 1 TAB PO BID for 90 Days, #180 0 Refills 04/07/22 Current Medications Current Medications Medications (Trade) Dose Ordered Sig/No Route PRN Reason Start Time Stop Time Status Last Admin Levothyroxine Sodium (Synthroid Tablet) 137 mcg QAM@0600 PO 12/22/24 06:00 12/21/24 18:37 DC Aspirin 81 mg DAILY PO 12/22/24 10:00 12/22/24 09:47 Atorvastatin Calcium (Lipitor) 40 mg HS PO 12/21/24 22:00 12/21/24 21:49 Levothyroxine Sodium (Synthroid Tablet) 100 mcg QAM@0600 PO 12/22/24 06:00 12/22/24 05:33 Hydrocortisone (Cortef Tablet) 10 mg BID PO 12/22/24 10:00 12/22/24 09:47 Rivaroxaban (Xarelto Tablet) 20 mg QPM PO 12/22/24 18:00 Review of Systems Negative except that which is stated in HPI Vital Signs Vital Signs Date Time Temp Pulse Resp B/P (MAP) Pulse Ox O2 Delivery O2 Flow Rate FiO2 12/22/24 09:48 61 112/44 12/22/24 09:00 97.7 18 95 97.7 12/22/24 08:03 Room Air 0.0 12/22/24 08:03 21 Physical Exam Gen - no acute distress HEENT - no thyromegaly CV - RRR, no m/r/g Resp - non labored respirations Ext - no edema Labs/Diagnostic Data Labs Test 12/21/24 18:35 12/21/24 06:15 12/20/24 17:53 12/20/24 13:55 Range/Units Free Thyroxine (T4) Calculated 0.94 0.89-1.76 ng/dL White Blood Count 9.1 4.4-10.8 10^3/uL Red Blood Count 4.21 4.0-5.20 10^6/uL Hemoglobin 13.0 12.2-16.2 g/dL Hematocrit 39.0 36.0-46.0 % Mean Corpuscular Volume 92.7 80.0-100.0 fL Mean Corpuscular Hemoglobin 31.0 28.0-32.0 pg Mean Corpuscular Hemoglobin Concent 33.4 32.0-36.0 g/dL Red Cell Distribution Width 14.6 H 11.8-14.3 % Platelet Count 214 140-450 10^3/uL Mean Platelet Volume 8.8 6.9-10.8 fL Neutrophils (%) (Auto) 52.7 37.0-80.0 % Lymphocytes (%) (Auto) 36.3 10.0-50.0 % Monocytes (%) (Auto) 8.1 0.0-12.0 % Eosinophils (%) (Auto) 2.5 0.0-7.0 % Basophils (%) (Auto) 0.4 0.0-2.0 % Neutrophils # (Auto) 4.8 1.6-8.6 10 ^3/uL Lymphocytes # (Auto) 3.3 0.4-5.4 10 ^3/uL Monocytes # (Auto) 0.7 0-1.3 10 ^3/uL Eosinophils # (Auto) 0.2 0-0.8 10 ^3/uL Basophils # (Auto) 0 0-0.2 10 ^3/uL Nucleated Red Blood Cells 0.2 % Sodium Level 139 136-145 mmol/L Potassium Level 3.9 3.5-5.1 mmol/L Chloride Level 100 98-107 mmol/L Carbon Dioxide Level 29 20-31 mmol/L Anion Gap 10 5-15 Blood Urea Nitrogen 14 9-23 mg/dL Creatinine 1.32 H 0.550-1.02 mg/dL Glomerular Filtration Rate Calc 44 >90 mL/min BUN/Creatinine Ratio 10.6 10.0-20.0 Serum Glucose 77 74-106 mg/dL Calcium Level 9.8 8.7-10.4 mg/dL Total Bilirubin 0.6 0.2-1.0 mg/dL Aspartate Amino Transferase (AST) 25 13-40 U/L Alanine Aminotransferase (ALT) 27 7-40 U/L Alkaline Phosphatase 61 46-116 U/L Troponin I High Sensitivity 4 </=34 ng/L Total Protein 6.5 5.7-8.2 g/dL Albumin 4.3 3.2-4.8 g/dL POC Glucose 106 70-106 mg/dl Thyroid Stimulating Hormone (TSH) 43.15 H 0.55-4.78 uIU/mL Assessment # Chest pain # Adrenal insufficiency # Hypothyroidism Chronic history of AI although unclear without evidence of acute adrenal crisis or hemodynamic decompensation. Continue home regimen with close VS monitoring. - Continue hydrocortisone 10mg bid - Stable for discharge from endocrine perspective Plan discussed with: Patient PAYTON LOZANO MD Dec 22, 2024 10:31
--- NOTE | 2024-12-22 14:08 | DVHPN2 ---
Progress Note - Dictate Date Seen: Dec 22, 2024 Medical Necessity Reason Pt with a Central, PICC or Fol: No Subjective Patient was seen and evaluated in follow up. Patient is complaining of chest pain. Chest x-ray shows left lower lung zone linear atelectasis. Troponin is negative. Free T4 0.94. Echocardiogram is pending. Telemetry reviewed. vital signs Vital Sign Date Time Temp Pulse Resp B/P (MAP) Pulse Ox O2 Delivery O2 Flow Rate FiO2 12/22/24 10:48 62 110/47 12/22/24 09:00 97.7 18 95 97.7 12/22/24 08:03 Room Air 0.0 12/22/24 08:03 21 Total Intake and Output 12/21/24 12/21/24 12/22/24 15:00 23:00 07:00 Intake Total 475 ml Balance 475 ml medications Current Medications Medications Dose Ordered Sig/No Route Start Time Stop Time Status Last Admin Dose Admin Amlodipine Besylate 5 mg DAILY PO 12/21/24 10:00 12/21/24 09:12 5 MG Hydralazine HCl 10 mg Q6HP PRN IV 12/20/24 18:30 Trazodone HCl 100 mg HS PO 12/20/24 22:00 12/21/24 22:09 100 MG Metoprolol Tartrate 50 mg BID PO 12/20/24 22:00 12/22/24 09:48 50 MG Citalopram Hydrobromide 20 mg DAILY PO 12/21/24 10:00 12/22/24 09:47 20 MG Albuterol 2.5 mg Q4HPRN PRN NEB 12/20/24 18:30 Sodium Chloride 10 ml Q8HR IV 12/20/24 22:00 12/22/24 05:34 10 ML Acetaminophen/ Hydrocodone Bitart 1 tab Q4HP PRN PO 12/20/24 18:30 12/21/24 14:17 1 TAB Ondansetron HCl 4 mg Q4HP PRN IV 12/20/24 18:30 Docusate Sodium 100 mg BIDPRN PRN PO 12/20/24 18:30 Acetaminophen 650 mg Q6HP PRN PO 12/20/24 18:30 Nitroglycerin 0.4 mg Q5MINP PRN SL 12/20/24 18:30 Morphine Sulfate 2 mg Q30M PRN IV 12/20/24 18:30 Aspirin 81 mg DAILY PO 12/22/24 10:00 12/22/24 09:47 81 MG Atorvastatin Calcium 40 mg HS PO 12/21/24 22:00 12/21/24 21:49 40 MG Levothyroxine Sodium 100 mcg QAM@0600 PO 12/22/24 06:00 12/22/24 05:33 100 MCG Hydrocortisone 10 mg BID PO 12/22/24 10:00 12/22/24 09:47 10 MG Rivaroxaban 20 mg QPM PO 12/22/24 18:00 objective GENERAL: Awake, alert, oriented. LUNGS: Clear. CARDIOVASCULAR: Heart sounds are good. ABDOMEN: Soft. laboratory and microbiology Laboratory Tests 12/21/24 06:15 Test 12/21/24 06:15 Range/Units Serum Glucose 77 74-106 mg/dL Problem List Chest pain. Hypertensive urgency. Transient ischemic attack. Generalized weakness. Assessment/Plan Continued all current supportive medical care. Echocardiogram. Morphine and [place] for pain management. Amlodipine. Aspirin, Lipitor, Metoprolol. IV Hydralazine for SBP> 150. Xarelto. Additional plan as per the hospital course. Plan discussed with: Patient COLIN FRANCIS MD Dec 22, 2024 12:41
--- NOTE | 2024-12-22 16:35 | DVHDS2 ---
Discharge Summary Date of Admission Dec 20, 2024 at 18:26 Date of Discharge: Dec 22, 2024 Admitting Diagnosis Chest Pain Labs/Diagnostic Data: Laboratory Results Test 12/21/24 18:35 12/21/24 06:15 12/20/24 17:53 12/20/24 13:55 Free Thyroxine (T4) Calculated 0.94 ng/dL (0.89-1.76) White Blood Count 9.1 10^3/uL (4.4-10.8) Red Blood Count 4.21 10^6/uL (4.0-5.20) Hemoglobin 13.0 g/dL (12.2-16.2) Hematocrit 39.0 % (36.0-46.0) Mean Corpuscular Volume 92.7 fL (80.0-100.0) Mean Corpuscular Hemoglobin 31.0 pg (28.0-32.0) Mean Corpuscular Hemoglobin Concent 33.4 g/dL (32.0-36.0) Red Cell Distribution Width 14.6 % (11.8-14.3) Platelet Count 214 10^3/uL (140-450) Mean Platelet Volume 8.8 fL (6.9-10.8) Neutrophils (%) (Auto) 52.7 % (37.0-80.0) Lymphocytes (%) (Auto) 36.3 % (10.0-50.0) Monocytes (%) (Auto) 8.1 % (0.0-12.0) Eosinophils (%) (Auto) 2.5 % (0.0-7.0) Basophils (%) (Auto) 0.4 % (0.0-2.0) Neutrophils # (Auto) 4.8 10 ^3/uL (1.6-8.6) Lymphocytes # (Auto) 3.3 10 ^3/uL (0.4-5.4) Monocytes # (Auto) 0.7 10 ^3/uL (0-1.3) Eosinophils # (Auto) 0.2 10 ^3/uL (0-0.8) Basophils # (Auto) 0 10 ^3/uL (0-0.2) Nucleated Red Blood Cells 0.2 % Sodium Level 139 mmol/L (136-145) Potassium Level 3.9 mmol/L (3.5-5.1) Chloride Level 100 mmol/L (98-107) Carbon Dioxide Level 29 mmol/L (20-31) Anion Gap 10 (5-15) Blood Urea Nitrogen 14 mg/dL (9-23) Creatinine 1.32 mg/dL (0.550-1.02) Glomerular Filtration Rate Calc 44 mL/min (>90) BUN/Creatinine Ratio 10.6 (10.0-20.0) Serum Glucose 77 mg/dL (74-106) Calcium Level 9.8 mg/dL (8.7-10.4) Total Bilirubin 0.6 mg/dL (0.2-1.0) Aspartate Amino Transferase (AST) 25 U/L (13-40) Alanine Aminotransferase (ALT) 27 U/L (7-40) Alkaline Phosphatase 61 U/L (46-116) Troponin I High Sensitivity 4 ng/L (</=34) Total Protein 6.5 g/dL (5.7-8.2) Albumin 4.3 g/dL (3.2-4.8) POC Glucose 106 mg/dl (70-106) Thyroid Stimulating Hormone (TSH) 43.15 uIU/mL (0.55-4.78) Other Laboratory Tests 12/21/24 06:15 Brief Hx & Hospital Course: The patient is a 69-year-old female with multiple past medical history including AFib, CVA, depression, hypertension, and MT who presented to [facility] ED with complaint of chest pain. Patient reports symptoms progressively get worse with substernal chest pain, described as stabbing sensation, rating 6/10 numeric scale, radiates to her right neck, persistent headache for the past 2-3 days, change in vision of right eye, getting worse that prompted this visit. Patient was seen by Dr. Destiny Mendieta (patients primary Medical Records Coder) who recommended outpatient followup. Patient was also seen by Endocrine consult. Will continue outpatient workup. Patient underwent LHC 6 months ago with no intervention per Dr. Destiny Mendieta. Condition at Discharge: Stable Final Diagnosis/Problems List # Chest Pain # Addisions Disease # Hypertensive Heart Disease w/ possible acute diastolic CHF # TIA Discharge Disposition: Home Discharge Instruct/Medications Diet: Cardiac 2g Na,low cholest Activity: Light activity Follow Up/Referral: Dr. Destiny Mendieta Medications: resume home meds Discharge Statement: "Patient was advised to return to the ER or call 911 if any headaches, dizziness, shortness of breath, chest pain, abdominal pain, bleeding, fevers, or worsening of medical condition. Patient was counseled about treatment plan, medications, possible side effects, patientverbalized understanding. All questions were answered to the best of my ability. This discharge took greater then 30 minutes in planning, reviewing documentation, counseling the patient, and discussing with other team members." ASSESSMENT ASSESSMENT Assessment Date of Service: Dec 22, 2024 Billing Provider: MELANIE BARAKAT MD Common Visit Codes: 89127-TAH/OBS DISCH DAY >30min MELANIE BARAKAT MD Dec 22, 2024 16:35
[2024-12-22] MEDS ORDERED: RIVAROXABAN 20 MG TAB PO SCH (18:00)
== END 2024-12-22 18:30 | disposition home or self-care (01) | DRG 291 ==
LOC: ER 13:25 → EDBD 13:25 → OVERFLOW 18:26 → TELE-EAST 12-21 22:33
PROVIDERS: ADMIT Internal Medicine; ATTEND Internal Medicine
DX: I11.0 Hypertensive heart disease with heart failure (principal); I50.31 Acute diastolic (congestive) heart failure; G45.9 Transient cerebral ischemic attack, unspecified; E27.40 Unspecified adrenocortical insufficiency; J98.11 Atelectasis; I16.0 Hypertensive urgency; I48.91 Unspecified atrial fibrillation; E78.5 Hyperlipidemia, unspecified; E03.9 Hypothyroidism, unspecified; F32.A Depression, unspecified; Z95.0 Presence of cardiac pacemaker; Z88.1 Allergy status to other antibiotic agents; Z86.73 Personal history of transient ischemic attack (TIA), and cerebral infarction without residual deficits; Z83.3 Family history of diabetes mellitus; Z82.49 Family history of ischemic heart disease and other diseases of the circulatory system; Z90.710 Acquired absence of both cervix and uterus; Z79.899 Other long term (current) drug therapy; Z98.891 History of uterine scar from previous surgery; Z90.49 Acquired absence of other specified parts of digestive tract; I25.2 Old myocardial infarction; Z79.51 Long term (current) use of inhaled steroids
CPT/HCPCS: 36415; 70450; 71046; 80048; 80053; 82962; 84439; 84443; 84484; 85025; 93005; 93306; 97163; G0378